=== PATIENT | female | born 1945 | race Caucasian/White ===

== ENCOUNTER 2020-02-17 10:36 | Outpatient (CLI) | payer MEDICARE, SELFPAY | END 2020-02-17 10:37 | disposition home or self-care (01) | LOC: ANHAUDIO 10:38 | PROVIDERS: PCP Family Medicine; Visit Provider Family Medicine | DX: H90.3 Sensorineural hearing loss, bilateral (principal) | CPT/HCPCS: 92557; 92567 ==

== ENCOUNTER 2020-10-28 12:09 | Emergency (ER) | payer MEDICARE, SELFPAY ==
--- NOTE | ~2020-10-28 | XR_ITS ---
EXAMINATION: XR chest 1V portable DATE: 10/28/2020 13:14 INDICATION: Fever. TECHNIQUE: A single frontal view of the chest was obtained. COMPARISON: Chest 2 views 09/15/2016 FINDINGS: There is a diffuse interstitial pattern in the lungs. There are airspace opacities in right lower lung zone. No pleural effusion or pneumothorax. The heart size is normal. IMPRESSION: 1. Diffuse lung disease, worst in right lower lung zone, consistent with pneumonia. Reviewed, dictated and finalized at location A. IFIED MEDICATION AIDE IMPRESSION: 1. Diffuse lung disease, worst in right lower lung zone, consistent with pneumo jazmyn.
[2020-10-28 12:22] VITALS: BP 136/92; PULSE 83; RESP 19; TEMP 37; O2SAT 96
--- NOTE | 2020-10-28 12:44 | ED.GENADULT ---
HPI - General Adult General Chief complaint: Unspecified Stated complaint: fever/chills/ in icu Time Seen by Provider: 10/28/20 12:21 Source: patient, RN notes reviewed and old records reviewed History of Present Illness HPI narrative: 75-year-old female presents to emergency department stating she has not been feeling well for the past week. She reports having an elevated temperature, weakness/fatigue, congested nose for the past week. Patient states she has had this in the past before, when she was diagnosed with the flu. She had taken [place] to help with her symptoms. She also reports her is in the hospital for COVID-19 at this time. Related Data Home Medications Medication Instructions Recorded Confirmed aspirin 81 mg tablet,delayed 81 mg PO DAILY 11/08/19 release calcium carbonate 500 mg (1,250 1 tablet PO DAILY 11/08/19 mg)-vitamin D3 400 unit tablet Allergies Allergy/AdvReac Type Severity Reaction Status Date / Time No Known Allergies Allergy Verified 10/28/20 12:27 Review of Systems Review of Systems: Narrative: CONSTITUTIONAL: Denies fever, chills, or sweats. EYES: Denies visual changes, redness, or discharge. ENT: Denies rhinorrhea, congestion, sore throat, or otalgia. CARDIOVASCULAR: Denies chest pain, palpitations, or edema. RESPIRATORY: Denies cough or dyspnea. GASTROINTESTINAL: Denies abdominal pain, nausea, vomiting, or diarrhea. GENITOURINARY: Denies dysuria or hematuria. SKIN: Denies rash or itching. MUSCULOSKELETAL: Denies back pain, joint pain, or myalgia. NEUROLOGIC: Denies headache, numbness, dizziness, or weakness. PSYCHIATRIC: Denies anxiety or depression. All systems reviewed & are unremarkable except as noted in HPI and below (ROS) [facility] Family History Family History Sibling Family history of obesity Patient's sister is in good health Carcinoma of colon Social History Social History Years smoked: 20 Smoking status: Current some day smoker Tobacco type: cigarettes Second hand tobacco smoke exposure: No Alcohol intake: never Substance use: never Substance use type: does not use Gender identity (if verbalized by the patient): Female Exam Narrative: Exam Narrative: CONSTITUTIONAL: Denies, chills, or sweats. Reports fever. EYES: Denies visual changes, redness, or discharge. ENT: Denies rhinorrhea, sore throat, or otalgia. Reports congestion CARDIOVASCULAR: Denies chest pain, palpitations, or edema. RESPIRATORY: Denies cough or dyspnea. GASTROINTESTINAL: Denies abdominal pain, nausea, vomiting, or diarrhea. GENITOURINARY: Denies dysuria or hematuria. SKIN: Denies rash or itching. MUSCULOSKELETAL: Denies back pain, joint pain, or myalgia. NEUROLOGIC: Denies headache, numbness, dizziness. Reports weakness PSYCHIATRIC: Denies anxiety or depression. Course Reevaluation(s) Reevaluation #1: 1520 -reevaluated patient, no new complaints. Based on labs and chest x-ray, concern for COVID-19. Patient has stable vitals at this time. Additionally there is concern for underlying bacterial pneumonia. Will start doxycycline. Counseled patient to self quarantine for another week. Follow-up with family doctor in 1 to 2 weeks. Return to emergency department if she notices shortness of breath, or worsening of symptoms. Vital Signs Vital signs: Vital Signs Temperature 37.0 C 10/28/20 12:22 Pulse Rate 83 10/28/20 12:22 Respiratory Rate 19 10/28/20 12:22 Blood Pressure 136/92 H 10/28/20 12:22 Pulse Oximetry 96 10/28/20 12:22 Temperature 37.0 C 10/28/20 12:22 Pulse Rate 79 10/28/20 15:50 Respiratory Rate 16 10/28/20 15:50 Blood Pressure 121/76 10/28/20 15:50 Pulse Oximetry 94 10/28/20 15:50 Medical Decision Making Medical Records Medical records reviewed: Yes I reviewed the patient's medical records. Vital
[2020-10-28] MEDS: KETOROLAC 15 MG/ML VIAL (*BKC) IV PUSH (13:02)
[2020-10-28 13:20] VITALS: PULSE 78
[2020-10-28 13:30] VITALS: BP 128/78; PULSE 84; RESP 16; O2SAT 95
[2020-10-28 13:36] LABS: Basophils Percent Auto 0.2 % (0.2-1.2); Eosinophils Absolute Auto 0.1 K/mm3 (0-0.3); Eosinophils Percent Auto 2.6 % (0-4.4); Hematocrit 33.1 % (37.0-47.0); Hemoglobin 10.6 g/dL (12.0-15.0); Immature Granulocyte Absolute 0.03 K/mm3 (0.00-0.031); Immature Granulocyte Percent A 0.6 % (0-0.5); Lymphocytes Absolute Auto 1.03 K/mm3 (0.9-3.2); Lymphocytes Percent Auto 22.1 % (18.3-44.2); Mean Corpuscular Hemoglobin 28.9 pg (26-34); Mean Corpuscular Volume 90.2 fl (80-100); Monocytes Absolute Auto 0.3 K/mm3 (0.1-0.6); Monocytes Percent Auto 6.2 % (2.6-8.5); Neutrophils Absolute Auto 3.2 K/mm3 (1.3-6.7); Neutrophils Percent Auto 68.3 % (45.5-73.1); Platelet Count Result 276 k/mm3 (150-375); Red Blood Count 3.67 M/mm3 (4.2-5.4); Red Cell Distribution Width 13.5 % (11.5-14.5); White Blood Count 4.7 K/mm3 (4.5-10.0)
[2020-10-28 13:52] LABS: Anion Gap 4 mmol/L (8-16); Blood Urea Nitrogen 25 mg/dL (7-17); Calcium 9.2 mg/dL (8.4-10.2); Carbon Dioxide 37 mmol/L (22-30); Chloride 97 mmol/L (98-107); Estimated CRCL calculation 30 ml/min; Estimated Glomerular Filt Rate 48; Glucose 84 mg/dL (65-105); Lactate Dehydrogenase 413 U/L (313-618); Potassium 4.2 mmol/L (3.4-5.0); Sodium 138 mmol/L (137-145)
[2020-10-28 13:52] LABS: Add Urine Microscopic? YES; Appearance Urine Cloudy (Clear); Bacteria Urine Trace /hpf; Bilirubin Urine Negative (Negative); Blood Urine Negative (Negative); Color Urine Yellow (Yellow); Glucose Urine UA Negative (Negative); Ketones Urine Negative (Negative); Leukocyte Esterase Ur 3+ LEU/UL (Negative); Mucus Urine Rare /lpf; Nitrate Urine Negative (Negative); Protein Urine 1+ mg/dL (Negative); Specific Grav Ur 1.021 (1.001-1.035); Squamous Epithelial Cell Urine Many /hpf (Few); Urobilinogen Urine Negative mg/dL (<2.0); WBC Urine >75 /hpf
[2020-10-28 14:30] VITALS: BP 121/71; PULSE 60; RESP 16; O2SAT 96
[2020-10-28] MEDS: DOXYCYCLINE HYCLATE 100 MG TABLET PO (15:44)
[2020-10-28 15:50] VITALS: BP 121/76; PULSE 79; RESP 16; O2SAT 94
[2020-10-28 22:31] LABS: SARS-CoV-2 RNA PCR Positive
[2020-10-30 14:13] LABS: Procalcitonin <0.10 ng/mL (<0.10)
== END 2020-10-28 15:54 | disposition home or self-care (01) ==
PROVIDERS: Emergency Provider Emergency Medicine; PCP Family Medicine
DX: U07.1 COVID-19 (principal); J10.08 Influenza due to other identified influenza virus with other specified pneumonia; J15.9 Unspecified bacterial pneumonia; F17.210 Nicotine dependence, cigarettes, uncomplicated; Z79.82 Long term (current) use of aspirin
CPT/HCPCS: 36415; 71045; 80048; 81001; 82728; 83615; 84145; 84443; 85025; 86140; 87086; 87088; 87635; 87804; 96374; 99284; A9270; C9803; J1885; U0003

== ENCOUNTER → 2021-02-19 11:51 | Outpatient (CLI) | payer MEDICARE, SELFPAY ==
--- NOTE | ~2021-02-19 | XR_ITS ---
EXAMINATION: XR chest 2V DATE: 02/19/2021 12:06 INDICATION: Cough. TECHNIQUE: Frontal and lateral views of the chest were obtained. COMPARISON: Chest single view 10/28/2020, CT abdomen and pelvis 09/16/2013 FINDINGS: A calcified right lung nodule is consistent with old granulomatous disease. There are mild peripheral reticular opacities in the upper lobes and lower lung zones. No pleural effusion or pneumo thorax. The heart size is normal. There is mild chronic anterior wedging of a midthoracic vertebral b jessica. IMPRESSION: 1. Mild peripheral reticular opacities in the upper lobes and lower lung zones, likely mild chronic l broderick disease. Reviewed, dictated and finalized at location A. IMPRESSION: 1. Mild peripheral reticular opacities in the upper lobes and lower lung zones, likely mild chronic lung disease.
== END ==
PROVIDERS: Visit Provider Physician Assistant
DX: R05 Cough (principal); R91.8 Other nonspecific abnormal finding of lung field
CPT/HCPCS: 71046

== ENCOUNTER 2021-02-24 22:23 | Inpatient (IN) | payer MEDICARE, SELFPAY ==
--- NOTE | ~2021-02-24 | CT_ITS ---
EXAMINATION: CTA chest PE abdomen pel EXAM DATE: 02/25/2021 00:09 INDICATION: Abdominal pain with shortness of breath. TECHNIQUE: Spiral CTA of the chest (pulmonary arteries) was performed with 100 cc Omnipaque 350 intr avenous contrast injection. Images were acquired during the pulmonary arterial phase. Coronal maxi mum intensity projection 3D-reconstructions were created by the technologist on dedicated workstation . Axial, coronal and sagittal reformatted images were reviewed. Spiral CT of the abdomen and pelvis was then performed with the same intravenous contrast injection. Axial, coronal and sagittal reform atted images were reviewed. The dose-length product (DLP) for this examination was 590.29 mGy-cm. T he exposure was tailored according to patient size (auto mA exposure control), and iterative reconst ruction (ASIR) was used as additional dose reduction technique. Correlation is made to abdomen pelvis CT 09/16/2013. FINDINGS: CHEST: Pulmonary arteries are well opacified and without intraluminal filling defects. No thoracic aortic dissection. There is mild to moderate emphysema and also mild to moderate peripheral basilar predominant interlobular septal thickening, small regions of honeycombing, probably interstitial talat g disease. There is right lower lobe posteromedial opacity measuring about 2.5 x 5.0 cm, which appear s to be avidly enhancing with central hypodense region. Additionally, this appears to be extending ou t of the lung parenchyma into the chest wall with small amount of osseous erosion suspected at the ri ght 8th rib posteromedially, possibly with pathological fracture. Differential diagnosis includes mal ignancy and invasive infection such as actinomycosis. Clinical correlation, and this could be biopsie d under CT guidance. There are no pleural or pericardial effusions. Tracheobronchial tree is patent . There is no mediastinal, hilar or axillary lymphadenopathy. There is no pneumothorax. Heart n ormal in size. There is moderate coronary arterial calcification, arterial sclerosis. ABDOMEN PELVIS: The liver, spleen, adrenal glands and pancreas are unremarkable. There are gallstone s within an otherwise unremarkable gallbladder. No evidence of obstructive biliary disease. Portal and splenic veins are patent. Kidneys enhance symmetrically. There is no hydronephrosis. Multiple r egions of right renal cortical scarring. There is a 1.8 cm left renal cyst. The uterus is anteverted and morphologically normal. There is a pessary. The bladder is unremarkable. There is no retroperi toneal or pelvic lymphadenopathy. There is moderate scatter moderate to severe ed arteriosclerotic disease. The appendix is not positively visualized. There is no pericecal inflammatory change to suggest appe ndicitis. There is mild to moderate colonic diverticulosis. There is no adjacent inflammatory change to suggest diverticulitis. The stomach and small bowel are unremarkable. There is expected amount o f colonic stool. No free intraperitoneal gas. Aside from the right 8th rib abnormality, no region s of osteoblastic or osteolytic disease. IMPRESSION: 1. Right lower lobe posteromedial pleural based mass invading the chest wall, causing small erosion of the 8th rib and possibly with pathological fracture. Most likely malignancy but actinomycoses or o ther infection not excludable. Clinical correlation, consider biopsy. 2. Mild to moderate emphysema and interstitial lung disease. 3. Colonic diverticulosis. 4. Cholelithiasis Reviewed, dictated and finalized at location A. IMPRESSION: 1. Right lower lobe posteromedial pleural based mass invading the chest wall, causing small erosion of the 8th rib and possibly with pathological fracture. Danyelle
--- NOTE | ~2021-02-24 | XR_ITS ---
XR chest 1V portable DATE: 02/25/2021 18:43 INDICATION: Post right lung biopsy TECHNIQUE: Portable AP chest on 02/25/2021 at 1832 hours COMPARISON: 02/25/2021 portable AP chest at 1644 hours FINDINGS: No pneumothorax is evident following today's earlier CT guided percutaneous right pleural b ased mass biopsy. Normal heart size. No interval pulmonary infiltrate or pleural effusion. Aortic atherosclerotic calcification. 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 IMPRESSION: No evidence of iatrogenic right pneumothorax following CT-guided percutaneous needle biop sy of right pleural mass Reviewed, dictated and finalized at location A. IMPRESSION: No evidence of iatrogenic right pneumothorax following CT-guided pe rcutaneous needle biopsy of right pleural mass
--- NOTE | ~2021-02-24 | XR_ITS ---
EXAMINATION: XR chest 1V portable DATE: 02/25/2021 16:45 INDICATION: Right lung mass status post percutaneous biopsy. TECHNIQUE: A single frontal view of the chest was obtained. COMPARISON: Chest single view at 4:40 PM FINDINGS: There is a mass in right midlung zone. There is a diffuse interstitial pattern in the lungs , consistent with emphysema and chronic lung disease. No pleural effusion or pneumothorax. The heart size is normal. IMPRESSION: 1. Mass in right midlung zone suspicious for primary bronchogenic carcinoma. 2. Emphysema. Reviewed, dictated and finalized at location A.
--- NOTE | ~2021-02-24 | XR_ITS ---
XR chest 1V DATE: 02/25/2021 15:28 INDICATION: Right lung biopsy TECHNIQUE: AP chest on 02/25/2021 at 1524 hours COMPARISON: 02/25/2021 CT biopsy FINDINGS: There is no evidence of right pneumothorax following CT-guided percutaneous needle biopsy o f posteromedial right lower lobe pleural-based mass. Normal heart size. Aortic calcification. No pleural effusion. IMPRESSION: No evidence of iatrogenic pneumothorax post percutaneous CT-guided needle biopsy of right pleural-based mass Reviewed, dictated and finalized at location A.
--- NOTE | ~2021-02-24 | CT_ITS ---
EXAMINATION: CT biopsy lung w/imaging DATE: 02/25/2021 15:30 INDICATION: Right lung lower lobe mass. TECHNIQUE: The procedure including the risks, benefits, and alternatives and possibility of chest tub e placement were discussed with the patient. Risks discussed included infection, approximately 1/20 r isk of symptomatic hemorrhage beyond mild hemoptysis, approximately 1/3 risk of pneumothorax, approxi mately 1/10 risk of pneumothorax severe enough to warrant chest tube placement, and rarely . The patient understood the risks and agreed to proceed. The patient was placed prone. The skin overlyin g the right lung was prepped and draped in sterile fashion. Anesthetic was administered with 1% lido sulema subcutaneously. A 19 gauge outer needle was advanced under CT guidance to the lesion of intere st. A 20 gauge core biopsy needle was then used to obtain 3 core biopsy specimens. The needle was rem da and the entry site was cleaned and dressed. The mA was adjusted according to patient size. Itera tive reconstruction technique was employed. The dose-length product was 143.77 mGy-cm. There were no immediate complications. FINDINGS: CT images demonstrate the outer needle tip adjacent to a 5.0 x 2.4 cm mass in right lung lo wer lobe. IMPRESSION: 1. CT-guided core needle biopsy of a mass in right lung lower lobe. Reviewed, dictated and finalized at location A.
[2021-02-24 22:34] VITALS: BP 105/76; PULSE 114; RESP 20; TEMP 36.3; O2SAT 98
[2021-02-24 22:47] LABS: Basophils Absolute Auto 0.1 K/mm3 (0.0-0.1); Basophils Percent Auto 0.4 % (0.2-1.2); Eosinophils Absolute Auto 0.2 K/mm3 (0-0.3); Eosinophils Percent Auto 0.9 % (0-4.4); Hematocrit 41.1 % (37.0-47.0); Hemoglobin 12.9 g/dL (12.0-15.0); Immature Granulocyte Percent A 0.6 % (0-0.5); Lymphocytes Absolute Auto 2.98 K/mm3 (0.9-3.2); Lymphocytes Percent Auto 18.3 % (18.3-44.2); Mean Corpuscular HGB Conc 31.4 g/dl (32-36); Mean Corpuscular Hemoglobin 28.4 pg (26-34); Mean Corpuscular Volume 90.3 fl (80-100); Mean Platelet Volume 8.9 fl (7.4-10.4); Monocytes Absolute Auto 0.8 K/mm3 (0.1-0.6); Monocytes Percent Auto 5.1 % (2.6-8.5); Neutrophils Absolute Auto 12.1 K/mm3 (1.3-6.7); Neutrophils Percent Auto 74.7 % (45.5-73.1); Platelet Count Result 545 k/mm3 (150-375); Red Blood Count 4.55 M/mm3 (4.2-5.4); Red Cell Distribution Width 14.3 % (11.5-14.5); White Blood Count 16.3 K/mm3 (4.5-10.0)
--- NOTE | 2021-02-24 23:15 | ECG_ITS ---
Measurements Intervals [place] Rate: 75 P: 63 NE: 156 QRS: 18 QRSD: 89 T: 56 QT: 323 QTc: 361 Interpretive Statements SINUS RHYTHM WITH MARKED SINUS ARRHYTHMIA ATRIAL PREMATURE COMPLEX CONSIDER INFERIOR INFARCT, AGE INDETERMINATE BASELINE WANDER- I, II, AVR, AVL, AVF, V4-V6 ABNORMAL ECG Electronically Signed On 02-25-2021 7:01:29 CDT by Edgardo Washington D.O.
[2021-02-24 23:27] LABS: Alanine Aminotransferase 12 U/L (4-35); Albumin Level 4.5 g/dL (3.5-5.1); Alkaline Phosphatase 108 U/L (38-126); Anion Gap 6 mmol/L (8-16); Aspartate Amino Transferase 38 U/L (14-36); Bilirubin,Total 0.1 mg/dL (0.2-1.3); Blood Urea Nitrogen 47 mg/dL (7-17); Calcium 10.2 mg/dL (8.4-10.2); Carbon Dioxide 32 mmol/L (22-30); Chloride 101 mmol/L (98-107); Estimated CRCL calculation 24 ml/min; Estimated Glomerular Filt Rate 36; Glucose 135 mg/dL (65-105); Lipase 222 U/L (23-300); Potassium 4.4 mmol/L (3.4-5.0); Sodium 139 mmol/L (137-145)
[2021-02-24 23:30] LABS: Add Urine Microscopic? YES; Appearance Urine Clear (Clear); Bacteria Urine Trace /hpf; Bilirubin Urine Negative (Negative); Blood Urine Negative (Negative); Color Urine Yellow (Yellow); Glucose Urine UA Negative (Negative); Ketones Urine Negative (Negative); Leukocyte Esterase Ur Trace LEU/UL (Negative); Mucus Urine Rare /lpf; Nitrate Urine Negative (Negative); Protein Urine Negative (Negative); RBC Urine 0-2 /hpf (0-2); Specific Grav Ur 1.023 (1.001-1.035); Squamous Epithelial Cell Urine Many /hpf (Few); Urobilinogen Urine Negative mg/dL (<2.0); WBC Urine 0-3 /hpf
[2021-02-24] MEDS: ONDANSETRON INJ 4 MG/2 ML VIAL IV PUSH (23:45)
[2021-02-24] MEDS: MORPHINE SULFATE (*CRX) 4 MG/ML INJ IV PUSH (23:46)
[2021-02-24] MEDS: SODIUM CHLORIDE 0.9% IV 1,000 ML 999 ML IV CONT (23:46)
--- NOTE | 2021-02-24 23:47 | ED.GENADULT ---
HPI - General Adult General Chief complaint: Abdominal Pain Stated complaint: R Flank Pain,Back Pain Time Seen by Provider: 02/24/21 23:16 History of Present Illness HPI narrative: Patient is a 75-year-old female that presents to the emergency department with chief complaint of abdominal pain. The patient reports that she was seen by her primary care physician after she started having discomfort in her right lower chest/epigastric right upper quadrant area patient reports that the pain radiates from the right upper abdomen/chest to her back she describes it as a burning-like sensation. Patient reports she was seen by her primary care physician's office and was started on a Medrol Dosepak. The patient reports she completed the Medrol Dosepak but continues to have symptoms. Related Data Home Medications Medication Instructions Recorded Confirmed aspirin 81 mg tablet,delayed 81 mg PO DAILY 11/08/19 02/19/21 release calcium carbonate 500 mg (1,250 1 tablet PO DAILY 11/08/19 02/19/21 mg)-vitamin D3 400 unit tablet Allergies Allergy/AdvReac Type Severity Reaction Status Date / Time No Known Allergies Allergy Verified 02/24/21 22:39 Review of Systems Review of Systems: Narrative: A 10 system review of systems was completed on the patient and is negative except for what is stated in the HPI. Nursing and ancillary documentation was reviewed. [facility] Family History Family History Sibling Family history of obesity Patient's sister is in good health Carcinoma of colon Social History Social History Years smoked: 20 Smoking status: Current some day smoker Tobacco type: cigarettes Second hand tobacco smoke exposure: No Alcohol intake: never Substance use: never Substance use type: does not use Gender identity (if verbalized by the patient): Female Sexual Orientation (if Verbalized by the Patient): Straight or Heterosexual Exam Narrative: Exam Narrative: GENERAL: Well-appearing, well-nourished, and in no acute distress. HEAD: Normocephalic, atraumatic. EYES: PERRLA and EOMI. ENT: Nares clear, no rhinorrhea or epistaxis. Mucous membranes moist. NECK: Supple. CHEST: Clear to auscultation. No respiratory distress. HEART: Regular rate and rhythm. No murmur heard. Normal peripheral pulses. ABDOMEN: Soft, nontender, nondistended, normal active bowel sounds. EXTREMITIES: Normal range of motion. No edema. SKIN: Warm, dry, no rash. NEURO: No focal deficits. Alert and oriented x3. PSYCH: Normal mood and affect. Course Vital Signs Vital signs: Vital Signs Temperature 36.3 C L 02/24/21 22:34 Pulse Rate 114 H 02/24/21 22:34 Respiratory Rate 20 02/24/21 22:34 Blood Pressure 105/76 02/24/21 22:34 Pulse Oximetry 98 02/24/21 22:34 Temperature 36.3 C L 02/24/21 22:34 Pulse Rate 114 H 02/24/21 22:34 Respiratory Rate 20 02/24/21 22:34 Blood Pressure 105/76 02/24/21 22:34 Pulse Oximetry 98 02/24/21 22:34 Medical Decision Making Vital Signs Vital Signs: Vital Signs Temperature 36.3 C L 02/24/21 22:34 Pulse Rate 114 H 02/24/21 22:34 Respiratory Rate 20 02/24/21 22:34 Blood Pressure 105/76 02/24/21 22:34 Pulse Oximetry 98 02/24/21 22:34 Temperature 36.3 C L 02/24/21 22:34 Pulse Rate 114 H 02/24/21 22:34 Respiratory Rate 20 02/24/21 22:34 Blood Pressure 105/76 02/24/21 22:34 Pulse Oximetry 98 02/24/21 22:34 Lab Data Result diagrams: 02/24/21 22:40 02/24/21 22:40 Labs: Lab Results 02/24/21 02/24/21 02/24/21 Range/Units 22:40 22:40 22:48 WBC 16.3 H (4.5-10.0) K/mm3 RBC 4.55 (4.2-5.4) M/mm3 Hgb 12.9 (12.0-15.0) g/dL Hct 41.1 (37.0-47.0) % MCV 90.3 (80-100) fl MCH 28.4 (26-34) pg MCHC 31.4 L (32-36) g/dl RDW 14.3 (11.5-14.5) % Plt
[2021-02-25] VITALS (15 sets, daily range): BP systolic 111–158; BP diastolic 46–96; PULSE 52–100; RESP 16–24; TEMP 36.2–36.6; O2SAT 86–100; BMI 25.2
[2021-02-25 01:19] LABS: Lactic Acid Reflex 0.6 mmol/L (0.7-2.1)
[2021-02-25 01:33] LABS: Troponin I < 0.012 ng/mL (0.000-0.034)
[2021-02-25] MEDS: MORPHINE SULFATE (*CRX) 4 MG/ML INJ IV PUSH ×3 (01:56→16:02)
--- NOTE | 2021-02-25 02:31 | ADMGEN ---
This patient, Frieda Perkins, was admitted to [facility] Surg Room 330-01. Patient/family oriented to hospital policies and general routines including ID bracelet, bed and alarms, visiting hours, pain management, procedures, bathroom and other care routines, personal items, smoking policy, room service/diet, and visiting hours. Information on how to activate the Rapid Response Team has been discussed. Patient/Family are encouraged to report perceived risks to care and to ask questions if they do not understand what they are told or what they should do.
[2021-02-25] MEDS: SODIUM CHLORIDE 0.9% IV 1,000 ML 125 ML IV CONT (03:12)
[2021-02-25] MEDS: ONDANSETRON INJ 4 MG/2 ML VIAL IV PUSH ×2 (04:03→15:58)
--- NOTE | 2021-02-25 04:25 | PM.IMHP ---
H&P: HPI History of Present Illness Date/Time: 02/25/21 04:25 Chief Complaint: chest wall pain+ Narrative: This is a 75 year old female with known HTN, GERD, hyperlipidemia, and history of bladder cancer who is known to smoke 1/3 ppd for the past 20 years and presented to the hospital with a complaint of right chest and right flank pain for the past three weeks that has only been worsening. She has also had a chronic nonproductive cough which she attributes to her smoking. The patient denies any recent weight loss, night sweats, fevers, or hemoptysis. The patient was seen about a week ago for her burning right-sided chest pain and was prescribed a Medrol Dosepak. Last night she decided to come to the hospital as her pain was worsening and not improving. Routine labs revealed a WBC of 16,[address] Chest/Abd/Pelvis revealed a RLL mass. The patient was admitted to the hospital for evaluation of her lung mass. She was treated empircally with antibiotics in the ER tonight. No other complaints. Review of Systems Review of Systems: All systems reviewed & are unremarkable except as noted in HPI and below PMFSH Past Medical History Medical History Bladder cancer Chronic hypertension GERD (gastroesophageal reflux disease) Hyperlipidemia Family History Family History Sibling Family history of obesity Patient's sister is in good health Carcinoma of colon Social History Social History Years smoked: 20 Smoking status: Current every day smoker Tobacco type: cigarettes Second hand tobacco smoke exposure: No Alcohol intake: never Substance use: never Substance use type: does not use Gender identity (if verbalized by the patient): Female Sexual Orientation (if Verbalized by the Patient): Straight or Heterosexual Spiritual care concerns: No Meds Home Medications and Allergies Home Medications Medication Instructions Recorded Confirmed Type aspirin 81 mg tablet,delayed 81 mg PO DAILY 11/08/19 02/25/21 History release calcium carbonate 500 mg (1,250 1 tablet PO DAILY 11/08/19 02/25/21 History mg)-vitamin D3 400 unit tablet amlodipine 5 mg tablet 5 mg PO DAILY #90 tablet 01/29/21 02/25/21 Rx atorvastatin 10 mg tablet 10 mg PO DAILY #90 tablet 01/29/21 02/25/21 Rx hydrochlorothiazide 25 mg tablet 25 mg PO DAILY #90 tablet 01/29/21 02/25/21 Rx lisinopril 40 mg tablet 40 mg PO DAILY #90 tablet 01/29/21 02/25/21 Rx omeprazole 20 mg capsule,delayed 20 mg PO DAILY #90 cap 01/29/21 02/25/21 Rx release meloxicam 7.5 mg tablet 7.5 mg PO DAILY #30 tablet 02/22/21 02/25/21 Rx acetaminophen [Mapap 650 mg PO Q4H PRN #90 tablet 02/27/21 Rx (acetaminophen)] amoxicillin-pot clavulanate 1 tablet PO Q12H #14 tablet 02/27/21 Rx [Augmentin] Allergies Allergy/AdvReac Type Severity Reaction Status Date / Time No Known Allergies Allergy Verified 02/24/21 22:39 Vital Signs Vital Signs - 24 hr 02/24/21 22:34 02/25/21 00:15 02/25/21 00:16 Temperature 36.3 C L 36.6 C Pulse Rate 114 H 71 Respiratory Rate 20 18 Blood Pressure 105/76 149/69 H Pulse Oximetry 98 98 02/25/21 01:35 02/25/21 02:35 Temperature 36.6 C 36.4 C Pulse Rate 71 70 Respiratory Rate 16 20 Blood Pressure 134/73 154/61 H Pulse Oximetry 98 94 Exam Const: General: cooperative, no acute distress, alert and awake Nutritional Appearance: well nourished Orientation/consciousness: patient oriented x3 HENMT: Head: normal to inspection General nose exam: Normal external nose present Face and sinus: normal facial exam Mouth: Yes Normal oral and palatal mucosa present and Yes oropharynx normal Eyes: Pupils: Equal, round and reactive pupils present EOM: EOMs intact bilaterally Neck: Neck: supple and no JVD Thyroid: thyroid normal Lymphatic: lymphadenopathy not noted
[2021-02-25] MEDS: SODIUM CHLORIDE 0.9% IV 1,000 ML 100 ML IV CONT (05:13)
[2021-02-25] MEDS: PANTOPRAZOLE SOD SESQUIHYDRATE 20 MG TAB PO (08:34)
[2021-02-25] MEDS: ATORVASTATIN 10 MG TABLET PO (08:34)
[2021-02-25] MEDS: amLODIPine BESYLATE 5 MG TABLET PO (08:34)
[2021-02-25 12:48] LABS: Hematocrit 34.5 % (37.0-47.0); Hemoglobin 10.8 g/dL (12.0-15.0); Mean Corpuscular HGB Conc 31.3 g/dl (32-36); Mean Corpuscular Hemoglobin 28.6 pg (26-34); Mean Corpuscular Volume 91.3 fl (80-100); Platelet Count Result 446 k/mm3 (150-375); Red Blood Count 3.78 M/mm3 (4.2-5.4); Red Cell Distribution Width 14.4 % (11.5-14.5); White Blood Count 14.2 K/mm3 (4.5-10.0)
[2021-02-25 12:54] LABS: Anion Gap 3 mmol/L (8-16); Blood Urea Nitrogen 32 mg/dL (7-17); Calcium 8.8 mg/dL (8.4-10.2); Carbon Dioxide 33 mmol/L (22-30); Chloride 105 mmol/L (98-107); Estimated CRCL calculation 30 ml/min; Estimated Glomerular Filt Rate 48; Glucose 83 mg/dL (65-105); INR 0.9; Potassium 4.6 mmol/L (3.4-5.0); Prothrombin Time 12.7 Seconds (11.1-14.7); Sodium 141 mmol/L (137-145)
[2021-02-25 12:55] LABS: Partial Thromboplastin Time 28.6 SECONDS (22.3-36.8)
--- NOTE | 2021-02-25 14:09 | ECG_ITS ---
Measurements Intervals [place] Rate: 67 P: 58 RI: 168 QRS: 11 QRSD: 102 T: 39 QT: 389 QTc: 412 Interpretive Statements SINUS RHYTHM WITH MARKED SINUS ARRHYTHMIA BORDERLINE ECG Electronically Signed On 02-25-2021 17:15:42 CDT by Edgardo Washington D.O.
--- NOTE | 2021-02-25 14:10 | PM.IMPN ---
Progress Note: A&P Assessment and Plan (1) Acute chest wall pain: Code(s): R07.89 - Other chest pain Status: Acute Assessment and Plan: Pleuritic in nature. Ongoing for approximately 3 weeks. This is likely due to right lower lobe mass invading the chest wall and also likely pathologic fracture of 8th rib. Pain is well controlled at this time. Workup for lung mass as described above Analgesics available as needed for pain Supportive care including ice and pillow splinting (2) Lung mass: Code(s): R91.8 - Other nonspecific abnormal finding of lung field Status: Acute Assessment and Plan: CTA chest/abdomen/pelvis demonstrates right lower lobe posteromedial pleural-based mass invading the chest wall causing small erosion of the 8th rib. Most likely malignancy but actinomycosis or other infection not excludable per radiologist. Consultation to pulmonology and oncology with input appreciated. Proceed with CT guided lung biopsy today. NPO for procedure. I will discontinue IV antibiotics as pneumonia seems unlikely. Appreciate further pulmonology input and will await results of biopsy. (3) Thrombocytosis: Code(s): D47.3 - Essential (hemorrhagic) thrombocythemia Status: Acute Assessment and Plan: Likely reactive with gradual decline. Monitor CBC daily (4) Leukocytosis: Qualifiers: Leukocytosis type: unspecified Qualified Code(s): D72.829 - Elevated white blood cell count, unspecified Code(s): D72.829 - Elevated white blood cell count, unspecified Status: Acute Assessment and Plan: Likely secondary to recent steroid use as the patient has been on a medrol dose pack for pleuritic chest pain per PCP. WBC trending down Monitor CBC daily (5) Acute on chronic renal failure: Qualifiers: Acute renal failure type: unspecified Chronic kidney disease stage: stage 3 (moderate) Chronic kidney disease stage 3 subtype: unspecified whether 3a or 3b Qualified Code(s): N17.9 - Acute kidney failure, unspecified; N18.30 - Chronic kidney disease, stage 3 unspecified Code(s): N17.9 - Acute kidney failure, unspecified; N18.9 - Chronic kidney disease, unspecified Status: Acute Assessment and Plan: Baseline creatinine appears to be around 1.1. Creatinine at time of presentation was 1.4. Suspect prerenal etiology given improvement following IV fluid rehydration. Continue gentle IV fluids while NPO. Discontinuing tolerating oral intake Monitor renal function closely and renally dose medications. (6) Chronic hypertension: Code(s): I10 - Essential (primary) hypertension Status: Chronic Assessment and Plan: And has been generally well controlled. A couple of readings are elevated above target, however her antihypertensive has been on hold. Last BP 148/74. Resume HCTZ and lisinopril Monitor blood pressure trends closely (7) Tobacco dependence: Code(s): F17.200 - Nicotine dependence, unspecified, uncomplicated Status: Chronic Assessment and Plan: She has continued to reduce her daily smoking and is now smoking about 1/3 pack per day. She has declined the need for nicotine patch. I counseled her on smoking cessation and she verbalized understanding. Smoking cessation is imperative. (8) Substernal chest pain: Code(s): R07.2 - Precordial pain Status: Acute Assessment and Plan: She had a brief episode of substernal chest pain that she described as tightness/squeezing sensation with associated nausea and lightheadedness. She reports history of similar episodes with negative workup in the past. Please see subjective for further details. Troponin on presentation was negative. Stat EKG reviewed with no ST changes Check stat troponin Initiate press tender orthostatics Will administer antacid medication to ensure symptoms are not
[2021-02-25 15:09] LABS: Troponin I < 0.012 ng/mL (0.000-0.034)
[2021-02-25] MEDS: FAMOTIDINE 20 MG/2 ML VIAL IV PUSH (17:26)
--- NOTE | 2021-02-25 17:27 | PDONCCN ---
[facility] - Date of Consult Date/Time: 02/25/21 17:27 Requesting Physician: Mili Moy PA-C Primary Care Provider: Dennis Bowling MD - Consult Narrative Reason for consult: Lung mass. Narrative: Frieda Perkins is a 75 year old female with history of bladder cancer status post resection 10 years ago was seen by Dr. Morataya in the past. Patient also has a history of smoking 1/3 per per day for 20 years duration came into the hospital with right sided chest wall pain for last 3 weeks duration. She was also having some cough without any hemoptysis. Denies any weight loss. Denies any other bone pain. Denies any headache. CT scan chest abdomen pelvis was performed that showed right lower lobe pleural base mass invading the chest wall and erosion of the 8th rib with pathological fracture. There was no other evidence of malignancy. CT-guided biopsy of right lower lobe lung mass was performed. Mass was 5 x 2.4 cm. Review of Systems - Review of Systems All systems reviewed & are unremarkable except as noted in [facility] and [facility] Medical History: Medical History (Last Updated 02/25/21 @ 06:01 by Rocco Valdivia MD) Bladder cancer Chronic hypertension GERD (gastroesophageal reflux disease) Hyperlipidemia Family History: Family History (Last Reviewed 02/25/21 @ 06:01 by Rocco Valdivia MD) Sibling Family history of obesity Patient's sister is in good health Carcinoma of colon - Social History Social History: Social History (Last Reviewed 02/25/21 @ 06:01 by Rocco Valdivia MD) Gender Identity: Gender identity (if verbalized by the patient): Female Alcohol Use: Alcohol intake: never Substance Use: Substance use: never Substance use type: does not use Others: Spiritual care concerns: No Smoking Status: Smoking status: Current every day smoker Tobacco type: cigarettes Second hand tobacco smoke exposure: No Smoking Pack-years: Smoking cigarettes per day: 7 Years smoked: 20 Smoking pack-years: 7.00 Meds Home Medications Medication Instructions Recorded Confirmed Type aspirin 81 mg tablet,delayed 81 mg PO DAILY 11/08/19 02/25/21 History release calcium carbonate 500 mg (1,250 1 tablet PO DAILY 11/08/19 02/25/21 History mg)-vitamin D3 400 unit tablet amlodipine 5 mg tablet 5 mg PO DAILY #90 tablet 01/29/21 02/25/21 Rx atorvastatin 10 mg tablet 10 mg PO DAILY #90 tablet 01/29/21 02/25/21 Rx hydrochlorothiazide 25 mg tablet 25 mg PO DAILY #90 tablet 01/29/21 02/25/21 Rx lisinopril 40 mg tablet 40 mg PO DAILY #90 tablet 01/29/21 02/25/21 Rx omeprazole 20 mg capsule,delayed 20 mg PO DAILY #90 cap 01/29/21 02/25/21 Rx release meloxicam 7.5 mg tablet 7.5 mg PO DAILY #30 tablet 02/22/21 02/25/21 Rx Allergies Allergy/AdvReac Type Severity Reaction Status Date / Time No Known Allergies Allergy Verified 02/24/21 22:39 Results - Labs CBC & Chem 7: 02/25/21 11:50 02/25/21 11:50 Labs: Short CBC 02/24/21 02/25/21 Range/Units 22:40 11:50 WBC 16.3 H 14.2 H (4.5-10.0) K/mm3 Hgb 12.9 10.8 L (12.0-15.0) g/dL Hct 41.1 34.5 L (37.0-47.0) % Plt Count 545 H D 446 H (150-375) k/mm3 BMP 02/24/21 02/25/21 22:40 11:50 Sodium 139 141 Potassium 4.4 4.6 Chloride 101 105 Carbon Dioxide 32 H 33 H BUN 47 H D 32 H D Creatinine 1.40 H 1.10 H Glucose 135 H 83 Calcium 10.2 8.8 Cardiac Enzymes 02/25/21 02/25/21 Range/Units 00:54 14:36 Troponin I < 0.012 < 0.012 (0.000-0.034) ng/mL Liver Function 02/24/21 Range/Units 22:40 Total Bilirubin 0.1 L (0.2-1.3) mg/dL AST 38 H (14-36) U/L ALT 12 (4-35) U/L Alkaline Phosphatase 108 (38-126) U/L Albumin 4.5 (3.5-5.1) g/dL Urine 02/24/21 Range/Units 22:48 Urine Color Yellow (Yellow) Urine Appearance Clear (Clear) Urine pH 5.0 (5.0-9.0) Ur Specific [place] 1.023 (1.001-1.035) U
[2021-02-25] MEDS: ALBUTEROL SULFATE NEB 2.5 MG/3 ML INH 1.25 MG INHALATION (18:58)
[2021-02-26] VITALS: PULSE 63
[2021-02-26 04:00] VITALS: PULSE 91
[2021-02-26] MEDS: ONDANSETRON INJ 4 MG/2 ML VIAL IV PUSH ×2 (04:05→09:55)
[2021-02-26 06:00] VITALS: BP 154/51; PULSE 65; RESP 20; TEMP 37; O2SAT 93
[2021-02-26 06:32] LABS: Basophils Absolute Auto 0.1 K/mm3 (0.0-0.1); Basophils Percent Auto 0.4 % (0.2-1.2); Eosinophils Absolute Auto 0.3 K/mm3 (0-0.3); Hematocrit 33.5 % (37.0-47.0); Hemoglobin 10.6 g/dL (12.0-15.0); Immature Granulocyte Absolute 0.09 K/mm3 (0.00-0.031); Immature Granulocyte Percent A 0.6 % (0-0.5); Lymphocytes Absolute Auto 1.29 K/mm3 (0.9-3.2); Lymphocytes Percent Auto 8.8 % (18.3-44.2); Mean Corpuscular HGB Conc 31.6 g/dl (32-36); Mean Corpuscular Hemoglobin 28.2 pg (26-34); Mean Corpuscular Volume 89.1 fl (80-100); Mean Platelet Volume 8.8 fl (7.4-10.4); Monocytes Absolute Auto 0.7 K/mm3 (0.1-0.6); Monocytes Percent Auto 4.5 % (2.6-8.5); Neutrophils Absolute Auto 12.2 K/mm3 (1.3-6.7); Neutrophils Percent Auto 83.7 % (45.5-73.1); Platelet Count Result 380 k/mm3 (150-375); Red Blood Count 3.76 M/mm3 (4.2-5.4); White Blood Count 14.6 K/mm3 (4.5-10.0)
[2021-02-26 06:44] LABS: Anion Gap 2 mmol/L (8-16); Blood Urea Nitrogen 22 mg/dL (7-17); Calcium 8.8 mg/dL (8.4-10.2); Carbon Dioxide 31 mmol/L (22-30); Chloride 103 mmol/L (98-107); Estimated CRCL calculation 41 ml/min; Estimated Glomerular Filt Rate > 60; Glucose 103 mg/dL (65-105); Potassium 4.2 mmol/L (3.4-5.0); Sodium 136 mmol/L (137-145)
[2021-02-26 08:00] VITALS: PULSE 98; RESP 20; O2SAT 93
[2021-02-26] MEDS: PANTOPRAZOLE SOD SESQUIHYDRATE 20 MG TAB PO (09:56)
[2021-02-26] MEDS: amLODIPine BESYLATE 5 MG TABLET PO (09:56)
[2021-02-26] MEDS: hydroCHLOROthiazide 25 MG TABLET PO (09:56)
[2021-02-26] MEDS: ATORVASTATIN 10 MG TABLET PO (09:56)
[2021-02-26] MEDS: lisinopriL 20 MG TABLET 40 MG PO (09:56)
--- NOTE | 2021-02-26 12:39 | PM.IMPN ---
Progress Note: A&P Assessment and Plan (1) Lung mass: Code(s): R91.8 - Other nonspecific abnormal finding of lung field Status: Acute Assessment and Plan: CTA chest/abdomen/pelvis demonstrates right lower lobe posteromedial pleural-based mass invading the chest wall causing small erosion of the 8th rib. Most likely malignancy but actinomycosis or other infection not excludable per radiologist. Underwent CT-guided lung biopsy on 02/25 and biopsy showed 5 x 2.4 cm right lower lobe mass.. Consultation to pulmonology and oncology with input appreciated. Pathology reports pending Sputum culture is pending. Preliminary blood cultures with no growth to date. IV antibiotics discontinued on 02/25/2021 as pneumonia seems unlikely given lack of symptoms to suggest infection (2) Acute chest wall pain: Code(s): R07.89 - Other chest pain Status: Acute Assessment and Plan: Pleuritic in nature. Ongoing for approximately 3 weeks. This is likely due to right lower lobe mass invading the chest wall and also likely pathologic fracture of 8th rib. Pain is well controlled at this time. Workup for lung mass as described above Analgesics available as needed for pain. Discontinue morphine due to nausea. Supportive care including ice and pillow splinting (3) Thrombocytosis: Code(s): D47.3 - Essential (hemorrhagic) thrombocythemia Status: Acute Assessment and Plan: Likely reactive with gradual decline. Monitor CBC daily (4) Leukocytosis: Qualifiers: Leukocytosis type: unspecified Qualified Code(s): D72.829 - Elevated white blood cell count, unspecified Code(s): D72.829 - Elevated white blood cell count, unspecified Status: Acute Assessment and Plan: Likely secondary to recent steroid use as the patient has been on a medrol dose pack for pleuritic chest pain per PCP and also reactive secondary to inflammation and possible malignancy Monitor CBC daily (5) Acute on chronic renal failure: Qualifiers: Acute renal failure type: unspecified Chronic kidney disease stage: stage 3 (moderate) Chronic kidney disease stage 3 subtype: unspecified whether 3a or 3b Qualified Code(s): N17.9 - Acute kidney failure, unspecified; N18.30 - Chronic kidney disease, stage 3 unspecified Code(s): N17.9 - Acute kidney failure, unspecified; N18.9 - Chronic kidney disease, unspecified Status: Acute Assessment and Plan: Baseline creatinine appears to be around 1.1. Creatinine at time of presentation was 1.4. Suspect prerenal etiology given improvement following IV fluid rehydration. Renal function has returned to baseline Monitor renal function closely and renally dose medications. (6) Chronic hypertension: Code(s): I10 - Essential (primary) hypertension Status: Chronic Assessment and Plan: BP reviewed and has been generally well controlled for her age. Last BP 154/51. Continue HCTZ and lisinopril Monitor blood pressure trends closely (7) Tobacco dependence: Code(s): F17.200 - Nicotine dependence, unspecified, uncomplicated Status: Chronic Assessment and Plan: She has continued to reduce her daily smoking and is now smoking about 1/3 pack per day. She has declined the need for nicotine patch. I counseled her on smoking cessation and she verbalized understanding. Smoking cessation is imperative. (8) Substernal chest pain: Code(s): R07.2 - Precordial pain Status: Acute Assessment and Plan: Resolved. She had a brief episode of substernal chest pain that she described as tightness/squeezing sensation with associated nausea and lightheadedness on 02/25/2021. She reports history of similar episodes with negative workup in the past. Troponin negative at presentation and again negative on repeat at onset of chest pain. Stat EKG reviewed with no ST changes. Not o
[2021-02-26] MEDS: ACETAMINOPHEN 325 MG TABLET 650 MG PO ×2 (13:21→20:39)
[2021-02-26 14:00] VITALS: BP 125/70; PULSE 86; RESP 18; TEMP 36.7; O2SAT 91
[2021-02-26 21:45] VITALS: BP 147/42; PULSE 60; RESP 18; TEMP 36.8; O2SAT 100
[2021-02-27 05:44] VITALS: BP 124/53; PULSE 77; RESP 18; TEMP 36.7; O2SAT 94
[2021-02-27] MEDS: HYDROcodone/acetaminophen (*CRX) 5-325 MG TABLET 1 TAB PO (06:23)
[2021-02-27 06:32] LABS: Hematocrit 33.5 % (37.0-47.0); Hemoglobin 10.6 g/dL (12.0-15.0); Mean Corpuscular HGB Conc 31.6 g/dl (32-36); Mean Corpuscular Volume 88.6 fl (80-100); Mean Platelet Volume 8.9 fl (7.4-10.4); Platelet Count Result 391 k/mm3 (150-375); Red Blood Count 3.78 M/mm3 (4.2-5.4); Red Cell Distribution Width 13.8 % (11.5-14.5); White Blood Count 12.9 K/mm3 (4.5-10.0)
[2021-02-27 06:45] LABS: Anion Gap 1 mmol/L (8-16); Blood Urea Nitrogen 23 mg/dL (7-17); Calcium 8.9 mg/dL (8.4-10.2); Carbon Dioxide 35 mmol/L (22-30); Chloride 102 mmol/L (98-107); Estimated CRCL calculation 36 ml/min; Estimated Glomerular Filt Rate > 60; Glucose 129 mg/dL (65-105); Sodium 138 mmol/L (137-145)
[2021-02-27 08:00] VITALS: PULSE 77; RESP 18; O2SAT 94
[2021-02-27] MEDS: amLODIPine BESYLATE 5 MG TABLET PO (09:45)
[2021-02-27] MEDS: ATORVASTATIN 10 MG TABLET PO (09:45)
[2021-02-27] MEDS: lisinopriL 20 MG TABLET 40 MG PO (09:45)
[2021-02-27] MEDS: hydroCHLOROthiazide 25 MG TABLET PO (09:45)
[2021-02-27] MEDS: PANTOPRAZOLE SOD SESQUIHYDRATE 20 MG TAB PO (09:45)
--- NOTE | 2021-02-27 12:18 | PM.DS ---
DS: Admitting Diagnosis Admitting Diagnosis Admitting Diagnosis: Acute chest wall pain DS: Discharge Diagnosis Discharge Diagnosis (1) Lung mass: Code(s): R91.8 - Other nonspecific abnormal finding of lung field Status: Acute Assessment and Plan: CTA chest/abdomen/pelvis demonstrated right lower lobe posteromedial pleural-based mass invading the chest wall causing small erosion of the 8th rib. Most likely malignancy but actinomycosis or other infection not excludable per radiologist. Underwent CT-guided lung biopsy on 02/25 and biopsy showed 5 x 2.4 cm right lower lobe mass with pathology pending. Discussed these findings with molder wax ball Dr. Hills. He reviewed the imaging and felt the mass looked like a possible pneumonia. She was started on a 7 day course of p.o. Augmentin. Sputum culture showed growth of normal oropharyngeal alejandro. She was seen in consultation by Oncology for suspected malignancy. She was informed that she would be contacted to schedule an appointment to review results. She will follow-up with oncology based on pathology results. I will be in contact with her PCP office on 03/01/2021 to inform of lung biopsy. She will need to follow up with pulmonology in 1 month and obtain a repeat chest CT for further monitoring. (2) Acute chest wall pain: Code(s): R07.89 - Other chest pain Status: Acute Assessment and Plan: Pleuritic in nature. Ongoing for approximately 3 weeks. This is likely due to right lower lobe mass invading the chest wall and also likely pathologic fracture of 8th rib. Analgesics provided. Continue acetaminophen for pain. Supportive care including ice and pillow splinting (3) Thrombocytosis: Code(s): D47.3 - Essential (hemorrhagic) thrombocythemia Status: Acute Assessment and Plan: Likely reactive secondary to lung mass; infection vs. malignancy. Improved throughout admission. Follow-up PCP for further monitoring. (4) Leukocytosis: Qualifiers: Leukocytosis type: unspecified Qualified Code(s): D72.829 - Elevated white blood cell count, unspecified Code(s): D72.829 - Elevated white blood cell count, unspecified Status: Acute Assessment and Plan: Likely secondary to recent steroid use as the patient has been on a medrol dose pack for pleuritic chest pain per PCP. Also likely reactive secondary to inflammation and malignancy vs. infection (5) Acute on chronic renal failure: Qualifiers: Acute renal failure type: unspecified Chronic kidney disease stage: stage 3 (moderate) Chronic kidney disease stage 3 subtype: unspecified whether 3a or 3b Qualified Code(s): N17.9 - Acute kidney failure, unspecified; N18.30 - Chronic kidney disease, stage 3 unspecified Code(s): N17.9 - Acute kidney failure, unspecified; N18.9 - Chronic kidney disease, unspecified Status: Acute Assessment and Plan: Baseline creatinine appears to be around 1.1. Creatinine at time of presentation was 1.4. Suspect prerenal etiology given improvement following IV fluid rehydration. Renal function returned to baseline (6) Chronic hypertension: Code(s): I10 - Essential (primary) hypertension Status: Chronic Assessment and Plan: BP reviewed and was generally well controlled for her age. Continue HCTZ and lisinopril (7) Tobacco dependence: Code(s): F17.200 - Nicotine dependence, unspecified, uncomplicated Status: Chronic Assessment and Plan: She has continued to reduce her daily smoking and is now smoking about 1/3 pack per day. She has declined the need for nicotine patch. I counseled her on smoking cessation and she verbalized understanding. Smoking cessation is imperative. (8) Substernal chest pain: Code(s): R07.2 - Precordial pain Status: Acute Assessment and Plan: Resolved. She had a brief episode of substernal ches
[2021-02-27] MEDS: ACETAMINOPHEN 325 MG TABLET 650 MG PO (13:22)
--- NOTE | 2021-03-03 09:50 | PC.NURSE ---
Spoke with Dr. Bowling's office regarding faxing report of lung biopsy. Stated understanding and will be looking for fax. Dr. Bowling to follow up with patient.
--- NOTE | 2021-03-11 13:19 | PM.PNPUL ---
Subjective Date/time seen: 03/11/21 13:19 Interval history: I did not see patient Objective Data Meds/Results Radiology Results: ITS Impressions Chest/Abdomen/Pelvis CTA 02/25/21 07:00 IMPRESSION: 1. Right lower lobe posteromedial pleural based mass invading the chest wall, causing small erosion of the 8th rib and possibly with pathological fracture. Most likely malignancy but actinomycoses or other infection not excludable. Clinical correlation, consider biopsy. 2. Mild to moderate emphysema and interstitial lung disease. 3. Colonic diverticulosis. 4. Cholelithiasis Lung Biopsy CT 02/25/21 15:38 IMPRESSION: 1. CT-guided core needle biopsy of a mass in right lung lower lobe. 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 Chest X-Ray 02/25/21 18:46 IMPRESSION: No evidence of iatrogenic right pneumothorax following CT-guided percutaneous needle biopsy of right pleural mass
== END 2021-02-27 13:25 | disposition home or self-care (01) | DRG 181 ==
LOC: ANHED 02-25 00:53 → ANH3MEDSUR 02-25 01:31
PROVIDERS: Physician Assistant; Admitting Provider Family Medicine; Emergency Provider Emergency Medicine; PCP Family Medicine; Visit Provider Internal Medicine
DX: C34.31 Malignant neoplasm of lower lobe, right bronchus or lung (principal); N17.9 Acute kidney failure, unspecified; M84.48XA Pathological fracture, other site, initial encounter for fracture; D47.3 Essential (hemorrhagic) thrombocythemia; D72.829 Elevated white blood cell count, unspecified; I12.9 Hypertensive chronic kidney disease with stage 1 through stage 4 chronic kidney disease, or unspecified chronic kidney disease; N18.30 Chronic kidney disease, stage 3 unspecified; K21.9 Gastro-esophageal reflux disease without esophagitis; E78.5 Hyperlipidemia, unspecified; F17.200 Nicotine dependence, unspecified, uncomplicated; Z85.51 Personal history of malignant neoplasm of bladder
CPT/HCPCS: 32408; 36415; 71045; 71275; 74177; 80048; 80053; 81001; 81210; 81235; 81275; 81276; 83605; 83690; 84484; 85025; 85027; 85610; 85730; 87040; 87070; 87205; 88271; 88274; 88305; 88342; 88360; 88381; 93005; 94640; 96361; 96365; 96367; 96375; 96376; 99285; A9270; G0378; J0456; J0696; J2270; J2405; J7030; Q9967

== ENCOUNTER 2021-03-16 13:36 | Outpatient (CLI) | payer MEDICARE, SELFPAY ==
--- NOTE | ~2021-03-16 | CT_ITS ---
EXAMINATION: CT brain w con DATE: 03/16/2021 15:28 INDICATION: Lung cancer. TECHNIQUE: Computed tomography (CT) of the head was performed with 100 mL Omnipaque 350 intravenous c ontrast. The mA was adjusted according to patient size. Iterative reconstruction technique was employ ed. The dose-length product was 605.33 mGy-cm. COMPARISON: Head CT 02/21/2013, brain MRI 03/25/2016 FINDINGS: There are scattered areas of low attenuation in the cerebral white matter. There is no intr acranial hemorrhage or acute infarct. Overlying the posterior left frontal lobe, there is a 12 x 6 mm calcified extra-axial mass. The ventricles are normal in size. There is mild mucosal thickening in t he paranasal sinuses. The orbits are normal. There are small bilateral mastoid effusions. IMPRESSION: 1. No evidence of metastatic disease. 2. Stable 12 mm extra-axial mass overlying posterior left frontal lobe, consistent with a meningioma. 3. Mild nonspecific cerebral white matter disease, which likely represents chronic small vessel ische danita disease. Reviewed, dictated and finalized at location A. IMPRESSION: 1. No evidence of metastatic disease. 2. Stable 12 mm extra-axial mass overlying posterior left frontal lobe, consist ent with a meningioma. 3. 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
--- NOTE | ~2021-03-16 | PE_ITS ---
EXAMINATION: PET skull to mid thigh DATE: 03/16/2021 15:16 INDICATION: Primary malignant neoplasm of right lower lobe of lung. TECHNIQUE: Blood glucose level was 95 mg/dL. 10.442 mCi of 18-fluorodeoxyglucose (18-FDG) was adminis tered i.v. Low dose computed tomography (CT) images were acquired from the base of the brain to the p roximal thighs for attenuation correction and anatomic localization. Automated exposure control was e mployed. Dose-length product (DLP) was 392 mGy-cm. Positron emission tomography (PET) images were acq uired in the same distribution. COMPARISON: CT chest, abdomen, and pelvis 02/24/2021, brain MRI 03/25/2016 FINDINGS: Head/neck: Overlying the posterior left frontal lobe of the brain, there is a 12 mm calcified extra-a xial mass without increased activity, consistent with a meningioma. There is increased activity in th e oral cavity without CT correlate, likely physiologic. There are no pathologically enlarged lymph no sylvia. Chest: There is moderate emphysema. In the right lower lobe, there is a 5.4 x 2.6 cm paraspinal mass with maximum SUV of 24.2. There is erosion of right eighth rib with pathologic fracture. No pleural effusion. The heart size is normal. There are coronary artery calcifications. No pericardial effusion . There is enlargement of the central pulmonary arteries, consistent with pulmonary arterial hyperten omar. There is a 12 x 18 mm right hilar lymph node without increased activity, likely reactive. At T9 , there is a 9 mm calcified mass in the left posterior aspect of the central spinal canal without inc reased activity. Abdomen/pelvis/proximal thighs: The liver is normal. There is a gallstone in the gallbladder, which i s normal in size. There is a calcification of the wall of the fundus of the gallbladder. The spleen, pancreas, and adrenal glands are normal. There is cortical thinning of the kidneys. There is a 14 mm cyst in left kidney. There is a pessary in the vagina. There is diverticulosis of the colon without e vidence of diverticulitis. There are no dilated loops of bowel. There is a small sliding hiatal herni a. There are no pathologically enlarged lymph nodes. There is no free intraperitoneal fluid. There is no osseous metastatic disease. IMPRESSION: 1. 5.4 x 2.6 cm paraspinal mass in right lung lower lobe with increased activity, consistent with bio psy-proven squamous cell carcinoma. 2. Stable 12 mm extra-axial mass overlying left frontal lobe of the brain without increased activity, consistent with a meningioma. 3. 9 mm calcified mass in left posterior aspect of the central spinal canal at T9 without increased a ctivity which may be a sequestered disc or meningioma. Reviewed, dictated and finalized at location A. IMPRESSION: 1. 5.4 x 2.6 cm paraspinal mass in right lung lower lobe with increased activit y, consistent with biopsy-proven squamous cell carcinoma. 2. Stable 12 mm extra-axial mass overlying left frontal lobe of the brain witho ut increased activity, consistent with a meningioma. 3. 9 mm calcified mass in left posterior aspect of the central spinal canal at T9 without increased activity which may be a sequestered disc or meningioma.
[2021-03-16 13:58] LABS: Glucose Point of Care 95 (65-105)
== END 2021-03-16 13:37 | disposition home or self-care (01) ==
LOC: ANHIMG 13:39
PROVIDERS: PCP Family Medicine; Visit Provider Internal Medicine Hematology & Oncology
DX: C34.31 Malignant neoplasm of lower lobe, right bronchus or lung (principal); R93.0 Abnormal findings on diagnostic imaging of skull and head, not elsewhere classified
CPT/HCPCS: 70460; 78815; 82948; A9552; Q9967

== ENCOUNTER → 2021-03-26 04:22 | Outpatient (CLI) | payer MEDICARE, SELFPAY ==
[2021-03-26 19:36] LABS: SARS-CoV-2 RNA PCR Negative
== END ==
PROVIDERS: Visit Provider Surgery
DX: Z01.812 Encounter for preprocedural laboratory examination (principal); Z20.822 Contact with and (suspected) exposure to COVID-19
CPT/HCPCS: C9803; U0003; U0005

== ENCOUNTER 2021-03-29 01:59 | Day surgery (SDC) | payer MEDICARE, SELFPAY ==
[2021-03-25 09:06] VITALS: BMI 25.2
[2021-03-29] VITALS (7 sets, daily range): BP systolic 109–156; BP diastolic 41–77; PULSE 58–77; RESP 18–20; TEMP 36.8; O2SAT 93–99
--- NOTE | ~2021-03-29 | XR_ITS ---
EXAMINATION: XR chest port-a-cath/central INDICATION: Port-A-Cath insertion TECHNIQUE: Portable AP view the chest is obtained at 1518 hours. COMPARISON: 02/25/2021 FINDINGS: A right internal jugular Port-A-Cath has been inserted which ends with its tip in the dista l superior vena cava. There is no pleural effusion or pneumothorax. The heart size is normal. 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 Mild emphysema is noted. IMPRESSION: 1. Right internal jugular Port-A-Cath insertion without pneumothorax. Reviewed, dictated and finalized at location A.
--- NOTE | ~2021-03-29 | XR_ITS ---
EXAMINATION: XR fl guide central line place EXAM DATE: 03/29/2021 14:52 INDICATION: Masood catheter insertion. TECHNIQUE: Fluoroscopy used during XR fl guide central line place performed by Dr. Adrian Knott MD. Radiologist was not present for the imaging or procedure. Total fluoroscopic time of 31 secon ds. The DAP for this procedure was 0.08 mGym2. A total of 4 images sent to PACS from the exam. FINDINGS: There is a right-sided portacatheter, IJ approach. The tip projects over cavoatrial juncti on, expected position. Correlate with procedure note. IMPRESSION: Fluoroscopy used during portacatheter placement. Reviewed, dictated and finalized at location A.
--- NOTE | 2021-03-29 08:47 | PM.HPGS ---
History of Present Illness History of Present Illness Consent: Risks, benefits, and alternatives of placement of a Port-A-Cath have been discussed and questions answered. Patient agrees to proceed with procedure. 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 She is planning for chemotherapy with Dr. Chris krishnamurthy and he has asked that we place a Port-A-Cath. Review of Systems Constitutional: Constitutional: Reports no additional constitutional complaints, Reports fatigue and Denies malaise Eyes: Eyes: Denies change in vision and Denies loss of vision ENT: Reports Normal hearing present, Denies change in voice, Denies dizziness, Denies hoarseness and Denies sore throat Cardiovascular: Cardiovascular: Denies chest pain, Denies leg edema and Denies dyspnea Comments: History of hypertension and hyperlipidemia Respiratory: Respiratory: Denies cough, Denies dyspnea and Denies wheezing Comments: History of recent discovery of right lower lobe lung cancer. Gastrointestinal: Gastrointestinal: Denies hematochezia, Denies change in bowel habits and Denies heartburn Comments: History of GERD on Prilosec Genitourinary: Genitourinary: Denies urinary frequency and Denies urinary incontinence Neurologic: Reports Normal hearing present, Denies confusion, Denies dizziness, Denies loss of vision, Denies memory loss and Denies seizure-like activity Psychiatric: Psychiatric: Denies confusion, Denies depression and Denies memory loss Endocrine: Endocrine: Denies cold intolerance and Reports fatigue Hematologic/Lymphatic: Hematologic/Lymphatic: Denies easy bleeding and Denies easy bruising Allergic/Immunologic: Allergic/Immunologic: Denies wheezing PMFSH Past Medical History Medical History Bladder cancer Broken jaw steel plate Chronic hypertension GERD (gastroesophageal reflux disease) History of benign meningioma of brain Hyperlipidemia Malignant neoplasm of lower lobe, right bronchus or lung Family History Family History Sibling Family history of obesity Patient's sister is in good health Carcinoma of colon Social History Social History Smoking packs per day: 1 Smoking cigarettes per day: 20.0 Years smoked: 20 Smoking pack-years: 20.00 Smoking status: Former smoker Tobacco type: cigarettes Second hand tobacco smoke exposure: No Smoking end date: 02/25/21 Additional smoking assessment comments: down to less than a pack when she stopped Alcohol intake: never Substance use: never Substance use type: does not use Living arrangements: alone Gender identity (if verbalized by the patient): Female Spiritual care concerns: No Meds Home Medications and Allergies Home Medications Medication Instructions Recorded Confirmed Type calcium carbonate 500 mg (1,250 1 tablet PO DAILY 11/08/19 03/25/21 History mg)-vitamin D3 400 unit tablet amlodipine 5 mg tablet 5 mg PO DAILY #90 tablet 01/29/21 03/29/21 Rx atorvastatin 10 mg tablet 10 mg PO DAILY #90 tablet 01/29/21 03/25/21 Rx hydrochlorothiazide 25 mg tablet 25 mg PO DAILY #90 tablet 01/29/21 03/25/21 Rx lisinopril 40 mg tablet 40 mg PO DAILY #90 tablet 01/29/21 03/25/21 Rx omeprazole 20 mg capsule,delayed 20 mg PO DAILY #90 cap 01/29/21 03/25/21 Rx release acetaminophen [Mapap 650 mg PO Q4H PRN #90 tablet 02/27/21 03/25/21 Rx (acetaminophen)] meloxicam 7.5 mg tablet 7.5 mg PO DAILY #30 tablet 03/18/21 03/25/21 Rx Allergies Allergy/AdvReac Type Severity Reaction Status Date / Time No Known Allergies Allergy Verified 03/29/21 12:20 Exam Const: Ge
[2021-03-29] MEDS: LACTATED RINGERS 1,000 ML 30 ML IV CONT (12:10)
[2021-03-29] MEDS: KETOROLAC 15 MG/ML VIAL (*BKC) IV PUSH (12:10)
--- NOTE | 2021-03-29 12:23 | WPDANESEPPF ---
Anes - Initial Pre Proc Eval Procedure: Operation Date: 03/29/21 13:30 Proposed Procedures p Insertion Masood Cath - Adrian Knott MD Date/Time: 03/29/21 12:23 Surgeon: Adrian Knott MD Pre Op Diagnosis: lung CA Patient Data Age: 75 Gender: F Height: 1.57 m Weight: 62.65 kg Allergies Allergy/AdvReac Type Severity Reaction Status Date / Time No Known Allergies Allergy Verified 03/29/21 12:20 Home Medications Medication Instructions Recorded Confirmed Type calcium carbonate 500 mg (1,250 1 tablet PO DAILY 11/08/19 03/25/21 History mg)-vitamin D3 400 unit tablet amlodipine 5 mg tablet 5 mg PO DAILY #90 tablet 01/29/21 03/29/21 Rx atorvastatin 10 mg tablet 10 mg PO DAILY #90 tablet 01/29/21 03/25/21 Rx hydrochlorothiazide 25 mg tablet 25 mg PO DAILY #90 tablet 01/29/21 03/25/21 Rx lisinopril 40 mg tablet 40 mg PO DAILY #90 tablet 01/29/21 03/25/21 Rx omeprazole 20 mg capsule,delayed 20 mg PO DAILY #90 cap 01/29/21 03/25/21 Rx release acetaminophen [Mapap 650 mg PO Q4H PRN #90 tablet 02/27/21 03/25/21 Rx (acetaminophen)] meloxicam 7.5 mg tablet 7.5 mg PO DAILY #30 tablet 03/18/21 03/25/21 Rx Patient hx anesthesia problems: none Family hx anesthesia problems: none PMFSH Past Medical History Medical History Bladder cancer Broken jaw steel plate Chronic hypertension GERD (gastroesophageal reflux disease) History of benign meningioma of brain Hyperlipidemia Malignant neoplasm of lower lobe, right bronchus or lung Family History Family History Sibling Family history of obesity Patient's sister is in good health Carcinoma of colon Social History Social History Smoking packs per day: 1 Smoking cigarettes per day: 20.0 Years smoked: 20 Smoking pack-years: 20.00 Smoking status: Former smoker Tobacco type: cigarettes Second hand tobacco smoke exposure: No Smoking end date: 02/25/21 Additional smoking assessment comments: down to less than a pack when she stopped Alcohol intake: never Substance use: never Substance use type: does not use Living arrangements: alone Gender identity (if verbalized by the patient): Female Spiritual care concerns: No Anes - Eval Final PreProcedure Day of Procedure 03/29/21 12:23 Patient weight: overweight Heart: regular rate and rhythm Lungs: clear to auscultation and normal air movement Airway: Mallampati scale class III Neurological: alert and oriented Last oral intake: >/= 8 hours ASA classification: III Emergent: no Anesthetic plan: proceed Anesthesia type and monitoring: general GIVS and standard monitoring Informed Consent: The patient's anesthetic plan and its attendant risks and benefits were discussed with the patient/family/POA. Questions were solicited and answers provided to the satisfaction of the patient/family/POA.
--- NOTE | 2021-03-29 13:28 | WPDHPUPDATE1 ---
History and Physical Update Update Date/Time: 03/29/21 13:28 History and Physical has been reviewed, including an updated exam of the patient. There are NO changes in the patient's condition. Risks, benefits, and alternatives have been discussed and questions answered. Patient agrees to proceed with procedure.
[2021-03-29] MEDS: HEPARIN SODIUM 5,000 UNITS/ML VIAL 5000 UNITS IRRIGATION (14:25)
[2021-03-29] MEDS: ceFAZolin 2 GM/D5W 50 ML 2 GM/50 ML BAG IVPB (14:25)
[2021-03-29] MEDS: BUPIVACAINE/EPINEPHRINE 0.5% 30 ML VIAL 8 ML INFILTRATE (14:25)
--- NOTE | 2021-03-29 14:57 | PM.PROC ---
Procedure Note - Detailed Date of procedure: 03/31/21 Pre-op diagnosis: lung CA Post-op diagnosis: same Procedure performed: Ultrasound-guided placement of Port-A-Cath Description of procedure: Patient was seen and marked in the pre-op area prior to coming to the OR. Patient was brought to the operating room. She was placed supine on the operating table and general IV sedation was induced. The nurse sports editor provided oxygen and IV sedation. Patient's head was carefully turned to the left side while in the supine position and the patient's entire neck and anterior chest on both sides was prepped and draped in the usual sterile fashion. Following this the appropriate time-out was completed confirming procedure and patient. We confirmed that all the needed equipment was present in the room. Following this the ultrasound probe was draped into the field and using the probe we carefully identified the carotid artery and jugular vein on the right neck. I marked the skin directly over the Rt. internal jugular vein. We then imaged the right neck with ultrasound. An image was taken of normal vascular anatomy in the area. Following this, a small terrance was made in the skin with an 11 blade and using the continuous ultrasound guidance, a Cook needle was placed through the skin into this vein. Although the image was seeming to be fairly good it appeared that there was dark somewhat pulsatile blood coming through the needle. Then C-arm fluoroscopy was used and it appeared that we were not in the proper vascular structure therefore the guide wire and Cook needle were removed and pressure was held to the area for 1 minute. I then again image the area under direct vision was able to place the Cook needle through the small slit in the skin made by an 11 blade knife into the internal jugular vein on the right. I then was able to draw back good dark blood. Once this was completed a guidewire using a J-tip was advanced through the needle and then the needle and the guidewire cover were withdrawn. C-arm fluoroscopy was used to confirm that the guidewire was nicely in the venous system. Once this was confirmed with the C - arm I preceded on by making the pocket for the port on the patient's anterior right chest approximately 3 centimeters below the clavicle overlying the chest wall. Local anesthetic was infiltrated into the skin where there was a transverse incision marked out. Incision was made and we made a pocket inferior to the incision with just a little dissection superior. The low-profile port was tried in the pocket and seemed to fit well. Following this the catheter which had been placed on a tunneling device was tunneled from the port site on the anterior right chest up to the right neck where a small incision had been made with the #11 blade knife. Then the catheter was pulled through so that we would have 15 centimeters to put into the central venous system once the dilation took place. Following this we placed the dilator and sheath over the guidewire in the jugular vein and carefully dilated the tract into the central venous system. The guidewire and dilator were then removed, carefully covering the end of the sheath to prevent air embolus. The end of the catheter which had been cut off straight across and the tip checked was then inserted into the sheath and into the neck. I then carefully pulled the 2 arms of the tear-away sheath away as the activity assistant held the catheter in position with a DeBakey forceps. Following this we checked the position of the catheter with C-arm fluoroscopy confirming that the tip seemed to be in the distal superior vena cava near the junction with the right atrium. I felt that it was in good position and so the rest of the catheter was pulled down toward the feet into the port site. We then measured to the appropriate position to cut the catheter to attach it to the port stem. Then the connector sealing device for the catheter port was
--- NOTE | 2021-03-29 16:18 | SUR.PHASEII ---
1600 - pt's O2 sat at 84%. o2 at 2l/nc, O2 sat at 98%. daughter at bedside.
--- NOTE | 2021-03-29 17:13 | SUR.PHASEII ---
1713 - dr. lerma in room talking with pt and pt's daughter
== END 2021-03-29 17:35 | disposition home or self-care (01) ==
PROVIDERS: PCP Family Medicine; Visit Provider Surgery
PROC: (CPT 36561; principal; 2021-03-29 13:30)
DX: C34.31 Malignant neoplasm of lower lobe, right bronchus or lung (principal); K21.9 Gastro-esophageal reflux disease without esophagitis; E78.5 Hyperlipidemia, unspecified; I10 Essential (primary) hypertension; Z86.011 Personal history of benign neoplasm of the brain; Z85.51 Personal history of malignant neoplasm of bladder; Z87.891 Personal history of nicotine dependence
CPT/HCPCS: 36561; 76937; 77001; C1788; J0690; J1100; J1644; J1885; J2405; J2704; J3010; J7030; J7120

== ENCOUNTER 2021-07-11 06:39 | Emergency (ER) | payer MEDICARE, SELFPAY ==
--- NOTE | ~2021-07-11 | CT_ITS ---
EXAMINATION: CTA chest PE protocol DATE: 07/11/2021 07:45 INDICATION: Chest pain and tachycardia TECHNIQUE: Computed tomography (CT) pulmonary angiogram of the chest was performed with 100 mL Omnipa que-350 intravenous contrast. Additional 3D reconstructions utilizing coronal maximum intensity proje ction (MIP) were performed. Automated exposure control and iterative reconstruction technique were em ployed. The dose-length product was 179.43 mGy-cm. COMPARISON: 02/24/2021 FINDINGS: Excellent contrast opacification of the pulmonary arteries. There is moderate streak artifact from de nse contrast in the superior vena cava and right atrium. Moderate scattered respiratory motion artifa ct. Together this decreases sensitivity the subsegmental pulmonary arteries. No definitive pulmonary embolism. Moderate emphysema. Region of pleural parenchymal scarring at the posterior medial aspect o f the superior segment of the right lower lobe at the site of a prior biopsy-proven squamous cell car cinoma. There is a healing subacute fracture of the posterior right eighth rib which may represent a thoracotomy defect. There are some mucous plugging within the posterior basilar segmental bronchi of the right lower lobe. Calcified right lower lobe nodule consistent with old granulomatous disease. No other airspace disease suspicious for pneumonia, pulmonary edema or pleural effusion. Heart size is normal. Atherosclerotic coronary artery calcification. No pericardial effusion. Thoracic aorta is nor mal in caliber with no dissection. No pathologically enlarged thoracic visualized upper abdomen is un remarkable. lymphadenopathy. Mild to moderate thoracic spondylosis with chronic minimal anterior wedg ing at T6 and T8. IMPRESSION: 1. No pulmonary motion. Sensitivity decreased in some of the subsegmental pulmonary arteries due to p rimarily to motion artifact. 2. Moderate emphysema with mucous plugging of some bronchi in the right lower lobe. 3. Pleural parenchymal scarring which could represent sequela of prior either resection and/or radiat ion treatment at the site of a prior biopsy proven squamous cell carcinoma in the superior segment of the right lower lobe. This underlies a healing likely pathologic fracture at the posterior right eig hth rib. Correlate with clinical history. Reviewed, dictated and finalized at location A. IMPRESSION: 1. No pulmonary motion. Sensitivity decreased in some of the subsegmental pulmo nary arteries due to primarily to motion artifact. 2. Moderate emphysema with mucous plugging of some bronchi in the right lower l obe. 3. Pleural parenchymal scarring which could represent sequela of prior either r esection and/or radiation treatment at the site of a prior biopsy proven squamo us cell carcinoma in the superior segment of the right lower lobe. This underli es a healing likely pathologic fracture at the posterior right eighth rib. Miranda elate with clinical history.
--- NOTE | 2021-07-11 06:42 | ECG_ITS ---
Measurements Intervals [place] Rate: 102 P: 69 MD: 167 QRS: 7 QRSD: 84 T: 39 QT: 313 QTc: 409 Interpretive Statements SINUS TACHYCARDIA DELAYED PRECORDIAL R/S TRANSITION BASELINE ARTIFACT- I, II, AVR, AVL, V6 ABNORMAL ECG Electronically Signed On 07-11-2021 8:30:17 CDT by Edgardo Washington D.O.
[2021-07-11 06:43] VITALS: BP 131/102; PULSE 104; PULSE 113; RESP 23; TEMP 37; O2SAT 96; O2SAT 97
[2021-07-11] MEDS: ASPIRIN 81 MG CHEWABLE TABLET 324 MG PO (07:00)
[2021-07-11 07:02] LABS: Basophils Percent Auto 0.1 % (0.2-1.2); Eosinophils Percent Auto 0.5 % (0-4.4); Hematocrit 35.6 % (37.0-47.0); Hemoglobin 11.4 g/dL (12.0-15.0); Immature Granulocyte Absolute 0.03 K/mm3 (0.00-0.031); Immature Granulocyte Percent A 0.4 % (0-0.5); Lymphocytes Absolute Auto 0.46 K/mm3 (0.9-3.2); Mean Corpuscular Hemoglobin 30.6 pg (26-34); Mean Corpuscular Volume 95.4 fl (80-100); Mean Platelet Volume 9.1 fl (7.4-10.4); Monocytes Absolute Auto 0.1 K/mm3 (0.1-0.6); Monocytes Percent Auto 1.7 % (2.6-8.5); Neutrophils Absolute Auto 6.9 K/mm3 (1.3-6.7); Neutrophils Percent Auto 91.3 % (45.5-73.1); Platelet Count Result 275 k/mm3 (150-375); Red Blood Count 3.73 M/mm3 (4.2-5.4); Red Cell Distribution Width 17.3 % (11.5-14.5); White Blood Count 7.6 K/mm3 (4.5-10.0)
--- NOTE | 2021-07-11 07:04 | ED.CHESTPAIN ---
HPI - Chest Pain General Chief Complaint: Chest Pain Stated Complaint: chest pain Time Seen by Provider: 07/11/21 06:56 History of Present Illness HPI narrative: Patient presents with chest pain for the past couple days. Pain is constant, achy, no radiation, worse with deep inspiration and is in the center of her chest. Reports a history of lung cancer she had radiation therapy approximately 6 days ago chemotherapy recently 4 days ago. She has not noted a fever but reports decrease in appetite she had one episode of emesis yesterday had a syncopal event after her emesis. She denies any urinary symptoms diarrhea Related Data Home Medications Medication Instructions Recorded Confirmed calcium carbonate 500 mg (1,250 1 tablet PO DAILY 11/08/19 07/07/21 mg)-vitamin D3 400 unit tablet Allergies Allergy/AdvReac Type Severity Reaction Status Date / Time morphine AdvReac Verified 07/07/21 08:37 Review of Systems Review of Systems: CONSTITUTIONAL: Denies fever, chills, or sweats. EYES: Denies visual changes, redness, or discharge. ENT: Denies rhinorrhea, congestion, sore throat, or otalgia. CARDIOVASCULAR: Denies palpitations, or edema. RESPIRATORY: Reports baseline shortness of breath and cough GASTROINTESTINAL: Denies abdominal pain or diarrhea. GENITOURINARY: Denies dysuria or hematuria. SKIN: Denies rash or itching. MUSCULOSKELETAL: Denies back pain, joint pain, or myalgia. NEUROLOGIC: Denies headache, numbness, dizziness, or weakness. PSYCHIATRIC: Denies anxiety or depression. All systems reviewed & are unremarkable except as noted in HPI and below PMFSH Past Medical History Medical History Bladder cancer Broken jaw steel plate Chronic hypertension GERD (gastroesophageal reflux disease) History of benign meningioma of brain Hyperlipidemia Malignant neoplasm of lower lobe, right bronchus or lung Family History Family History Sibling Family history of obesity Patient's sister is in good health Carcinoma of colon Social History Social History Smoking packs per day: 1 Smoking cigarettes per day: 20.0 Years smoked: 30 Smoking pack-years: 30.00 Smoking status: Current every day smoker Tobacco type: cigarettes Second hand tobacco smoke exposure: No Smoking end date: 02/25/21 Additional smoking assessment comments: down to less than a pack when she stopped Alcohol intake: never Substance use: never Substance use type: does not use Gender identity (if verbalized by the patient): Female Sexual Orientation (if Verbalized by the Patient): Straight or Heterosexual Spiritual care concerns: No Exam Narrative: GENERAL: Well-appearing, well-nourished, and in no acute distress. HEAD: Normocephalic, atraumatic. EYES: PERRLA and EOMI. ENT: Nares clear, no rhinorrhea or epistaxis. Mucous membranes moist. No crepitus in the neck NECK: Supple. No masses. No JVD CHEST: Clear to auscultation. No respiratory distress. No wheezes rales or rhonchi HEART: Regular rate and rhythm. No murmur heard. Normal peripheral pulses. ABDOMEN: Soft, nontender, nondistended, normal active bowel sounds. EXTREMITIES: Normal range of motion. No edema. SKIN: Warm, dry, no rash. NEURO: No focal deficits. Alert and oriented x3. PSYCH: Normal mood and affect. Course Reevaluation(s) Reevaluation #1: Patient is resting comfortably labs and imaging reviewed with patient. Work-up thus far is clinically unremarkable for acute process labs are consistent with prior and imaging is consistent with patient's known disease process. Date: 07/11/21 Time: 08:51 Reevaluation #2: Patient ports pain has resolved. Reports she is feeling much stronger than when she came to the ER. Patient is comfortable with the outpatient plan. Date: 07/11/21 Time: 09:29 Vital Si
[2021-07-11 07:12] LABS: Anion Gap 10 mmol/L (8-16); Blood Urea Nitrogen 25 mg/dL (7-17); Calcium 10.1 mg/dL (8.4-10.2); Carbon Dioxide 26 mmol/L (22-30); Chloride 95 mmol/L (98-107); Estimated CRCL calculation 30 ml/min; Estimated Glomerular Filt Rate 48; Glucose 129 mg/dL (65-110); Potassium 4.3 mmol/L (3.4-5.0); Sodium 131 mmol/L (137-145)
[2021-07-11 07:17] LABS: INR 0.9
[2021-07-11 07:18] VITALS: BP 112/54; PULSE 95; RESP 20; O2SAT 96
[2021-07-11 07:18] LABS: Partial Thromboplastin Time 27.7 SECONDS (22.3-36.8)
[2021-07-11 07:24] LABS: Troponin I < 0.012 ng/mL (0.000-0.034)
[2021-07-11] MEDS: ONDANSETRON INJ 4 MG/2 ML VIAL IV PUSH (07:27)
[2021-07-11] MEDS: SODIUM CHLORIDE 0.9% IV 1,000 ML 999 ML IV CONT ×2 (07:27→09:12)
[2021-07-11 08:14] VITALS: BP 131/68; PULSE 92; RESP 18; O2SAT 96
[2021-07-11] MEDS: ACETAMINOPHEN 325 MG TABLET 650 MG PO (08:26)
[2021-07-11] MEDS: LIDOCAINE HCL 2% VISC SOLN 15 ML UDC 20 ML PO (09:12)
[2021-07-11 09:31] VITALS: BP 127/50; PULSE 77; RESP 20; O2SAT 95
[2021-07-11 09:50] VITALS: BP 127/50; PULSE 77; RESP 20; O2SAT 99
== END 2021-07-11 10:07 | disposition home or self-care (01) ==
PROVIDERS: Emergency Medicine; Emergency Provider Emergency Medicine; PCP Family Medicine
DX: R07.9 Chest pain, unspecified (principal); R11.2 Nausea with vomiting, unspecified; C34.91 Malignant neoplasm of unspecified part of right bronchus or lung; I10 Essential (primary) hypertension; K21.9 Gastro-esophageal reflux disease without esophagitis; E78.5 Hyperlipidemia, unspecified; Z87.891 Personal history of nicotine dependence; Z79.899 Other long term (current) drug therapy; Z85.51 Personal history of malignant neoplasm of bladder; J43.9 Emphysema, unspecified; R00.0 Tachycardia, unspecified
CPT/HCPCS: 36415; 71275; 80048; 84484; 85025; 85610; 85730; 93005; 96361; 96374; 99284; A9270; J2405; J7030; Q9967

== ENCOUNTER 2021-07-12 14:06 | Inpatient (IN) | payer MEDICARE, SELFPAY ==
[2021-07-12] VITALS (7 sets, daily range): BP systolic 94–128; BP diastolic 42–55; PULSE 64–76; RESP 14–20; TEMP 35.7–36.4; O2SAT 91–100
--- NOTE | ~2021-07-12 | CT_ITS ---
EXAMINATION: CT abdomen pelvis wo con DATE: 07/12/2021 16:05 INDICATION: Generalized abdominal pain. TECHNIQUE: Computed tomography (CT) of the abdomen and pelvis was performed without intravenous contr ast. Automated exposure control and iterative reconstruction technique were employed. The dose-length product was 698.97 mGy-cm. COMPARISON: CT abdomen and pelvis 02/24/2021, chest CT 07/11/2021 FINDINGS: The visualized portions of the lung bases demonstrate chronic peripheral septal thickening and peripheral right lower lobe honeycombing. Calcified right lung nodules and calcified right hilar lymph nodes are consistent with old granulomatous disease. No pleural effusion. The heart size is nor mal. There are coronary artery calcifications. No pericardial effusion. The liver is normal. Calcific ations in the spleen are consistent with old granulomatous disease. The gallbladder is distended and contains gallstones. The pancreas and adrenal glands are normal. There is cortical thinning of the ki dneys. There is a 14 mm hemorrhagic cyst in left kidney. There is a ring-shaped device in the vagina. There are scattered diverticula in the colon. There is mild fat stranding around the sigmoid colon. There is liquid stool in colon suggestive of diarrhea. The appendix is not visualized. There are no p athologically enlarged lymph nodes. There is no free intraperitoneal fluid. There is severe lower lum bar spondylosis. IMPRESSION: 1. Mild fat stranding around the sigmoid colon, consistent with colitis. Liquid stool in the colon cuevas ggests diarrhea. 2. Cholelithiasis. Gallbladder distention may be secondary to fasting or acute cholecystitis. Correla te with physical exam. Reviewed, dictated and finalized at location A. IMPRESSION: 1. Mild fat stranding around the sigmoid colon, consistent with colitis. Liquid stool in the colon suggests diarrhea. 2. Cholelithiasis. Gallbladder distention may be secondary to fasting or acute cholecystitis. Correlate with physical exam.
--- NOTE | ~2021-07-12 | US_ITS ---
EXAMINATION: US abdomen limited DATE: 07/13/2021 08:41 INDICATION: Right upper quadrant pain TECHNIQUE: Multiple grayscale and Doppler ultrasound images of the abdomen were obtained. COMPARISON: CT from yesterday FINDINGS: The head and body of the pancreas are normal. The pancreatic tail is obscured by bowel gas. The liver is normal with normal echogenicity and echotexture. No surface nodularity. Normal hepatope scott flow in the main portal vein. Stones and sludge are present in the distended gallbladder. There i s no gallbladder wall thickening or pericholecystic fluid. The normal common bile duct measures 6 mm. There was no sonographic Macias sign although sensitivity limited by the presence of pain medication . IMPRESSION: 1. Cholelithiasis and gallbladder sludge with gallbladder distention but no pericholecystic fluid or gallbladder wall thickening. Findings are equivocal for acute cholecystitis. Consider nuclear hepatob iliary scan. Reviewed, dictated and finalized at location A. IMPRESSION: 1. Cholelithiasis and gallbladder sludge with gallbladder distention but no per icholecystic fluid or gallbladder wall thickening. Findings are equivocal for a cute cholecystitis. Consider nuclear hepatobiliary scan.
--- NOTE | ~2021-07-12 | NM_ITS ---
EXAMINATION: NM hepatobiliary w pharm DATE: 07/14/2021 13:17 INDICATION: Cholelithiasis. Gallbladder distention. COMPARISON: None. TECHNIQUE: 4 mCi Tc-99m mebrofenin (Choletec) was administered intravenously. Scintigraphic images o f the abdomen were obtained for one hour. 3 mcg sincalide (Kinevac) was administered by slow intraven ous infusion, and imaging was continued for 30 minutes. Gallbladder ejection fraction was calculated by the technologist. FINDINGS: There is normal clearance of radiotracer from the blood pool. There is homogeneous tracer uptake by t he liver. Activity progresses to the gallbladder and bowel. The gallbladder ejection fraction (GBEF) is 18% (normal 10-90%, but most patient with gallbladder dysfunction have GBEF < 35% which does over lap with the normal range). IMPRESSION: 1. Gallbladder ejection fraction is at the lower limits of normal. This could be normal but is also within the range of overlap with gallbladder dysfunction or chronic cholecystitis in the appropriate clinical setting. Reviewed, dictated and finalized at location A.
[2021-07-12 14:27] LABS: Basophils Percent Auto 0.6 % (0.2-1.2); Eosinophils Absolute Auto 0.1 K/mm3 (0-0.3); Eosinophils Percent Auto 5.7 % (0-4.4); Hematocrit 29.7 % (37.0-47.0); Hemoglobin 9.4 g/dL (12.0-15.0); Immature Granulocyte Absolute 0.02 K/mm3 (0.00-0.031); Immature Granulocyte Percent A 1.3 % (0-0.5); Lymphocytes Percent Auto 19.1 % (18.3-44.2); Mean Corpuscular HGB Conc 31.6 g/dl (32-36); Mean Corpuscular Hemoglobin 30.1 pg (26-34); Mean Corpuscular Volume 95.2 fl (80-100); Mean Platelet Volume 8.9 fl (7.4-10.4); Monocytes Absolute Auto 0.1 K/mm3 (0.1-0.6); Monocytes Percent Auto 3.8 % (2.6-8.5); Neutrophils Absolute Auto 1.1 K/mm3 (1.3-6.7); Neutrophils Percent Auto 69.5 % (45.5-73.1); Platelet Count Result 221 k/mm3 (150-375); Red Blood Count 3.12 M/mm3 (4.2-5.4); Red Cell Distribution Width 17.2 % (11.5-14.5)
[2021-07-12 14:39] LABS: Alanine Aminotransferase 14 U/L (4-35); Albumin Level 3.8 g/dL (3.5-5.1); Alkaline Phosphatase 110 U/L (38-126); Anion Gap 8 mmol/L (8-16); Aspartate Amino Transferase 20 U/L (14-36); Bilirubin,Total 0.5 mg/dL (0.2-1.3); Blood Urea Nitrogen 32 mg/dL (7-17); Calcium 9.5 mg/dL (8.4-10.2); Carbon Dioxide 23 mmol/L (22-30); Chloride 100 mmol/L (98-107); Estimated CRCL calculation 20 ml/min; Estimated Glomerular Filt Rate 29; Glucose 104 mg/dL (65-110); Lipase 14 U/L (23-300); Potassium 4.6 mmol/L (3.4-5.0); Sodium 131 mmol/L (137-145)
[2021-07-12 14:55] LABS: White Blood Count 1.6 K/mm3 (4.5-10.0)
--- NOTE | 2021-07-12 15:34 | ED.NAVMDI ---
HPI - Nausea/Vomiting/Diarrhea General Chief complaint: Nausea/Vomiting/Diarrhea Stated complaint: diarrhea, weak Time Seen by Provider: 07/12/21 15:32 History of Present Illness HPI Narrative: 76 yo female w/ h/o lung cancer, htn presnets to the ED c/o abdominal pain. She has had generalized burning abdominal pain since yesterday. Associated with diarrhea, nausea, vomiting. Seen here yesterday and discharged. She had chemotherapy 5 days ago. No fever. Related Data Home Medications Medication Instructions Recorded Confirmed calcium carbonate 500 mg (1,250 1 tablet PO DAILY 11/08/19 07/07/21 mg)-vitamin D3 400 unit tablet Allergies Allergy/AdvReac Type Severity Reaction Status Date / Time morphine AdvReac Verified 07/07/21 08:37 Review of Systems Review of Systems: All systems reviewed & are unremarkable except as noted in HPI and below Constitutional: Constitutional: Denies chills, Denies fever(s) and Reports weakness Eyes: Eyes: Reports no additional eye complaints Cardiovascular: Cardiovascular: Denies chest pain Respiratory: Respiratory: Reports cough Gastrointestinal: Gastrointestinal: Reports as per HPI Genitourinary: Genitourinary: Denies hematuria, Denies nocturia and Denies dysuria Neurologic: Reports system reviewed and no additional complaints, except as documented PMF Past Medical History Medical History Bladder cancer Broken jaw steel plate Chronic hypertension GERD (gastroesophageal reflux disease) History of benign meningioma of brain Hyperlipidemia Malignant neoplasm of lower lobe, right bronchus or lung Family History Family History Sibling Family history of obesity Patient's sister is in good health Carcinoma of colon Social History Social History Smoking packs per day: 1 Smoking cigarettes per day: 20.0 Years smoked: 30 Smoking pack-years: 30.00 Smoking status: Current every day smoker Tobacco type: cigarettes Second hand tobacco smoke exposure: No Smoking end date: 02/25/21 Additional smoking assessment comments: down to less than a pack when she stopped Alcohol intake: never Substance use: never Substance use type: does not use Gender identity (if verbalized by the patient): Female Sexual Orientation (if Verbalized by the Patient): Straight or Heterosexual Spiritual care concerns: No Exam Const: General: alert and ill appearing Orientation/consciousness: patient oriented x3 HENMT: Mouth: Yes dry mucous membranes Neck: Neck: normal visual inspection Resp: Effort & Inspection: tachypneic Auscultation: clear to auscultation bilaterally Cardio: Rate: regular rate Rhythm: regular rhythm GI: Inspection: non-distended GI Palp: Yes Tenderness to palpation present (GI) (diffuse), Yes Guarding due to palpation present (GI) and No Rebound tenderness present Skin: General skin exam: normal color Neuro: General: patient oriented x3 and moves all extremities Extrem: General: normal to inspection Course Vital Signs Vital signs: Vital Signs Temperature 36.4 C L 07/12/21 14:07 Pulse Rate 72 07/12/21 14:07 Respiratory Rate 20 07/12/21 14:07 Blood Pressure 94/53 L 07/12/21 14:07 Pulse Oximetry 100 07/12/21 14:07 Temperature 36.4 C L 07/12/21 14:07 Pulse Rate 74 07/12/21 16:19 Respiratory Rate 14 07/12/21 16:19 Blood Pressure 108/55 L 07/12/21 16:19 Pulse Oximetry 91 07/12/21 16:19 MDM - Nausea/Vomiting/Diarrhea MDM Narrative Medical decision making narrative: Colitis on CT. Leukopenia. Creatinine elevated from yesterday. I will admit for antibiotics and IV fluids. Medical Records Attestation: I reviewed the patient's medical records. Lab Data Attestation: I reviewed the patient's lab results. Result diagrams: 07/12
--- NOTE | 2021-07-12 15:49 | PC.NURSE ---
Pt states she is unable to give urine sample at this time
[2021-07-12] MEDS: fentaNYL CITRATE INJ (*CRX) 100 MCG/2 ML VIAL 25 MCG IV PUSH (15:52)
[2021-07-12] MEDS: SODIUM CHLORIDE 0.9% IV 1,000 ML 999 ML IV CONT (15:52)
[2021-07-12] MEDS: ONDANSETRON INJ 4 MG/2 ML VIAL IV PUSH (15:55)
[2021-07-12] MEDS: PANTOPRAZOLE SODIUM IV 40 MG VIAL IV PUSH (16:15)
--- NOTE | 2021-07-12 18:40 | ADMGEN ---
This patient, Frieda Perkins, was admitted to Medical Room 343-01. Patient/family oriented to hospital policies and general routines including ID bracelet, bed and alarms, visiting hours, pain management, procedures, bathroom and other care routines, personal items, smoking policy, room service/diet, and visiting hours. Information on how to activate the Rapid Response Team has been discussed. Patient/Family are encouraged to report perceived risks to care and to ask questions if they do not understand what they are told or what they should do.
[2021-07-12] MEDS: fentaNYL CITRATE INJ (*CRX) 100 MCG/2 ML VIAL 50 MCG IV PUSH ×2 (19:35→21:29)
[2021-07-12] MEDS: SODIUM CHLORIDE 0.9% IV 1,000 ML 125 ML IV CONT (19:36)
[2021-07-12 21:39] LABS: Add Urine Microscopic? YES; Appearance Urine Clear (Clear); Bilirubin Urine Negative (Negative); Blood Urine 1+ (Negative); Color Urine Yellow (Yellow); Glucose Urine UA Negative (Negative); Ketones Urine Negative (Negative); Leukocyte Esterase Ur 1+ LEU/UL (Negative); Mucus Urine Rare /lpf; Nitrate Urine Positive (Negative); Protein Urine Negative (Negative); Specific Grav Ur 1.017 (1.001-1.035); Squamous Epithelial Cell Urine Rare /hpf (Few); Urobilinogen Urine Negative mg/dL (<2.0)
--- NOTE | 2021-07-12 23:14 | PM.IMHP ---
H&P: HPI History of Present Illness Date/Time: 07/12/21 23:14 this is a 76-year-old female patient who has a history of lung cancer and receives radiation and chemotherapy. The patient had her last chemotherapy approximately 5 days ago. The patient has been having some abdominal pain since yesterday with nausea vomiting. She also had diarrhea as well. She stated that she had her daughter stay with her could she did feel very well yesterday. The patient was seen here yesterday in ER with some complaints of chest pain. She had a syncopal episode at that time had decreased appetite did an emesis. The patient had a CTA at that time and was found have no PE. The patient was sent home was p.o. Zofran at that time. However she came back in today with the nausea and vomiting. Her white count was noted to be 1.6. Her H&H is 9.4 and 29.7. The patient stated that she recovered from COVID many months ago and refuses to get the COVID vaccine. Her sodium was noted to be 131 and her creatinine 1.7. CT of the abdomen today was read as1. Mild fat stranding around the sigmoid colon, consistent with colitis. Liquid stool in the colon suggests diarrhea. 2. Cholelithiasis. Gallbladder distention may be secondary to fasting or acute cholecystitis. Correlate with physical exam. The patient was given fentanyl, Zofran, IV fluids and started on Zosyn. The patient was admitted to observation status on the date of service 07/12/2021 Chief Complaint: Nausea vomiting diarrhea Review of Systems Review of Systems: All systems reviewed & are unremarkable except as noted in HPI and below Constitutional: Constitutional: Reports as per HPI and Reports no additional constitutional complaints Eyes: Eyes: Reports as per HPI and Reports no additional eye complaints ENT: Reports system reviewed and no additional complaints, except as documented and Reports Normal hearing present Cardiovascular: Cardiovascular: Reports no additional cardiovascular complaints Respiratory: Respiratory: Reports no additional respiratory complaints and Reports no additional respiratory complaints Gastrointestinal: Gastrointestinal: Reports as per HPI and Reports no additional gastrointestinal complaints Musculoskeletal: Musculoskeletal: Reports no additional musculoskeletal complaints Integumentary/Breasts: Skin/Breast: Reports system reviewed and no additional complaints, except as docu and Reports as per HPI Neurologic: Reports system reviewed and no additional complaints, except as documented, Reports as per HPI and Reports Normal hearing present Psychiatric: Psychiatric: Reports no additional psychiatric complaints and Reports as per HPI Endocrine: Endocrine: Reports no additional endocrine complaints Hematologic/Lymphatic: Hematologic/Lymphatic: Reports no additional hematologic/lymphatic complaints Allergic/Immunologic: Allergic/Immunologic: Reports no additional allergic/immunologic complaints [facility] Past Medical History Medical History (Updated 07/12/21 @ 23:38 by Magalis Sears NP) Bladder cancer Broken jaw steel plate Chronic hypertension GERD (gastroesophageal reflux disease) History of benign meningioma of brain Hyperlipidemia Malignant neoplasm of lower lobe, right bronchus or lung Normal colonoscopy Surgical History Surgical History (Updated 07/12/21 @ 23:29 by Magalis Sears NP) History of appendectomy History of bladder surgery Family History Family History Sibling Family history of obesity Patient's sister is in good health Carcinoma of colon Social History Social History (Updated 07/12/21 @ 23:30 by Magalis Sears NP) Social History: The patient is . She had 3 daughters and 1 recently and 1 is missing. The patient lives alone. She is a former smoker. The patient is listed as a full code but does not want to live in a vegetative state. Her daughter is the durable
[2021-07-13] VITALS (9 sets, daily range): BP systolic 98–125; BP diastolic 47–83; PULSE 74–85; RESP 16–18; TEMP 36.6–37.1; O2SAT 93–95
[2021-07-13] MEDS: fentaNYL CITRATE INJ (*CRX) 100 MCG/2 ML VIAL 50 MCG IV PUSH ×3 (01:39→23:11)
[2021-07-13] MEDS: SODIUM CHLORIDE 0.9% IV 1,000 ML 125 ML IV CONT ×3 (05:44→16:50)
[2021-07-13 09:12] LABS: Basophils Percent Auto 1.5 % (0.2-1.2); Eosinophils Absolute Auto 0.1 K/mm3 (0-0.3); Eosinophils Percent Auto 6.7 % (0-4.4); Hemoglobin 8.4 g/dL (12.0-15.0); Immature Granulocyte Absolute 0.01 K/mm3 (0.00-0.031); Immature Granulocyte Percent A 0.7 % (0-0.5); Lymphocytes Absolute Auto 0.23 K/mm3 (0.9-3.2); Lymphocytes Percent Auto 17.2 % (18.3-44.2); Mean Corpuscular HGB Conc 31.1 g/dl (32-36); Mean Corpuscular Hemoglobin 30.8 pg (26-34); Mean Corpuscular Volume 98.9 fl (80-100); Mean Platelet Volume 9.6 fl (7.4-10.4); Monocytes Absolute Auto 0.1 K/mm3 (0.1-0.6); Monocytes Percent Auto 4.5 % (2.6-8.5); Neutrophils Absolute Auto 0.9 K/mm3 (1.3-6.7); Neutrophils Percent Auto 69.4 % (45.5-73.1); Platelet Count Result 169 k/mm3 (150-375); Red Blood Count 2.73 M/mm3 (4.2-5.4); Red Cell Distribution Width 17.1 % (11.5-14.5)
[2021-07-13 09:19] LABS: White Blood Count 1.3 K/mm3 (4.5-10.0)
[2021-07-13 09:27] LABS: Lactic Acid Reflex 0.5 mmol/L (0.7-2.1)
[2021-07-13 09:29] LABS: Alanine Aminotransferase 16 U/L (4-35); Albumin Level 3.2 g/dL (3.5-5.1); Alkaline Phosphatase 138 U/L (38-126); Anion Gap 7 mmol/L (8-16); Aspartate Amino Transferase 23 U/L (14-36); Bilirubin,Total 0.5 mg/dL (0.2-1.3); Blood Urea Nitrogen 23 mg/dL (7-17); Calcium 8.5 mg/dL (8.4-10.2); Carbon Dioxide 20 mmol/L (22-30); Chloride 105 mmol/L (98-107); Estimated CRCL calculation 30 ml/min; Estimated Glomerular Filt Rate 48; Glucose 89 mg/dL (65-110); Magnesium 1.6 mg/dL (1.6-2.3); Potassium 4.1 mmol/L (3.4-5.0); Sodium 132 mmol/L (137-145)
[2021-07-13] MEDS: amLODIPine BESYLATE 5 MG TABLET PO (10:00)
[2021-07-13] MEDS: PANTOPRAZOLE SODIUM IV 40 MG VIAL IV PUSH (10:00)
[2021-07-13] MEDS: ATORVASTATIN 10 MG TABLET PO (10:00)
--- NOTE | 2021-07-13 12:04 | P.PNIM_ITS ---
Progress Note: A&P Assessment and Plan (1) Colitis: Code(s): K52.9 - Noninfective gastroenteritis and colitis, unspecified Status: Acute Assessment and Plan: Presented with abdominal pain and brown watery stools. CT shows mild fat stranding around sigmoid colon consistent with colitis. * Etiology for this is unclear. May be infectious, though she is afebrile. * Stool cultures have been ordered * Continue IV Zosyn, started on 07/12 * Blood cultures pending * Will initiate probiotic * Consult to Gastroenterology. Input is appreciated. (2) Cholelithiasis: Code(s): K80.20 - Calculus of gallbladder without cholecystitis without obstruction Status: Acute Assessment and Plan: CT a/p showed cholelithiasis with gallbladder distention that may be related to acute cholecystitis vs fasting. Follow-up abdominal ultrasound again demonstrated cholelithiasis and gallbladder sludge. Gallbladder distention but no pericholecystic fluid or wall thickening, equivocal for cholecystitis * Will proceed with HIDA scan * Consider General surgery consultation based on results * Tolerating diet. * Analgesics and antiemetics available as needed (3) Intractable nausea and vomiting: Code(s): R11.2 - Nausea with vomiting, unspecified Status: Acute Assessment and Plan: Resolved. Likely due to colitis. May also be related to chemotherapy or possibly acute cholecystitis. * Continue IV fluids * She is tolerating heart healthy diet * Antiemetics available as needed. (4) Bright red rectal bleeding: Code(s): K62.5 - Hemorrhage of anus and rectum Status: Acute Assessment and Plan: Reported episode of bleeding yesterday that filled up bowl. No bleeding today * May be due to colitis. Continue with treatment as above * May be related to hemorrhoid * Will check occult blood in stool * Continue protonix. * Monitor H&H. (5) Normocytic anemia: Code(s): D64.9 - Anemia, unspecified Status: Acute Assessment and Plan: Baseline Hgb around 10. Decline in hemoglobin and hematocrit today. May be related to rectal bleeding as above vs dilutional effects. Vital signs are stable and she has no evidence of active bleeding * Monitor H&H. Repeat this afternoon to ensure remaining stable * Transfuse as needed with goal Hgb >7.0 (6) Malignant neoplasm of lower lobe, right bronchus or lung: Code(s): C34.31 - Malignant neoplasm of lower lobe, right bronchus or lung Status: Acute Assessment and Plan: Currently undergoing chemotherapy with Dr. Birch and radiation therapy with Dr. Young. * Continue with treatment plan * She had chemotherapy and radiation 1 week ago. (7) Acute on chronic renal failure: Qualifiers: Acute renal failure type: unspecified Chronic kidney disease stage: stage 3 (moderate) Chronic kidney disease stage 3 subtype: unspecified whether 3a or 3b Qualified Code(s): N17.9 - Acute kidney failure, unspecified; N18.30 - Chronic kidney disease, stage 3 unspecified Code(s): N17.9 - Acute kidney failure, unspecified; N18.9 - Chronic kidney disease, unspecified Status: Acute Assessment and Plan: Baseline creatinine appears to be around 1.1-1.2. Creatinine elevated to 1.7 at presentation, likely due to dehydration from nausea/vomiting. Improved with IV fluids down to 1.1 today * Continue gentle IV fluid rehydration * Lisinopril and hydrochlorothiazide on hold * Monitor BMP (8) Chronic h
--- NOTE | 2021-07-13 12:04 | PM.IMPN ---
Progress Note: A&P Assessment and Plan (1) Colitis: Code(s): K52.9 - Noninfective gastroenteritis and colitis, unspecified Status: Acute Assessment and Plan: Presented with abdominal pain and brown watery stools. CT shows mild fat stranding around sigmoid colon consistent with colitis. Etiology for this is unclear. May be infectious, though she is afebrile. Stool cultures have been ordered Continue IV Zosyn, started on 07/12 Blood cultures pending Will initiate probiotic Consult to Gastroenterology. Input is appreciated. (2) Cholelithiasis: Code(s): K80.20 - Calculus of gallbladder without cholecystitis without obstruction Status: Acute Assessment and Plan: CT a/p showed cholelithiasis with gallbladder distention that may be related to acute cholecystitis vs fasting. Follow-up abdominal ultrasound again demonstrated cholelithiasis and gallbladder sludge. Gallbladder distention but no pericholecystic fluid or wall thickening, equivocal for cholecystitis Will proceed with HIDA scan Consider General surgery consultation based on results Tolerating diet. Analgesics and antiemetics available as needed (3) Intractable nausea and vomiting: Code(s): R11.2 - Nausea with vomiting, unspecified Status: Acute Assessment and Plan: Resolved. Likely due to colitis. May also be related to chemotherapy or possibly acute cholecystitis. Continue IV fluids She is tolerating heart healthy diet Antiemetics available as needed. (4) Bright red rectal bleeding: Code(s): K62.5 - Hemorrhage of anus and rectum Status: Acute Assessment and Plan: Reported episode of bleeding yesterday that filled up bowl. No bleeding today May be due to colitis. Continue with treatment as above May be related to hemorrhoid Will check occult blood in stool Continue protonix. Monitor H&H. (5) Normocytic anemia: Code(s): D64.9 - Anemia, unspecified Status: Acute Assessment and Plan: Baseline Hgb around 10. Decline in hemoglobin and hematocrit today. May be related to rectal bleeding as above vs dilutional effects. Vital signs are stable and she has no evidence of active bleeding Monitor H&H. Repeat this afternoon to ensure remaining stable Transfuse as needed with goal Hgb >7.0 (6) Malignant neoplasm of lower lobe, right bronchus or lung: Code(s): C34.31 - Malignant neoplasm of lower lobe, right bronchus or lung Status: Acute Assessment and Plan: Currently undergoing chemotherapy with Dr. Birch and radiation therapy with Dr. Young. Continue with treatment plan She had chemotherapy and radiation 1 week ago. (7) Acute on chronic renal failure: Qualifiers: Acute renal failure type: unspecified Chronic kidney disease stage: stage 3 (moderate) Chronic kidney disease stage 3 subtype: unspecified whether 3a or 3b Qualified Code(s): N17.9 - Acute kidney failure, unspecified; N18.30 - Chronic kidney disease, stage 3 unspecified Code(s): N17.9 - Acute kidney failure, unspecified; N18.9 - Chronic kidney disease, unspecified Status: Acute Assessment and Plan: Baseline creatinine appears to be around 1.1-1.2. Creatinine elevated to 1.7 at presentation, likely due to dehydration from nausea/vomiting. Improved with IV fluids down to 1.1 today Continue gentle IV fluid rehydration Lisinopril and hydrochlorothiazide on hold Monitor BMP (8) Chronic hypertension: Code(s): I10 - Essential (primary) hypertension Status: Chronic Assessment and Plan: Blood pressure reviewed and has been reasonably controlled following abnormal. Last BP 125/72 Continue amlodipine Lisinopril on hold Monitor BP trends (9) Pancytopenia: Code(s): D61.818 - Other pancytopenia Status: Acute Assessment and Plan: Likely due to chemotherapy Monito
[2021-07-13 13:11] LABS: IFOB Positive Control Positive; Immunochemical Fecal Occult Bl Positive (N)
--- NOTE | 2021-07-13 13:57 | PC.NURSE ---
Patient refuses to let nursing staff accessed her port until her oncology doctor comes and sees her today. Patient would like to talk it over with doctor first.
--- NOTE | 2021-07-13 15:01 | WPDGICN ---
Assessment and Plan Assessment and plan (1) Intractable nausea and vomiting: Code(s): R11.2 - Nausea with vomiting, unspecified Status: Acute Assessment and Plan: Nausea vomiting identified the time of admission likely related to chemotherapy and radiation therapy. CT scan suggest colitis in this is also possibly contributing to this symptom. Supportive care is advised initially. Will follow with you. (2) Colitis: Code(s): K52.9 - Noninfective gastroenteritis and colitis, unspecified Status: Acute Assessment and Plan: Colitis evident on CT scan may be infectious. Agree with stool cultures. Given her overall poor condition would defer invasive endoscopic testing at this time. She may benefit from empiric antibiotics. (3) Bright red rectal bleeding: Code(s): K62.5 - Hemorrhage of anus and rectum Status: Acute Assessment and Plan: Patient has reported rectal bleeding. She is known to have hemorrhoids although this likely is also possibly coming from the colitis seen on CT scan. The present time will treat empirically. Monitor hemoglobin try to defer invasive testing given her other comorbid diseases. (4) Cholelithiasis: Code(s): K80.20 - Calculus of gallbladder without cholecystitis without obstruction Status: Acute Assessment and Plan: Gallstones evident on CT scan are likely asymptomatic. Will follow conservatively at this point. (5) Normocytic anemia: Code(s): D64.9 - Anemia, unspecified Status: Acute Assessment and Plan: Anemia likely secondary to chemo therapy for her known lung cancer. (6) Leukopenia: Code(s): D72.819 - Decreased white blood cell count, unspecified Status: Acute (7) GERD (gastroesophageal reflux disease): Qualifiers: Esophagitis presence: esophagitis presence not specified Qualified Code(s): K21.9 - Gastro-esophageal reflux disease without esophagitis Code(s): K21.9 - Gastro-esophageal reflux disease without esophagitis Status: Chronic Assessment and Plan: Patient has a history of GE reflux disease appears to be stable on PPI therapy no change anticipated at this time. GI Consult Note Consult date/time: 07/13/21 15:01 HPI: Frieda Perkins is a 76 year old female I am asked to see because of colitis. Patient has a history of lung cancer. Currently undergoing chemotherapy and radiation therapy. Most recent bout of therapy was 1 week ago. Over the weekend she developed nausea vomiting and diarrhea. Over the last several days has had several episodes of bright red blood per rectum. Initially she attributed this to hemorrhoids. However she states is a little more so than usual. Because of her nausea vomiting and diarrhea she went to the emergency room. A CT scan suggested she may have inflammation in the lower left colon. Patient also was identified as having gallstones. At the time of presentation was found to have significant leukopenia as well as anemia. She has a difficult time giving answers to questions at the present time. Past medical history is significant for GE reflux disease. Review of Systems Review of Systems: All systems reviewed & are unremarkable except as noted in HPI and below PMFSH Past Medical History Medical History (Updated 07/13/21 @ 12:22 by Mili Moy PA-C) Bladder cancer Broken jaw steel plate Chronic hypertension GERD (gastroesophageal reflux disease) History of benign meningioma of brain Hyperlipidemia Malignant neoplasm of lower lobe, right bronchus or lung Normal colonoscopy Surgical History Surgical History (Updated 07/12/21 @ 23:29 by Magalis Sears NP) History of appendectomy History of bladder surgery Family History Family History Sibling Family history of obesity Patient's sister is in good health Carcinoma of colon Social His
[2021-07-13 15:25] LABS: Hematocrit 26.5 % (37.0-47.0); Hemoglobin 8.4 g/dL (12.0-15.0)
[2021-07-13] MEDS: SACCHAROMYCES BOULARDII 250 MG CAPSULE PO (16:51)
[2021-07-14] VITALS (8 sets, daily range): BP systolic 111–144; BP diastolic 49–69; PULSE 75–96; RESP 18–20; TEMP 35.9–36.4; O2SAT 94–100
[2021-07-14] MEDS: SODIUM CHLORIDE 0.9% IV 1,000 ML 125 ML IV CONT ×2 (01:35→08:40)
[2021-07-14] MEDS: fentaNYL CITRATE INJ (*CRX) 100 MCG/2 ML VIAL 50 MCG IV PUSH (05:27)
[2021-07-14 06:28] LABS: Hematocrit 25.1 % (37.0-47.0); Mean Corpuscular HGB Conc 31.9 g/dl (32-36); Mean Corpuscular Hemoglobin 30.9 pg (26-34); Mean Corpuscular Volume 96.9 fl (80-100); Mean Platelet Volume 9.6 fl (7.4-10.4); Platelet Count Result 147 k/mm3 (150-375); Red Blood Count 2.59 M/mm3 (4.2-5.4); Red Cell Distribution Width 16.6 % (11.5-14.5)
[2021-07-14 07:00] LABS: Anion Gap 12 mmol/L (8-16); Blood Urea Nitrogen 13 mg/dL (7-17); Calcium 8.5 mg/dL (8.4-10.2); Carbon Dioxide 20 mmol/L (22-30); Chloride 104 mmol/L (98-107); Estimated CRCL calculation 36 ml/min; Estimated Glomerular Filt Rate > 60; Glucose 98 mg/dL (65-110); Potassium 3.5 mmol/L (3.4-5.0); Sodium 136 mmol/L (137-145)
[2021-07-14] MEDS: amLODIPine BESYLATE 5 MG TABLET PO (08:41)
[2021-07-14] MEDS: PANTOPRAZOLE SODIUM IV 40 MG VIAL IV PUSH (08:41)
[2021-07-14] MEDS: SACCHAROMYCES BOULARDII 250 MG CAPSULE PO ×2 (08:41→17:57)
[2021-07-14] MEDS: ATORVASTATIN 10 MG TABLET PO (08:41)
[2021-07-14 10:41] LABS: Eosinophils Absolute Auto 0.1 K/mm3 (0-0.3); Eosinophils Percent Auto 6.9 % (0-4.4); Immature Granulocyte Absolute 0.02 K/mm3 (0.00-0.031); Lymphocytes Absolute Auto 0.29 K/mm3 (0.9-3.2); Lymphocytes Percent Auto 28.7 % (18.3-44.2); Monocytes Absolute Auto 0.1 K/mm3 (0.1-0.6); Monocytes Percent Auto 7.9 % (2.6-8.5); Neutrophils Absolute Auto 0.5 K/mm3 (1.3-6.7); Neutrophils Percent Auto 52.5 % (45.5-73.1)
--- NOTE | 2021-07-14 13:43 | WPDGIPROGNO ---
Progress Note: A&P Assessment and Plan (1) Intractable nausea and vomiting: Code(s): R11.2 - Nausea with vomiting, unspecified Status: Acute Assessment and Plan: Nausea vomiting has resolved. Suspect this was related to chemotherapy. Plan to advance diet as tolerated. (2) Bright red rectal bleeding: Code(s): K62.5 - Hemorrhage of anus and rectum Status: Acute Assessment and Plan: Patient had rectal bleeding on admission. Now with the as small decline in hemoglobin. Question of colitis on CT scan. Known to have hemorrhoids from recent colonoscopy. Plan to treat empirically for an infectious etiology. Given her profound leukopenia I would prefer to defer colonoscopy at this time. (3) Normocytic anemia: Code(s): D64.9 - Anemia, unspecified Status: Acute Assessment and Plan: And leukopenia suggestive that this is related to recent chemotherapy. She has had some rectal bleeding cannot exclude some component GI blood loss but only a minimal amount described. (4) Cholelithiasis: Code(s): K80.20 - Calculus of gallbladder without cholecystitis without obstruction Status: Acute Assessment and Plan: Patient found to have gallstones on CT scan. HIDA scan today. She does not clinically appear to have cholecystitis. (5) Colitis: Code(s): K52.9 - Noninfective gastroenteritis and colitis, unspecified Status: Acute Assessment and Plan: Question of pericolonic stranding raises the question of colitis. Clinically she has minimal abdominal tenderness. No significant diarrhea. I would prefer to defer a colonoscopy. Colonoscopy was done recently for screening purposes. Given her comorbid diseases perhaps a brief course of antibiotics empirically would be best (6) Leukopenia: Code(s): D72.819 - Decreased white blood cell count, unspecified Status: Acute (7) Malignant neoplasm of lower lobe, right bronchus or lung: Code(s): C34.31 - Malignant neoplasm of lower lobe, right bronchus or lung Status: Acute Subjective Date/time seen: 07/14/21 13:43 Patient more alert today. Denies any significant abdominal pain. No more nausea vomiting. Review of Systems Review of Systems: All systems reviewed & are unremarkable except as noted in HPI and below Exam Narrative: Physical exam reveals patient be more alert. Comfortable at rest. She is anicteric. Lungs are clear. Heart without murmur. Abdomen soft no localized tenderness at this time. No masses evident. Objective Data Vital Signs Vital Signs: Vital Signs - 24 hr 07/13/21 14:00 07/13/21 16:00 07/13/21 20:00 Temperature 98.8 F Pulse Rate 76 78 80 Respiratory Rate 16 Blood Pressure 98/83 L Pulse Oximetry 94 07/13/21 20:57 07/14/21 00:00 07/14/21 04:00 Temperature 98 F Pulse Rate 85 75 80 Respiratory Rate 18 Blood Pressure 110/47 L Pulse Oximetry 93 07/14/21 05:23 07/14/21 08:00 Temperature 97.1 F L Pulse Rate 82 81 Respiratory Rate 18 Blood Pressure 111/49 L Pulse Oximetry 94 Intake/Output Intake/Output: Intake & Output 07/11/21 07/12/21 07/13/21 07/14/21 23:59 23:59 23:59 23:59 Intake Total 1050 3490 2450 Balance 1050 3490 2450 Meds/Results Medications: Active Medications Generic Name Dose Route Start Last Admin Trade Name Freq PRN Reason Stop Dose Admin Amlodipine Besylate 5 mg 07/13/21 09:00 07/14/21 08:41 Amlodipine Besylate 5 Mg Tablet PO 5 mg DAILY MARJORIE Administration Atorvastatin Calcium 10 mg 07/13/21 09:00 07/14/21 08:41 Atorvastatin 10 Mg Tablet PO 10 mg DAILY MARJORIE Administration Calcium Carbonate 200 mg 07/13/21 12:08 Calcium Carbonate (Tums) 500 Mg (200 Mg Elemental) PO Q6H PRN Indigestion Fentanyl Citrate 50 mcg 07/12/21 16:45 07/14/21 05:27 Fentanyl Citrate Inj (*Crx) 100 Mcg/2 Ml Vial IV PUSH 50 mcg Q2H PRN Administration
--- NOTE | 2021-07-14 16:05 | PC.NURSE ---
Called over to Dr. Birch office r/t a consult from 07/12. Office took info on patient and this nurse name and number so Dr. Birch could be made aware of the consult. Office stated Dr. Birch would be by later to see the patient.
--- NOTE | 2021-07-14 16:47 | PM.IMPN ---
Progress Note: A&P Assessment and Plan (1) Colitis: Code(s): K52.9 - Noninfective gastroenteritis and colitis, unspecified Status: Acute Assessment and Plan: Presented with abdominal pain and brown watery stools. CT showed mild fat stranding around sigmoid colon consistent with colitis. Etiology for this is unclear. May be infectious, though she is afebrile. Lactic acid is 0.5, unlikely to be ischemic. Stool cultures are pending Continue IV Zosyn, started on 07/12 Blood cultures pending; no growth to date Continue probiotic Consult to Gastroenterology. Input is appreciated. Deferring colonoscopy at this time given profound leukopenia (2) Cholelithiasis: Code(s): K80.20 - Calculus of gallbladder without cholecystitis without obstruction Status: Acute Assessment and Plan: CT a/p showed cholelithiasis with gallbladder distention that may be related to acute cholecystitis vs fasting. Follow-up abdominal ultrasound again demonstrated cholelithiasis and gallbladder sludge with gallbladder distention but no pericholecystic fluid or wall thickening, equivocal for cholecystitis. HIDA scan performed today with gallbladder ejection fraction 18%. This is low normal. Low-fat diet She is tolerating her diet and has no abdominal pain. Will defer consultation to General surgery. Given profound leukopenia, she is a poor surgical candidate at this time. She may benefit from outpatient surgical follow-up should she develop any symptoms Analgesics and antiemetics available as needed (3) Intractable nausea and vomiting: Code(s): R11.2 - Nausea with vomiting, unspecified Status: Acute Assessment and Plan: Resolved. Likely due to colitis. May also be related to chemotherapy Will discontinue IV fluids. She is tolerating her diet and no longer vomiting Antiemetics available as needed. (4) Bright red rectal bleeding: Code(s): K62.5 - Hemorrhage of anus and rectum Status: Acute Assessment and Plan: Reported episode of bleeding on 07/12 that filled up bowl. No bleeding today May be due to colitis. Continue with treatment as above May be related to hemorrhoid, of which she reports a history Continue protonix. Monitor H&H. Colonoscopy being deferred as noted above due to leukopenia (5) Normocytic anemia: Code(s): D64.9 - Anemia, unspecified Status: Acute Assessment and Plan: Baseline Hgb around 10. Decline in hemoglobin and hematocrit today down to 8.0. May be related to rectal bleeding as above vs dilutional effects. Vital signs are stable and she has no evidence of active bleeding Monitor H&H Transfuse as needed with goal Hgb >7.0 (6) Malignant neoplasm of lower lobe, right bronchus or lung: Code(s): C34.31 - Malignant neoplasm of lower lobe, right bronchus or lung Status: Acute Assessment and Plan: Currently undergoing chemotherapy with Dr. Birch and radiation therapy with Dr. Young. Continue with treatment plan She had chemotherapy and radiation 1 week ago. (7) Acute on chronic renal failure: Qualifiers: Acute renal failure type: unspecified Chronic kidney disease stage: stage 3 (moderate) Chronic kidney disease stage 3 subtype: unspecified whether 3a or 3b Qualified Code(s): N17.9 - Acute kidney failure, unspecified; N18.30 - Chronic kidney disease, stage 3 unspecified Code(s): N17.9 - Acute kidney failure, unspecified; N18.9 - Chronic kidney disease, unspecified Status: Acute Assessment and Plan: Baseline creatinine appears to be around 1.1-1.2. Creatinine elevated to 1.7 at presentation, likely due to dehydration from nausea/vomiting. Renal function is normalized with IV fluids. Resume lisinopril and hydrochlorothiazide Monitor BMP (8) Chronic hypertension: Code(s): I10 - Essential (primary) hypertension Status: Chronic
[2021-07-14] MEDS: MELATONIN 3 MG TABLET PO (20:44)
[2021-07-15] VITALS: PULSE 74
[2021-07-15 04:00] VITALS: PULSE 75
[2021-07-15 05:33] VITALS: BP 148/44; PULSE 78; RESP 16; TEMP 36.6; O2SAT 96
[2021-07-15 06:09] LABS: Eosinophils Percent Auto 3.8 % (0-4.4); Hematocrit 25.1 % (37.0-47.0); Lymphocytes Absolute Auto 0.35 K/mm3 (0.9-3.2); Lymphocytes Percent Auto 33.7 % (18.3-44.2); Mean Corpuscular HGB Conc 31.9 g/dl (32-36); Mean Corpuscular Hemoglobin 31.3 pg (26-34); Mean Platelet Volume 9.7 fl (7.4-10.4); Monocytes Absolute Auto 0.1 K/mm3 (0.1-0.6); Monocytes Percent Auto 9.6 % (2.6-8.5); Neutrophils Absolute Auto 0.5 K/mm3 (1.3-6.7); Neutrophils Percent Auto 51.9 % (45.5-73.1); Platelet Count Result 130 k/mm3 (150-375); Red Blood Count 2.56 M/mm3 (4.2-5.4); Red Cell Distribution Width 16.2 % (11.5-14.5)
[2021-07-15 06:41] LABS: Anion Gap 10 mmol/L (8-16); Blood Urea Nitrogen 9 mg/dL (7-17); Calcium 8.7 mg/dL (8.4-10.2); Carbon Dioxide 26 mmol/L (22-30); Chloride 101 mmol/L (98-107); Estimated CRCL calculation 40 ml/min; Estimated Glomerular Filt Rate > 60; Glucose 97 mg/dL (65-110); Potassium 3.9 mmol/L (3.4-5.0); Sodium 137 mmol/L (137-145)
[2021-07-15 08:00] VITALS: PULSE 74
[2021-07-15] MEDS: amLODIPine BESYLATE 5 MG TABLET PO (09:08)
[2021-07-15] MEDS: PANTOPRAZOLE SODIUM IV 40 MG VIAL IV PUSH (09:08)
[2021-07-15] MEDS: ATORVASTATIN 10 MG TABLET PO (09:08)
[2021-07-15] MEDS: SACCHAROMYCES BOULARDII 250 MG CAPSULE PO ×2 (09:08→19:22)
[2021-07-15] MEDS: lisinopriL 20 MG TABLET 40 MG PO (09:09)
[2021-07-15] MEDS: hydroCHLOROthiazide 25 MG TABLET PO (09:09)
--- NOTE | 2021-07-15 09:16 | WPDGIPROGNO ---
Progress Note: A&P Assessment and Plan (1) Normocytic anemia: Code(s): D64.9 - Anemia, unspecified Status: Acute Assessment and Plan: Anemia appears to be chronic likely related to her chemotherapy. Cannot exclude some component of bleeding began she has had bright red blood per rectum. (2) Leukopenia: Code(s): D72.819 - Decreased white blood cell count, unspecified Status: Acute Assessment and Plan: Significant leukopenia noted. Likely related to chemotherapy. Plan to continue observation. (3) Bright red rectal bleeding: Code(s): K62.5 - Hemorrhage of anus and rectum Status: Acute Assessment and Plan: Patient reported bright red blood per rectum on presentation. She was found to have colitis on CT scan in is known to have hemorrhoids. We will plan to proceed with colonoscopy because of ongoing diarrhea stools. (4) Cholelithiasis: Code(s): K80.20 - Calculus of gallbladder without cholecystitis without obstruction Status: Acute Assessment and Plan: Gallstones likely asymptomatic. HIDA scan equivocal. (5) Intractable nausea and vomiting: Code(s): R11.2 - Nausea with vomiting, unspecified Status: Acute Assessment and Plan: Nausea vomiting on presentation likely related to chemotherapy. This has resolved. Plan to advance diet as tolerated. (6) Colitis: Code(s): K52.9 - Noninfective gastroenteritis and colitis, unspecified Status: Acute Assessment and Plan: Colitis identified on CT scan at the time of admission potentially could contribute to blood in her stools as well as the continued loose stools. Her main complaint at present is these loose stools. Plan therefore to proceed with colonoscopy in a.m. after prep today. Subjective Date/time seen: 07/15/21 09:16 Patient more alert and comfortable today. She is a difficult historian but apparently continues to have diarrhea stools. No bleeding reported. Minimal abdominal pain. Review of Systems Review of Systems: All systems reviewed & are unremarkable except as noted in HPI and below Exam Narrative: Physical exam reveals her to be alert and comfortable. Vital signs are stable. Lungs are clear. Heart without murmur. Abdomen soft and nontender. Mildly obese. Objective Data Vital Signs Vital Signs: Vital Signs - 24 hr 07/14/21 14:00 07/14/21 16:00 07/14/21 20:00 Temperature 96.6 F L Pulse Rate 96 81 81 Respiratory Rate 18 Blood Pressure 144/63 H Pulse Oximetry 96 07/14/21 22:00 07/15/21 00:00 07/15/21 04:00 Temperature 97.6 F Pulse Rate 88 74 75 Respiratory Rate 20 Blood Pressure 140/69 Pulse Oximetry 100 07/15/21 05:33 Temperature 97.9 F Pulse Rate 78 Respiratory Rate 16 Blood Pressure 148/44 H Pulse Oximetry 96 Intake/Output Intake/Output: Intake & Output 07/12/21 07/13/21 07/14/21 07/15/21 23:59 23:59 23:59 23:59 Intake Total 1050 3490 2840 250 Balance 1050 3490 2840 250 Meds/Results Medications: Active Medications Generic Name Dose Route Start Last Admin Trade Name Freq PRN Reason Stop Dose Admin Amlodipine Besylate 5 mg 07/13/21 09:00 07/15/21 09:08 Amlodipine Besylate 5 Mg Tablet PO 5 mg DAILY MARJORIE Administration Atorvastatin Calcium 10 mg 07/13/21 09:00 07/15/21 09:08 Atorvastatin 10 Mg Tablet PO 10 mg DAILY MARJORIE Administration Calcium Carbonate 200 mg 07/13/21 12:08 Calcium Carbonate (Tums) 500 Mg (200 Mg Elemental) PO Q6H PRN Indigestion Fentanyl Citrate 50 mcg 07/12/21 16:45 07/14/21 05:27 Fentanyl Citrate Inj (*Crx) 100 Mcg/2 Ml Vial IV PUSH 50 mcg Q2H PRN Administration Pain Rated 7-10 Heparin Sodium (Porcine) 500 units 07/13/21 07:03 Heparin Sodium Lock Flush 500 Units/5 Ml Vial IV PUSH PRN PRN see comments below Hydrochlorothiazide 25 mg 07/15/21 09:00 07/15/21 09:09 Hydrochlorothiazide
[2021-07-15] MEDS: PEG (High)/E-LYTE SOLN 4,000 ML BTL 4000 ML PO (10:28)
--- NOTE | 2021-07-15 13:30 | PM.IMPN ---
Progress Note: A&P Assessment and Plan (1) Colitis: Code(s): K52.9 - Noninfective gastroenteritis and colitis, unspecified Status: Acute Assessment and Plan: Presented with abdominal pain and brown watery stools. CT showed mild fat stranding around sigmoid colon consistent with colitis. Etiology for this is unclear. May be infectious, though she is afebrile. Lactic acid is 0.5, unlikely to be ischemic. Stool cultures are pending. C diff and Giardia negative. Additional cultures pending Continue IV Zosyn, started on 07/12 Blood cultures pending; no growth to date Continue probiotic Consult to Gastroenterology. Input is appreciated. Planning for colonoscopy tomorrow given ongoing diarrhea. Prep has begun today. (2) Cholelithiasis: Code(s): K80.20 - Calculus of gallbladder without cholecystitis without obstruction Status: Acute Assessment and Plan: CT a/p showed cholelithiasis with gallbladder distention that may be related to acute cholecystitis vs fasting. Follow-up abdominal ultrasound again demonstrated cholelithiasis and gallbladder sludge with gallbladder distention but no pericholecystic fluid or wall thickening, equivocal for cholecystitis. HIDA scan performed 07/14 with gallbladder ejection fraction 18%. This is low normal. Low-fat diet She is tolerating her diet and has no abdominal pain. Will defer consultation to General surgery. Given profound leukopenia, she is a poor surgical candidate at this time. She may benefit from outpatient surgical follow-up should she develop any symptoms Analgesics and antiemetics available as needed (3) Intractable nausea and vomiting: Code(s): R11.2 - Nausea with vomiting, unspecified Status: Acute Assessment and Plan: Resolved. Likely due to colitis. May also be related to chemotherapy Antiemetics available as needed. IV fluids have been discontinued as she has been tolerating her diet and is euvolemic. (4) Bright red rectal bleeding: Code(s): K62.5 - Hemorrhage of anus and rectum Status: Acute Assessment and Plan: Reported episode of bright red rectal bleeding at time of admission. No bleeding today May be due to colitis. Continue with treatment as above. Colonoscopy tomorrow. May be related to hemorrhoid, of which she reports a history Continue protonix. Monitor H&H. (5) Normocytic anemia: Code(s): D64.9 - Anemia, unspecified Status: Acute Assessment and Plan: Baseline Hgb around 10. Decline in hemoglobin and hematocrit this hospitalization around 8.0. May be related to rectal bleeding as above vs dilutional effects. Vital signs are stable and she has no evidence of active bleeding Monitor H&H Transfuse as needed with goal Hgb >7.0 (6) Malignant neoplasm of lower lobe, right bronchus or lung: Code(s): C34.31 - Malignant neoplasm of lower lobe, right bronchus or lung Status: Acute Assessment and Plan: Currently undergoing chemotherapy with Dr. Birch and radiation therapy with Dr. Young. Continue with treatment plan She had chemotherapy and radiation 1 week ago. (7) Acute on chronic renal failure: Qualifiers: Acute renal failure type: unspecified Chronic kidney disease stage: stage 3 (moderate) Chronic kidney disease stage 3 subtype: unspecified whether 3a or 3b Qualified Code(s): N17.9 - Acute kidney failure, unspecified; N18.30 - Chronic kidney disease, stage 3 unspecified Code(s): N17.9 - Acute kidney failure, unspecified; N18.9 - Chronic kidney disease, unspecified Status: Acute Assessment and Plan: Baseline creatinine appears to be around 1.1-1.2. Creatinine elevated to 1.7 at presentation, likely due to dehydration from nausea/vomiting. Renal function has normalized following IV fluid rehydration Monitor BMP (8) Chronic hypertension: Code(s): I10 - Essent
[2021-07-15 14:00] VITALS: BP 124/52; PULSE 73; RESP 16; TEMP 36.7; O2SAT 98
[2021-07-15] MEDS: CENTRAL LINE FLUSH 10 ML IV PUSH (14:22)
[2021-07-15 22:13] VITALS: BP 152/54; PULSE 70; RESP 17; TEMP 36.6; O2SAT 100
[2021-07-16] VITALS (7 sets, daily range): BP systolic 80–152; BP diastolic 33–64; PULSE 68–94; RESP 14–26; TEMP 36.1–36.9; O2SAT 96–100
[2021-07-16 05:50] LABS: Hematocrit 24.3 % (37.0-47.0); Hemoglobin 7.9 g/dL (12.0-15.0); Mean Corpuscular HGB Conc 32.5 g/dl (32-36); Mean Corpuscular Hemoglobin 31.2 pg (26-34); Mean Platelet Volume 9.5 fl (7.4-10.4); Platelet Count Result 116 k/mm3 (150-375); Red Blood Count 2.53 M/mm3 (4.2-5.4); Red Cell Distribution Width 15.8 % (11.5-14.5)
[2021-07-16 06:00] LABS: Anion Gap 6 mmol/L (8-16); Blood Urea Nitrogen 5 mg/dL (7-17); Calcium 8.5 mg/dL (8.4-10.2); Carbon Dioxide 29 mmol/L (22-30); Chloride 103 mmol/L (98-107); Estimated CRCL calculation 45 ml/min; Estimated Glomerular Filt Rate > 60; Glucose 99 mg/dL (65-110); Potassium 3.3 mmol/L (3.4-5.0); Sodium 138 mmol/L (137-145)
[2021-07-16] MEDS: SACCHAROMYCES BOULARDII 250 MG CAPSULE PO ×2 (09:45→16:07)
[2021-07-16] MEDS: lisinopriL 20 MG TABLET 40 MG PO (09:46)
[2021-07-16] MEDS: hydroCHLOROthiazide 25 MG TABLET PO (09:46)
[2021-07-16] MEDS: ATORVASTATIN 10 MG TABLET PO (09:46)
[2021-07-16] MEDS: amLODIPine BESYLATE 5 MG TABLET PO (09:46)
[2021-07-16] MEDS: PANTOPRAZOLE SODIUM IV 40 MG VIAL IV PUSH (09:46)
[2021-07-16 10:12] LABS: Eosinophils Percent Auto 4.3 % (0-4.4); Hematocrit 25.1 % (37.0-47.0); Hemoglobin 8.2 g/dL (12.0-15.0); Lymphocytes Percent Auto 43.5 % (18.3-44.2); Mean Corpuscular HGB Conc 32.7 g/dl (32-36); Mean Corpuscular Hemoglobin 30.9 pg (26-34); Mean Corpuscular Volume 94.7 fl (80-100); Mean Platelet Volume 9.4 fl (7.4-10.4); Monocytes Absolute Auto 0.2 K/mm3 (0.1-0.6); Monocytes Percent Auto 23.9 % (2.6-8.5); Neutrophils Absolute Auto 0.3 K/mm3 (1.3-6.7); Neutrophils Percent Auto 28.3 % (45.5-73.1); Platelet Count Result 114 k/mm3 (150-375); Red Blood Count 2.65 M/mm3 (4.2-5.4); Red Cell Distribution Width 15.9 % (11.5-14.5)
[2021-07-16 10:57] LABS: White Blood Count 0.9 K/mm3 (4.5-10.0)
[2021-07-16] MEDS: LACTATED RINGERS 1,000 ML 150 ML IV CONT (12:04)
--- NOTE | 2021-07-16 12:45 | WPDANESEPPF ---
Anes - Initial Pre Proc Eval Procedure: Operation Date: 07/16/21 12:45 Proposed Procedures p Colonoscopy - Jaime Bell MD Date/Time: 07/16/21 12:45 Surgeon: Mili Moy PA-C Pre Op Diagnosis: Colitis Patient Data Age: 76 Gender: F Height: 1.57 m Weight: 62.7 kg Last Vital Signs Temp 97.0 F L 07/16/21 12:05 Pulse 74 07/16/21 12:05 Resp 18 07/16/21 12:05 BP 152/64 H 07/16/21 12:05 Pulse Ox 100 07/16/21 12:05 Allergies Allergy/AdvReac Type Severity Reaction Status Date / Time morphine AdvReac Rash Verified 07/12/21 20:43 Home Medications Medication Instructions Recorded Confirmed Type calcium carbonate 500 mg (1,250 1 tablet PO DAILY 11/08/19 07/12/21 History mg)-vitamin D3 400 unit tablet amlodipine 5 mg tablet 5 mg PO DAILY #90 tablet 01/29/21 07/12/21 Rx atorvastatin 10 mg tablet 10 mg PO DAILY #90 tablet 01/29/21 07/12/21 Rx hydrochlorothiazide 25 mg tablet 25 mg PO DAILY #90 tablet 01/29/21 07/12/21 Rx lisinopril 40 mg tablet 40 mg PO DAILY #90 tablet 01/29/21 07/12/21 Rx omeprazole 20 mg capsule,delayed 20 mg PO DAILY #90 cap 01/29/21 07/12/21 Rx release acetaminophen [Mapap 650 mg PO Q4H PRN #90 tablet 02/27/21 07/12/21 Rx (acetaminophen)] meloxicam 7.5 mg tablet 7.5 mg PO DAILY #30 tablet 03/18/21 07/12/21 Rx ondansetron 8 mg PO Q8H PRN #30 tablet 07/11/21 07/12/21 Rx Laboratory Tests 07/16/21 07/16/21 07/16/21 05:31 05:31 09:52 WBC 1.0 K/mm3 L* K/mm3 0.9 K/mm3 L* K/mm3 (4.5-10.0) (4.5-10.0) RBC 2.53 M/mm3 L M/mm3 2.65 M/mm3 L M/mm3 (4.2-5.4) (4.2-5.4) Hgb 7.9 g/dL L g/dL 8.2 g/dL L g/dL (12.0-15.0) (12.0-15.0) Hct 24.3 % L % 25.1 % L % (37.0-47.0) (37.0-47.0) MCV 96.0 fl fl 94.7 fl fl (80-100) (80-100) MCH 31.2 pg pg 30.9 pg pg (26-34) (26-34) MCHC 32.5 g/dl g/dl 32.7 g/dl g/dl (32-36) (32-36) RDW 15.8 % H % 15.9 % H % (11.5-14.5) (11.5-14.5) Plt Count 116 k/mm3 L k/mm3 114 k/mm3 L k/mm3 (150-375) (150-375) MPV 9.5 fl fl 9.4 fl fl (7.4-10.4) (7.4-10.4) Immature Gran % (Auto) 0.0 % % (0-0.5) Neut % (Auto) 28.3 % L % (45.5-73.1) Lymph % (Auto) 43.5 % % (18.3-44.2) [place] % (Auto) 23.9 % H % (2.6-8.5) Eos % (Auto) 4.3 % % (0-4.4) Baso % (Auto) 0.0 % L % (0.2-1.2) Lymph # (Auto) 0.40 K/mm3 L K/mm3 (0.9-3.2) [place] # (Auto) 0.2 K/mm3 K/mm3 (0.1-0.6) Eos # (Auto) 0.0 K/mm3 K/mm3 (0-0.3) Baso # (Auto) 0.0 K/mm3 K/mm3 (0.0-0.1) Abs Immat Gran (auto) 0.00 K/mm3 K/mm3 (0.00-0.031) Absolute Neuts (auto) 0.3 K/mm3 L K/mm3 (1.3-6.7) Absolute Nucleated RBC 0.0 K/mm3 K/mm3 (0.0-0.012) Nucleated RBC % 0.0 % % (0.0-0.2) Sodium 138 mmol/L mmol/L (137-145) Potassium 3.3 mmol/L L mmol/L (3.4-5.0) Chloride 103 mmol/L mmol/L (98-107) Carbon Dioxide 29 mmol/L mmol/L (22-30) Anion Gap 6 mmol/L L mmol/L (8-16) BUN 5 mg/dL L mg/dL (7-17) Creatinine 0.70 mg/dL mg/dL (0.7-1.0) Estim Creat Clear Calc 45 ml/min ml/min Estimated GFR > 60 (59 - ) Glucose 99 mg/dL mg/dL (65-110) Calcium 8.5 mg/dL mg/dL (8.4-10.2) Patient hx anesthesia problems: none Family hx anesthesia problems: none [facility] Past Medical History Medical History (Updated 07/13/21 @ 12:22 by Mili Moy PA-C) Bladder cancer Broken jaw steel plate Chronic hypertension GERD (gastroesophageal reflux disease) History of benign meningioma of brain Hyperlipidemia Malignant neoplasm of lower lobe, right bronchus or lung Normal colonoscopy Surgical History Surgical History (Updated 07/12/21 @ 23:29 by Magalis Sears NP) History of appendectomy History of bladder surgery Family History Family
[2021-07-16] MEDS: CENTRAL LINE FLUSH 10 ML IV PUSH (13:59)
--- NOTE | 2021-07-16 14:45 | PM.IMPN ---
Progress Note: A&P Assessment and Plan (1) Colitis: Code(s): K52.9 - Noninfective gastroenteritis and colitis, unspecified Status: Acute Assessment and Plan: Presented with abdominal pain and brown watery stools. CT showed mild fat stranding around sigmoid colon consistent with colitis. No evidence of colitis seen on colonoscopy today. Stool cultures are pending. C diff and Giardia negative. Additional cultures pending Will discontinue IV Zosyn as there is no evidence of colitis on colonoscopy and no positive stool cultures. Discussed with GI. Blood cultures pending; no growth to date Appreciate gastroenterology recommendations Will initiate fibercon. (2) Bright red rectal bleeding: Code(s): K62.5 - Hemorrhage of anus and rectum Status: Acute Assessment and Plan: Reported episode of bright red rectal bleeding at time of admission. She still notes bright red blood on tissue when wiping. Underwent colonoscopy today which revealed internal hemorrhoids felt to be the source of bleeding Monitor H&H, overall remaining stable (3) Cholelithiasis: Code(s): K80.20 - Calculus of gallbladder without cholecystitis without obstruction Status: Acute Assessment and Plan: CT a/p showed cholelithiasis with gallbladder distention that may be related to acute cholecystitis vs fasting. Follow-up abdominal ultrasound again demonstrated cholelithiasis and gallbladder sludge with gallbladder distention but no pericholecystic fluid or wall thickening, equivocal for cholecystitis. HIDA scan performed 07/14 with gallbladder ejection fraction 18%. This is low normal. Low-fat diet She is tolerating her diet and has no abdominal pain. Will defer consultation to General surgery. Given profound leukopenia, she is a poor surgical candidate at this time. She may benefit from outpatient surgical follow-up should she develop any symptoms Analgesics and antiemetics available as needed (4) Intractable nausea and vomiting: Code(s): R11.2 - Nausea with vomiting, unspecified Status: Acute Assessment and Plan: Resolved. Antiemetics available as needed. IV fluids have been discontinued as she has been tolerating her diet and is euvolemic. (5) Normocytic anemia: Code(s): D64.9 - Anemia, unspecified Status: Acute Assessment and Plan: Baseline Hgb around 10. Decline in hemoglobin and hematocrit this hospitalization around 8.0 but remaining stable. May be related to rectal bleeding as above vs dilutional effects. Vital signs are stable and she has no evidence of active bleeding Monitor H&H Transfuse as needed with goal Hgb >7.0 (6) Malignant neoplasm of lower lobe, right bronchus or lung: Code(s): C34.31 - Malignant neoplasm of lower lobe, right bronchus or lung Status: Acute Assessment and Plan: Currently undergoing chemotherapy with Dr. Birch and radiation therapy with Dr. Young. Continue with treatment plan She had chemotherapy and radiation 1 week ago. (7) Acute on chronic renal failure: Qualifiers: Acute renal failure type: unspecified Chronic kidney disease stage: stage 3 (moderate) Chronic kidney disease stage 3 subtype: unspecified whether 3a or 3b Qualified Code(s): N17.9 - Acute kidney failure, unspecified; N18.30 - Chronic kidney disease, stage 3 unspecified Code(s): N17.9 - Acute kidney failure, unspecified; N18.9 - Chronic kidney disease, unspecified Status: Acute Assessment and Plan: Baseline creatinine appears to be around 1.1-1.2. Creatinine elevated to 1.7 at presentation, likely due to dehydration from nausea/vomiting. Renal function has normalized following IV fluid rehydration Monitor BMP (8) Chronic hypertension: Code(s): I10 - Essential (primary) hypertension Status: Chronic Assessment and Plan: Blood pressure reviewed
[2021-07-16] MEDS: calcium polycarbophiL 625 MG TABLET PO (16:06)
[2021-07-16] MEDS: FILGRASTIM-SNDZ 480 MCG/0.8 ML SYRINGE SUB-Q (16:20)
[2021-07-17 05:19] VITALS: BP 134/65; PULSE 94; RESP 12; TEMP 36.9; O2SAT 98
[2021-07-17 07:47] LABS: Hematocrit 26.6 % (37.0-47.0); Hemoglobin 8.5 g/dL (12.0-15.0); Mean Corpuscular Hemoglobin 30.8 pg (26-34); Mean Corpuscular Volume 96.4 fl (80-100); Mean Platelet Volume 9.3 fl (7.4-10.4); Platelet Count Result 98 k/mm3 (150-375); Red Blood Count 2.76 M/mm3 (4.2-5.4); Red Cell Distribution Width 15.9 % (11.5-14.5)
[2021-07-17 07:49] LABS: White Blood Count 1.4 K/mm3 (4.5-10.0)
[2021-07-17 08:00] LABS: Anion Gap 8 mmol/L (8-16); Blood Urea Nitrogen 5 mg/dL (7-17); Calcium 8.8 mg/dL (8.4-10.2); Carbon Dioxide 26 mmol/L (22-30); Chloride 100 mmol/L (98-107); Estimated CRCL calculation 45 ml/min; Estimated Glomerular Filt Rate > 60; Glucose 95 mg/dL (65-110); Sodium 134 mmol/L (137-145)
[2021-07-17 09:46] LABS: Basophils Percent Auto 1.3 % (0.2-1.2); Eosinophils Percent Auto 1.3 % (0-4.4); Immature Granulocyte Absolute 0.01 K/mm3 (0.00-0.031); Immature Granulocyte Percent A 0.7 % (0-0.5); Lymphocytes Absolute Auto 0.47 K/mm3 (0.9-3.2); Lymphocytes Percent Auto 31.3 % (18.3-44.2); Monocytes Absolute Auto 0.4 K/mm3 (0.1-0.6); Neutrophils Absolute Auto 0.6 K/mm3 (1.3-6.7); Neutrophils Percent Auto 41.4 % (45.5-73.1)
[2021-07-17] MEDS: calcium polycarbophiL 625 MG TABLET PO (10:01)
[2021-07-17] MEDS: POTASSIUM CHLORIDE 20 MEQ TABLET 40 MEQ PO (10:01)
[2021-07-17] MEDS: FILGRASTIM-SNDZ 480 MCG/0.8 ML SYRINGE SUB-Q (10:01)
[2021-07-17] MEDS: amLODIPine BESYLATE 5 MG TABLET PO (10:02)
[2021-07-17] MEDS: hydroCHLOROthiazide 25 MG TABLET PO (10:02)
[2021-07-17] MEDS: SACCHAROMYCES BOULARDII 250 MG CAPSULE PO (10:02)
[2021-07-17] MEDS: PANTOPRAZOLE 40 MG TABLET PO (10:02)
[2021-07-17] MEDS: lisinopriL 20 MG TABLET 40 MG PO (10:02)
[2021-07-17] MEDS: ATORVASTATIN 10 MG TABLET PO (10:02)
[2021-07-17 14:00] VITALS: BP 129/65; PULSE 88; RESP 16; TEMP 36.7; O2SAT 99
--- NOTE | 2021-07-17 14:41 | PM.DS ---
DS: Admitting Diagnosis Admitting Diagnosis Abdominal pain DS: Discharge Diagnosis Discharge Diagnosis (1) Colitis: Code(s): K52.9 - Noninfective gastroenteritis and colitis, unspecified Status: Acute Assessment and Plan: Ruled out. Presented with abdominal pain and brown watery stools. CT showed mild fat stranding around sigmoid colon consistent with colitis. She was started on IV Zosyn for suspected colitis. Stool cultures collected and at this time negative for C. diff and Giardia with additional cultures pending. No evidence of colitis on colonoscopy, therefore antibiotics discontinued. Blood cultures negative to date. She did have loose stools and was started on FiberCon per GI recommendations for this. (2) Bright red rectal bleeding: Code(s): K62.5 - Hemorrhage of anus and rectum Status: Acute Assessment and Plan: Reported episode of bright red rectal bleeding at time of admission. She had a colonoscopy which revealed internal hemorrhoids felt to be the source of bleeding. H&H was monitored and remained stable. Fiber initiated as above. (3) Cholelithiasis: Code(s): K80.20 - Calculus of gallbladder without cholecystitis without obstruction Status: Acute Assessment and Plan: CT a/p showed cholelithiasis with gallbladder distention that may be related to acute cholecystitis vs fasting. Follow-up abdominal ultrasound again demonstrated cholelithiasis and gallbladder sludge with gallbladder distention but no pericholecystic fluid or wall thickening, equivocal for cholecystitis. HIDA scan performed 07/14 with gallbladder ejection fraction 18%. This is low normal. Low-fat diet was initiated. She was able to tolerate her diet and did not have any right upper quadrant pain. General surgery consultation was deferred. Given her profound leukopenia, she is likely a poor surgical candidate at this time and she can follow-up as an outpatient for surgical evaluation should she become symptomatic at any point. Discussed this with her and her daughter. (4) Intractable nausea and vomiting: Code(s): R11.2 - Nausea with vomiting, unspecified Status: Acute Assessment and Plan: Resolved. This was likely due to chemotherapy. She was rehydrated with IV fluids. Antiemetics as needed. (5) Normocytic anemia: Code(s): D64.9 - Anemia, unspecified Status: Acute Assessment and Plan: Baseline Hgb around 10. Decline in hemoglobin and hematocrit this hospitalization around 8.0 but remained stable. May be related to rectal bleeding as above vs dilutional effects. Vital signs were stable and she had no evidence of active bleeding. Repeat H&H in 1 week (6) Malignant neoplasm of lower lobe, right bronchus or lung: Code(s): C34.31 - Malignant neoplasm of lower lobe, right bronchus or lung Status: Acute Assessment and Plan: Currently undergoing chemotherapy with Dr. Birch and radiation therapy with Dr. Young. She had undergone chemotherapy and radiation 5 days prior to presentation (7) Acute on chronic renal failure: Qualifiers: Acute renal failure type: unspecified Chronic kidney disease stage: stage 3 (moderate) Chronic kidney disease stage 3 subtype: unspecified whether 3a or 3b Qualified Code(s): N17.9 - Acute kidney failure, unspecified; N18.30 - Chronic kidney disease, stage 3 unspecified Code(s): N17.9 - Acute kidney failure, unspecified; N18.9 - Chronic kidney disease, unspecified Status: Acute Assessment and Plan: Baseline creatinine appears to be around 1.1-1.2. Creatinine elevated to 1.7 at presentation, likely due to dehydration from nausea/vomiting. Renal function normalized following IV fluid rehydration (8) Chronic hypertension: Code(s): I10 - Essential (primary) hypertension Status: Chronic Assessment and Plan: Blood pressure reviewed and was marissa
== END 2021-07-17 16:00 | disposition home or self-care (01) | DRG 394 ==
LOC: ANHED 17:18 → ANH3MED 17:40
PROVIDERS: Emergency Medicine; Internal Medicine Gastroenterology; Nurse Practitioner; Physician Assistant; Admitting Provider Internal Medicine; Emergency Provider Emergency Medicine; PCP Family Medicine; Visit Provider Internal Medicine
PROC: 0DJD8ZZ Inspection of Lower Intestinal Tract, Via Natural or Artificial Opening Endoscopic (ICD-10-PCS; CPT 45378; principal; 2021-07-16 12:45)
DX: K64.8 Other hemorrhoids (principal); C34.31 Malignant neoplasm of lower lobe, right bronchus or lung; N17.9 Acute kidney failure, unspecified; D64.9 Anemia, unspecified; D70.1 Agranulocytosis secondary to cancer chemotherapy; R11.2 Nausea with vomiting, unspecified; T45.1X5A Adverse effect of antineoplastic and immunosuppressive drugs, initial encounter; K57.30 Diverticulosis of large intestine without perforation or abscess without bleeding; K80.20 Calculus of gallbladder without cholecystitis without obstruction; K21.9 Gastro-esophageal reflux disease without esophagitis; I12.9 Hypertensive chronic kidney disease with stage 1 through stage 4 chronic kidney disease, or unspecified chronic kidney disease; N18.30 Chronic kidney disease, stage 3 unspecified; E78.5 Hyperlipidemia, unspecified; Z79.899 Other long term (current) drug therapy; Z87.891 Personal history of nicotine dependence; Z85.51 Personal history of malignant neoplasm of bladder
CPT/HCPCS: 36415; 71275; 74176; 76705; 78227; 80048; 80053; 81001; 82274; 83605; 83690; 83735; 84443; 84484; 85014; 85018; 85025; 85027; 85610; 85730; 87015; 87040; 87045; 87269; 87272; 87324; 87427; 93005; 96361; 96365; 96366; 96374; 96375; 96376; 99284; 99285; A9270; A9537; C9113; G0378; J2405; J2543; J2704; J2805; J3010; J3480; J7030; J7060; J7120; Q5101; Q9967

== ENCOUNTER 2021-10-13 08:24 | Outpatient (CLI) | payer MEDICARE, SELFPAY ==
--- NOTE | ~2021-10-13 | CT_ITS ---
EXAMINATION:CT diagnostic chest w con DATE: 10/13/2021 09:08 INDICATION: Non-small cell cancer of right lung. TECHNIQUE: Computed tomography (CT) of the chest was performed with 75 mL Omnipaque 350 intravenous c ontrast. Automated exposure control and iterative reconstruction technique were employed. The dose-le ngth product (DLP) was 133.80 mGy-cm. COMPARISON: Chest CT 07/11/2021, 02/24/21 FINDINGS: There is moderate emphysema. There is mild atelectasis in the lungs bilaterally. Calcified right lung nodules and calcified right hilar lymph nodes are consistent with old granulomatous diseas e. There is pleural thickening in posteromedial right lower lobe. There are airspace opacities in rig ht lower lobe. No pleural effusion. The heart size is normal. There are coronary artery calcification s. No pericardial effusion. There is a right internal jugular port with tip at superior cavoatrial ju nction. There is a healing pathologic fracture of right eighth rib. There is mild thoracic spondylosi s. There is mild chronic anterior wedging of T6 and T8 vertebral bodies. IMPRESSION: 1. Stable pleural thickening in posterior medial right lower lobe, consistent with primary bronchogen ic carcinoma and treatment changes. Healing pathologic fracture of adjacent right eighth rib. 2. Worsened airspace opacities in right lower lobe, consistent with changes of radiation therapy. 3. Moderate emphysema. Reviewed, dictated and finalized at location A. [facility] IMPRESSION: 1. Stable pleural thickening in posterior medial right lower lobe, consistent w ith primary bronchogenic carcinoma and treatment changes. Healing pathologic fr acture of adjacent right eighth rib. 2. Worsened airspace opacities in right lower lobe, consistent with changes of radiation therapy. 3. Moderate emphysema.
== END 2021-10-13 08:25 | disposition home or self-care (01) ==
LOC: ANHIMG 08:31
PROVIDERS: PCP Family Medicine; Visit Provider Internal Medicine Hematology & Oncology
DX: C34.91 Malignant neoplasm of unspecified part of right bronchus or lung (principal); J43.9 Emphysema, unspecified; R91.8 Other nonspecific abnormal finding of lung field
CPT/HCPCS: 71260; Q9967

== ENCOUNTER 2021-12-10 16:28 | Emergency (ER) | payer MEDICARE, SELFPAY ==
--- NOTE | ~2021-12-10 | XR_ITS ---
EXAMINATION: XR chest 2V DATE: 12/10/2021 17:10 INDICATION: Cough and fever. TECHNIQUE: Frontal and lateral views of the chest were obtained. COMPARISON: Chest single view 03/29/2021, chest CT 10/13/2021, 07/11/21, 02/25/21 FINDINGS: The lungs demonstrate lucencies and chronic peripheral reticular opacities, consistent with emphysema. There are chronic airspace opacities in right lower lobe. No pleural effusion or pneumoth orax. The heart size is normal. There is a right internal jugular port with tip in superior vena cava . IMPRESSION: 1. Chronic airspace opacities in right lung lower lobe, consistent with primary bronchogenic carcinom a and treatment changes. 2. Emphysema. Reviewed, dictated and finalized at location A. CUTTER IMPRESSION: 1. Chronic airspace opacities in right lung lower lobe, consistent with primary bronchogenic carcinoma and treatment changes. 2. Emphysema.
--- NOTE | 2021-12-10 16:38 | ED.GENADULT ---
HPI - General Adult General Chief complaint: Upper Respiratory Infection Stated complaint: weakness/cold sx Source: patient Mode of arrival: ambulatory Limitations: no limitations History of Present Illness HPI narrative: 76-year-old female presented for complaint of weakness, cough, and sinus congestion worsening over the past 2 weeks. She states she has been seen by her primary care provider who prescribed her a steroid pack and Tessalon Perles with minimal relief in symptoms. She states her last steroid dose was Monday. History of right lower lobe non-small cell lung cancer and is status post chemo and radiation, last PET scan showed no metastasis per pcp notes, hx neutropenia. Not vaccinated for covid. Lives alone. Related Data Home Medications Medication Instructions Recorded Confirmed calcium carbonate 500 mg-vitamin 1 tablet PO DAILY 11/08/19 12/10/21 D3 10 mcg (400 unit) tablet Allergies Allergy/AdvReac Type Severity Reaction Status Date / Time morphine AdvReac Rash Verified 12/10/21 16:33 Review of Systems Review of Systems: CONSTITUTIONAL: Endorses malaise denies chills, sweats, fever. EYES: Denies visual changes, redness, or discharge. ENT: Reports rhinorrhea, congestion denies sinus pain, otalgia and sore throat. CARDIOVASCULAR: Denies chest pain, palpitations, or edema. RESPIRATORY: Reports cough, chest pressure, sob with exertion GASTROINTESTINAL: Denies abdominal pain, nausea, vomiting, diarrhea SKIN: Denies rash or itching. MUSCULOSKELETAL: denies myalgia. NEUROLOGIC: Denies headache. [facility] Past Medical History Medical History Bladder cancer Broken jaw steel plate Chronic hypertension GERD (gastroesophageal reflux disease) History of benign meningioma of brain Hyperlipidemia Malignant neoplasm of lower lobe, right bronchus or lung Normal colonoscopy Surgical History Surgical History History of appendectomy History of bladder surgery Family History Family History Sibling Family history of obesity Patient's sister is in good health Carcinoma of colon Social History Social History Social History: The patient is . She had 3 daughters and 1 recently and 1 is missing. The patient lives alone. She is a former smoker. The patient is listed as a full code but does not want to live in a vegetative state. Her daughter is the durable power thermocouple tester for healthcare. The patient is a full code. Patient denies any marijuana alcohol or illicit drugs. Smoking packs per day: 1 Smoking cigarettes per day: 20.0 Years smoked: 58 Smoking pack-years: 58.00 Smoking status: Former smoker Tobacco type: cigarettes Second hand tobacco smoke exposure: Yes Smoking end date: 02/25/21 Additional smoking assessment comments: down to less than a pack when she stopped Alcohol intake: never Substance use: never Substance use type: does not use Gender identity (if verbalized by the patient): Female Sexual Orientation (if Verbalized by the Patient): Straight or Heterosexual Spiritual care concerns: No Exam Narrative: GENERAL: Ill-appearing, nontoxic no acute distress. HEAD: Normocephalic EYES: PERRLA, conjunctivae clear ENT: Mucous membranes moist. NECK: Supple. No lymphadenopathy CHEST: Clear to auscultation, breath sounds equal. No wheezing, rhonchi, rales, or stridor. No respiratory distress, speaks in full sentences. HEART: Regular rate and rhythm. No murmur heard. SKIN: Warm, dry, no rash. NEURO: Alert and oriented x3. PSYCH: Normal mood and affect Course Course Emergency Course: CXR showed no pneumonia, reviewed with pt and dtr; discussed at length recommendation to go to ER for further evaluation of c/o weakness and pos
[2021-12-10 16:39] VITALS: BP 136/80; PULSE 123; RESP 18; TEMP 38; O2SAT 97
== END 2021-12-10 17:50 | disposition home or self-care (01) ==
PROVIDERS: Emergency Provider Nurse Practitioner Family; PCP Family Medicine
DX: R53.1 Weakness (principal); J06.9 Acute upper respiratory infection, unspecified; Z20.822 Contact with and (suspected) exposure to COVID-19; I11.0 Hypertensive heart disease with heart failure; I10 Essential (primary) hypertension; E78.5 Hyperlipidemia, unspecified; Z85.51 Personal history of malignant neoplasm of bladder; Z85.118 Personal history of other malignant neoplasm of bronchus and lung; Z92.21 Personal history of antineoplastic chemotherapy; Z92.3 Personal history of irradiation
CPT/HCPCS: 71046; 87426; 99213; C9803; G0463

== ENCOUNTER 2021-12-13 16:14 | Emergency (ER) | payer MEDICARE, SELFPAY ==
[2021-12-13] VITALS (18 sets, daily range): BP systolic 92–135; BP diastolic 46–87; PULSE 69–102; RESP 13–20; TEMP 36.7; O2SAT 89–100
--- NOTE | ~2021-12-13 | XR_ITS ---
EXAMINATION: XR chest 1V portable EXAM DATE: 12/13/2021 17:51 INDICATION: Cough, weakness, cold like symptoms x 5 weeks. TECHNIQUE: Portable AP frontal chest x-ray was obtained. Comparison is made to prior examination from 12/10/2021. FINDINGS: There is right-sided portacatheter with intact line. Ill-defined bilateral airspace disease suspected, not evident on prior study. Could be edema or pneumonia. IMPRESSION: Suspect developing bilateral edema or pneumonia. Reviewed, dictated and finalized at location G. [facility]OS[facility]
--- NOTE | ~2021-12-13 | CT_ITS ---
EXAMINATION: CTA chest PE protocol EXAM DATE: 12/13/2021 18:58 INDICATION: cp, sob, elevated dimer, recent lung cancer. Lung cancer. TECHNIQUE: Spiral CTA of the chest (pulmonary arteries) was performed with 100 cc Omnipaque 350 intr avenous contrast injection. Images were acquired during the pulmonary arterial phase. Coronal maxi mum intensity projection 3D-reconstructions were created by the technologist on dedicated workstation . Axial, coronal and sagittal reformatted images were reviewed. The dose-length product (DLP) for t his examination was 280.63 mGy-cm. The exposure was tailored according to patient size (auto mA exp osure control), and iterative reconstruction (ASIR) was used as additional dose reduction technique. Correlation is made to prior CT scan 10/13/2021. FINDINGS: Pulmonary arteries are well opacified and without intraluminal filling defects. No thora cic aortic dissection. There is moderate emphysema. Probable mild chronic interstitial lung disease. There is right lower lobe posteromedial treated cancer, posterior dependent opacity probably radiati on fibrosis given prior studies. There are no pleural or pericardial effusions. Tracheobronchial t ree is patent. There is no mediastinal, hilar or axillary lymphadenopathy. There is no pneumothor ax. Heart normal in size. Upper abdomen is unremarkable. Right 8th rib fracture posteriorly w hich is chronic. IMPRESSION: 1. Right lower lobe airspace disease consistent with treated lung cancer, radiation fibrosis. 2. Moderate emphysema. 3. Mild interstitial lung disease. 4. No pulmonary emboli. Reviewed, dictated and finalized at location G. SS CONTROL OFFICER IMPRESSION: 1. Right lower lobe airspace disease consistent with treated lung cancer, radi ation fibrosis. 2. Moderate emphysema. 3. Mild interstitial lung disease. 4. No pulmonary emboli.
--- NOTE | 2021-12-13 17:17 | ECG_ITS ---
Measurements Intervals [place] Rate: 77 P: 48 UT: 190 QRS: -3 QRSD: 82 T: 10 QT: 354 QTc: 401 Interpretive Statements SINUS RHYTHM WITH SINUS ARRHYTHMIA EARLY PRECORDIAL R/S TRANSITION BORDERLINE ECG Electronically Signed On 12-13-2021 20:39:50 [employer] by Edgardo Washington D.O.
[2021-12-13 17:46] LABS: Basophils Percent Auto 0.3 % (0.2-1.2); Eosinophils Absolute Auto 0.2 K/mm3 (0-0.3); Eosinophils Percent Auto 2.1 % (0-4.4); Hematocrit 35.3 % (37.0-47.0); Hemoglobin 11.1 g/dL (12.0-15.0); Immature Granulocyte Absolute 0.04 K/mm3 (0.00-0.031); Immature Granulocyte Percent A 0.4 % (0-0.5); Lymphocytes Absolute Auto 1.07 K/mm3 (0.9-3.2); Mean Corpuscular HGB Conc 31.4 g/dl (32-36); Mean Corpuscular Volume 95.4 fl (80-100); Mean Platelet Volume 9.5 fl (7.4-10.4); Monocytes Absolute Auto 0.6 K/mm3 (0.1-0.6); Monocytes Percent Auto 5.2 % (2.6-8.5); Neutrophils Absolute Auto 8.8 K/mm3 (1.3-6.7); Platelet Count Result 304 k/mm3 (150-375); Red Cell Distribution Width 13.9 % (11.5-14.5); White Blood Count 10.7 K/mm3 (4.5-10.0)
--- NOTE | 2021-12-13 17:55 | ED.URI ---
HPI - URI/Sore Throat General Chief Complaint: Upper Respiratory Infection Stated Complaint: COUGH/COLD S/X WEAKNESS Time Seen by Provider: 12/13/21 17:17 Source: patient Mode of arrival: ambulatory Limitations: no limitations History of Present Illness HPI Narrative: This is a 76 year old female that presents to the ER for continued cough and feeling unwell. Reports over the last couple of weeks she has had a productive cough. Reports she has been treated with a z pac and steroid, and then was recently started on Levaquin. Reports she has not had relief in her symptoms. She has been feeling weak and has not wanted to eat or drink much so was worried she may be dehydrated. Has history of recently treated lung cancer. Reports intermittent chest pains. Also reports shortness of breath with coughing. Denies fever, or lower extremity edema. Related Data Home Medications Medication Instructions Recorded Confirmed calcium carbonate 500 mg-vitamin 1 tablet PO DAILY 11/08/19 12/10/21 D3 10 mcg (400 unit) tablet Allergies Allergy/AdvReac Type Severity Reaction Status Date / Time morphine AdvReac Rash Verified 12/10/21 16:33 Review of Systems Review of Systems: CONSTITUTIONAL: Denies fever CARDIOVASCULAR: Reports chest pain. Denies edema. RESPIRATORY: Reports cough and dyspnea. GASTROINTESTINAL: Reports nausea, vomiting NEUROLOGIC: Reports generalized weakness. All systems reviewed & are unremarkable except as noted in HPI and below PMFSH Past Medical History Medical History Bladder cancer Broken jaw steel plate Chronic hypertension GERD (gastroesophageal reflux disease) History of benign meningioma of brain Hyperlipidemia Malignant neoplasm of lower lobe, right bronchus or lung Normal colonoscopy Surgical History Surgical History History of appendectomy History of bladder surgery Family History Family History Sibling Family history of obesity Patient's sister is in good health Carcinoma of colon Social History Social History Social History: The patient is . She had 3 daughters and 1 recently and 1 is missing. The patient lives alone. She is a former smoker. The patient is listed as a full code but does not want to live in a vegetative state. Her daughter is the durable power bankruptcy attorney for healthcare. The patient is a full code. Patient denies any marijuana alcohol or illicit drugs. Smoking packs per day: 1 Smoking cigarettes per day: 20.0 Years smoked: 58 Smoking pack-years: 58.00 Smoking status: Former smoker Tobacco type: cigarettes Second hand tobacco smoke exposure: Yes Smoking end date: 02/25/21 Additional smoking assessment comments: down to less than a pack when she stopped Alcohol intake: never Substance use: never Substance use type: does not use Gender identity (if verbalized by the patient): Female Sexual Orientation (if Verbalized by the Patient): Straight or Heterosexual Spiritual care concerns: No Exam Narrative: GENERAL: Elderly, well-nourished, and in no acute distress. HEAD: Normocephalic, atraumatic. EYES: EOMI. ENT: Nares clear, no rhinorrhea or epistaxis. Mucous membranes moist. Oropharynx without tonsillar hypertrophy exudate or other lesions. NECK: Supple. No adenopathy or masses. CHEST: Clear to auscultation. No respiratory distress. No wheezes rales or rhonchi HEART: Regular rate and rhythm. No murmur heard. Normal peripheral pulses. ABDOMEN: Soft, nontender, nondistended, normal active bowel sounds. EXTREMITIES: Normal range of motion. No edema. SKIN: Warm, dry, no rash. NEURO: No focal deficits. Alert and oriented x3. PSYCH: Normal mood and affect Course Consultations Consultation #1: Arabella garcia
[2021-12-13 17:58] LABS: Prothrombin Time 13.1 Seconds (11.1-14.7)
[2021-12-13 17:59] LABS: Partial Thromboplastin Time 28.7 SECONDS (22.3-36.8)
[2021-12-13 18:18] LABS: Alanine Aminotransferase 11 U/L (4-35); Alkaline Phosphatase 93 U/L (38-126); Anion Gap 6 mmol/L (8-16); Aspartate Amino Transferase 18 U/L (14-36); Bilirubin,Total 0.2 mg/dL (0.2-1.3); Blood Urea Nitrogen 30 mg/dL (7-17); Calcium 9.5 mg/dL (8.4-10.2); Carbon Dioxide 26 mmol/L (22-30); Chloride 103 mmol/L (98-107); Estimated CRCL calculation 22 ml/min; Estimated Glomerular Filt Rate 34; Glucose 109 mg/dL (65-110); Potassium 4.3 mmol/L (3.4-5.0); Sodium 135 mmol/L (137-145)
[2021-12-13 18:25] LABS: D Dimer 1.15 ug/mL (<0.48)
[2021-12-13 18:34] LABS: NT Pro B Type Natriuretic Pept 95 pg/mL (5-100); Troponin I < 0.012 ng/mL (0.000-0.034)
[2021-12-13] MEDS: SODIUM CHLORIDE 0.9% IV 500 ML 999 ML IV CONT (18:41)
[2021-12-13 20:03] LABS: Add Urine Microscopic? YES; Appearance Urine Clear (Clear); Bacteria Urine Trace /hpf; Bilirubin Urine Negative (Negative); Blood Urine Negative (Negative); Color Urine Straw (Yellow); Glucose Urine UA Negative (Negative); Ketones Urine Negative (Negative); Leukocyte Esterase Ur Trace LEU/UL (Negative); Mucus Urine Rare /lpf; Nitrate Urine Negative (Negative); Protein Urine Negative (Negative); RBC Urine 0-2 /hpf (0-2); Squamous Epithelial Cell Urine Few /hpf (Few); Urobilinogen Urine Negative mg/dL (<2.0); WBC Urine 0-3 /hpf
[2021-12-13 20:05] LABS: Specific Grav Ur 1.032 (1.001-1.035)
== END 2021-12-13 21:05 | disposition home or self-care (01) ==
PROVIDERS: Physician Assistant; Emergency Provider Emergency Medicine; PCP Family Medicine
DX: R05.9 Cough, unspecified (principal); J43.9 Emphysema, unspecified; Z85.118 Personal history of other malignant neoplasm of bronchus and lung; I10 Essential (primary) hypertension; E78.5 Hyperlipidemia, unspecified; K21.9 Gastro-esophageal reflux disease without esophagitis; Z85.51 Personal history of malignant neoplasm of bladder; Z87.891 Personal history of nicotine dependence; J84.9 Interstitial pulmonary disease, unspecified; R94.31 Abnormal electrocardiogram [ECG] [EKG]; R06.02 Shortness of breath
CPT/HCPCS: 36415; 71045; 71275; 80053; 81001; 83880; 84484; 85025; 85380; 85610; 85730; 93005; 99284; J7040; Q9967

== ENCOUNTER 2022-01-20 13:47 | Outpatient (CLI) | payer MEDICARE, SELFPAY ==
--- NOTE | ~2022-01-20 | CT_ITS ---
EXAMINATION: CT diagnostic chest wo con DATE: 01/20/2022 14:08 INDICATION: Non-small cell lung cancer of the right lung TECHNIQUE: Computed tomography (CT) of the chest was performed without intravenous contrast. The dose -length product (DLP) was 141.86 mGy-cm. Automated exposure control and iterative reconstruction tech Lovejuice were employed. COMPARISON: 12/13/2021 FINDINGS: A right-sided internal jugular Port-A-Cath ends with its tip in the distal superior vena ca va. There is moderate emphysema. Bronchiectasis and pleural thickening persist in the posteromedial a spect of the right lower lobe without significant change. The lungs are free of acute opacities. Ther e is no pleural effusion or pneumothorax. No pathologically enlarged thoracic lymph nodes are identif ied. The heart size is normal. Calcified coronary artery atherosclerosis is noted. A healing patholog ic fracture of the posteromedial right eighth rib is noted. There is mild thoracic spondylosis. IMPRESSION: 1. Stable, chronic bronchiectasis and pleural thickening in the posterior medial right lower lobe, co nsistent with treatment change and primary bronchogenic carcinoma. Reviewed, dictated and finalized at location B. MACY MESSENGER IMPRESSION: 1. Stable, chronic bronchiectasis and pleural thickening in the posterior media l right lower lobe, consistent with treatment change and primary bronchogenic c arcinoma.
== END 2022-01-20 13:48 | disposition home or self-care (01) ==
PROVIDERS: PCP Family Medicine; Visit Provider Internal Medicine Hematology & Oncology
DX: C34.91 Malignant neoplasm of unspecified part of right bronchus or lung (principal)
CPT/HCPCS: 71250

== ENCOUNTER 2022-01-27 13:56 | Outpatient (CLI) | payer MEDICARE, SELFPAY ==
[2022-01-27 15:59] LABS: Creatinine Urine 27.9 mg/dL; Total Protein Urine Random 12 mg/dL; Ur Ttl Prot Creatinine Ratio 0.43 mg/mg (0-0.20)
[2022-01-27 16:01] LABS: Phosphorus 3.2 mg/dL (2.5-4.5)
[2022-01-27 16:04] LABS: Sodium Urine Random 31 meq/L
[2022-01-27 16:09] LABS: Add Urine Microscopic? YES; Appearance Urine Cloudy (Clear); Bacteria Urine Trace /hpf; Bilirubin Urine Negative (Negative); Blood Urine Negative (Negative); Color Urine Yellow (Yellow); Glucose Urine UA Negative (Negative); Ketones Urine Negative (Negative); Leukocyte Esterase Ur 3+ LEU/UL (NEGATIVE); Mucus Urine Rare /lpf; Nitrate Urine Negative (Negative); Protein Urine Negative (Negative); RBC Urine 0-2 /hpf (0-2); Specific Grav Ur 1.005 (1.001-1.035); Squamous Epithelial Cell Urine Occasional /hpf (Few); Urobilinogen Urine Negative mg/dL (<2.0); WBC Urine 0-3 /hpf (0-3)
[2022-01-27 16:10] LABS: Complement C3 143 mg/dL (88-165)
[2022-01-27 16:58] LABS: Eosinophil Urine None Seen % (None Seen)
[2022-01-29 21:47] LABS: Anti Glomerular Basement Memb <1.0 AI (<1.0)
[2022-01-31 02:24] LABS: Albumin 4.2 g/dL (3.8-4.8); Alpha 1 Globulin 0.5 g/dL (0.2-0.3); Alpha 2 Globulin 1.2 g/dL (0.5-0.9); Beta 1 Globulin 0.6 g/dL (0.4-0.6); Gamma Globulin 0.8 g/dL (0.8-1.7); Protein, Total 7.7 g/dL (6.1-8.1)
[2022-02-01 03:20] LABS: Creatinine, Random Urine 27 mg/dL (20-275); Total Protein/Creatinine Ratio 185 mg/g creat (21-161)
[2022-02-03 07:28] LABS: ANCA Screen Negative (Negative)
== END 2022-01-27 13:57 | disposition home or self-care (01) ==
PROVIDERS: Internal Medicine Nephrology; PCP Family Medicine; Visit Provider Internal Medicine Hematology & Oncology
DX: E78.2 Mixed hyperlipidemia (principal); I12.9 Hypertensive chronic kidney disease with stage 1 through stage 4 chronic kidney disease, or unspecified chronic kidney disease; N18.32 Chronic kidney disease, stage 3b
CPT/HCPCS: 36415; 81001; 82570; 83520; 84100; 84155; 84156; 84165; 84166; 84300; 85999; 86036; 86038; 86160; 86225; 87086

== ENCOUNTER 2022-01-28 12:28 | Outpatient (CLI) | payer MEDICARE, SELFPAY ==
--- NOTE | ~2022-01-28 | US_ITS ---
US renal BI 01/28/2022 13:03 Procedure: Realtime transabdominal ultrasound of the kidneys and bladder. Indication: Chronic kidney disease Comparison: CT dated 07/12/2021 Findings: Renal echotexture is normal bilaterally without hydronephrosis, contour deforming mass or r enal calculus. The right kidney measures 8.6 cm and left kidney measures 8.4 cm. Bladder within norm al limits. Impression: 1: Unremarkable renal ultrasound. No stones, masses or hydronephrosis. Reviewed, dictated and finalized at location B. Impression: 1: Unremarkable renal ultrasound. No stones, masses or hydronephrosis.
== END 2022-01-28 12:29 | disposition home or self-care (01) ==
PROVIDERS: PCP Family Medicine; Visit Provider Internal Medicine Nephrology
DX: I12.9 Hypertensive chronic kidney disease with stage 1 through stage 4 chronic kidney disease, or unspecified chronic kidney disease (principal); N18.32 Chronic kidney disease, stage 3b
CPT/HCPCS: 76775

== ENCOUNTER 2022-06-08 13:27 | Outpatient (CLI) | payer MEDICARE, SELFPAY ==
--- NOTE | ~2022-06-08 | CT_ITS ---
EXAMINATION: CT diagnostic chest wo con DATE: 06/08/2022 13:52 INDICATION: Non-small cell cancer of the right lung TECHNIQUE: Computed tomography (CT) of the chest was performed without intravenous contrast. The dose -length product (DLP) was 130.97 mGy-cm. Automated exposure control and iterative reconstruction tech Bizak were employed. COMPARISON: 01/20/2022 FINDINGS: A right internal jugular Port-A-Cath ends with its tip in the superior vena cava. There is moderate emphysema. Again noted are bronchiectasis, pleural thickening, and volume loss in the butcher all round omedial aspect of the right lower lobe without significant change. No acute opacities are identified. No pleural effusion or pneumothorax. No pathologically enlarged thoracic lymph nodes are identified. The heart size is normal. A healing pathologic fracture of the posteromedial right eighth rib is aga in noted. There is calcified coronary artery atherosclerosis. There is mild thoracic spondylosis. IMPRESSION: 1. Stable bronchiectasis, pleural thickening, and volume loss in the posterior medial aspect of the r ight lower lobe, consistent with treatment change and primary bronchogenic carcinoma. Reviewed, dictated and finalized at location B. IMPRESSION: 1. Stable bronchiectasis, pleural thickening, and volume loss in the posterior medial aspect of the right lower lobe, consistent with treatment change and nicholas jolene bronchogenic carcinoma.
== END 2022-06-08 13:28 | disposition home or self-care (01) ==
LOC: ANHIMG 13:28
PROVIDERS: PCP Family Medicine; Visit Provider Internal Medicine Hematology & Oncology
DX: C34.91 Malignant neoplasm of unspecified part of right bronchus or lung (principal); J47.9 Bronchiectasis, uncomplicated
CPT/HCPCS: 71250

== ENCOUNTER 2022-06-30 01:05 | Day surgery (SDC) | payer MEDICARE, SELFPAY ==
[2022-06-24 14:40] VITALS: BMI 25.1
--- NOTE | 2022-06-24 14:50 | PC.NURSE ---
Report to the Outpatient Waiting Room, entrance under the green pavilion located off [facility], at time __1000 on date __06/30/22 . OR Time: ____1200____. - You and your visitor will be asked to self-screen and do not enter if you have any COVID symptoms. - Only one visitor and NO children visitors are allowed at this time. - The patient visitor is requested to leave or wait in car when not with patient due to restrictions. - A mask is required within the hospital. Patients may have clear liquids (water, carbonated beverages, clear teas, apple juice) until 3 hours prior to surgery (0900 AM) with a maximum of 20 ounces. - No food from midnight until time of surgery - Infants may have breast milk until 4 hours before surgery, formula 6 hours prior to surgery. - Children will be allowed to drink immediately following surgery. If applicable, please bring a bottle or sippy cup to assist with drinking. Juice, water, soda, and popsicles are readily available. For infants on formula, please bring formula the day of surgery. Pacifiers are allowed. Take the following medications with a SIP of water the morning of surgery: _AMLODIPINE, TYLENOL IF NEEDED__ Medications to discontinue per physician _VITAMINS/SUPPLEMENTS 3 DAYS PRIOR TO SURGERY, Date to take last dose 06/26/22_ Please no make-up, nail maltese, hairspray, perfume, deodorant, or body powder the day of surgery. No jewelry (including any body piercings) or valuables the day of surgery, leave them at home. Please take a shower or bath the night before, or the morning of, surgery with an antibacterial soap. Wear comfortable, loose fitting clothing. Children are encouraged to wear pajamas. - Jewelry must be removed prior to entering the operating room. Rings and piercings that are not removed may be cut off. - The hospital will not accept responsibility for valuables. - Please leave all valuables, including medications, at home the day of surgery. If you are going home after surgery, a licensed tow car driver must drive you home. - NO public transportation without another adult. - We recommend that an adult stay with you for 24 hours following discharge. - We also recommend that you do not drive, make important decision, drink alcoholic beverages, or take any drugs that were not prescribed by your health care provider for at least 24 hours after your discharge time. For Pediatric surgeries, we recommend two adults accompany the child home (only one inside the building at this time). Follow any additional instructions given to you from your surgeon. If you or anyone in your household have experienced Covid symptoms in the past week, please notify your surgeon or the nurse liaison at the phone number below for possible testing. Telephone instructions given to PT and asked if any additional questions and then verbalized understanding. Patient advised to call surgeon office or pre surgery nurse liaison [phone] if any additional questions.
[2022-06-30 09:59] VITALS: BP 132/64; PULSE 81; RESP 20; TEMP 36.3; O2SAT 98
[2022-06-30] MEDS: LACTATED RINGERS 1,000 ML 30 ML IV CONT (10:35)
--- NOTE | 2022-06-30 10:58 | WPDANESEPPF ---
Anes - Initial Pre Proc Eval Procedure: Operation Date: 06/30/22 12:00 Proposed Procedures p Removal Masood Cath - Madeline Lopez MD Date/Time: 06/30/22 10:58 Surgeon: Madeline Lopez MD Pre Op Diagnosis: non small cell right lung cancer Patient Data Age: 77 Gender: F Height: 1.57 m Weight: 62.27 kg Allergies Allergy/AdvReac Type Severity Reaction Status Date / Time morphine AdvReac DIARRHEA/VO Verified 06/30/22 10:41 MITING Home Medications Medication Instructions Recorded Confirmed Type calcium carbonate 500 mg-vitamin 1 tablet PO DAILY 11/08/19 06/30/22 History D3 10 mcg (400 unit) tablet (Calcium 500 + D) acetaminophen 325 mg tablet (Mapap 650 mg PO Q4H PRN Pain 1-5 #90 tabs 02/27/21 06/24/22 Rx (acetaminophen)) calcium polycarbophil 625 mg 625 mg PO BID #60 tabs 07/17/21 06/30/22 Rx tablet (Fiber (calcium polycarbophil)) amlodipine 5 mg tablet 5 mg PO DAILY #90 tabs 11/16/21 06/30/22 Rx atorvastatin 10 mg tablet 10 mg PO DAILY #90 tabs 11/16/21 06/30/22 Rx hydrochlorothiazide 25 mg tablet 25 mg PO DAILY #90 tabs 11/16/21 06/30/22 Rx lisinopril 40 mg tablet 40 mg PO DAILY #90 tabs 11/16/21 06/30/22 Rx omeprazole 20 mg capsule,delayed 20 mg PO DAILY #90 caps 11/16/21 06/30/22 Rx release cyanocobalamin (vitamin B-12) 1 tab-cap QAM 06/24/22 06/30/22 History vitamin E 400 unit tablet 134 mg PO DAILY 06/24/22 06/30/22 History Patient hx anesthesia problems: none Family hx anesthesia problems: none Results Review: All pre-operative results and documents have been reviewed as part of the pre-operative evaluation. [facility] Past Medical History Medical History Bladder cancer Broken jaw steel plate Chronic hypertension GERD (gastroesophageal reflux disease) History of benign meningioma of brain Hyperlipidemia Malignant neoplasm of lower lobe, right bronchus or lung Normal colonoscopy Surgical History Surgical History History of appendectomy History of bladder surgery Family History Family History Sibling Family history of obesity Patient's sister is in good health Carcinoma of colon Social History Social History Social History: The patient is . She had 3 daughters and 1 recently and 1 is missing. The patient lives alone. She is a former smoker. The patient is listed as a full code but does not want to live in a vegetative state. Her daughter is the durable power vertical punch operator for healthcare. The patient is a full code. Patient denies any marijuana alcohol or illicit drugs. Smoking packs per day: 1 Smoking cigarettes per day: 20.0 Years smoked: 20 Smoking pack-years: 20.00 Smoking status: Former smoker Tobacco type: cigarettes Second hand tobacco smoke exposure: No Smoking end date: 02/25/21 Additional smoking assessment comments: down to less than a pack when she stopped Alcohol intake: never Substance use: never Substance use type: does not use Living arrangements: alone Gender identity (if verbalized by the patient): Female Sexual Orientation (if Verbalized by the Patient): Straight or Heterosexual Spiritual care concerns: No Anes - Eval Final PreProcedure Day of Procedure 06/30/22 10:58 Patient weight: normal Heart: regular rate and rhythm Lungs: clear to auscultation Airway: Mallampati scale class II Neurological: alert and oriented Last oral intake: >/= 8 hours ASA classification: III Emergent: no Anesthetic plan: proceed Anesthesia type and monitoring: general GIVS and standard monitoring Results Review: All pre-operative results and documents have been reviewed as part of the pre-operative evaluation. Informed Consent: The patient's anesthetic plan and
--- NOTE | 2022-06-30 11:41 | PM.IMHP ---
H&P: HPI History of Present Illness Date/Time: 06/30/22 11:41 Chief Complaint: R lung cancer Narrative: Pt is a 77 y/o F s/p chemoradiation for R lung cancer. Pt had VAD placed for chemo access in 04/02. Pt denies any issues c VAD but would like it removed at this time as port is not being used. Review of Systems Review of Systems: All systems reviewed & are unremarkable except as noted in HPI and below PMFSH Past Medical History Medical History Bladder cancer Broken jaw steel plate Chronic hypertension GERD (gastroesophageal reflux disease) History of benign meningioma of brain Hyperlipidemia Malignant neoplasm of lower lobe, right bronchus or lung Normal colonoscopy Surgical History Surgical History History of appendectomy History of bladder surgery Family History Family History Sibling Family history of obesity Patient's sister is in good health Carcinoma of colon Social History Social History Social History: The patient is . She had 3 daughters and 1 recently and 1 is missing. The patient lives alone. She is a former smoker. The patient is listed as a full code but does not want to live in a vegetative state. Her daughter is the durable power divorce attorney for healthcare. The patient is a full code. Patient denies any marijuana alcohol or illicit drugs. Smoking packs per day: 1 Smoking cigarettes per day: 20.0 Years smoked: 20 Smoking pack-years: 20.00 Smoking status: Former smoker Tobacco type: cigarettes Second hand tobacco smoke exposure: No Smoking end date: 02/25/21 Additional smoking assessment comments: down to less than a pack when she stopped Alcohol intake: never Substance use: never Substance use type: does not use Living arrangements: alone Gender identity (if verbalized by the patient): Female Sexual Orientation (if Verbalized by the Patient): Straight or Heterosexual Spiritual care concerns: No Meds Home Medications and Allergies Home Medications Medication Instructions Recorded Confirmed Type calcium carbonate 500 mg-vitamin 1 tablet PO DAILY 11/08/19 06/30/22 History D3 10 mcg (400 unit) tablet (Calcium 500 + D) acetaminophen 325 mg tablet (Mapap 650 mg PO Q4H PRN Pain 1-5 #90 tabs 02/27/21 06/24/22 Rx (acetaminophen)) calcium polycarbophil 625 mg 625 mg PO BID #60 tabs 07/17/21 06/30/22 Rx tablet (Fiber (calcium polycarbophil)) amlodipine 5 mg tablet 5 mg PO DAILY #90 tabs 11/16/21 06/30/22 Rx atorvastatin 10 mg tablet 10 mg PO DAILY #90 tabs 11/16/21 06/30/22 Rx hydrochlorothiazide 25 mg tablet 25 mg PO DAILY #90 tabs 11/16/21 06/30/22 Rx lisinopril 40 mg tablet 40 mg PO DAILY #90 tabs 11/16/21 06/30/22 Rx omeprazole 20 mg capsule,delayed 20 mg PO DAILY #90 caps 11/16/21 06/30/22 Rx release cyanocobalamin (vitamin B-12) 1 tab-cap QAM 06/24/22 06/30/22 History vitamin E 400 unit tablet 134 mg PO DAILY 06/24/22 06/30/22 History Allergies Allergy/AdvReac Type Severity Reaction Status Date / Time morphine AdvReac DIARRHEA/VO Verified 06/30/22 10:41 MITING Exam Const: General: cooperative, comfortable and ill appearing Chest: Chest palpation & inspection: normal inspection of the chest Other: R chest VAD - C/D/I Resp: Auscultation: diminished lung sounds Cardio: Rate: regular rate Rhythm: regular rhythm GI: Inspection: normal to inspection Assessment and Plan Assessment and plan (1) Malignant neoplasm of lower lobe, right bronchus or lung: Code(s): C34.31 - Malignant neoplasm of lower lobe, right bronchus or lung Status: Acute Assessment and Plan: s/p chemoradiation, will remove VAD in OR
--- NOTE | 2022-06-30 11:43 | WPDHPUPDATE1 ---
History and Physical Update Update Date/Time: 06/30/22 11:43 History and Physical has been reviewed, including an updated exam of the patient. There are NO changes in the patient's condition. Risks, benefits, and alternatives have been discussed and questions answered. Patient agrees to proceed with procedure.
[2022-06-30] MEDS: ceFAZolin 2 GM/D5W 50 ML 2 GM/50 ML BAG IVPB (11:53)
[2022-06-30 12:29] VITALS: BP 96/39; PULSE 74; RESP 12; O2SAT 97
--- NOTE | 2022-06-30 12:40 | W.PM.PROC2 ---
Procedure Note - Detailed Date of Procedure 06/30/22 Pre-op Diagnosis non small cell right lung cancer Post-op Diagnosis Same Procedure Performed removal [facility] chest VAD Surgeon Madeline Lopez MD Anesthesia MAC and Local Indications 77 y/o F s/p treatment for R lung cancer. Pt had R sided VAD placed about a year ago. Findings RIJ VAD Description of Procedure The patient was taken to the operating room and placed in the supine position. The patient was then prepped and draped in the normal sterile fashion. A time-out was then done to verify the patient's identity, as well as the procedure being performed. I began by localizing the area of the previously placed port in the right chest. After the area was adequately anesthetized, I made an incision through the previous incision to gain access to the port in the subcutaneous tissue. I was then able to identify the port and using dissection with the Bovie cautery, I was able to free the reservoir from the subcutaneous pocket. The reservoir was being held in by 2 sutures and these were subsequently cut. I was then able to remove the reservoir from the pocket. I then removed the catheter from the right internal jugular vein in full. I then held pressure at the level the right internal jugular vein for approximately 5 minutes. Hemostasis was noted and I irrigated the pocket. I then closed the subcutaneous tissue with 3-0 Vicryl suture. The skin was closed with 4-0 Monocryl subcuticular suture. Dermabond was placed on the wound. The patient tolerated the procedure well and was alert and awake in the operating room postoperative. The patient will be sent to the recovery room in stable condition. Estimated Blood Loss 5 Drains No Packing No Pathology None sent Complications No immediate complications Condition Stable Disposition PACU [facility] Billing Surgery - Charge Forward: Surgery Billing
[2022-06-30 12:50] VITALS: BP 109/44; PULSE 64; RESP 14; O2SAT 95
[2022-06-30 13:15] VITALS: BP 127/47; PULSE 69; RESP 14
== END 2022-06-30 13:24 | disposition home or self-care (01) ==
PROVIDERS: PCP Family Medicine; Visit Provider Surgery
PROC: (CPT 36589; principal; 2022-06-30 12:00)
DX: Z45.2 Encounter for adjustment and management of vascular access device (principal); Z85.118 Personal history of other malignant neoplasm of bronchus and lung; I10 Essential (primary) hypertension; K21.9 Gastro-esophageal reflux disease without esophagitis; E78.5 Hyperlipidemia, unspecified; Z87.891 Personal history of nicotine dependence
CPT/HCPCS: 36590; J0690; J2704; J3010; J7120

== ENCOUNTER 2022-08-25 09:52 | Outpatient (CLI) | payer MEDICARE, SELFPAY ==
--- NOTE | ~2022-08-25 | US_ITS ---
EXAMINATION: US pelvic complete DATE: 08/25/2022 10:30 INDICATION: Complete ureterovaginal prolapse Comparison:No prior studies for comparison. TECHNIQUE: Multiple transabdominal sonographic images of the pelvis performed. FINDINGS: The uterus measures 5.7 x 3 x 4.4 cm. The endometrial complex measures 5 mm. The ovaries are not visualized. There is no free fluid in the pelvis. There are no abnormal masses seen on either side. IMPRESSION: 1. Thickened endomtrial complex. The differential diagnosis includes endometrial hyperplasia, polyp a nd carcinoma. Biopsy is recommended. Reviewed, dictated and finalized at location A. IMPRESSION: 1. Thickened endomtrial complex. The differential diagnosis includes endometria l hyperplasia, polyp and carcinoma. Biopsy is recommended.
== END 2022-08-25 09:53 | disposition home or self-care (01) ==
PROVIDERS: PCP Family Medicine; Visit Provider Nurse Practitioner Adult Health
DX: N81.3 Complete uterovaginal prolapse (principal)
CPT/HCPCS: 76856

== ENCOUNTER 2022-10-17 12:31 | Outpatient (CLI) | payer MEDICARE, SELFPAY ==
--- NOTE | ~2022-10-17 | CT_ITS ---
EXAMINATION: CT diagnostic chest wo con DATE: 10/17/2022 12:59 INDICATION: Non-small cell lung cancer. TECHNIQUE: Computed tomography (CT) of the chest was performed without intravenous contrast. The dose -length product was 182.21 mGy-cm. Automated exposure control and iterative reconstruction technique were employed. COMPARISON: CT dated 06/08/2022 and 01/20/2022 FINDINGS: Stable borderline size mediastinal lymph nodes. There is atherosclerosis of the aorta and c oronary arteries. No significant pleural or pericardial effusion. There is emphysema. No endobronchia l lesions. There is stable pleural thickening in right lower lobe airspace consolidation with right l ower lobe volume loss, consistent with treated bronchogenic carcinoma. There is a stable 4 mm left lo wer lobe nodule. There is a central line, tip in the SVC. Stable right lower lobe bronchiectasis. No pneumothorax. Mild thoracic spondylosis. No focal lytic or blastic lesions. IMPRESSION: 1. Stable right lower lobe consolidation with volume loss, pleural thickening and bronchiectasis, con sistent with treated bronchogenic carcinoma. 2: Stable left lower lobe 4 mm nodule, likely benign. 3: Stable borderline size mediastinal lymph nodes. 4: Small pericardial effusion. Reviewed, dictated and finalized at location A. MAKER IMPRESSION: 1. Stable right lower lobe consolidation with volume loss, pleural thickening a nd bronchiectasis, consistent with treated bronchogenic carcinoma. 2: Stable left lower lobe 4 mm nodule, likely benign. 3: Stable borderline size mediastinal lymph nodes. 4: Small pericardial effusion.
== END 2022-10-17 12:32 | disposition home or self-care (01) ==
PROVIDERS: PCP Family Medicine; Visit Provider Internal Medicine Hematology & Oncology
DX: C34.91 Malignant neoplasm of unspecified part of right bronchus or lung (principal); R91.8 Other nonspecific abnormal finding of lung field; I31.39 Other pericardial effusion (noninflammatory)
CPT/HCPCS: 71250

== ENCOUNTER 2023-01-20 05:01 | Inpatient (IN) | payer MEDICARE, SELFPAY ==
[2023-01-20] VITALS (16 sets, daily range): BP systolic 111–153; BP diastolic 63–108; PULSE 60–112; RESP 14–21; TEMP 36.1–36.9; O2SAT 93–99; BMI 26.9
--- NOTE | ~2023-01-20 | XR_ITS ---
Clinical Indication: Cough PA and lateral views of the chest: Comparison: 12/13/2021 Findings: There is mild interstitial prominence peripherally, most notably at the upper lobes. No con solidation or pleural effusion.. Cardiomediastinal silhouette is within normal limits. Bones and sof t tissues are unremarkable. Impression: No acute abnormality. Probable mild chronic interstitial disease, as noted above, similar to prior exam. Reviewed, dictated and finalized at location M. BOTTOMER Impression: No acute abnormality. Probable mild chronic interstitial disease, as noted above, similar to prior ex am.
--- NOTE | ~2023-01-20 | CT_ITS ---
Clinical Indication: Shortness of breath CT Scan of the Chest with Contrast: Technique: Contiguous sections were acquired throughout the chest after intravenous administration of 100 cc of Omnipaque 350. Dose reduction technique was used on this scan by utilizing automated expos ure control and iterative reconstruction technique. The dose-length product (DLP) was 367.83 mGy-cm. COMPARISON: 10/17/2022 Findings: There is no evidence of any significant mediastinal, hilar or axillary lymphadenopathy. There is no f illing defect in the pulmonary arterial tree to suggest pulmonary embolus. There is no evidence of ao rtic dissection or aneurysm. There are atherosclerotic calcifications of the aorta. There is no evidence of pleural or pericardial effusion. There is stable irregular area space consolidation at the medial right lung base with probable minima l bronchiectatic change. Scattered areas of emphysematous and/or interstitial disease are stable from prior exam. No suspicious pulmonary nodule seen. Images through the upper abdomen reveal small calcified gallstones. Impression: No evidence of pulmonary embolus, aortic dissection, or aortic aneurysm. Stable chronic pulmonary disease, including stable chronic scarring or atelectatic change at the medi al right lung base, as well as stable scattered emphysematous and/or interstitial changes. Reviewed, dictated and finalized at location . H REPAIRER Impression: No evidence of pulmonary embolus, aortic dissection, or aortic aneurysm. Stable chronic pulmonary disease, including stable chronic scarring or atelecta tic change at the medial right lung base, as well as stable scattered emphysema tous and/or interstitial changes.
--- NOTE | 2023-01-20 05:48 | ECG_ITS ---
Measurements Intervals [place] Rate: 72 P: 29 DE: 181 QRS: 26 QRSD: 85 T: 14 QT: 369 QTc: 404 Interpretive Statements SINUS RHYTHM WITH SECOND DEGREE AV BLOCK, TYPE I (3:1 CONDUCTION) ABNORMAL ECG BASELINE ARTIFACT- I, II, III, AVR COMPARED TO ECG 12/13/2021 17:37:26 SECOND DEGREE AV BLOCK, TYPE I NOW PRESENT Electronically Signed On 01-20-2023 6:57:19 COURTROOM REPORTER by Edgardo Washington D.O.
--- NOTE | 2023-01-20 06:00 | ED.GENADULT ---
HPI - General Adult General Chief complaint: Upper Respiratory Infection Stated complaint: cough, sob Time Seen by Provider: 01/20/23 05:08 History of Present Illness HPI narrative: this is a 77-year-old female presenting to ED with a chief complaint of chest pain cough. Patient says that she has had a cough for the last 2 weeks. However over last 2 days has become progressively worse and now she is having chest and back pain along with shortness of breath. She is coughing up green sputum. She denies fever or chills, nausea or vomiting or diarrhea. she denies abdominal pain urinary symptoms. Related Data Home Medications Medication Instructions Recorded Confirmed calcium carbonate 500 mg-vitamin 1 tablet PO DAILY 11/08/19 06/30/22 D3 10 mcg (400 unit) tablet (Calcium 500 + D) cyanocobalamin (vitamin B-12) 1 tab-cap QAM 06/24/22 06/30/22 vitamin E 400 unit tablet 134 mg PO DAILY 06/24/22 06/30/22 Allergies Allergy/AdvReac Type Severity Reaction Status Date / Time morphine AdvReac DIARRHEA/VO Verified 01/20/23 05:12 [facility] Past Medical History Medical History Bladder cancer Broken jaw steel plate Chronic hypertension GERD (gastroesophageal reflux disease) History of benign meningioma of brain Hyperlipidemia Malignant neoplasm of lower lobe, right bronchus or lung Normal colonoscopy Surgical History Surgical History History of appendectomy History of bladder surgery Family History Family History Sibling Family history of obesity Patient's sister is in good health Carcinoma of colon Social History Social History (Updated 09/15/22 @ 10:32 by Emelyn Chan CMA) Social History: The patient is . She had 3 daughters and 1 recently and 1 is missing. The patient lives alone. She is a former smoker. The patient is listed as a full code but does not want to live in a vegetative state. Her daughter is the durable power associate attorney for healthcare. The patient is a full code. Patient denies any marijuana alcohol or illicit drugs. Smoking packs per day: 1 Smoking cigarettes per day: 20.0 Years smoked: 20 Smoking pack-years: 20.00 Smoking status: Former smoker Tobacco type: cigarettes Second hand tobacco smoke exposure: No Smoking end date: 02/25/21 Additional smoking assessment comments: down to less than a pack when she stopped Alcohol intake: never Substance use: never Substance use type: does not use Lack of Transportation: No Current Housing: I Have Housing Concerned About Future Housing: No Difficulty Paying Gas/Electric Bills: No Difficulty Paying for Meds: No Currently Unemployed: No Education: Trade/Vocational Certificate Difficulty w/ Childcare or Family Care: No Living arrangements: alone Occupation/Education: retired Gender identity (if verbalized by the patient): Female Sexual Orientation (if Verbalized by the Patient): Straight or Heterosexual Spiritual care concerns: No Exam Narrative: APPEARANCE: No apparent distress. Head: atraumatic. EYES: EOMI, NOSE: Atraumatic NECK: Trachea midline RESPIRATORY: Patient has rhonchi in the right lung CARDIOVASCULAR tachycardic, no peripheral edema ABDOMINAL: Non-distended, soft nontender MUSCULOSKELETAl: No obvious deformities NEURO: Alert. Moving 4/4 extremities SKIN:: Warm, dry. Normal color PSYCHIATRIC: Normal affect Course Vital Signs Vital signs: Vital Signs Temperature 98.5 F 01/20/23 05:04 Pulse Rate 112 H 01/20/23 05:04 Respiratory Rate 18 01/20/23 05:04 Blood Pressure 153/92 H 01/20/23 05:04 Pulse Oximetry 96 01/20/23 05:04 Oxygen Delivery Room Air 01/20/23 05:04 Temperature 98.5 F 01/20/23 05:04 Pulse Rate 112 H 01/20/23 05:04 Respiratory Rate 18
[2023-01-20] MEDS: HYDROcodone/acetaminophen (*CRX) 5-325 MG TABLET 1 TAB PO ×3 (06:04→17:37)
[2023-01-20] MEDS: SODIUM CHLORIDE 0.9% IV 1,000 ML 999 ML IV CONT (06:05)
[2023-01-20 06:10] LABS: Basophils Percent Auto 0.3 % (0.2-1.2); Eosinophils Absolute Auto 0.3 K/mm3 (0-0.3); Eosinophils Percent Auto 3.6 % (0-4.4); Hematocrit 34.8 % (37.0-47.0); Hemoglobin 11.2 g/dL (12.0-15.0); Immature Granulocyte Absolute 0.03 K/mm3 (0.00-0.031); Immature Granulocyte Percent A 0.3 % (0-0.5); Lymphocytes Absolute Auto 1.68 K/mm3 (0.9-3.2); Lymphocytes Percent Auto 18.8 % (18.3-44.2); Mean Corpuscular HGB Conc 32.2 g/dl (32-36); Mean Corpuscular Hemoglobin 30.4 pg (26-34); Mean Corpuscular Volume 94.6 fl (80-100); Mean Platelet Volume 8.9 fl (7.4-10.4); Monocytes Absolute Auto 0.5 K/mm3 (0.1-0.6); Monocytes Percent Auto 5.9 % (2.6-8.5); Neutrophils Absolute Auto 6.4 K/mm3 (1.3-6.7); Neutrophils Percent Auto 71.1 % (45.5-73.1); Platelet Count Result 307 k/mm3 (150-375); Red Blood Count 3.68 M/mm3 (4.2-5.4); Red Cell Distribution Width 14.1 % (11.5-14.5); White Blood Count 8.9 K/mm3 (4.5-10.0)
[2023-01-20 06:20] LABS: Alanine Aminotransferase 15 U/L (6-35); Albumin Level 4.2 g/dL (3.5-5.1); Alkaline Phosphatase 98 U/L (38-126); Anion Gap 4 mmol/L (8-16); Aspartate Amino Transferase 22 U/L (14-36); Bilirubin,Total 0.3 mg/dL (0.2-1.3); Blood Urea Nitrogen 34 mg/dL (7-17); Carbon Dioxide 31 mmol/L (22-30); Chloride 107 mmol/L (98-107); Estimated CRCL calculation 32 ml/min; Estimated Glomerular Filt Rate 53; Glucose 89 mg/dL (65-110); Potassium 4.7 mmol/L (3.4-5.0); Sodium 142 mmol/L (137-145)
[2023-01-20 06:28] LABS: NT Pro B Type Natriuretic Pept 167 pg/mL (19.9-100)
[2023-01-20 07:30] LABS: Influenza A QL RT-PCR Negative (Negative); Influenza B QL RT-PCR Negative (Negative); RSV RNA, RT-PCR Negative (Negative); SARS-CoV-2 RNA PCR Negative
--- NOTE | 2023-01-20 09:21 | PM.IMHP ---
H&P: HPI History of Present Illness Date/Time: 01/20/23 09:21 Chief Complaint: Shortness of breath, uncontrolled cough, back pain Narrative: patient is a 77-year-old female with past medical history of bladder cancer, hypertension, hyperlipidemia, lung cancer post radiation and chemo, COPD, COVID who presented to the ED with complaints of uncontrolled cough with back pain and chest pain. Patient stated that this all started about a week ago however patient stated that she has not had any issues with weakness or feeling bad. Patient stated that she has been able to go shopping and had cooked for her daughter and her son-in-law yesterday. she stated that she went to [employer] and when she got home from [employer] she started to cough and was unable to control the cough. She stated that her cough got so bad that she was having back and chest pain when she does cough. She also stated that she just could not breathe or catch her breath. She admits to having hard time to take a deep breath. She did state that she does have some sputum changes and sometimes her sputum is white and sometimes it is yellow. She stated that she did not get any sleep last night and when she was unable to get any sleep she called her daughter and stated that she feels she needs to go to the ED. she does state that she has had weakness the other day however when she got out of bed she felt fine and went on about her day. she also endorses waking up and cold sweat about a week ago however in the morning she was fine as well. Patient stated that she has been taking Mucinex for the cough however it has not helped much. patient stated that over the last couple of days she has also had headache with just itchy throat. She currently denies any lightheadedness, dizziness, fevers, chills, nausea, vomiting, abdominal pain, diarrhea, constipation, visual changes, hearing changes. Her back pain she does endorse that to be a 5 or 6/10. She stated that the pain is mostly on the left side and just aches all the way down. She also states that her chest hurts however it is only when she coughs and is reproducible with palpation. Patient did state that her doctor has told her she has COPD however she would not like to start treatment for that could she feels that people get dependent on the inhalers. She does have a significant wet cough. Patient does have some wheezing in the right upper lobe. She does sound pretty clear throughout. Chest x-ray shows probable mild chronic interstitial disease same as the previous study. CT scan from October of 2022 shows stable right lobe consolidation. WBCs are normal today. BNP is 167. Patient was started on antibiotics in the ED. Flu and COVID and RSV are all negative. Patient is being admitted to the hospitalist service as an inpatient for further workup and treatment. Patient will need more than 2 midnights for full workup and recovery. Review of Systems Review of Systems: All systems reviewed & are unremarkable except as noted in HPI and below PMFSH Past Medical History Medical History Acute on chronic renal failure Age related osteoporosis Atherosclerosis of aorta Bilateral hearing loss due to cerumen impaction Bladder cancer Broken jaw steel plate Carotid stenosis Cholelithiasis Chronic hypertension COPD (chronic obstructive pulmonary disease) COVID-19 ETD (eustachian tube dysfunction) CESAR (generalized anxiety disorder) GERD (gastroesophageal reflux disease) History of benign meningioma of brain History of ischemic colitis HTN (hypertension) Hyperlipidemia Malignant neoplasm of lower lobe, right bronchus or lung Malignant neoplasm of urinary bladder With excision of tumor Osteopenia Pancytopenia Port-A-Cath in place Tobacco dependence Surgical History Surgical History History of appendectomy History of bladder surger
[2023-01-20] MEDS: predniSONE 20 MG TABLET 40 MG PO (10:58)
[2023-01-20] MEDS: hydroCHLOROthiazide 25 MG TABLET PO (10:58)
[2023-01-20] MEDS: ATORVASTATIN 10 MG TABLET PO (10:58)
[2023-01-20] MEDS: PANTOPRAZOLE 40 MG TABLET PO (10:58)
[2023-01-20] MEDS: amLODIPine BESYLATE 5 MG TABLET PO (10:59)
[2023-01-20] MEDS: VITAMIN E 400 UNIT CAPSULE PO (10:59)
[2023-01-20] MEDS: CYANOCOBALAMIN 500 MCG TABLET PO (10:59)
[2023-01-20] MEDS: lisinopriL 20 MG TABLET 40 MG PO (10:59)
--- NOTE | 2023-01-20 11:31 | ADMGEN ---
This patient, Frieda Perkins, was admitted to [facility] Surg Room 317-01. Patient/family oriented to hospital policies and general routines including ID bracelet, bed and alarms, visiting hours, pain management, procedures, bathroom and other care routines, personal items, smoking policy, room service/diet, and visiting hours. Information on how to activate the Rapid Response Team has been discussed. Patient/Family are encouraged to report perceived risks to care and to ask questions if they do not understand what they are told or what they should do.
--- NOTE | 2023-01-20 14:32 | PC.NURSE ---
Pt arrived from the ED. Pt's daughter participated in answering admission questions. Pt has been resting off and on since admission. Pt has reported back pain, but reports no other pain and expresses no needs. Will continue to monitor pt.
--- NOTE | 2023-01-20 22:24 | PCRCNOTE ---
Patient refused the overnight study ordered tonight.
[2023-01-21] VITALS (10 sets, daily range): BP systolic 133–154; BP diastolic 46–81; PULSE 55–84; RESP 14–20; TEMP 36.4–36.7; O2SAT 93–98
[2023-01-21] MEDS: HYDROcodone/acetaminophen (*CRX) 5-325 MG TABLET 1 TAB PO ×2 (03:41→23:53)
[2023-01-21 06:28] LABS: Basophils Percent Auto 0.3 % (0.2-1.2); Eosinophils Percent Auto 0.4 % (0-4.4); Hematocrit 34.9 % (37.0-47.0); Hemoglobin 10.9 g/dL (12.0-15.0); Immature Granulocyte Absolute 0.04 K/mm3 (0.00-0.031); Immature Granulocyte Percent A 0.4 % (0-0.5); Lymphocytes Absolute Auto 1.75 K/mm3 (0.9-3.2); Lymphocytes Percent Auto 18.8 % (18.3-44.2); Mean Corpuscular HGB Conc 31.2 g/dl (32-36); Mean Corpuscular Hemoglobin 30.8 pg (26-34); Mean Corpuscular Volume 98.6 fl (80-100); Mean Platelet Volume 9.3 fl (7.4-10.4); Monocytes Absolute Auto 0.4 K/mm3 (0.1-0.6); Monocytes Percent Auto 4.6 % (2.6-8.5); Neutrophils Percent Auto 75.5 % (45.5-73.1); Platelet Count Result 295 k/mm3 (150-375); Red Blood Count 3.54 M/mm3 (4.2-5.4); Red Cell Distribution Width 14.1 % (11.5-14.5); White Blood Count 9.3 K/mm3 (4.5-10.0)
[2023-01-21 06:37] LABS: Alanine Aminotransferase 14 U/L (6-35); Alkaline Phosphatase 85 U/L (38-126); Anion Gap 3 mmol/L (8-16); Aspartate Amino Transferase 19 U/L (14-36); Bilirubin,Total 0.3 mg/dL (0.2-1.3); Blood Urea Nitrogen 24 mg/dL (7-17); Calcium 9.2 mg/dL (8.4-10.2); Carbon Dioxide 31 mmol/L (22-30); Chloride 102 mmol/L (98-107); Estimated CRCL calculation 40 ml/min; Estimated Glomerular Filt Rate 60; Glucose 143 mg/dL (65-110); Magnesium 1.8 mg/dL (1.6-2.3); Potassium 4.6 mmol/L (3.4-5.0); Sodium 136 mmol/L (137-145)
[2023-01-21] MEDS: CYANOCOBALAMIN 500 MCG TABLET PO (08:48)
[2023-01-21] MEDS: PANTOPRAZOLE 40 MG TABLET PO (08:48)
[2023-01-21] MEDS: hydroCHLOROthiazide 25 MG TABLET PO (08:48)
[2023-01-21] MEDS: lisinopriL 20 MG TABLET 40 MG PO (08:48)
[2023-01-21] MEDS: VITAMIN E 400 UNIT CAPSULE PO (08:48)
[2023-01-21] MEDS: predniSONE 20 MG TABLET 40 MG PO (08:49)
[2023-01-21] MEDS: ATORVASTATIN 10 MG TABLET PO (08:49)
[2023-01-21] MEDS: amLODIPine BESYLATE 5 MG TABLET PO (08:49)
--- NOTE | 2023-01-21 11:30 | P.PNIM_ITS ---
Progress Note: A&P Assessment and Plan (1) COPD (chronic obstructive pulmonary disease): Code(s): J44.9 - Chronic obstructive pulmonary disease, unspecified Status: Acute Assessment and Plan: * Presented with an increased cough with sputum changes, increased shortness of breath, wheezes * Cough worsened night of presentation * Chest xray appear to have a possible opacity * Wheezes noted in left upper lobe * Continue Azithromycin, ceftriaxone * Add Prednisone 40mg PO Daily x 5 days * Sputum culture ordered (2) CAP (community acquired pneumonia): Code(s): J18.9 - Pneumonia, unspecified organism Status: Acute Assessment and Plan: * Chest xray appears to have a left upper lobe opacity * Chest CT showed chronic findings * Continue azithromycin and ceftriaxone * repeat chest x-ray in 2 days * sputum culture * trend SpO2 * neb treatments p.r.n. * WBCs stable at 8.9 * trend labs (3) Normocytic anemia: Code(s): D64.9 - Anemia, unspecified Status: Acute Assessment and Plan: * hemoglobin hematocrit 10.9/34.9 * most likely anemia of chronic disease * stable at her baseline * continue trend labs * consider anemia labs if H&H declines * trend H&H * transfuse if hemoglobin less than 7 (4) Hyperlipidemia: Qualifiers: Hyperlipidemia type: unspecified Qualified Code(s): E78.5 - Hyperlipidemia, unspecified Code(s): E78.5 - Hyperlipidemia, unspecified Status: Chronic Assessment and Plan: * continue home atorvastatin (5) Chronic hypertension: Code(s): I10 - Essential (primary) hypertension Status: Chronic Assessment and Plan: * current blood pressure 156/76 * continue home lisinopril, hydrochlorothiazide * continue trend blood pressure * adjust therapy as indicated (6) Acute chest wall pain: Code(s): R07.89 - Other chest pain Status: Acute Assessment and Plan: * patient stated that her chest hurts when she coughs * secondary to cough * EKG does not show any ST elevations or abnormalities * BNP 167 * stable at this time * pain medications on board (7) Tobacco dependence: Code(s): F17.200 - Nicotine dependence, unspecified, uncomplicated Status: Acute Assessment and Plan: * currently uses a patch at home * will order patch p.r.n. * currently she denies any need for patch * smoking cessation education attempted however patient stated that she know she wants to quit. Plan Complaints of chest pain EKG NSR Trops negative x2 D. dimer 1.80 CTA negative for PE Continue tele monitor Time Spent With Patient Time: 58 minutes Time with patient: Greater than 35 minutes Subjective Date/time seen: 01/21/231129 Interval history: 01/21/231129 This morning patient stated that she was coughing a lot more. She also stated that she was just feeling a bit weaker. She wanted to see if some cough medicine was helpful. Went back to check on her and she stated that she was having some significant chest pain. She stated that the pain was worse when she would take a deep breath. She a
--- NOTE | 2023-01-21 11:30 | PM.IMPN ---
Progress Note: A&P Assessment and Plan (1) COPD (chronic obstructive pulmonary disease): Code(s): J44.9 - Chronic obstructive pulmonary disease, unspecified Status: Acute Assessment and Plan: Presented with an increased cough with sputum changes, increased shortness of breath, wheezes Cough worsened night of presentation Chest xray appear to have a possible opacity Wheezes noted in left upper lobe Continue Azithromycin, ceftriaxone Add Prednisone 40mg PO Daily x 5 days Sputum culture ordered (2) CAP (community acquired pneumonia): Code(s): J18.9 - Pneumonia, unspecified organism Status: Acute Assessment and Plan: Chest xray appears to have a left upper lobe opacity Chest CT showed chronic findings Continue azithromycin and ceftriaxone repeat chest x-ray in 2 days sputum culture trend SpO2 neb treatments p.r.n. WBCs stable at 8.9 trend labs (3) Normocytic anemia: Code(s): D64.9 - Anemia, unspecified Status: Acute Assessment and Plan: hemoglobin hematocrit 10.9/34.9 most likely anemia of chronic disease stable at her baseline continue trend labs consider anemia labs if H&H declines trend H&H transfuse if hemoglobin less than 7 (4) Hyperlipidemia: Qualifiers: Hyperlipidemia type: unspecified Qualified Code(s): E78.5 - Hyperlipidemia, unspecified Code(s): E78.5 - Hyperlipidemia, unspecified Status: Chronic Assessment and Plan: continue home atorvastatin (5) Chronic hypertension: Code(s): I10 - Essential (primary) hypertension Status: Chronic Assessment and Plan: current blood pressure 156/76 continue home lisinopril, hydrochlorothiazide continue trend blood pressure adjust therapy as indicated (6) Acute chest wall pain: Code(s): R07.89 - Other chest pain Status: Acute Assessment and Plan: patient stated that her chest hurts when she coughs secondary to cough EKG does not show any ST elevations or abnormalities BNP 167 stable at this time pain medications on board (7) Tobacco dependence: Code(s): F17.200 - Nicotine dependence, unspecified, uncomplicated Status: Acute Assessment and Plan: currently uses a patch at home will order patch p.r.n. currently she denies any need for patch smoking cessation education attempted however patient stated that she know she wants to quit. Plan Complaints of chest pain EKG NSR Trops negative x2 D. dimer 1.80 CTA negative for PE Continue tele monitor Time Spent With Patient Time: 58 minutes Time with patient: Greater than 35 minutes Subjective Date/time seen: 01/21/231129 Interval history: 01/21/231129 This morning patient stated that she was coughing a lot more. She also stated that she was just feeling a bit weaker. She wanted to see if some cough medicine was helpful. Went back to check on her and she stated that she was having some significant chest pain. She stated that the pain was worse when she would take a deep breath. She also stated that she was still having some back pain. She told me it was in the left side near the shoulder blade. Currently she is denying any nausea, vomiting, diarrhea, constipation. This afternoon, went to talk to the patient and to see if she was feeling better. At this time she was having a significant amount of chest pain, and was stating that it Was hard to take a deep breath in. She stated that when she did take a deep breath and that she would have pain underneath her breast On left-sided middle. Chest pain workup has been initiated. Patient does seem a little anxious as she does not want to stay another night I would like to go home. Had a long extensive conversation with her about
[2023-01-21] MEDS: LORATADINE/PSEUDOEPHEDRINE (*CRX) 10/240 MG TABLET ER 24 HR 1 TAB PO (12:11)
[2023-01-21] MEDS: guaiFENesin 600 MG/DEXTROMETHORPHAN 30 MG SR TAB 12 HR 1 TAB PO ×2 (12:11→20:56)
--- NOTE | 2023-01-21 15:45 | ECG_ITS ---
Measurements Intervals [place] Rate: 78 P: 55 FL: 175 QRS: 45 QRSD: 97 T: 38 QT: 368 QTc: 420 Interpretive Statements SINUS RHYTHM NORMAL ECG COMPARED TO ECG 01/20/2023 05:59:14 SECOND DEGREE AV BLOCK RESOLVED Electronically Signed On 01-21-2023 17:14:18 [employer] by Edgardo Washington D.O.
[2023-01-21] MEDS: TIZANIDINE HCL 2 MG TABLET PO (16:40)
[2023-01-21 16:52] LABS: D Dimer 1.81 ug/mL (<0.48); Troponin I < 0.012 ng/mL (0.000-0.034)
[2023-01-21] MEDS: ACETAMINOPHEN 500 MG TABLET 1000 MG PO (19:22)
[2023-01-21 19:39] LABS: Troponin I < 0.012 ng/mL (0.000-0.034)
[2023-01-22] VITALS: PULSE 88
[2023-01-22 04:00] VITALS: PULSE 77
--- NOTE | 2023-01-22 04:04 | PC.NURSE ---
Daylight Savings Time For Daylight Savings Time Ending in the Fall - Clocks are moved back. For Daylight Savings Time Beginning in the Spring - Clocks are moved ahead. For [facility], the time of change occurs at 0200 hrs. Time is taken from the seismic prospecting observer. This entry on the patient's chart recognizes the change in time reflected during documentation. Example: 2 entries for vital signs may be charted for 0200 hrs.
[2023-01-22 05:47] VITALS: BP 144/80; PULSE 77; RESP 14; TEMP 36.7; O2SAT 95
[2023-01-22] MEDS: HYDROcodone/acetaminophen (*CRX) 5-325 MG TABLET 1 TAB PO (06:31)
[2023-01-22 06:52] LABS: Basophils Percent Auto 0.3 % (0.2-1.2); Eosinophils Percent Auto 0.1 % (0-4.4); Hemoglobin 11.7 g/dL (12.0-15.0); Immature Granulocyte Absolute 0.06 K/mm3 (0.00-0.031); Immature Granulocyte Percent A 0.5 % (0-0.5); Lymphocytes Absolute Auto 1.92 K/mm3 (0.9-3.2); Lymphocytes Percent Auto 16.7 % (18.3-44.2); Mean Corpuscular HGB Conc 32.5 g/dl (32-36); Mean Corpuscular Hemoglobin 30.2 pg (26-34); Mean Platelet Volume 9.1 fl (7.4-10.4); Monocytes Absolute Auto 0.6 K/mm3 (0.1-0.6); Monocytes Percent Auto 5.3 % (2.6-8.5); Neutrophils Absolute Auto 8.9 K/mm3 (1.3-6.7); Neutrophils Percent Auto 77.1 % (45.5-73.1); Platelet Count Result 309 k/mm3 (150-375); Red Blood Count 3.87 M/mm3 (4.2-5.4); White Blood Count 11.5 K/mm3 (4.5-10.0)
[2023-01-22 07:11] LABS: Alanine Aminotransferase 17 U/L (6-35); Albumin Level 4.3 g/dL (3.5-5.1); Alkaline Phosphatase 92 U/L (38-126); Anion Gap 6 mmol/L (8-16); Aspartate Amino Transferase 22 U/L (14-36); Bilirubin,Total 0.4 mg/dL (0.2-1.3); Blood Urea Nitrogen 25 mg/dL (7-17); Calcium 9.6 mg/dL (8.4-10.2); Carbon Dioxide 30 mmol/L (22-30); Chloride 101 mmol/L (98-107); Estimated CRCL calculation 36 ml/min; Estimated Glomerular Filt Rate 53; Glucose 133 mg/dL (65-110); Magnesium 1.8 mg/dL (1.6-2.3); Potassium 3.7 mmol/L (3.4-5.0); Sodium 137 mmol/L (137-145)
[2023-01-22 08:00] VITALS: PULSE 72
[2023-01-22] MEDS: VITAMIN E 400 UNIT CAPSULE PO (08:10)
[2023-01-22] MEDS: TIZANIDINE HCL 2 MG TABLET PO (08:10)
[2023-01-22] MEDS: ATORVASTATIN 10 MG TABLET PO (08:11)
[2023-01-22] MEDS: PANTOPRAZOLE 40 MG TABLET PO (08:11)
[2023-01-22] MEDS: hydroCHLOROthiazide 25 MG TABLET PO (08:11)
[2023-01-22] MEDS: CYANOCOBALAMIN 500 MCG TABLET PO (08:11)
[2023-01-22] MEDS: amLODIPine BESYLATE 5 MG TABLET PO (08:11)
[2023-01-22] MEDS: lisinopriL 20 MG TABLET 40 MG PO (08:11)
[2023-01-22] MEDS: predniSONE 20 MG TABLET 40 MG PO (08:11)
[2023-01-22] MEDS: guaiFENesin 600 MG/DEXTROMETHORPHAN 30 MG SR TAB 12 HR 1 TAB PO (08:11)
[2023-01-22] MEDS: LORATADINE/PSEUDOEPHEDRINE (*CRX) 10/240 MG TABLET ER 24 HR 1 TAB PO (08:13)
[2023-01-22] MEDS: guaiFENesin/CODEINE (*CRX) 200/20 MG 10 ML SYRUP PO (09:37)
--- NOTE | 2023-01-22 09:45 | PM.DS ---
DS: Admitting Diagnosis Discharge Date 01/22/23 0945 Admitting Diagnosis COPD exacerbation/pneumonia DS: Discharge Diagnosis Discharge Diagnosis (1) COPD (chronic obstructive pulmonary disease): Code(s): J44.9 - Chronic obstructive pulmonary disease, unspecified Status: Acute Assessment and Plan: Presented with an increased cough with sputum changes, increased shortness of breath, wheezes Cough worsened night of presentation Chest xray appear to have a possible opacity Wheezes noted in left upper lobe Continue Azithromycin, ceftriaxone Add Prednisone 40mg PO Daily x 5 days Sputum culture ordered (2) CAP (community acquired pneumonia): Code(s): J18.9 - Pneumonia, unspecified organism Status: Acute Assessment and Plan: Chest xray appears to have a left upper lobe opacity Chest CT showed chronic findings Continue azithromycin and ceftriaxone repeat chest x-ray in 2 days sputum culture trend SpO2 neb treatments p.r.n. WBCs stable at 8.9 trend labs (3) Normocytic anemia: Code(s): D64.9 - Anemia, unspecified Status: Acute Assessment and Plan: hemoglobin hematocrit 11.2/34.8 most likely anemia of chronic disease stable at her baseline continue trend labs consider anemia labs if H&H declines trend H&H transfuse if hemoglobin less than 7 (4) Hyperlipidemia: Qualifiers: Hyperlipidemia type: unspecified Qualified Code(s): E78.5 - Hyperlipidemia, unspecified Code(s): E78.5 - Hyperlipidemia, unspecified Status: Chronic Assessment and Plan: continue home atorvastatin (5) Chronic hypertension: Code(s): I10 - Essential (primary) hypertension Status: Chronic Assessment and Plan: current blood pressure 111/75 continue home lisinopril, hydrochlorothiazide continue trend blood pressure adjust therapy as indicated (6) Acute chest wall pain: Code(s): R07.89 - Other chest pain Status: Acute Assessment and Plan: patient stated that her chest hurts when she coughs secondary to cough EKG does not show any ST elevations or abnormalities BNP 167 stable at this time pain medications on board (7) Tobacco dependence: Code(s): F17.200 - Nicotine dependence, unspecified, uncomplicated Status: Acute Assessment and Plan: currently uses a patch at home will order patch p.r.n. currently she denies any need for patch smoking cessation education attempted however patient stated that she know she wants to quit. DS: Summary Hospital Course Hospital Course: Patient is 77-year-old female with a past medical history hypertension, hyperlipidemia, bladder cancer, lung cancer who presented to the ED with complaints of uncontrolled cough with back and chest pain. Upon arrival to the ED patient is was unable to catch her breath or rest comfortably. Chest x-ray was performed and showed no acute abnormality probable mild chronic interstitial disease. Patient was started on IV ceftriaxone and azithromycin for COPD and pneumonia as the x-ray did appear to have an opacity. Patient is also been started on prednisone 40 mg p.o. daily for COPD exacerbation. Patient has not required any oxygen need or requirements. Patient has been able to move around the room and has been stable with walking. White blood cell count has been stable and is currently 11.5. Labs and vital signs have been stable throughout the entire visit. Patient was having some back pain however has been controlled with p.o. pain medicine. BNP was 167. Flu, COVID, RSV donato negative. Patient is stable for discharge at this time. Patient remains afebrile and without any oxygen needs at this time. Smoking cessation education has been reiterated. Patient did have an epis
--- NOTE | 2023-01-22 09:45 | P.DS_ITS ---
DS: Admitting Diagnosis Discharge Date 01/22/23 0945 Admitting Diagnosis COPD exacerbation/pneumonia DS: Discharge Diagnosis Discharge Diagnosis (1) COPD (chronic obstructive pulmonary disease): Code(s): J44.9 - Chronic obstructive pulmonary disease, unspecified Status: Acute Assessment and Plan: * Presented with an increased cough with sputum changes, increased shortness of breath, wheezes * Cough worsened night of presentation * Chest xray appear to have a possible opacity * Wheezes noted in left upper lobe * Continue Azithromycin, ceftriaxone * Add Prednisone 40mg PO Daily x 5 days * Sputum culture ordered (2) CAP (community acquired pneumonia): Code(s): J18.9 - Pneumonia, unspecified organism Status: Acute Assessment and Plan: * Chest xray appears to have a left upper lobe opacity * Chest CT showed chronic findings * Continue azithromycin and ceftriaxone * repeat chest x-ray in 2 days * sputum culture * trend SpO2 * neb treatments p.r.n. * WBCs stable at 8.9 * trend labs (3) Normocytic anemia: Code(s): D64.9 - Anemia, unspecified Status: Acute Assessment and Plan: * hemoglobin hematocrit 11.2/34.8 * most likely anemia of chronic disease * stable at her baseline * continue trend labs * consider anemia labs if H&H declines * trend H&H * transfuse if hemoglobin less than 7 (4) Hyperlipidemia: Qualifiers: Hyperlipidemia type: unspecified Qualified Code(s): E78.5 - Hyperlipidemia, unspecified Code(s): E78.5 - Hyperlipidemia, unspecified Status: Chronic Assessment and Plan: * continue home atorvastatin (5) Chronic hypertension: Code(s): I10 - Essential (primary) hypertension Status: Chronic Assessment and Plan: * current blood pressure 111/75 * continue home lisinopril, hydrochlorothiazide * continue trend blood pressure * adjust therapy as indicated (6) Acute chest wall pain: Code(s): R07.89 - Other chest pain Status: Acute Assessment and Plan: * patient stated that her chest hurts when she coughs * secondary to cough * EKG does not show any ST elevations or abnormalities * BNP 167 * stable at this time * pain medications on board (7) Tobacco dependence: Code(s): F17.200 - Nicotine dependence, unspecified, uncomplicated Status: Acute Assessment and Plan: * currently uses a patch at home * will order patch p.r.n. * currently she denies any need for patch * smoking cessation education attempted however patient stated that she know she wants to quit. DS: Summary Hospital Course Hospital Course: Patient is 77-year-old female with a past medical history hypertension, hyperli pidemia, bladder cancer, lung cancer who presented to the ED with complaints of uncontrolled cough with back and chest pain. Upon arrival to the ED patient is was unable to catch her breath or rest comfortably. Chest x-ray was performed and showed no acute abnormality probable mild chronic interstitial disease. Patient was started on IV ceftriaxone and azithromycin for COPD and pneumonia as the x-ray did appear to have an opacity. Patient is als
== END 2023-01-22 11:00 | disposition home or self-care (01) | DRG 194 ==
LOC: ANHED 05:48 → ANH3MEDSUR 08:19
PROVIDERS: Admitting Provider Internal Medicine; Emergency Provider Emergency Medicine; PCP Family Medicine; Visit Provider Nurse Practitioner
DX: J18.9 Pneumonia, unspecified organism (principal); J44.0 Chronic obstructive pulmonary disease with (acute) lower respiratory infection; J44.1 Chronic obstructive pulmonary disease with (acute) exacerbation; D63.8 Anemia in other chronic diseases classified elsewhere; E78.5 Hyperlipidemia, unspecified; I10 Essential (primary) hypertension; R07.89 Other chest pain; Z20.822 Contact with and (suspected) exposure to COVID-19; K21.9 Gastro-esophageal reflux disease without esophagitis; F17.210 Nicotine dependence, cigarettes, uncomplicated; M81.0 Age-related osteoporosis without current pathological fracture; M85.80 Other specified disorders of bone density and structure, unspecified site; F41.1 Generalized anxiety disorder; Z66 Do not resuscitate; Z85.118 Personal history of other malignant neoplasm of bronchus and lung; Z90.49 Acquired absence of other specified parts of digestive tract; Z85.51 Personal history of malignant neoplasm of bladder; Z86.16 Personal history of COVID-19
CPT/HCPCS: 36415; 71046; 71275; 80053; 83605; 83735; 83880; 84484; 85025; 85380; 87637; 93005; 96361; 96365; 99285; A9270; J0456; J0696; J1650; J7030; J7512; Q9967

== ENCOUNTER 2023-02-03 13:17 | Outpatient (CLI) | payer MEDICARE, SELFPAY ==
--- NOTE | ~2023-02-03 | US_ITS ---
EXAMINATION: US carotid duplex BI DATE: 02/03/2023 14:05 INDICATION: Carotid artery atherosclerosis and stenosis. TECHNIQUE: Grayscale, color Doppler, and pulsed Doppler images of the cervical carotid arteries were obtained. The degree of vessel stenosis is placed in one of the following categories: normal, <50%, 5 0-69%, >=70% but less than near-occlusion, near-occlusion, or total occlusion. Note that percent sten osis relative to normal distal artery lumen diameter is indirectly measured from velocity measurement s as described by Rod, et al. Radiology 2003; 229:340-346. COMPARISON: None. FINDINGS: RIGHT: The right common carotid artery (CCA) peak systolic velocity (PSV) is 104 cm/s. The right internal ca rotid artery (ICA) PSV is 71 cm/s. The right ICA end-diastolic velocity (EDV) is 24 cm/s. The right I CA/CCA PSV ratio is 0.7. Grayscale and color Doppler images yield an estimate of <50% diameter reduct ion from plaque in the ICA. The external carotid artery (ECA) PSV is 428 cm/s. There is antegrade elizabeth w in the right vertebral artery. LEFT: The left CCA PSV is 173 cm/s. The left ICA PSV is 96 cm/s. The left ICA EDV is 11 cm/s. The left ICA/ CCA PSV ratio is 0.6. Grayscale and color Doppler images yield an estimate of <50% diameter reduction from plaque in the ICA. The ECA PSV is 72 cm/s. There is antegrade flow in the left vertebral artery . IMPRESSION: 1. <50% stenosis in the right internal carotid artery. 2. <50% stenosis in the left internal carotid artery. Reviewed, dictated and finalized at location A.
== END 2023-02-03 13:18 | disposition home or self-care (01) ==
PROVIDERS: PCP Family Medicine; Visit Provider Physician Assistant
DX: I65.23 Occlusion and stenosis of bilateral carotid arteries (principal)
CPT/HCPCS: 93880

== ENCOUNTER 2023-02-15 08:18 | Outpatient (CLI) | payer MEDICARE, SELFPAY ==
--- NOTE | ~2023-02-15 | CT_ITS ---
EXAMINATION:CT diagnostic chest w con DATE: 02/15/2023 08:49 INDICATION: Non-small cell cancer of right lung. TECHNIQUE: Computed tomography (CT) of the chest was performed with 75 mL Omnipaque 350 intravenous c ontrast. Automated exposure control and iterative reconstruction technique were employed. The dose-le ngth product (DLP) was 122.94 mGy-cm. COMPARISON: Chest CT 01/21/2023, 10/17/2022, 02/24/2021, 12/13/21 FINDINGS: There is moderate emphysema. A calcified right lung nodule and calcified right hilar lymph nodes are consistent with old granulomatous disease. There are airspace opacities in posterior right lower lobe with volume loss. There is peripheral septal thickening in the lungs with a lower lung pre dominance. There is a peripheral 4 mm nodule in left lower lobe, stable from 12/13/21, likely benign. No pleural effusion. The heart size is normal. No pericardial effusion. There are coronary artery jabari cifications. There is a right internal jugular port with tip in superior vena cava. There are no path ologically enlarged lymph nodes. There is mucous plugging in right lower lobe. There is mild thoracic spondylosis. There is a mild chronic compression fracture of T6. There is an old fracture of right e ighth rib. IMPRESSION: 1. Stable airspace opacities in posterior right lower lobe with volume loss, consistent with primary bronchogenic carcinoma and changes of radiation therapy. 2. Moderate emphysema and mild chronic interstitial lung disease. Reviewed, dictated and finalized at location A. IMPRESSION: 1. Stable airspace opacities in posterior right lower lobe with volume loss, co nsistent with primary bronchogenic carcinoma and changes of radiation therapy. 2. Moderate emphysema and mild chronic interstitial lung disease.
== END 2023-02-15 08:19 | disposition home or self-care (01) ==
PROVIDERS: PCP Family Medicine; Visit Provider Internal Medicine Hematology & Oncology
DX: C34.91 Malignant neoplasm of unspecified part of right bronchus or lung (principal); J43.9 Emphysema, unspecified
CPT/HCPCS: 71260; Q9967

== ENCOUNTER → 2023-03-13 10:30 | Outpatient (CLI) | payer MEDICARE, SELFPAY ==
--- NOTE | ~2023-03-13 | US_ITS ---
Pelvic ultrasound. Clinical History: Abnormal findings on diagnostic imaging. Thickened endometrium. COMPARISON: 08/25/2022 Technique: Realtime transabdominal and transvaginal scanning of the pelvis was performed. Color flow Doppler and Doppler spectral analysis were performed. Findings: The uterus is anteverted. The endometrial stripe has a thickness of 2 mm. No focal mass is identified. The right ovary is not visualized. No significant right ovarian or adnexal mass is seen. The left ovary measures 1.8 x 1.2 x 1.2 cm. No significant left ovarian or adnexal mass is seen. There is no evidence of free fluid in the cul de sac. Impression: No abnormal endometrial thickening identified. Reviewed, dictated and finalized at [facility]. Impression: No abnormal endometrial thickening identified.
== END ==
PROVIDERS: PCP Student in an Organized Health Care Education/Training Program; Visit Provider Student in an Organized Health Care Education/Training Program
DX: R93.89 Abnormal findings on diagnostic imaging of other specified body structures (principal)
CPT/HCPCS: 76830; 76856

== ENCOUNTER 2023-06-20 09:02 | Outpatient (CLI) | payer MEDICARE, SELFPAY ==
--- NOTE | ~2023-06-20 | CT_ITS ---
Clinical Indication: Lung cancer CT Scan of the Chest with Contrast: Technique: Contiguous sections were acquired throughout the chest after intravenous administration of 75 cc of Omnipaque 350. Dose reduction technique was used on this scan by utilizing automated exposu re control and iterative reconstruction technique. The dose-length product (DLP) was 185.97 mGy-cm. COMPARISON: 02/15/2023 Findings: There is no evidence of any significant mediastinal, hilar or axillary lymphadenopathy. There is no f illing defect in the pulmonary arterial tree to suggest pulmonary embolus. There is no evidence of ao rtic dissection or aneurysm. There are atherosclerotic calcifications of aorta and coronary arteries There is no evidence of pleural or pericardial effusion. There is moderate emphysema with associated chronic interstitial disease, stable from prior exam. The re is apparent chronic atelectasis or postradiation change in the medial right lower lobe with associ ated volume loss, also similar to prior exam. Images through the upper abdomen reveal no abnormalities. Impression: Stable chronic volume loss and/or post radiation change in the medial right lower lobe. Moderate emphysema and chronic interstitial disease, unchanged. No significant change from prior exam. Reviewed, dictated and finalized at location . Impression: Stable chronic volume loss and/or post radiation change in the medial right low er lobe. Moderate emphysema and chronic interstitial disease, unchanged. No significant change from prior exam.
[2023-06-20 09:35] LABS: Estimated Glomerular Filt Rate 43
== END 2023-06-20 09:03 | disposition home or self-care (01) ==
PROVIDERS: PCP Family Medicine; Visit Provider Internal Medicine Hematology & Oncology
DX: C34.91 Malignant neoplasm of unspecified part of right bronchus or lung (principal); J43.9 Emphysema, unspecified; J84.9 Interstitial pulmonary disease, unspecified
CPT/HCPCS: 71260; Q9967

== ENCOUNTER 2023-12-06 13:29 | Outpatient (CLI) | payer MEDICARE, SELFPAY ==
[2023-12-06 14:39] LABS: Influenza A QL RT-PCR Negative (Negative); Influenza B QL RT-PCR Negative (Negative); RSV RNA, RT-PCR Negative (Negative); SARS-CoV-2 RNA PCR Negative (Negative)
== END 2023-12-06 13:30 | disposition home or self-care (01) ==
LOC: ANHLAB 13:31
PROVIDERS: PCP Family Medicine; Visit Provider Physician Assistant
DX: R50.9 Fever, unspecified (principal); Z20.822 Contact with and (suspected) exposure to COVID-19
CPT/HCPCS: 87637

== ENCOUNTER 2023-12-25 00:11 | Emergency (ER) | payer MEDICARE, SELFPAY ==
[2023-12-25] VITALS (11 sets, daily range): BP systolic 120–199; BP diastolic 76–99; PULSE 81–102; RESP 16–21; TEMP 36.6; O2SAT 93–98
--- NOTE | ~2023-12-25 | CT_ITS ---
CT of the Abdomen and Pelvis: Indication: Abdominal pain Technique: 2.5 mm axial scans were obtained through the abdomen and pelvis following intravenous adm inistration of 100 cc of Omnipaque 350. Dose reduction technique was used on this scan by utilizing a utomated exposure control and iterative reconstruction technique. The dose-length product (DLP) was 3 52.31 mGy-cm. COMPARISON: 07/12/2021 Findings: Scans through the lung bases demonstrate mild chronic bibasilar interstitial change, simil ar to prior exam. The liver, spleen, pancreas, adrenals and kidneys are within normal limits. Small calcified gallstone s present. There are atherosclerotic calcifications of the aorta. No lymphadenopathy. No bowel obstruction or bowel wall thickening. There is no evidence to suggest acute appendicitis. Images through the pelvis were performed. Urinary bladder unremarkable. Pessary device present. No ad nexal mass seen. No ascites. Impression: No acute abnormality evident. Cholelithiasis. Reviewed, dictated and finalized at location . 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 Cholelithiasis.
[2023-12-25 00:51] LABS: Alanine Aminotransferase 16 U/L (6-35); Albumin Level 4.2 g/dL (3.5-5.1); Alkaline Phosphatase 103 U/L (38-126); Anion Gap 7 mmol/L (8-16); Aspartate Amino Transferase 28 U/L (14-36); Bilirubin,Total 0.4 mg/dL (0.2-1.3); Blood Urea Nitrogen 30 mg/dL (7-17); Calcium 9.9 mg/dL (8.4-10.2); Carbon Dioxide 29 mmol/L (22-30); Chloride 105 mmol/L (98-107); Estimated CRCL calculation 26 ml/min; Estimated Glomerular Filt Rate 43; Glucose 119 mg/dL (65-110); Lipase 117 U/L (23-300); Potassium 4.1 mmol/L (3.4-5.0); Sodium 141 mmol/L (137-145)
[2023-12-25 00:52] LABS: Basophils Percent Auto 0.4 % (0.2-1.2); Eosinophils Absolute Auto 0.3 K/mm3 (0-0.3); Eosinophils Percent Auto 2.3 % (0-4.4); Hematocrit 38.4 % (37.0-47.0); Hemoglobin 12.6 g/dL (12.0-15.0); Immature Granulocyte Absolute 0.04 K/mm3 (0.00-0.031); Immature Granulocyte Percent A 0.4 % (0-0.5); Lymphocytes Absolute Auto 2.42 K/mm3 (0.9-3.2); Lymphocytes Percent Auto 22.6 % (18.3-44.2); Mean Corpuscular HGB Conc 32.8 g/dl (32-36); Mean Corpuscular Hemoglobin 31.5 pg (26-34); Mean Platelet Volume 9.4 fl (7.4-10.4); Monocytes Absolute Auto 0.5 K/mm3 (0.1-0.6); Monocytes Percent Auto 4.9 % (2.6-8.5); Neutrophils Absolute Auto 7.4 K/mm3 (1.3-6.7); Neutrophils Percent Auto 69.4 % (45.5-73.1); Platelet Count Result 334 k/mm3 (150-375); Red Cell Distribution Width 14.2 % (11.5-14.5); White Blood Count 10.7 K/mm3 (4.5-10.0)
--- NOTE | 2023-12-25 00:59 | ED.GENADULT ---
HPI - General Adult General Chief complaint: Abdominal Pain Stated complaint: abd pain Time Seen by Provider: 12/25/23 00:37 History of Present Illness HPI narrative: This is an 78-year-old female presenting ED with chief complaint of abdominal pain. Patient says that she has been having intermittent pain in the right upper quadrant for the last 2 weeks. Tonight it became constant. She describes it as a sharp/ burning pain that started radiating down to her hip. 7/10 intensity and is now constant. She has never had pain this before. She did take last 2 weeks with some relief. Patient denies fevers chills nausea vomiting diarrhea chest pain or difficulty breathing. No falls. Related Data Home Medications Medication Instructions Recorded Confirmed calcium carbonate 500 mg-vitamin 1 tablet PO DAILY 11/08/19 12/07/23 D3 10 mcg (400 unit) tablet (Calcium 500 + D) cyanocobalamin (vitamin B-12) 500 mcg QAM 06/24/22 12/07/23 vitamin E 400 unit tablet 180 mg PO DAILY 06/24/22 12/07/23 Allergies Allergy/AdvReac Type Severity Reaction Status Date / Time morphine AdvReac DIARRHEA/VO Verified 12/25/23 00:32 [facility] Past Medical History Medical History Acute on chronic renal failure Age related osteoporosis Atherosclerosis of aorta Bilateral hearing loss due to cerumen impaction Bladder cancer Broken jaw steel plate Carotid stenosis Cholelithiasis Chronic hypertension COPD (chronic obstructive pulmonary disease) COVID-19 ETD (eustachian tube dysfunction) CESAR (generalized anxiety disorder) GERD (gastroesophageal reflux disease) History of benign meningioma of brain History of ischemic colitis HTN (hypertension) Hyperlipidemia Malignant neoplasm of lower lobe, right bronchus or lung Malignant neoplasm of urinary bladder With excision of tumor Osteopenia Pancytopenia Port-A-Cath in place Tobacco dependence Uterovaginal prolapse, complete Surgical History Surgical History History of appendectomy History of bladder surgery Family History Family History Sibling Family history of obesity Carcinoma of colon Mother Heart disease Hypertension Father Heart disease Hypertension Social History Social History Social History: The patient is . Her 2 years ago Galo from Covid. She had 3 daughters, 1 , 1 is missing. The patient lives alone. Her daughter is the durable power document review attorney for healthcare, Karla Noyola. Patient wishes to be a DNR as she stated, If my heart was to stop to let me go. Smoking packs per day: 0.25 Smoking cigarettes per day: 5.0 Years smoked: 40 Smoking pack-years: 10.00 Smoking status: Current every day smoker Tobacco type: cigarettes Second hand tobacco smoke exposure: No Additional smoking assessment comments: Cheats, mainly after eating, uses patches Alcohol intake: never Substance use: never Substance use type: does not use Lack of Transportation: No Lack of Food: Never True Current Housing: I Have Housing Concerned About Future Housing: No Difficulty Paying Gas/Electric Bills: No Difficulty Paying for Meds: No Currently Unemployed: No Education: Trade/Vocational Certificate Difficulty w/ Childcare or Family Care: No Living arrangements: alone 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 Head: atraumatic. EYES: EOMI, NOSE: Atraumatic NECK: Trachea midl
[2023-12-25] MEDS: KETOROLAC 15 MG/ML VIAL (*BKC) IV PUSH (01:09)
[2023-12-25] MEDS: SODIUM CHLORIDE 0.9% IV 1,000 ML 999 ML IV CONT (01:09)
[2023-12-25] MEDS: ACETAMINOPHEN 500 MG TABLET 1000 MG PO (01:09)
== END 2023-12-25 02:04 | disposition home or self-care (01) ==
PROVIDERS: Emergency Provider Emergency Medicine; PCP Family Medicine
DX: I12.9 Hypertensive chronic kidney disease with stage 1 through stage 4 chronic kidney disease, or unspecified chronic kidney disease (principal); N18.9 Chronic kidney disease, unspecified; I70.0 Atherosclerosis of aorta; J44.9 Chronic obstructive pulmonary disease, unspecified; E78.5 Hyperlipidemia, unspecified; K21.9 Gastro-esophageal reflux disease without esophagitis; M85.80 Other specified disorders of bone density and structure, unspecified site; Z66 Do not resuscitate; F17.210 Nicotine dependence, cigarettes, uncomplicated; Z85.51 Personal history of malignant neoplasm of bladder; Z85.118 Personal history of other malignant neoplasm of bronchus and lung; Z86.16 Personal history of COVID-19; Z92.21 Personal history of antineoplastic chemotherapy; Z92.3 Personal history of irradiation
CPT/HCPCS: 36415; 74177; 80053; 83690; 85025; 96361; 96374; 99284; A9270; J1885; J7030; Q9967

== ENCOUNTER 2024-06-27 13:56 | Outpatient (CLI) | payer MEDICARE, SELFPAY ==
--- NOTE | ~2024-06-27 | XR_ITS ---
XR chest 2V 06/27/2024 14:19 Indication: Cough. Chest tightness. Procedure: 2 view chest Comparison: Comparison to multiple prior studies sequentially, with oldest reviewed study dated 03/29. Findings: There are 2 new mid thoracic compression fractures with accentuated thoracic kyphosis, age indeterminate. These were not seen on the 01/20/2023 study. There is mild chronic interstitial fibrosi s. Heart size normal. No acute focal pneumonia, edema, pleural effusion or pneumothorax. Impression: 1: Stable mild chronic interstitial lung disease. 2: New mild wedge compression deformities of the midthoracic spine. Reviewed, dictated and finalized at location B. Impression: 1: Stable mild chronic interstitial lung disease. 2: New mild wedge compression deformities of the midthoracic spine.
== END 2024-06-27 13:57 | disposition home or self-care (01) ==
LOC: ANHIMG 13:59
PROVIDERS: PCP Family Medicine; Visit Provider Student in an Organized Health Care Education/Training Program
DX: R05.9 Cough, unspecified (principal); J84.9 Interstitial pulmonary disease, unspecified
CPT/HCPCS: 71046

== ENCOUNTER 2024-06-28 17:44 | Inpatient (IN) | payer MEDICARE, SELFPAY ==
--- NOTE | ~2024-06-28 | CT_ITS ---
EXAMINATION: CTA chest PE abdomen pel DATE: 06/28/2024 23:35 INDICATION: Chest pain and shortness of breath. Abdominal pain. TECHNIQUE: Computed tomography (CT) pulmonary angiogram of the chest was performed with 100 mL Omnipa que-350 intravenous contrast. Additional 3D reconstructions utilizing coronal maximum intensity proje ction (MIP) were performed. CT of the abdomen and pelvis was performed with intravenous contrast util izing the same contrast bolus following a short delay. Automated exposure control and iterative recon struction technique were employed. The dose-length product was 668.95 mGy-cm. COMPARISON: CT dated 12/25/2023 at 06/20/2023 FINDINGS: Chest: No pulmonary embolism. Sensitivity mildly decreased in the smaller basilar subsegmental pulmonary art eries due to small to moderate amount of respiratory motion artifact. Moderate emphysema with unchang ed peripheral irregular septal line thickening consistent with mild chronic interstitial lung disease . Chronic atelectasis/scarring with associated volume loss at the posterior medial right lower lobe. New mild discoid atelectasis in the left lower lobe. Calcified right lower lobe nodule and calcified right hilar lymph node consistent with old granulomatous disease. Diffuse subtle groundglass opacity throughout the lungs likely related to incomplete inspiratory effort with mildly decreased lung relat desiree to the prior study. No pleural effusion. Heart size is normal. No pericardial effusion. Thoracic aorta is normal in caliber with no dissection. No pathologically enlarged thoracic lymphadenopathy. M oderate thoracic spondylosis with chronic T6 and T7 compression fractures and age-indeterminate T8 co mpression fracture which is new since 12/25/2023. Old posterior right eighth rib fracture Abdomen/pelvis: Cholelithiasis within the otherwise normal gallbladder. Liver, spleen, pancreas, bilateral adrenal gl ands are normal. Mild left renal atrophy. 9 mm cyst at the left kidney. Small regions of more focal c ortical scarring at both kidneys. There is moderate colonic diverticulosis with a sigmoid predominanc e. There is no adjacent inflammatory change to suggest diverticulitis. No bowel obstruction. Pessar y within the vaginal vault. Bladder, atrophic anteverted uterus and bilateral adnexa are unremarkable . No free intraperitoneal gas or fluid. There is calcified atherosclerosis of the aorta and many of t he other arteries. No pathologically enlarged severe spondylosis lumbosacral junction with mild spond ylosis more cephalad lumbar spine. lymphadenopathy. IMPRESSION: 1. No pulmonary embolism. Sensitivity mildly decreased in the smaller basilar subsegmental pulmonary arteries due to motion. 2. Moderate emphysema with stable appearance of chronic atelectasis/scarring at the posterior right l ower lobe consistent with treated lung cancer. 3. Subtle diffuse groundglass opacities throughout the lungs likely atelectasis related to incomplete inspiratory effort with differential including less likely mild pulmonary edema or pneumonia. 4. Small sliding-type hiatal hernia. 5. Cholelithiasis. Reviewed, dictated and finalized at location A. IMPRESSION: 1. No pulmonary embolism. Sensitivity mildly decreased in the smaller basilar s ubsegmental pulmonary arteries due to motion. 2. Moderate emphysema with stable appearance of chronic atelectasis/scarring at the posterior right lower lobe consistent with treated lung cancer. 3. Subtle diffuse groundglass opacities throughout the lungs likely atelectasis related to incomplete inspiratory effort with differential including less like ly mild pulmonary edema or pneumonia. 4. Small sliding-type hiatal hernia. 5. Cholelithiasis.
--- NOTE | ~2024-06-28 | XR_ITS ---
XR chest 2V Ordering provider: Richard August MD History: 79 years Female with . CP . Comparison: June 27, 2024 FINDINGS: MEDIASTINUM: The cardiac silhouette is not enlarged. LUNGS: No infiltrates, effusions or pneumothorax. Emphysematous changes. Prominent markings in the left lower lobe area. OTHER: No free air under the diaphragm. Degenerative spine. Multilevel compression fracture in the mi dthoracic area most likely chronic IMPRESSION: Prominent markings in the left lower lobe. Otherwise, No acute cardiopulmonary pathology. Reviewed, dictated and finalized at location A.
--- NOTE | 2024-06-28 17:44 | ECG_ITS ---
Test Date: 2024-06-28 17:50:59 Measurements Intervals [place] Rate: 112 P: 47 ME: 180 QRS: 41 QRSD: 71 T: 40 QT: 290 QTc: 396 Interpretive Statements SINUS TACHYCARDIA LOW-VOLTAGE QRS ABNORMAL RHYTHM ECG No previous ECG available for comparison Electronically Signed On 06-29-2024 09:27:15 CDT by Kyle Gutierrez M.D.
[2024-06-28 17:51] VITALS: BP 120/96; PULSE 113; RESP 24; TEMP 37.1; O2SAT 95
[2024-06-28 18:18] LABS: Basophils Absolute Auto 0.1 K/mm3 (0.0-0.1); Basophils Percent Auto 0.3 % (0.2-1.2); Eosinophils Absolute Auto 0.4 K/mm3 (0-0.3); Eosinophils Percent Auto 2.9 % (0-4.4); Hematocrit 38.8 % (37.0-47.0); Hemoglobin 12.3 g/dL (12.0-15.0); Immature Granulocyte Absolute 0.06 K/mm3 (0.00-0.031); Immature Granulocyte Percent A 0.4 % (0-0.5); Lymphocytes Absolute Auto 2.06 K/mm3 (0.9-3.2); Lymphocytes Percent Auto 13.4 % (18.3-44.2); Mean Corpuscular HGB Conc 31.7 g/dl (32-36); Mean Corpuscular Hemoglobin 30.3 pg (26-34); Mean Corpuscular Volume 95.6 fl (80-100); Mean Platelet Volume 9.2 fl (7.4-10.4); Monocytes Absolute Auto 0.7 K/mm3 (0.1-0.6); Monocytes Percent Auto 4.7 % (2.6-8.5); Neutrophils Absolute Auto 12.1 K/mm3 (1.3-6.7); Neutrophils Percent Auto 78.3 % (45.5-73.1); Platelet Count Result 369 k/mm3 (150-375); Red Blood Count 4.06 M/mm3 (4.2-5.4); Red Cell Distribution Width 14.4 % (11.5-14.5); White Blood Count 15.4 K/mm3 (4.5-10.0)
[2024-06-28 18:30] LABS: INR 0.9; Partial Thromboplastin Time 27.8 Seconds (22.3-36.8); Prothrombin Time 12.2 Seconds (11.1-14.7)
[2024-06-28 18:37] LABS: Alanine Aminotransferase 30 U/L (6-35); Albumin Level 4.3 g/dL (3.5-5.1); Alkaline Phosphatase 106 U/L (38-126); Anion Gap 9 mmol/L (4-12); Aspartate Amino Transferase 41 U/L (14-36); Bilirubin,Total 0.2 mg/dL (0.2-1.3); Blood Urea Nitrogen 31 mg/dL (7-17); Calcium 9.7 mg/dL (8.4-10.2); Carbon Dioxide 26 mmol/L (22-30); Chloride 103 mmol/L (98-107); Estimated CRCL calculation 28 ml/min; Estimated Glomerular Filt Rate 48; Glucose 177 mg/dL (65-110); Lipase 101 U/L (23-300); Potassium 4.7 mmol/L (3.4-5.0); Sodium 138 mmol/L (137-145)
[2024-06-28 18:43] LABS: Troponin I < 0.012 ng/mL (0.000-0.034)
--- NOTE | 2024-06-28 21:20 | ECG_ITS ---
Test Date: 2024-06-28 22:51:14 Measurements Intervals [place] Rate: 86 P: 38 MN: 167 QRS: 34 QRSD: 86 T: 20 QT: 347 QTc: 417 Interpretive Statements SINUS RHYTHM WITH SINUS ARRHYTHMIA VERSES BLOCKED APCS ABNORMAL ECG Compared to ECG 06/28/2024 17:50:59 NO SIGNIFICANT CHANGE, LIKELY HAS BLOCKED PACS Electronically Signed On 06-29-2024 09:33:41 CDT by Kyle Gutierrez M.D.
--- NOTE | 2024-06-28 21:22 | ED.CHESTPAIN ---
HPI - Chest Pain General Chief Complaint: Chest Pain Stated Complaint: chest pain Time Seen by Provider: 06/28/24 20:11 Source: patient and family History of Present Illness HPI narrative: Patient presents with complaint of chest pain (now chest pressure), back pain ( all throughout ) as well as shortness of breath. She was recently treated for bronchitis/bronchiolitis and pneumonia. She has had a cough, initially productive but not now. Not on anticoagulation. Patient appears anxious per triage description and daughter denies that she has a history of anxiety however she does in conversation at bedside state that her mother has baseline shakiness/possible tremor but unclear diagnosis. Does not follow with a dropper tank storage. Has underlying COPD, not on home O2. Lives at home by herself. Hx HTN, HLD. Smoker. No prior MO. No family history of MO <65yo. No Hx TIA/CVA/PAD. Points to chest and epigastric area. Related Data Home Medications Medication Instructions Recorded Confirmed calcium carbonate 500 mg-vitamin 1 tablet PO DAILY 11/08/19 06/29/24 D3 10 mcg (400 unit) tablet (Calcium 500 + D) cyanocobalamin (vitamin B-12) 500 mcg QAM 06/24/22 06/29/24 vitamin E 400 unit tablet 180 mg PO DAILY 06/24/22 06/29/24 omeprazole 20 mg capsule,delayed 20 mg PO HS 06/29/24 06/29/24 release Allergies Allergy/AdvReac Type Severity Reaction Status Date / Time morphine AdvReac DIARRHEA/VO Verified 06/27/24 13:02 [facility] Past Medical History Medical History Acute on chronic renal failure Age related osteoporosis Atherosclerosis of aorta Bilateral hearing loss due to cerumen impaction Bladder cancer Broken jaw steel plate Carotid stenosis Cholelithiasis Chronic hypertension CKD (chronic kidney disease), stage III COPD (chronic obstructive pulmonary disease) COVID-19 ETD (eustachian tube dysfunction) CESAR (generalized anxiety disorder) GERD (gastroesophageal reflux disease) History of benign meningioma of brain History of ischemic colitis HTN (hypertension) Hyperlipidemia Malignant neoplasm of lower lobe, right bronchus or lung Malignant neoplasm of urinary bladder With excision of tumor Osteopenia Pancytopenia Port-A-Cath in place Tobacco dependence Uterovaginal prolapse, complete Surgical History Surgical History History of appendectomy History of bladder surgery Family History Family History Sibling Family history of obesity Carcinoma of colon Mother Heart disease Hypertension Father Heart disease Hypertension Social History Social History Social History: The patient is . Her 2 years ago Galo from Covid. She had 3 daughters, 1 , 1 is missing. The patient lives alone. Her daughter is the durable power block piler for healthcare, Karla Noyola. Patient wishes to be a DNR as she stated, If my heart was to stop to let me go. Smoking packs per day: 0.3 Smoking cigarettes per day: 6.0 Years smoked: 40 Smoking pack-years: 12.00 Smoking status: Former smoker Tobacco type: cigarettes Second hand tobacco smoke exposure: No Additional smoking assessment comments: Cheats, mainly after eating, uses patches Alcohol intake: never Substance use: never Substance use type: does not use Do You Feel Safe in your Home?: Yes Lack of Transportation: No Lack of Food: Never True Current Housing: I Have Housing Concerned About Future Housing: No Difficulty Paying Gas/Electric Bills: No Difficulty Paying for Meds: No Currently Unemployed: No Education: Trade/Vocational Certificate Difficulty w/ Childcare or Family Care: No Living arrangements: alone 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
[2024-06-28 21:47] VITALS: O2SAT 92
[2024-06-28 21:49] LABS: NT Pro B Type Natriuretic Pept 105 pg/mL (19.9-100)
[2024-06-28 22:24] LABS: Troponin I < 0.012 ng/mL (0.000-0.034)
[2024-06-28 22:32] LABS: D Dimer 0.82 ug/mL (<0.48)
[2024-06-28] MEDS: ACETAMINOPHEN 500 MG TABLET 1000 MG PO (23:03)
[2024-06-28] MEDS: LORazepam INJ (*CRX) 2 MG/ML VIAL IV PUSH (23:03)
[2024-06-28] MEDS: SODIUM CHLORIDE 0.9% IV 1,000 ML 999 ML IV CONT (23:03)
[2024-06-29] VITALS (23 sets, daily range): BP systolic 108–142; BP diastolic 57–106; PULSE 69–98; RESP 14–22; TEMP 36.2–36.9; O2SAT 86–100; BMI 25.7
[2024-06-29 00:06] LABS: Lactic Acid Reflex 0.7 mmol/L (0.7-2.0)
[2024-06-29 00:29] LABS: Influenza A QL RT-PCR Negative (Negative); Influenza B QL RT-PCR Negative (Negative); RSV RNA, RT-PCR Negative (Negative); SARS-CoV-2 RNA PCR Negative (Negative)
[2024-06-29] MEDS: AZITHROMYCIN 500 MG/NS 250 ML 500 MG/250 ML BAG 250 MG IVPB ×2 (01:11→23:05)
[2024-06-29 02:09] LABS: Alveolar/Arterial O2 Gradient 98.7 mmHg; Base Excess ABG -0.1 mEq/l (+/-2.0); Fractional Inspired Oxygen 36 %; HCO3 ABG 26.1 mEq/l (22.0-26.0); Oxygen Content ABG 14.8 %vol (16.0-22.0); Oxygen Saturation ABG 97.2 % (95.0-100.0); PCO2 ABG 49.2 mmHg (35.0-45.0); PO2 ABG 100.9 mmHg (80.0-100.0); pH ABG 7.342 (7.350-7.450)
[2024-06-29 02:10] LABS: Device NASAL CANNULA; Modified Allen's Test Pass; Site Drawn RIGHT RADIAL
--- NOTE | 2024-06-29 03:46 | ADMGEN ---
This patient, Frieda Perkins, was admitted to [facility] Surg Room 313-01. Patient/family oriented to hospital policies and general routines including ID bracelet, bed and alarms, visiting hours, pain management, procedures, bathroom and other care routines, personal items, smoking policy, room service/diet, and visiting hours. Information on how to activate the Rapid Response Team has been discussed. Patient/Family are encouraged to report perceived risks to care and to ask questions if they do not understand what they are told or what they should do.
[2024-06-29 10:10] LABS: Procalcitonin 0.1 ng/mL
[2024-06-29] MEDS: ACETAMINOPHEN 325 MG TABLET 650 MG PO ×3 (12:17→23:07)
[2024-06-29] MEDS: guaiFENesin 12 HR 600 MG TABCR PO ×2 (12:17→18:12)
[2024-06-29] MEDS: amLODIPine BESYLATE 5 MG TABLET PO (12:19)
[2024-06-29] MEDS: methylPREDNISolone SOD SUCC 125 MG VIAL 60 MG IV PUSH ×3 (12:19→23:05)
[2024-06-29] MEDS: CYANOCOBALAMIN 500 MCG TABLET PO (12:19)
[2024-06-29] MEDS: CALCIUM/VITAMIN D 500 MG/5 MCG (200 I.U.) TABLET PO (12:19)
[2024-06-29] MEDS: calcium polycarbophiL 625 MG TABLET PO ×2 (12:19→18:12)
[2024-06-29] MEDS: hydroCHLOROthiazide 25 MG TABLET PO (12:19)
[2024-06-29] MEDS: lisinopriL 20 MG TABLET 40 MG PO (12:20)
[2024-06-29] MEDS: ATORVASTATIN 10 MG TABLET PO (12:20)
[2024-06-29] MEDS: IPRATROPIUM 0.5 MG/ALBUTEROL SULFATE 2.5 MG AMPUL.NEB 3 ML INHALATION (14:12)
[2024-06-29] MEDS: BENZONATATE 100 MG CAPSULE 200 MG PO ×2 (15:26→21:30)
--- NOTE | 2024-06-29 17:34 | PM.IMHP ---
H&P: HPI History of Present Illness Date/Time: 06/29/24 12:34 Chief Complaint: Worsening shortness of breath Narrative: Patient presented to the ER with reports of worsening coughs with chest discomfort within the last couple of weeks. Patient is a difficult historian due to somnolence. Apparently she was seen at an about a week ago and was treated for bronchitis with steroids, Z-pack and benzonatate. During me exam, patient can basely stay awake during conversation. Patient denies any recent travels, any sick contacts, fevers or chills, supplemental O2 use at home. She's a former smoker >10/day X40 years. Review of Systems Review of Systems: All systems reviewed & are unremarkable except as noted in HPI and below PMFSH Past Medical History Medical History Acute on chronic renal failure Age related osteoporosis Atherosclerosis of aorta Bilateral hearing loss due to cerumen impaction Bladder cancer Broken jaw steel plate Carotid stenosis Cholelithiasis Chronic hypertension CKD (chronic kidney disease), stage III COPD (chronic obstructive pulmonary disease) COVID-19 ETD (eustachian tube dysfunction) CESAR (generalized anxiety disorder) GERD (gastroesophageal reflux disease) History of benign meningioma of brain History of ischemic colitis HTN (hypertension) Hyperlipidemia Malignant neoplasm of lower lobe, right bronchus or lung Malignant neoplasm of urinary bladder With excision of tumor Osteopenia Pancytopenia Port-A-Cath in place Tobacco dependence Uterovaginal prolapse, complete Surgical History Surgical History History of appendectomy History of bladder surgery Family History Family History Sibling Family history of obesity Carcinoma of colon Mother Heart disease Hypertension Father Heart disease Hypertension Social History Social History Social History: The patient is . Her 2 years ago Galo from [employer]. She had 3 daughters, 1 , 1 is missing. The patient lives alone. Her daughter is the durable power privacy attorney for healthcare, Karla Noyola. Patient wishes to be a DNR as she stated, If my heart was to stop to let me go. Smoking packs per day: 0.3 Smoking cigarettes per day: 6.0 Years smoked: 40 Smoking pack-years: 12.00 Smoking status: Former smoker Tobacco type: cigarettes Second hand tobacco smoke exposure: No Additional smoking assessment comments: Cheats, mainly after eating, uses patches Alcohol intake: never Substance use: never Substance use type: does not use Do You Feel Safe in your Home?: Yes Lack of Transportation: No Lack of Food: Never True Current Housing: I Have Housing Concerned About Future Housing: No Difficulty Paying Gas/Electric Bills: No Difficulty Paying for Meds: No Currently Unemployed: No Education: Trade/Vocational Certificate Difficulty w/ Childcare or Family Care: No Living arrangements: alone 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, [employer], 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 Gender identity (if verbalized by the patient): Female Sexual Orientation (if Verbalized by the Patient): Straight or Heterosexual Spiritual care concerns: No Agree to blood products: Yes Meds Home Medications and Allergies Home Medications Medication Instructions Recorded Confirmed Type calcium carbonate 500 mg-vitamin 1 tablet PO DAILY 11/08/19 06/29/24 History D3 10 mcg (400 unit) tablet (Calcium 500 + D) calcium polycarbophil 625 mg 625 mg PO BID #60 tabs 07/17/21 06/29/24 Rx tablet (Fiber (calcium polycarbophil)) cyanocobalamin (vitamin B-12) 500 mcg QAM 06/24/22 06/29/24 History vitamin E 400 unit tablet 180 mg PO DAILY 06/24/22 08
[2024-06-29] MEDS: FLUTICASONE/SALMETEROL 115-21 MCG INHALER 1 PUFF 2 PUFF INHALATION (21:18)
[2024-06-29] MEDS: PANTOPRAZOLE 40 MG TABLET PO (21:31)
[2024-06-29] MEDS: traMADol HCL (*CRX) 25 MG TABLET PO (21:33)
[2024-06-30] VITALS (9 sets, daily range): BP systolic 119–153; BP diastolic 56–99; PULSE 78–97; RESP 16–20; TEMP 36.3–37.1; O2SAT 92–99
[2024-06-30] MEDS: methylPREDNISolone SOD SUCC 125 MG VIAL 60 MG IV PUSH ×2 (06:28→13:17)
[2024-06-30 06:38] LABS: Basophils Percent Auto 0.1 % (0.2-1.2); Hematocrit 37.3 % (37.0-47.0); Hemoglobin 11.5 g/dL (12.0-15.0); Immature Granulocyte Percent A 0.8 % (0-0.5); Lymphocytes Absolute Auto 0.78 K/mm3 (0.9-3.2); Lymphocytes Percent Auto 6.5 % (18.3-44.2); Mean Corpuscular HGB Conc 30.8 g/dl (32-36); Mean Corpuscular Hemoglobin 29.9 pg (26-34); Mean Corpuscular Volume 97.1 fl (80-100); Mean Platelet Volume 9.3 fl (7.4-10.4); Monocytes Absolute Auto 0.1 K/mm3 (0.1-0.6); Monocytes Percent Auto 0.6 % (2.6-8.5); Platelet Count Result 308 k/mm3 (150-375); Red Blood Count 3.84 M/mm3 (4.2-5.4); Red Cell Distribution Width 14.3 % (11.5-14.5)
[2024-06-30 06:57] LABS: Anion Gap 12 mmol/L (4-12); Blood Urea Nitrogen 29 mg/dL (7-17); Calcium 9.5 mg/dL (8.4-10.2); Carbon Dioxide 25 mmol/L (22-30); Chloride 104 mmol/L (98-107); Estimated CRCL calculation 31 ml/min; Estimated Glomerular Filt Rate 53; Glucose 161 mg/dL (65-110); Potassium 4.6 mmol/L (3.4-5.0); Sodium 141 mmol/L (137-145)
[2024-06-30] MEDS: FLUTICASONE/SALMETEROL 115-21 MCG INHALER 1 PUFF 2 PUFF INHALATION ×2 (07:14→20:42)
[2024-06-30] MEDS: ACETAMINOPHEN 325 MG TABLET 650 MG PO ×2 (07:23→16:48)
[2024-06-30] MEDS: ATORVASTATIN 10 MG TABLET PO (08:23)
[2024-06-30] MEDS: amLODIPine BESYLATE 5 MG TABLET PO (08:23)
[2024-06-30] MEDS: calcium polycarbophiL 625 MG TABLET PO ×2 (08:23→16:43)
[2024-06-30] MEDS: CYANOCOBALAMIN 500 MCG TABLET PO (08:23)
[2024-06-30] MEDS: guaiFENesin 12 HR 600 MG TABCR PO ×2 (08:23→16:44)
[2024-06-30] MEDS: CALCIUM/VITAMIN D 500 MG/5 MCG (200 I.U.) TABLET PO (08:23)
[2024-06-30] MEDS: hydroCHLOROthiazide 25 MG TABLET PO (08:23)
--- NOTE | 2024-06-30 15:26 | PM.IMPN ---
Progress Note: A&P Assessment and Plan (1) Acute hypoxic respiratory failure: Code(s): J96.01 - Acute respiratory failure with hypoxia Status: Acute Assessment and Plan: - Possibly related to COPD exacerbation vs PNA vs other. - Covid PCR, Flu A/B swabs, RSV PCR all negative. - CT chest PE protocol negative for PE. - CT chest PE with no obvious signs of infiltrates. - BNP 105, trops <0.012. - Symptoms likely related to COPD exac rather than PNA. - Discontinue ceftriaxone and azithromycin changed to PO. - Continue to wean supplemental O2 for sats > 90%, now on 2L/NC. - Other mgt as below. (2) COPD with exacerbation: Code(s): J44.1 - Chronic obstructive pulmonary disease with (acute) exacerbation Status: Acute Assessment and Plan: - Convert steroids to PO. - Continue scheduled nebulized treatments and long-acting bronchodilators. - IV abx stopped and Azithromycin changed to PO. - Continue supplemental O2 and wean as tracy for sats > 90 %, now on 2L/NC. - Monitor symptoms progression. (3) Somnolence: Code(s): R40.0 - Somnolence Status: Acute Assessment and Plan: - Possibly related to anxiolytics given pre CT chest vs hypoxia vs other. - Appears resolved. (4) Chronic pain: Code(s): G89.29 - Other chronic pain Status: Acute Assessment and Plan: - Hx of chronic back pain per family. - Pain meds PRN. - Avoid narcotics with somnolence. (5) Leukocytosis: Code(s): D72.829 - Elevated white blood cell count, unspecified Status: Acute Assessment and Plan: - Possibly related to recent steroids treatment vs infection vs other. - Trending down. - Will possibly rise with steroids use inpatient. (6) Cholelithiasis: Code(s): K80.20 - Calculus of gallbladder without cholecystitis without obstruction Status: Acute Assessment and Plan: - Asymptomatic. - Monitor for now. (7) HTN (hypertension): Code(s): I10 - Essential (primary) hypertension Status: Acute Assessment and Plan: - BP trending normal highs. - Lisinopril restarted. - Monitor closely. (8) Hyperlipidemia: Qualifiers: Hyperlipidemia type: unspecified Qualified Code(s): E78.5 - Hyperlipidemia, unspecified Code(s): E78.5 - Hyperlipidemia, unspecified Status: Chronic Assessment and Plan: - Continue statin. Time Spent With Patient Time with patient: 25 - 35 minutes Subjective Date/time seen: 06/30/24 10:26 Interval history: Patient presented to the ER with reports of fatigue and worsening SOB. She was noted to be in hypoxic respiratory failure related to COPD exacerbation so she has been admitted for stabilization. Patient currently seated bedside and states she's feeling much better and feels like her thinking is more straight than before, with increased strength. Reports coughing intermittently with small clear sputum. Review of Systems Review of Systems: All systems reviewed & are unremarkable except as noted in HPI and below Exam Narrative: General: Alert seated bedside, no acute distress. HEENT: Atraumatic, PERRL, EOMI, non-icteric, MMM, Neck: Supple. Respiratory: Faint expiratory wheezes. Cardiovascular: RRR, no murmurs. GI: Soft, non-tender, non-distended, +ve bowel sounds X4 quadrants. Skin: Warm, dry and pink. No lesions noted. Neuro: Alert and well oriented. CN II-XII grossly intact. Extremities: Warm and dry. No lesions noted. Psych: Appropriate and co-operative. Objective Data Vital Signs Vital Signs: Vital Signs - 24 hr 06/29/24 17:52 06/29/24 16:00 06/29/24 20:00 Temperature 98.0 F 97.7 F Pulse Rate 98 98 81 Respiratory Rate 18 20 Blood Pressure 142/65 H 125/60 Pulse Oximetry 98 100 Oxygen Delivery Oxygen Flow Rate 06/29/24 21:18 06/29/24 21:20 06/29/24 23:12 Temperature 97.2 F L Pulse Rate 86 90 Respiratory Rate 20 20 Blood Pressure 118/57 L Pu
[2024-06-30] MEDS: predniSONE 20 MG TABLET 40 MG PO (16:43)
[2024-06-30] MEDS: BENZONATATE 100 MG CAPSULE 200 MG PO (16:49)
[2024-06-30] MEDS: PANTOPRAZOLE 40 MG TABLET PO (20:47)
[2024-06-30] MEDS: traMADol HCL (*CRX) 25 MG TABLET PO (20:47)
[2024-07-01] VITALS (10 sets, daily range): BP systolic 110–150; BP diastolic 53–75; PULSE 72–104; RESP 18–20; TEMP 36.4–36.9; O2SAT 93–95
[2024-07-01] MEDS: traMADol HCL (*CRX) 25 MG TABLET PO ×3 (05:52→22:45)
[2024-07-01] MEDS: CALCIUM/VITAMIN D 500 MG/5 MCG (200 I.U.) TABLET PO (07:58)
[2024-07-01] MEDS: calcium polycarbophiL 625 MG TABLET PO ×2 (07:58→16:08)
[2024-07-01] MEDS: guaiFENesin 12 HR 600 MG TABCR PO ×2 (07:58→16:08)
[2024-07-01] MEDS: predniSONE 20 MG TABLET 40 MG PO ×2 (07:59→16:08)
[2024-07-01] MEDS: CYANOCOBALAMIN 500 MCG TABLET PO (07:59)
[2024-07-01] MEDS: hydroCHLOROthiazide 25 MG TABLET PO (07:59)
[2024-07-01] MEDS: ATORVASTATIN 10 MG TABLET PO (07:59)
[2024-07-01] MEDS: lisinopriL 20 MG TABLET 40 MG PO (07:59)
[2024-07-01] MEDS: amLODIPine BESYLATE 5 MG TABLET PO (07:59)
[2024-07-01] MEDS: AZITHROMYCIN 250 MG TABLET PO (07:59)
[2024-07-01] MEDS: ACETAMINOPHEN 325 MG TABLET 650 MG PO (08:03)
[2024-07-01] MEDS: FLUTICASONE/SALMETEROL 115-21 MCG INHALER 1 PUFF 2 PUFF INHALATION ×2 (08:32→20:22)
--- NOTE | 2024-07-01 12:13 | PC.NURSE ---
Informed Dr. Schrader of patient's daughter's request (Jennifer Noyola) to talk to hospitalist about patient's current status and CT scan results. Gave provider daughter's contact info at [phone]. Provider to talk to daughter.
--- NOTE | 2024-07-01 14:46 | PM.IMPN ---
Progress Note: A&P Assessment and Plan (1) Acute hypoxic respiratory failure: Code(s): J96.01 - Acute respiratory failure with hypoxia Status: Acute Assessment and Plan: - Much improvement in symptoms. - Possibly related to COPD exacerbation vs PNA vs other. - Covid PCR, Flu A/B swabs, RSV PCR all negative. - CT chest PE protocol negative for PE. - CT chest PE with no obvious signs of infiltrates, showing moderate emphysema. - BNP 105, trops <0.012 on admission. - Symptoms likely related to COPD exac rather than PNA. - Discontinue ceftriaxone and azithromycin changed to PO. - Weaned off supplemental O2 and currently on RA with sats > 90%. - Other mgt as below. (2) COPD with exacerbation: Code(s): J44.1 - Chronic obstructive pulmonary disease with (acute) exacerbation Status: Acute Assessment and Plan: - Continue PO steroids. - Continue scheduled nebulized treatments and long-acting bronchodilators. - Continue PO Azithromycin. - Monitor symptoms progression. (3) Somnolence: Code(s): R40.0 - Somnolence Status: Acute Assessment and Plan: - Possibly related to anxiolytics given pre CT chest vs hypoxia vs other. - Resolved. (4) Chronic pain: Code(s): G89.29 - Other chronic pain Status: Acute Assessment and Plan: - Patient and daughter deny any falls Hx. - Hx of chronic back pain per family. - CT chest; Moderate thoracic spondylosis with chronic T6 and T7 compression fractures and age-indeterminate T8 compression fracture which is new since 12/25/2023. Old posterior right eighth rib fracture - Pain meds PRN. - Avoid narcotics with somnolence. - Daughter advised to f/u with PCP for possible NSGY consult if no improvement in symptoms with pain meds. (5) Chest discomfort: Code(s): R07.89 - Other chest pain Status: Chronic Assessment and Plan: - Possibly musculoskeletal from frequent cough episodes vs rib fx vs costochondritis vs other. - CT chest showing old posterior right eighth rib fracture. - Troponin negative on admission. - Supportive care for now with pain meds PRN. (6) Leukocytosis: Code(s): D72.829 - Elevated white blood cell count, unspecified Status: Acute Assessment and Plan: - Possibly related to recent steroids treatment vs infection vs other. - Trending down. - Will possibly rise with steroids use inpatient. (7) Cholelithiasis: Code(s): K80.20 - Calculus of gallbladder without cholecystitis without obstruction Status: Acute Assessment and Plan: - Asymptomatic. - Monitor for now. (8) HTN (hypertension): Code(s): I10 - Essential (primary) hypertension Status: Acute Assessment and Plan: - BP trending normal highs. - Lisinopril restarted. - Monitor closely. (9) Hyperlipidemia: Qualifiers: Hyperlipidemia type: unspecified Qualified Code(s): E78.5 - Hyperlipidemia, unspecified Code(s): E78.5 - Hyperlipidemia, unspecified Status: Chronic Assessment and Plan: - Continue statin. Time Spent With Patient Time with patient: 25 - 35 minutes Subjective Date/time seen: 07/01/24 10:46 Interval history: Patient presented with reports of fatigue and worsening SOB. She was noted to be in hypoxic respiratory failure related to COPD exacerbation + CORWIN so she has been admitted for stabilization. Patient currently on bedrest and states she had an episode of SOB overnight but resolved, stating she must have done too much possibly. Reports coughing intermittently with small clear sputum. Patient also reports she's been having some back and chest pain for about 3 weeks now. Patient's daughter Jennifer called and updated on pt condition. Review of Systems Review of Systems: All systems reviewed & are unremarkable except as noted in HPI and below Exam Narrative: General: Alert on bedrest, no acute distress. HEENT: Atraumatic, PERRL, EOMI
[2024-07-01] MEDS: BENZONATATE 100 MG CAPSULE 200 MG PO ×2 (16:08→22:45)
[2024-07-01] MEDS: PANTOPRAZOLE 40 MG TABLET PO (20:10)
[2024-07-02] VITALS: BP 139/48; PULSE 64; PULSE 75; RESP 18; TEMP 36.8; O2SAT 93
[2024-07-02 04:00] VITALS: BP 151/49; PULSE 60; PULSE 91; RESP 18; TEMP 36.6; O2SAT 96
[2024-07-02 07:43] VITALS: O2SAT 92
[2024-07-02] MEDS: FLUTICASONE/SALMETEROL 115-21 MCG INHALER 1 PUFF 2 PUFF INHALATION (07:43)
[2024-07-02 08:00] VITALS: PULSE 84; PULSE 91; RESP 18; O2SAT 92
[2024-07-02] MEDS: CYANOCOBALAMIN 500 MCG TABLET PO (08:14)
[2024-07-02] MEDS: hydroCHLOROthiazide 25 MG TABLET PO (08:14)
[2024-07-02] MEDS: amLODIPine BESYLATE 5 MG TABLET PO (08:15)
[2024-07-02] MEDS: CALCIUM/VITAMIN D 500 MG/5 MCG (200 I.U.) TABLET PO (08:15)
[2024-07-02] MEDS: predniSONE 20 MG TABLET 40 MG PO (08:15)
[2024-07-02] MEDS: guaiFENesin 12 HR 600 MG TABCR PO (08:15)
[2024-07-02] MEDS: lisinopriL 20 MG TABLET 40 MG PO (08:15)
[2024-07-02] MEDS: traMADol HCL (*CRX) 25 MG TABLET PO (08:15)
[2024-07-02] MEDS: calcium polycarbophiL 625 MG TABLET PO (08:15)
[2024-07-02] MEDS: AZITHROMYCIN 250 MG TABLET PO (08:16)
[2024-07-02] MEDS: ATORVASTATIN 10 MG TABLET PO (08:16)
[2024-07-02 12:00] VITALS: BP 138/62; PULSE 68; RESP 19; TEMP 36.7; O2SAT 95
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
== END 2024-07-02 14:15 | disposition home or self-care (01) | DRG 190 ==
LOC: ANHED 06-29 02:25 → ANH3MEDSUR 06-29 03:24
PROVIDERS: Emergency Medicine; Admitting Provider Internal Medicine; Emergency Provider Student in an Organized Health Care Education/Training Program; PCP Family Medicine; Visit Provider Nurse Practitioner Adult Health
DX: J44.1 Chronic obstructive pulmonary disease with (acute) exacerbation (principal); J96.01 Acute respiratory failure with hypoxia; I12.9 Hypertensive chronic kidney disease with stage 1 through stage 4 chronic kidney disease, or unspecified chronic kidney disease; N18.30 Chronic kidney disease, stage 3 unspecified; I70.0 Atherosclerosis of aorta; I65.29 Occlusion and stenosis of unspecified carotid artery; K80.20 Calculus of gallbladder without cholecystitis without obstruction; K21.9 Gastro-esophageal reflux disease without esophagitis; E78.5 Hyperlipidemia, unspecified; M85.80 Other specified disorders of bone density and structure, unspecified site; M81.0 Age-related osteoporosis without current pathological fracture; G89.29 Other chronic pain; F41.1 Generalized anxiety disorder; Z20.822 Contact with and (suspected) exposure to COVID-19; Z86.011 Personal history of benign neoplasm of the brain; Z85.118 Personal history of other malignant neoplasm of bronchus and lung; Z87.891 Personal history of nicotine dependence; Z85.51 Personal history of malignant neoplasm of bladder
CPT/HCPCS: 36415; 36600; 71046; 71275; 74177; 80048; 80053; 82805; 83605; 83690; 83880; 84145; 84484; 85025; 85380; 85610; 85730; 87637; 93005; 94640; 94762; 96361; 96365; 96367; 96375; 99285; A9270; J0456; J0696; J2060; J2919; J7030; J7512; Q9967

== ENCOUNTER 2024-07-31 12:42 | Outpatient (CLI) | payer MEDICARE, SELFPAY ==
--- NOTE | ~2024-07-31 | DEXA_ITS ---
Bone Density Report Name: AMBROSIO TANNER Age: 79 Sex: Female Ethnicity: White Date of : 1945 Indication: postmenopausal; screening for osteoporosis; height loss; Referring Provider: PHYLLIS SADLER Study: Bone densitometry was performed. Exam Date: July 31, 2024 Accession number: [id number] Bone Density: Region BMD T-score Z-score Classification AP Spine(L1-L4) 0.975 -0.7 2.1 Normal Femoral Neck (Left) 0.591 -2.3 0.0 Osteopenia Total Hip (Left) 0.829 -0.9 1.2 Normal Femoral Neck (Right) 0.643 -1.9 0.5 Osteopenia Total Hip (Right) 0.887 -0.5 1.7 Normal Femoral Neck Mean 0.617 -2.1 0.3 Osteopenia Total Hip Mean 0.858 -0.7 1.4 Normal World Health Organization criteria for BMD impression classify patients as: Normal (T-score at or above -1.0), Osteopenia (T-score between -1.0 and -2.5), or Osteoporosis (T-score at or below -2.5). 10-year Fracture Risk(1): Major Osteoporotic Fracture 17% Hip Fracture 5.6% Reported Risk Factors: [place] (), Neck BMD=0.591, BMI=26.9 (1) FRAX(R) Version 3.08. Fracture probability calculated for an untreated patient. Fracture probability may be lower if the patient has received treatment. Clinical Information Provided by Patient: Patient maximum height was 62. Menopause Age: 48 No regular weight bearing exercise Does not regularly consume dairy products Drinks caffeinated beverages Onset of menses at age 11 Number of children 3 Impression: The patient has low bone mass, based on the Left Femoral Neck T-score. Discussion: BONE DENSITY IS LOW AT ONE OR MORE SKELETAL SITES. This patient's lowest T-score is low at one or more skeletal sites. It meets the World Health Organization's (WHO) criteria for ?low bone mass? (T-score between -1.0 and -2.5). The patient's 10-year risk of fracture as calculated by FRAX is less than the threshold where pharmacological therapy is recommended by the National Osteoporosis Foundation (NOF). However, all treatment decisions require clinical judgment and consideration of individual patient factors, including patient preferences, comorbidities, previous drug use, risk factors not captured in the FRAX model (e.g., frailty, falls, vitamin D deficiency, increased bone turnover, interval significant decline in bone density) and possible under or overestimation of fracture risk by FRAX. The patient should follow a healthful lifestyle (good nutrition with adequate calcium and vitamin D, and appropriate weight-bearing exercise). Follow-Up: Consider repeating this study in 2 to 3 years to reassess this patient's status, or sooner if there is some new clinical indication. Reported by: MARSHALL on 08/01/2024 8:34:00 AM. Review
== END 2024-07-31 12:43 | disposition home or self-care (01) ==
PROVIDERS: PCP Family Medicine; Visit Provider Student in an Organized Health Care Education/Training Program
DX: Z78.0 Asymptomatic menopausal state (principal); M85.89 Other specified disorders of bone density and structure, multiple sites
CPT/HCPCS: 77080

== ENCOUNTER 2024-12-25 19:29 | Inpatient (IN) | payer MEDICARE, SELFPAY ==
--- NOTE | ~2024-12-25 | CT_ITS ---
EXAMINATION: CTA chest PE protocol DATE: 12/26/2024 16:15 INDICATION: Shortness of breath. TECHNIQUE: Computed tomography angiography (CTA) of the chest was performed with 100 mL Omnipaque-350 intravenous contrast timed to evaluate the pulmonary arteries. Coronal maximum intensity projection 3D-reconstructions were created by the technologist. Automated exposure control and iterative reconst ruction technique were employed. The dose-length product was 362.05 mGy-cm. COMPARISON: Chest CT 06/28/2024, 02/24/21 FINDINGS: There is moderate emphysema. There are patchy airspace opacities in right upper lobe, consi stent with pneumonia. There is mild atelectasis bilaterally. There are chronic airspace opacities wit h volume loss in right lower lobe, consistent with radiation pneumonitis. Calcified right lung nodule s are consistent with old granulomatous disease. There is mucous plugging in left lower lobe. There i s a small right pleural effusion. The heart size is normal. There are coronary artery calcifications. No pericardial effusion. There is no pulmonary embolus. There are nodules in the thyroid measuring u p to 6 mm, likely not clinically significant. There is mild mediastinal lymphadenopathy, likely react desiree. There is mild atrophy of the kidneys. There is mild chronic anterior wedging of T2, T3, and T7 v ertebral bodies. 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 Th ere is a chronic compression fracture of T8 with 2/5 loss of height. There is a burst fracture of T9 with worsening from 06/28/24 with coronal cleft and retropulsion of bone 3 mm into central spinal abe l. There is severe mid thoracic spondylosis. There is a chronic pathologic fracture of right eighth r ib. IMPRESSION: 1. No pulmonary embolus. 2. Right upper lobe pneumonia. 3. Radiation pneumonitis in right lower lobe. 4. Moderate emphysema. Reviewed, dictated and finalized at location A. ING MANAGER
--- NOTE | ~2024-12-25 | XR_ITS ---
CHEST RADIOGRAPH CLINICAL HISTORY: sepsis . COMPARISON: Reference is made to a CTA of the chest performed 06/28/2024 TECHNIQUE: Single portable view of the chest. FINDINGS The cardiomediastinal silhouette is unremarkable. Interstitial thickening is detected bilaterally, largely unchanged from prior. Volume loss within the right hemithorax. Examination is limited as the patient is rotated towards their left side. Increased density within the right mid to upper lung field, for which an early infiltrate is suspecte d. IMPRESSION: Right upper lobe infiltrate, as detailed above. Reviewed, dictated and finalized at location A. CAL CLAIMS ASSISTANT
--- NOTE | ~2024-12-25 | XR_ITS ---
EXAMINATION: XR chest 1V portable DATE: 12/26/2024 09:29 INDICATION: Shortness of breath. TECHNIQUE: A single frontal view of the chest was obtained. COMPARISON: Chest single view 12/25/2024, chest CT 06/28/2024 FINDINGS: There are airspace opacities in right midlung zone and the lower lung zones. No pleural eff usion or pneumothorax. The heart size is normal. IMPRESSION: 1. Airspace opacities in right midlung zone and the lower lung zones with worsening at the lung bases , consistent with atelectasis/scarring versus pneumonia. Reviewed, dictated and finalized at location A. DEVELOPER IMPRESSION: 1. Airspace opacities in right midlung zone and the lower lung zones with worse vivien at the lung bases, consistent with atelectasis/scarring versus pneumonia.
--- NOTE | ~2024-12-25 | CT_ITS ---
History: Altered mental status PROCEDURE: CT head without contrast. COMPARISON: 03/16/2021 TECHNIQUE: Axial imaging of the head performed from the skull base to the vertex without IV contrast. Sagittal a nd coronal reformations obtained. DLP: 681 mGy-cm FINDINGS: The ventricles are enlarged. The dilatation of the ventricles is proportional to the degree of sulcal prominence, not uncommon in the senescent brain. Decreased attenuation is identified within the periventricular white matter, likely secondary to micr ovascular ischemic disease, in a patient of this age. There is no mass, mass effect or midline shift. There is no abnormal extra-axial fluid collection or intracranial hemorrhage. Air fluid levels within the bilateral maxillary sinuses. Opacification of the bilateral ethmoid sinuses. Remaining paranasal sinuses are unremarkable The mastoid air cells are well aerated. No acute displaced fractures within the overlying cranium. Stable 12 mm meningioma left frontal lobe. Impression: No acute intracranial hemorrhage or suspicious mass effect. Reviewed, dictated and finalized at location A. HERY LABORER Impression: No acute intracranial hemorrhage or suspicious mass effect.
[2024-12-25 19:38] VITALS: BP 120/101; PULSE 114; RESP 18; TEMP 38.1; O2SAT 86
--- NOTE | 2024-12-25 19:38 | ECG_ITS ---
Test Date: 2024-12-25 19:41:38 Measurements Intervals Irwin Rate: 102 P: 38 ME: 164 QRS: 38 QRSD: 84 T: 40 QT: 316 QTc: 413 Interpretive Statements SINUS TACHYCARDIA WITH OCCASIONAL SUPRAVENTRICULAR PREMATURE COMPLEXES BASELINE ARTIFACT- I, II, III BORDERLINE ECG Compared to ECG 06/28/2024 22:51:14 HEART RATE HAS DECREASED Electronically Signed On 12-26-2024 05:29:53 ISSUE CLERK by Edgardo Washington D.O.
[2024-12-25 19:47] VITALS: PULSE 114
[2024-12-25 19:48] VITALS: O2SAT 99
--- NOTE | 2024-12-25 20:01 | ED.AMS ---
HPI - Altered Mental Status General Chief Complaint: Altered Mental Status Stated Complaint: Unresponsive per family/altered for EMS Time Seen by Provider: 12/25/24 19:51 History of Present Illness HPI narrative: 79-year-old female with history of hypertension, CKD, hyperlipidemia, previous bladder cancer. Presents to the emergency department for concerns of altered mental status. According to family members patient was unresponsive at home, EMS arrived and patient was responsive to verbal stimuli, she is moaning and groaning but not able to answer questions appropriately. This is not her baseline mentation. No falls or injuries. Recent diagnosis of pneumonia according to EMS. Patient is found to be tachycardic, febrile, hypoxic. Appears ill and made a medical resuscitation bed 12. Collateral formation is limited, patient is not able to answer questions appropriately provide salient details, remaining history obtained by family and EMR reviewed. Related Data Home Medications ?Medication ?Instructions ?Recorded ?Confirmed ?Last Taken ?Type calcium 500 mg (as 1 tablet PO DAILY 11/08/19 08/13/24 1 Day Ago History carbonate)-vitamin D3 10 mcg (400 ~01/19/23 unit) tablet (Calcium 500 + D) cyanocobalamin (vitamin B-12) 500 mcg QAM 06/24/22 08/13/24 1 Day Ago History ~01/19/23 vitamin E 400 unit tablet 180 mg PO DAILY 06/24/22 08/13/24 1 Day Ago History ~01/19/23 omeprazole 20 mg capsule,delayed 20 mg PO HS 06/29/24 08/13/24 Unknown History release Allergies Allergy/AdvReac Type Severity Reaction Status Date / Time morphine AdvReac DIARRHEA/VO Verified 08/13/24 10:50 MITING Review of Systems Review of Systems: ROS unobtainable: Yes unobtainable due to mental status PMFSH Past Medical History Medical History COPD with exacerbation Acute hypoxic respiratory failure Pneumonia CKD (chronic kidney disease) CKD (chronic kidney disease), stage III Uterovaginal prolapse, complete COVID-19 CAP (community acquired pneumonia) Cholelithiasis Pancytopenia Port-A-Cath in place Broken jaw steel plate Malignant neoplasm of lower lobe, right bronchus or lung Bladder cancer Tobacco dependence Acute on chronic renal failure Hyperlipidemia Chronic hypertension Bilateral hearing loss due to cerumen impaction Age related osteoporosis Atherosclerosis of aorta CESAR (generalized anxiety disorder) History of benign meningioma of brain History of ischemic colitis ETD (eustachian tube dysfunction) GERD (gastroesophageal reflux disease) Carotid stenosis HTN (hypertension) Malignant neoplasm of urinary bladder With excision of tumor Osteopenia Surgical History Surgical History History of bladder surgery History of appendectomy Family History Family History Sibling Family history of obesity Carcinoma of colon Mother Heart disease Hypertension Father Heart disease Hypertension Social History Social History Social History: The patient is . Her 2 years ago [employer] from [employer]. She had 3 daughters, 1 , 1 is missing. The patient lives alone. Her daughter is the durable power health care attorney for healthcare, Karla Noyola. Patient wishes to be a DNR as she stated, If my heart was to stop to let me go. Smoking packs per day: 0.3 Smoking cigarettes per day: 6.0 Years smoked: 40 Smoking pack-years: 12.00 Smoking status: Former smoker Tobacco type: cigarettes Second hand tobacco smoke exposure: No Additional smoking assessment comments: Cheats, mainly after eating, uses patches Alcohol intake: never Substance use: never Substance use type: does not use Do You Feel Safe in your Home?: Yes Lack of Transportation: No Lack of Food: Never True Current Housing: I Have Housing Concerned About Future Housing: No Difficulty Paying Gas/Electric Bills: No Difficulty Paying for Meds: No Currently Unemployed: No Education: Trade/Vocational Certificate Difficulty w/ Childcare or Family Care: No Living arrangements: alone 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 HEAD: [Normocephalic, atraumatic.] EYES: [PERRLA and EOMI.] ENT: Nares clear, no rhinorrhea or epistaxis. Mucous membranes moist. NECK: Supple. CHEST: Coarse bibasilar breath sounds, mild respiratory distress, hypoxic requiring oxygen HEART: Tachycardic rate with regular rhythm. No murmur heard. [Normal peripheral pulses.] ABDOMEN: [Soft, nondistended], [nontender], [No rigidity or guarding] EXTREMITIES: Normal range of motion. [No edema.] SKIN: Warm, dry, no rash. No sacral decubitus ulcers NEURO: [No focal deficits]. Alert and oriented x1 responsive to her name PSYCH: [Normal mood and affect.] Course Vital Signs Vital signs: Vital Signs Temperature 38.1 C H 12/25/24 19:38 Pulse Rate 114 H 12/25/24 19:38 Respiratory Rate 18 12/25/24 19:38 Blood Pressure 120/101 H 12/25/24 19:38 Pulse Oximetry 86 L 12/25/24 19:38 Oxygen Delivery Room Air 12/25/24 19:38 Temperature 36.7 C 12/25/24 21:28 Pulse Rate 86 12/25/24 21:46 Respiratory Rate 15 12/25/24 21:46 Blood Pressure 108/69 12/25/24 21:46 Pulse Oximetry 100 12/25/24 21:46 Oxygen Delivery Nasal Cannula 12/25/24 19:48 Oxygen Flow Rate 4 12/25/24 19:48 MDM - Altered Mental Status MDM Narrative Medical decision making narrative: 79-year-old female presenting from home, history of hypertension, CKD, hyperlipidemia previous bladder cancer. EMS was called for altered mental status, patient was unresponsive for family but alert to her name by EMS. Patient is ill and in acute mild respiratory distress. Found to be hypoxic on room air 86% with which 4 L was applied with improvement diet 9%. She is tachycardic at 1:15 a.m. and febrile at 38.1. Coarse bibasilar breath sounds. Suspicion presently is for sepsis with underlying cause being likely recent pneumonia diagnosis versus influenza. Urinary tract infection is also possible. Septic bone was ordered, blood cultures, lactic acid, CBC, CMP, PT, PTT, troponin, chest x-ray and EKG obtained. She was given a 30 cc/kg bolus of approximately 2 L normal saline, started on antibiotics with vancomycin ceftriaxone and azithromycin. Workup pending. Appears to be DNR on previous hospital visit. Workup shows a leukocytosis of 16,000, normal platelets, normal hemoglobin. Coag studies within normal limits. Electrolytes shows some CO2 retention, elevated BUN but normal creatinine. Normal glucose, negative lactic acid, normal LFTs. Elevated CRP. Urinalysis with leukocyte esterase and greater than 100 white blood cells consistent with potential urinary infection. Positive for flu A. Chest x-ray shows a right upper lobe infiltrate and pneumonia. CT head without any acute findings. EKG is nonischemic but shows sinus tachycardia. Repeat vital signs are improved with fever coming down after Tylenol, currently 100% on 4 L nasal cannula, tachycardia resolved and blood pressure is staying within normal range. I re-evaluated the patient frequently and updated the family members multiple times at bedside. Current plan is to continue IV antibiotics and admit her to a step-down unit for continued care of likely sepsis, multiple infections including pneumonia, urinary tract infection and influenza. Discussed the case with the hospitalist over the phone Dr. Jones who accepted the patient to a step-down unit at this time. Family comfortable with plan. Medical Records Attestation: I reviewed the patient's medical records. Lab Data Attestation: I reviewed the patient's lab results. 12/25/24 20:01 12/25/24 20:01 Labs: Lab Results 12/25/24 12/25/24 12/25/24 Range/Units 20:01 20:01 20:01 WBC 16.0 H (4.5-10.0) K/mm3 RBC 4.31 (4.2-5.4) M/mm3 Hgb 13.3 (12.0-15.0) g/dL Hct 40.8 (37.0-47.0) % MCV 94.7 (80-100) fl MCH 30.9 (26-34) pg MCHC 32.6 (32-36) g/dl RDW 13.2 (11.5-14.5) % Plt Count 379 H (150-375) k/mm3 MPV 9.2 (7.4-10.4) fl Immature Gran % (Auto) 0.5 (0-0.5) % Neut % (Auto) 86.6 H (45.5-73.1) % Lymph % (Auto) 8.1 L (18.3-44.2) % [place] % (Auto) 4.6 (2.6-8.5) % Eos % (Auto) 0.1 (0-4.4) % Baso % (Auto) 0.1 L (0.2-1.2) % Lymph # (Auto) 1.30 (0.9-3.2) K/mm3 [place] # (Auto) 0.7 H (0.1-0.6) K/mm3 Eos # (Auto) 0.0 (0-0.3) K/mm3 Baso # (Auto) 0.0 (0.0-0.1) K/mm3 Abs Immat Gran (auto) 0.08 H (0.00-0.031) K/mm3 Absolute Neuts (auto) 13.9 H (1.3-6.7) K/mm3 Absolute Nucleated RBC 0.000 (0.0-0.012) K/mm3 Nucleated RBC % 0.0 (0.0-0.2) % PT 13.1 Cancelled (11.1-14.7) Seconds INR 0.9 Cancelled APTT 26.9 (22.3-36.8) Seconds Sodium (137-145) mmol/L Potassium (3.4-5.0) mmol/L Chloride (98-107) mmol/L Carbon Dioxide (22-30) mmol/L Anion Gap (4-12) mmol/L BUN (7-17) mg/dL Creatinine (0.7-1.0) mg/dL Estim Creat Clear Calc ml/min Estimated GFR (59 - ) Glucose (65-110) mg/dL Lactic Acid (0.7-2.0) mmol/L Calcium (8.4-10.2) mg/dL Total Bilirubin (0.2-1.3) mg/dL AST (14-36) U/L ALT (6-35) U/L Alkaline Phosphatase (38-126) U/L Troponin I (0.000-0.034) ng/mL C-Reactive Protein (<1.0) mg/dL Total Protein (6.3-8.2) g/dL Albumin (3.5-5.1) g/dL Urine Color (Yellow) Urine Appearance (Clear) Urine pH (5.0-9.0) Ur Specific Mcdonald (1.001-1.035) Urine Protein (Negative) mg/dL Urine Glucose (UA) (Negative) mg/dL Urine Ketones (Negative) mg/dL Ur Blood (Man) (Negative) Urine Nitrate (Negative) Urine Bilirubin (Negative) Urine Urobilinogen (<2.0) mg/dL Add Ur Microanalysis Leukocyte Esterase Rfl (Negative) KENDRICK/UL Urine RBC (0-2) /hpf Urine WBC (0-3) /hpf Ur Squamous Epith Cells (Few) /hpf Urine Bacteria /hpf Urine Casts Influenza A (RT-PCR) (Negative) Influenza B (RT-PCR) (Negative) RSV (RT-PCR) (Negative) SARS-CoV-2 RNA (RT-PCR) (Negative) 12/25/24 12/25/24 12/25/24 Range/Units 20:01 20:02 20:04 WBC (4.5-10.0) K/mm3 RBC (4.2-5.4) M/mm3 Hgb (12.0-15.0) g/dL Hct (37.0-47.0) % MCV (80-100) fl MCH (26-34) pg MCHC (32-36) g/dl RDW (11.5-14.5) % Plt Count (150-375) k/mm3 MPV (7.4-10.4) fl Immature Gran % (Auto) (0-0.5) % Neut % (Auto) (45.5-73.1) % Lymph % (Auto) (18.3-44.2) % [place] % (Auto) (2.6-8.5) % Eos % (Auto) (0-4.4) % Baso % (Auto) (0.2-1.2) % Lymph # (Auto) (0.9-3.2) K/mm3 [place] # (Auto) (0.1-0.6) K/mm3 Eos # (Auto) (0-0.3) K/mm3 Baso # (Auto) (0.0-0.1) K/mm3 Abs Immat Gran (auto) (0.00-0.031) K/mm3 Absolute Neuts (auto) (1.3-6.7) K/mm3 Absolute Nucleated RBC (0.0-0.012) K/mm3 Nucleated RBC % (0.0-0.2) % PT (11.1-14.7) Seconds INR APTT Cancelled (22.3-36.8) Seconds Sodium 136 L (137-145) mmol/L Potassium 4.9 (3.4-5.0) mmol/L Chloride 94 L (98-107) mmol/L Carbon Dioxide 33 H (22-30) mmol/L Anion Gap 9 (4-12) mmol/L BUN 27 H (7-17) mg/dL Creatinine 0.99 (0.7-1.0) mg/dL Estim Creat Clear Calc 37 ml/min Estimated GFR 54 L (59 - ) Glucose 117 H (65-110) mg/dL Lactic Acid (0.7-2.0) mmol/L Calcium 10.1 (8.4-10.2) mg/dL Total Bilirubin 0.5 (0.2-1.3) mg/dL AST 18 (14-36) U/L ALT 14 (6-35) U/L Alkaline Phosphatase 102 (38-126) U/L Troponin I < 0.012 (0.000-0.034) ng/mL C-Reactive Protein 3.6 H (<1.0) mg/dL Total Protein 7.0 (6.3-8.2) g/dL Albumin 3.9 (3.5-5.1) g/dL Urine Color Yellow (Yellow) Urine Appearance Clear (Clear) Urine pH 8.5 (5.0-9.0) Ur Specific Mcdonald 1.021 (1.001-1.035) Urine Protein Trace (Negative) mg/dL Urine Glucose (UA) Negative (Negative) mg/dL Urine Ketones Negative (Negative) mg/dL Ur Blood (Man) Negative (Negative) Urine Nitrate Negative (Negative) Urine Bilirubin Negative (Negative) Urine Urobilinogen 1.0 (<2.0) mg/dL Add Ur Microanalysis Reviewed Leukocyte Esterase Rfl 3+ H (Negative) KENDRICK/UL Urine RBC 0-2 (0-2) /hpf Urine WBC >100 H (0-3) /hpf Ur Squamous Epith Cells None seen (Few) /hpf Urine Bacteria Rare /hpf Urine Casts 0-2 Influenza A (RT-PCR) Positive A (Negative) Influenza B (RT-PCR) Negative (Negative) RSV (RT-PCR) Negative (Negative) SARS-CoV-2 RNA (RT-PCR) Negative (Negative) 12/25/24 Range/Units 21:28 WBC (4.5-10.0) K/mm3 RBC (4.2-5.4) M/mm3 Hgb (12.0-15.0) g/dL Hct (37.0-47.0) % MCV (80-100) fl MCH (26-34) pg MCHC (32-36) g/dl RDW (11.5-14.5) % Plt Count (150-375) k/mm3 MPV (7.4-10.4) fl Immature Gran % (Auto) (0-0.5) % Neut % (Auto) (45.5-73.1) % Lymph % (Auto) (18.3-44.2) % [place] % (Auto) (2.6-8.5) % Eos % (Auto) (0-4.4) % Baso % (Auto) (0.2-1.2) % Lymph # (Auto) (0.9-3.2) K/mm3 [place] # (Auto) (0.1-0.6) K/mm3 Eos # (Auto) (0-0.3) K/mm3 Baso # (Auto) (0.0-0.1) K/mm3 Abs Immat Gran (auto) (0.00-0.031) K/mm3 Absolute Neuts (auto) (1.3-6.7) K/mm3 Absolute Nucleated RBC (0.0-0.012) K/mm3 Nucleated RBC % (0.0-0.2) % PT (11.1-14.7) Seconds INR APTT (22.3-36.8) Seconds Sodium (137-145) mmol/L Potassium (3.4-5.0) mmol/L Chloride (98-107) mmol/L Carbon Dioxide (22-30) mmol/L Anion Gap (4-12) mmol/L BUN (7-17) mg/dL Creatinine (0.7-1.0) mg/dL Estim Creat Clear Calc ml/min Estimated GFR (59 - ) Glucose (65-110) mg/dL Lactic Acid 0.7 (0.7-2.0) mmol/L Calcium (8.4-10.2) mg/dL Total Bilirubin (0.2-1.3) mg/dL AST (14-36) U/L ALT (6-35) U/L Alkaline Phosphatase (38-126) U/L Troponin I (0.000-0.034) ng/mL C-Reactive Protein (<1.0) mg/dL Total Protein (6.3-8.2) g/dL Albumin (3.5-5.1) g/dL Urine Color (Yellow) Urine Appearance (Clear) Urine pH (5.0-9.0) Ur Specific Mcdonald (1.001-1.035) Urine Protein (Negative) mg/dL Urine Glucose (UA) (Negative) mg/dL Urine Ketones (Negative) mg/dL Ur Blood (Man) (Negative) Urine Nitrate (Negative) Urine Bilirubin (Negative) Urine Urobilinogen (<2.0) mg/dL Add Ur Microanalysis Leukocyte Esterase Rfl (Negative) KENDRICK/UL Urine RBC (0-2) /hpf Urine WBC (0-3) /hpf Ur Squamous Epith Cells (Few) /hpf Urine Bacteria /hpf Urine Casts Influenza A (RT-PCR) (Negative) Influenza B (RT-PCR) (Negative) RSV (RT-PCR) (Negative) SARS-CoV-2 RNA (RT-PCR) (Negative) Imaging Data Attestation: I personally reviewed and interpreted this imaging study as follows: My impression: Impressions Chest X-Ray 12/25/24 20:17 IMPRESSION: Right upper lobe infiltrate, as detailed above. Head CT 12/25/24 21:00 Impression: No acute intracranial hemorrhage or suspicious mass effect. ECG Data EKG #1: Attestation: I personally reviewed and interpreted this ECG as follows: ECG completion date: 12/25/24 ECG completion time: 19:41 Prior ECG tracings: available for review Interpretation: Sinus tachycardia, no signs of acute ST segment elevations or depressions. Regular rhythm and axis. QTC 413, QRS 84, MI interval 164. Overall impression sinus tachycardia. Critical Care Time Critical Care Time Critical Care Time: Yes Total Critical Care Time: 75 Discharge Plan Discharge Clinical Impression: Sepsis, Pneumonia, Influenza A, Urinary tract infection, Acute alteration in mental status Patient Disposition: Still a Patient Condition: Guarded Prognosis Patient Language: Sami Prescriptions: No Action albuterol sulfate [Ventolin HFA] 90 mcg/actuation HFA aerosol inhaler 2 puff inhalation QID PRN (Reason: shortness of breath or wheezing) Qty: 8.5 0RF tramadol 50 mg tablet 50 mg PO BID PRN (Reason: pain) Qty: 60 0RF calcium carbonate-vitamin D3 [Calcium 500 + D] 500 mg(1,250mg) -400 unit tablet 1 tablet PO DAILY Patient Comments: 2 TAB QAM amlodipine 5 mg tablet 5 mg PO DAILY Qty: 90 3RF atorvastatin 10 mg tablet 10 mg PO DAILY Qty: 90 3RF hydrochlorothiazide 25 mg tablet 25 mg PO DAILY Qty: 90 3RF Patient Comments: QAM lisinopril 40 mg tablet 40 mg PO DAILY Qty: 90 3RF Patient Comments: QAM calcium polycarbophil [Fiber (calcium polycarbophil)] 625 mg Tablet 625 mg PO BID Qty: 60 0RF Patient Comments: DAILY QAM ibuprofen 800 mg tablet 800 mg PO TID PRN (Reason: pain) 7 Days Qty: 21 0RF acetaminophen 500 mg tablet 1,000 mg PO TID PRN (Reason: eunice) 7 Days Qty: 42 0RF methocarbamol 750 mg tablet 750 mg PO TID Qty: 30 0RF vitamin E 400 unit Tablet 180 mg PO DAILY cyanocobalamin (vitamin B-12) 500 mcg 500 mcg QAM omeprazole 20 mg capsule,delayed release(DR/EC) 20 mg PO HS Patient Comments: QAM azithromycin 250 mg tablet 250 mg PO DAILY 1 Days Qty: 1 0RF Rx Instructions: start on day 2 of therapy prednisone 20 mg tablet 20 mg PO DAILY Qty: 7 0RF Rx Instructions: 40 mg X2 days 20 mg X 3 days then discontinue benzonatate 200 mg capsule 200 mg PO TID PRN (Reason: cough) Qty: 60 0RF Breztri Aerosphere 160-9-4.8 mcg/actuation HFA aerosol inhaler 2 inh inhalation BID Qty: 5.9 0RF Follow-up/Referrals: eDnnis Bowling MD [Primary Care Provider] - Time of Disposition: 22:07
--- NOTE | 2024-12-25 20:05 | PC.NURSE ---
Patient able to answer all orientation at this time. [id number] R29 O94 on 4L NC BP125/90
[2024-12-25] MEDS: cefTRIAXone 2 GM/NS 100 ML 2 GM/100 ML BAG IVPB (20:09)
[2024-12-25] MEDS: SODIUM CHLORIDE 0.9% IV 1,000 ML 999 ML IV CONT ×2 (20:09)
[2024-12-25 20:14] LABS: Basophils Percent Auto 0.1 % (0.2-1.2); Eosinophils Percent Auto 0.1 % (0-4.4); Hematocrit 40.8 % (37.0-47.0); Hemoglobin 13.3 g/dL (12.0-15.0); Immature Granulocyte Absolute 0.08 K/mm3 (0.00-0.031); Immature Granulocyte Percent A 0.5 % (0-0.5); Lymphocytes Percent Auto 8.1 % (18.3-44.2); Mean Corpuscular HGB Conc 32.6 g/dl (32-36); Mean Corpuscular Hemoglobin 30.9 pg (26-34); Mean Corpuscular Volume 94.7 fl (80-100); Mean Platelet Volume 9.2 fl (7.4-10.4); Monocytes Absolute Auto 0.7 K/mm3 (0.1-0.6); Monocytes Percent Auto 4.6 % (2.6-8.5); Neutrophils Absolute Auto 13.9 K/mm3 (1.3-6.7); Neutrophils Percent Auto 86.6 % (45.5-73.1); Platelet Count Result 379 k/mm3 (150-375); Red Blood Count 4.31 M/mm3 (4.2-5.4); Red Cell Distribution Width 13.2 % (11.5-14.5)
--- OUTSIDE RECORDS SUMMARY | 2024-12-25 20:14 | XMS_ITS | Encounter Summary ---
Author Organization [facility] Address [address] [place] [address] Care Team Providers Care Commercial Engineer Name Role Phone Dennis Bowling MD Primary Care Provider [phone] Encounter Details Date Type Department Care Team (Late st Contact Info) Description 03/18/2021 Chart Note [facility] Radiation Therapy [address] [place] [id number] [place] [address] [place] [address] Social History Tobacco Use Types Packs/Day Years Used Date Smoking Tobacco: Former Cigarettes Smokeless Tobacco: Never Comments:have not smoked for weeks Alcohol Use Standard Drinks/Week Comments Never 0 (1 standard drink = 0.6 oz pur e alcohol) Comments No Sex and Gender Information Value Date Recorded Sex Assigned at Not on file Legal Sex Female 1:00 PM CDT Gender Identity Not on file Sexual Orientation Not on file COVID-19 Exposure Response Date Recorded In the last month, have you been in contact with someone who was confirmed or suspected to have Coronavirus / COVID-19? No / Unsure 03/09/2021 8:04 AM CDT documented as of this encounter Plan of Treatment Not on file documented as of this encounter Visit Diagnoses Not on filedocumented in this encounter Care Teams Commercial Engineer Relationship Specialty Start Date End Date Dennis Bowling MD [address] [facility] [address] [place] [address] PCP - General Family Practice 03/09/21 documented as of this encounter
--- OUTSIDE RECORDS SUMMARY | 2024-12-25 20:14 | XMS_ITS | Clinical Summary ---
Author Organization [facility] Address [address] [place] [address] Phone Care Team Providers Care Grain Elevator Worker Name Role Phone Dennis Bowling MD Primary Care Provider [phone] Allergies Active Allergy Reactions Criticality Noted Date Comments Hydrocodone-Acetaminophen Diarrhea,Heada john paul,Nausea And Vomiting High 05/13/2021 Morphine Rash Low 01/17/2022 Medications Medication Sig Dispensed Refills Start Date End Date Status albuterol HFA (PROVENTIL HFA) 108 (90 Base) MCG/ACT inhaler INHALE 1 PUFF BY MOUTH 4 TIMES DAILY NEEDED FOR SHORTNESS OF BREATH OR WHEEZING 12/10/2021 Active amLODIPine (NORVASC) 5 MG tablet 12/19/2021 Active atorvastatin (LIPITOR) 10 MG tablet 12/19/2021 Active benzonatate (TESSALON) 100 MG capsule TAKE 1 CAPSULE BY MOUTH THREE TIMES DAILY NEEDED FOR COUGH 11/29/2021 Active calcium carbonate-vitamin D 600-200 MG-UNIT per tablet Take by mouth Active Calcium Polycarbophil (Fiber) 625 MG tablet Take 625 mg by mouth daily Active hydroCHLOROthiazide (HYDRODIURIL) 25 MG tablet 12/19/2021 Active lidocaine-prilocaine (EMLA) 2.5-2.5 % cream Apply topically 04/15/2021 Active lisinopril (PRINIVIL) 40 MG tablet 12/19/2021 Active omeprazole (PriLOSEC) [address] capsule 12/19/2021 Active Active Problems Problem Noted Date Diagnosed Date Personal history of lung cancer 01/24/2022 Personal history of bladder cancer 01/24/2022 Osteopenia 01/24/2022 Hypertension 01/24/2022 Hyperlipidemia 01/24/2022 Gastroesophageal reflux disease 01/24/2022 Carotid artery stenosis 01/24/2022 Malignant neoplasm of unspec ified part of right bronchus or lung 03/09/2021 Family History Medical History Relation Comments Kidney disease Neg Hx Nephrolithiasis Neg Hx Social History Tobacco Use Types Packs/Day Years Used Date Smoking Tobacco: Former Cigarettes 1 20 0 02/25/2001 - 02/25/2021 Smokeless Tobacco: Never Alcohol Use Standard Drinks/Week Comments Never 0 (1 standard drink = 0.6 oz pur e alcohol) Sex and Gender Information Value Date Recorded Sex Assigned at Not on file Gender Identity Not on file Sexual Orientation Not on file Last Filed Vital Signs Vital Sign Reading Time Taken Comments Blood Pressure 138/78 04/06/2022 11:56 AM CDT Pulse - - Temperature 36.5 C (97.7 F) 04/06/2022 11:56 AM CDT Respiratory Rate 18 04/06/2022 11:56 AM CDT Oxygen Saturation - - Inhaled Oxygen Concentration - - Weight 62.6 kg (138 lb) 04/06/2022 11:56 AM CDT Height 157.5 cm (5' 2 ) 04/06/2022 11:56 AM CDT Body Mass Index 25.24 04/06/2022 11:56 AM CDT Plan of Treatment Health Maintenance Due Date Last Done Comments Pneumococcal PPSV23/PCV13 65 + Years / Low and Medium Risk (1 of 4 - PCV) 2008 Influenza Vaccine (#1) 2024 Care Teams Grain Elevator Worker Relationship Specialty Start Date End Date Dennis Bowling MD [address] [facility] [address] [place] [address] PCP - General Internal Medicine 11/01/21
--- OUTSIDE RECORDS SUMMARY | 2024-12-25 20:14 | XMS_ITS | Clinical Summary ---
Author Organization [facility] Address [address] [place] [address] Care Team Providers Care Unit Support Representative Name Role Phone Dennis Bowling MD Primary Care Provider [phone] Allergies Active Allergy Reactions Criticality Noted Date Comments Hydrocodone-Acetaminophen Diarrhea,Nause a and Vomiting,Headache High 05/13/2021 Morphine Diarrhea,Nausea and Vomiting,Abdominal Pain,Headache High 05/13/2021 Medications amLODIPine (NORVASC) 5 mg tablet 02/23/20 21 Active amoxicillin-clav ulanate (AUGMENTIN) 875-125 mg tablet TAKE 1 TABLET BY MOUTH EVERY 12 HOURS 02/28/20 21 Active atorvastatin (LIPITOR) 10 mg tablet 02/23/20 21 Active hydroCHLOROthiaz hamida 25 mg tablet 02/23/20 21 Active lisinopriL (PRINIVIL) 40 mg tablet 02/23/20 21 Active omeprazole (PriLOSEC) 20 mg Capsule, Delayed Release(E.C.) 02/23/20 21 Active calcium-vitamin D3 (CALTRATE 600+D) 600 mg(1,500mg) -200 unit Tablet Take by mouth. Act desiree lidocaine-priloc enzo (EMLA) 2.5-2.5 % CreamIndications :Non-small cell cancer of right lung (CMS/HCC) Apply to affected area see administration instructions. Apply to port site 30 minutes prior to access 30 Gram 3 04/15/20 21 Active ondansetron (Zofran) 8 mg TabletIndication s:Non-small cell cancer of right lung (CMS/HCC) Take 1 Tablet (8 mg) by mouth every 8 hours as needed for Nausea/Emesis. 90 Tablet 3 04/15/20 21 Active dexAMETHasone (DECADRON) 4 mg tabletIndication s:Non-small cell cancer of right lung (CMS/HCC) Take 1 Tablet (4 mg) by mouth 2 times daily. TAKE TWICE A DAY THE DAY PRIOR TO TREATMENT, DAY OF, AND DAY AFTER TREATMENT. 36 Tablet 3 04/15/20 21 Active meloxicam (MOBIC) 7.5 mg tablet Take 2 Tablets (15 mg) by mouth daily. 30 Tablet 1 05/13/20 21 Active VITAMIN E ORAL Take by mouth. Active CYANOCOBALAMIN, VITAMIN B-12, ORAL Take by mouth. Activ e polycarbophil calcium (FIBERCON) 625 mg tablet Take 625 mg by mouth daily. Active albuterol sulfate 90 mcg/Actuation inhaler INHALE 1 PUFF BY MOUTH 4 TIMES DAILY NEEDED FOR SHORTNESS OF BREATH OR WHEEZING 12/10/19 22 Active ketorolac tromethamine (ACULAR) 0.5 % solution INSTILL 1 DROP THREE TIMES DAILY INTO THE OPERATIVE EYE BEGINNING 2 DAYS BEFORE SURGERY 04/25/20 22 Active ofloxacin (OCUFLOX) 0.3 % solution INSTILL 1 DROP INTO AFFECTED EYE THREE TIMES DAILY DIRECTED BEGINNING TWO DAYS PRIOR TO SURGERY 04/25/20 22 Active Active Problems Problem Noted Date Diagnosed Date Non-small cell cancer of right lung 03/09/2021 Family History Medical History Relation Name Comments Colon Cancer Sister 2 Relation Name Status Comments Brother 1 Alive Brother 2 Alive Brother 3 Alive Brother 4 Daughter 1 Alive Daughter 2 Daughter 3 Other dont know where she is Father Mother Sister 1 Alive Sister 2 Social History Tobacco Use Types Packs/Day Years Used Date Smoking Tobacco: Former Cigarettes Smokeless Tobacco: Never Tobacco Cessation:Counseling Given: Not Answered Comments:have not smoked for weeks Alcohol Use [...] Sign Reading Time Taken Comments Blood Pressure 129/60 06/27/2023 10:19 AM CDT Pulse 97 06/27/2023 10:19 AM CDT Temperature 36.3 C (97.3 F) 06/27/2023 10:19 AM CDT Respiratory Rate 10 06/27/2023 10:19 AM CDT Oxygen Saturation 98% 06/27/2023 10:19 AM CDT Inhaled Oxygen Concentration - - Weight 62.6 kg (138 lb) 06/27/2023 10:19 AM CDT Height 154.9 cm (5' 1 ) 06/15/2022 2:07 PM CDT Body Mass Index 26.07 06/15/2022 2:07 PM CDT Plan of Treatment Health Maintenance Due Date Last Done Comments DTAP/TDAP/TD VACCINES (1 - Tdap) 1962 PNEUMOCOCCAL VACCINE 65+ YEA RS (1 of 1 - PCV) 1993 ZOSTER VACCINE (1 of 2) 1993 RSV VACCINE (60+ or ) (1 - 1-dose 75+ series) 2018 INFLUENZA VACCINE (#1) 2024 OSTEOPOROSIS SCREENING Completed 06/01/2017, 2014 COLORECTAL SCREENING Discontinued 07/16/2021, 11/22/19 Colorectal Cancer Screening Discontinued FIT-DNA Q 3 years Discontinued FIT/FOBT Q 1 year Discontinued Flex Sig/CT Colonography Q [address] [place] [address] [place] [address] [address]ARE [address] A AND B [facility] [id number] [place] [address] [address] [facility] [id number] Care Teams Unit Support Representative Relationship Specialty Start Date End Date Dennis Bowling MD [address] [facility] [address] [place] [id number] PCP - General Family Practice 03/09/21
[2024-12-25] MEDS: SODIUM CHLORIDE 0.9% IV 100 ML 999 ML IV CONT (20:22)
[2024-12-25] MEDS: ACETAMINOPHEN 650 MG SUPPOSITORY RECTAL (20:26)
[2024-12-25 20:29] LABS: Add Urine Microscopic? YES; Appearance Urine Clear (Clear); Bacteria Urine Rare /hpf; Bilirubin Urine Negative (Negative); Blood Urine Negative (Negative); Color Urine Yellow (Yellow); Glucose Urine UA Negative (Negative); Ketones Urine Negative (Negative); Leukocyte Esterase Ur 3+ LEU/UL (Negative); Need Manual Microscopic Reviewed; Nitrate Urine Negative (Negative); Non Pathogenic Casts 0-2; Protein Urine Trace mg/dL (Negative); RBC Urine 0-2 /hpf (0-2); Specific Grav Ur 1.021 (1.001-1.035); Squamous Epithelial Cell Urine None Seen /hpf (Few); WBC Urine >100 /hpf (0-3); pH Urine 8.5 (5.0-9.0)
[2024-12-25 20:31] LABS: Alanine Aminotransferase 14 U/L (6-35); Albumin Level 3.9 g/dL (3.5-5.1); Alkaline Phosphatase 102 U/L (38-126); Anion Gap 9 mmol/L (4-12); Aspartate Amino Transferase 18 U/L (14-36); Bilirubin,Total 0.5 mg/dL (0.2-1.3); Blood Urea Nitrogen 27 mg/dL (7-17); CRP 3.6 mg/dL (<1.0); Calcium 10.1 mg/dL (8.4-10.2); Carbon Dioxide 33 mmol/L (22-30); Chloride 94 mmol/L (98-107); Estimated CRCL calculation 37 ml/min; Estimated Glomerular Filt Rate 54; Glucose 117 mg/dL (65-110); Potassium 4.9 mmol/L (3.4-5.0); Sodium 136 mmol/L (137-145)
[2024-12-25 20:35] LABS: INR 0.9; Prothrombin Time 13.1 Seconds (11.1-14.7)
[2024-12-25 20:36] LABS: Partial Thromboplastin Time 26.9 Seconds (22.3-36.8)
[2024-12-25 20:40] LABS: Troponin I < 0.012 ng/mL (0.000-0.034)
[2024-12-25 20:51] LABS: Influenza A QL RT-PCR Positive (Negative); Influenza B QL RT-PCR Negative (Negative); RSV RNA, RT-PCR Negative (Negative); SARS-CoV-2 RNA PCR Negative (Negative)
[2024-12-25] MEDS: AZITHROMYCIN 500 MG/NS 250 ML 500 MG/250 ML BAG 250 MG IVPB (21:22)
[2024-12-25 21:28] VITALS: TEMP 36.7
[2024-12-25 21:46] VITALS: BP 108/69; PULSE 86; RESP 15; O2SAT 100
[2024-12-25 21:46] LABS: Lactic Acid Reflex 0.7 mmol/L (0.7-2.0)
[2024-12-25] MEDS: VANCOMYCIN 1,000 MG/NS 250 ML 1,000 MG/250 ML BAG 250 MG IVPB (22:46)
--- NOTE | 2024-12-25 23:02 | PC.NURSE ---
This RN attempted to call report to floor RN. Placed on hold for 9 minutes. Will try again.
[2024-12-25 23:14] VITALS: BMI 25.9
--- NOTE | 2024-12-25 23:46 | ADMGEN ---
This patient, Frieda Perkins, was admitted to IMU Room 231-01. Patient/family oriented to hospital policies and general routines including ID bracelet, bed and alarms, visiting hours, pain management, procedures, bathroom and other care routines, personal items, smoking policy, room service/diet, and visiting hours. Information on how to activate the Rapid Response Team has been discussed. Patient/Family are encouraged to report perceived risks to care and to ask questions if they do not understand what they are told or what they should do.
[2024-12-25] MEDS: ACETAMINOPHEN 325 MG TABLET 650 MG PO (23:59)
[2024-12-25] MEDS: LACTATED RINGERS 1,000 ML 100 ML IV CONT (23:59)
[2024-12-26] VITALS (16 sets, daily range): BP systolic 100–142; BP diastolic 42–82; PULSE 60–81; RESP 15–20; TEMP 36.3–37; O2SAT 91–100
--- NOTE | 2024-12-26 02:06 | P.HP_ITS ---
H&P: HPI History of Present Illness Date/Time: 12/26/24 02:06 Chief Complaint: Confusion Narrative: This is a pleasant 79-year-old female with a past medical history hypertension, CKD stage 3, hyperlipidemia carotid stenosis, history of bladder cancer, osteopenia, GERD, COPD, previous hospitalization for acute hypoxic respiratory failure due to COPD/possible pneumonia, asymptomatic cholelithiasis. She presents to [place] ER via EMS on 12/25/2024 with concerns of altered mental status. Patient resides [facility] and family was concerned about her mentation therefore EMS was summoned. She apparently was moaning and groaning but otherwise here and. ER evaluation found patient to be hypoxic on room air 86% and placed on 4 L with good response. Low-grade fever of 100.6? F and tachycardia to 114. Lab workup revealed leukocytosis of 16,000. Elevated BUN. UA negative of infection, positive for influenza A. Chest x-ray demonstrating right upper lobe infiltrate. CT head negative. Patient received Tylenol, O2, volume resuscitation and her tachycardia and fever resolved. Patient given IV antibiotics. Upon arrival to medical-surgical floor the patient was resting comfortably and A&O x3. Review of Systems Review of Systems: All systems reviewed & are unremarkable except as noted in HPI and below (HPI) PMFSH Past Medical History Medical History COPD with exacerbation Acute hypoxic respiratory failure Pneumonia CKD (chronic kidney disease) CKD (chronic kidney disease), stage III Uterovaginal prolapse, complete COVID-19 CAP (community acquired pneumonia) Cholelithiasis Pancytopenia Port-A-Cath in place Broken jaw steel plate Malignant neoplasm of lower lobe, right bronchus or lung Bladder cancer Tobacco dependence Acute on chronic renal failure Hyperlipidemia Chronic hypertension Bilateral hearing loss due to cerumen impaction Age related osteoporosis Atherosclerosis of aorta CESAR (generalized anxiety disorder) History of benign meningioma of brain History of ischemic colitis ETD (eustachian tube dysfunction) GERD (gastroesophageal reflux disease) Carotid stenosis HTN (hypertension) Malignant neoplasm of urinary bladder With excision of tumor Osteopenia Surgical History Surgical History History of bladder surgery History of appendectomy Family History Family History Sibling Family history of obesity Carcinoma of colon Mother Heart disease Hypertension Father Heart disease Hypertension Social History Social History Social History: The patient is . Her 2 years ago Galo from Covid. She had 3 daughters, 1 , 1 is missing. The patient lives alone. Her daughter is the durable power contract attorney for healthcare, Karla Noyola. Patient wishes to be a DNR as she stated, If my heart was to stop to let me go. Smoking packs per day: 0.3 Smoking cigarettes per day: 6.0 Years smoked: 40 Smoking pack-years: 12.00 Smoking status: Former smoker Tobacco type: cigarettes Second hand tobacco smoke exposure: No Additional smoking assessment comments: Cheats, mainly after eating, uses patches Alcohol intake: never Substance use: never Substance use type: does not use Do You Feel Safe in your Home?: Yes Lack of Transportation: No Lack of Food: Never True Current Housing: I Have Housing Concerned About Future Housing: No Difficulty Paying Gas/Electric Bills: No Difficulty Paying for Meds: No Currently Unemployed: No Education: High School Diploma/GED Difficulty w/ Childcare or Family Care: No Living arrangements: alone 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, [employer], 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 Gender identity (if verbalized by the patient): Female Sexual Orientation (if Verbalized by the Patient): Straight or Heterosexual Spiritual care concerns: No Agree to blood products: Yes Meds Home Medications and Allergies Home Medications ?Medication ?Instructions ?Recorded ?Confirmed ?Type calcium 500 mg (as 1 tablet PO DAILY 11/08/19 12/26/24 History carbonate)-vitamin D3 10 mcg (400 unit) tablet (Calcium 500 + D) calcium polycarbophil 625 mg 625 mg PO BID #60 tabs 07/17/21 12/26/24 Rx tablet (Fiber (calcium polycarbophil)) cyanocobalamin (vitamin B-12) 500 mcg BYMOUTH QAM 06/24/22 12/26/24 History vitamin E 400 unit tablet 180 mg PO DAILY 06/24/22 12/26/24 History acetaminophen 500 mg tablet 1,000 mg (2 x 500 mg) PO TID PRN 12/25/23 12/26/24 Rx pain (scale score 1-3) 7 days #42 tabs amlodipine 5 mg tablet 5 mg PO DAILY #90 tabs 02/21/24 12/26/24 Rx atorvastatin 10 mg tablet 10 mg PO DAILY #90 tabs 02/21/24 12/26/24 Rx hydrochlorothiazide 25 mg tablet 25 mg PO DAILY #90 tabs 02/21/24 12/26/24 Rx lisinopril 40 mg tablet 40 mg PO DAILY #90 tabs 02/21/24 12/26/24 Rx omeprazole 20 mg capsule,delayed 20 mg PO HS 06/29/24 12/26/24 History release albuterol sulfate 90 mcg/actuation 2 puff inhalation QID PRN 07/11/24 12/26/24 Rx aerosol inhaler (Ventolin HFA) shortness of breath or wheezing #8.5 grams budesonide 160 mcg-glycopyr 9 2 inh inhalation BID #5.9 grams 07/29/24 12/26/24 Rx mcg-formot 4.8 mcg/actuation HFA inhaler (Breztri Aerosphere) Allergies Allergy/AdvReac Type Severity Reaction Status Date / Time morphine AdvReac DIARRHEA/VO Verified 08/13/24 10:50 MITING Vital Signs Vital Signs - 24 hr 12/25/24 19:38 12/25/24 19:47 12/25/24 19:48 Temperature 100.6 F H Pulse Rate 114 H 114 H Respiratory Rate 18 Blood Pressure 120/101 H Pulse Oximetry 86 L 99 Oxygen Delivery Room Air Nasal Cannula Oxygen Flow Rate 4 12/25/24 21:28 12/25/24 21:46 12/26/24 00:00 Temperature 98.0 F Pulse Rate 86 71 Respiratory Rate 15 15 Blood Pressure 108/69 Pulse Oximetry 100 100 Oxygen Delivery Nasal Cannula Oxygen Flow Rate 4 12/26/24 00:00 12/26/24 00:00 Temperature 98.5 F Pulse Rate 71 80 Respiratory Rate 18 Blood Pressure 133/82 Pulse Oximetry 94 Oxygen Delivery Oxygen Flow Rate Exam Const: General: comfortable and no acute distress Other: A&O x3 HENMT: Mouth: Yes dry mucous membranes Eyes: Pupils: Equal, round and reactive pupils present Neck: Neck: supple Resp: Effort & Inspection: normal respiratory effort Other: Coarse breath sounds bilaterally GI: GI Palp: Yes Soft to palpation Extrem: General: no edema H&P: Results Labs Labs: Short CBC 12/25/24 Range/Units 20:01 WBC 16.0 H (4.5-10.0) K/mm3 Hgb 13.3 (12.0-15.0) g/dL Hct 40.8 (37.0-47.0) % Plt Count 379 H (150-375) k/mm3 BMP 12/25/24 20:01 Sodium 136 L Potassium 4.9 Chloride 94 L Carbon Dioxide 33 H BUN 27 H Creatinine 0.99 Glucose 117 H Calcium 10.1 Cardiac Enzymes 12/25/24 Range/Units 20:01 Troponin I < 0.012 (0.000-0.034) ng/mL Liver Function 12/25/24 Range/Units 20:01 Total Bilirubin 0.5 (0.2-1.3) mg/dL AST 18 (14-36) U/L ALT 14 (6-35) U/L Alkaline Phosphatase 102 (38-126) U/L Albumin 3.9 (3.5-5.1) g/dL Urine 12/25/24 Range/Units 20:04 Urine Color Yellow (Yellow) Urine Appearance Clear (Clear) Urine pH 8.5 (5.0-9.0) Ur Specific [place] 1.021 (1.001-1.035) Urine Protein Trace (Negative) mg/dL Urine Glucose (UA) Negative (Negative) mg/dL Assessment and Plan Assessment and plan (1) HTN (hypertension): Code(s): I10 - Essential (primary) hypertension Status: Acute (2) Sepsis: Code(s): A41.9 - Sepsis, unspecified organism Status: Acute (3) Influenza A: Code(s): J10.1 - Influenza due to other identified influenza virus with other respiratory manifestations Status: Acute (4) Pneumonia: Code(s): J18.9 - Pneumonia, unspecified organism Status: Acute (5) Urinary tract infection: Code(s): N39.0 - Urinary tract infection, site not specified Status: Acute Plan This is a pleasant 79-year-old female with a past medical history hypertension, CKD stage 3, hyperlipidemia carotid stenosis, history of bladder cancer, osteopenia, GERD, COPD, previous hospitalization for acute hypoxic respiratory failure due to COPD/possible pneumonia, asymptomatic cholelithiasis. She presents to [place] ER via EMS on 12/25/2024 with concerns of altered mental status. Patient resides at [facility] and family was concerned about her mentation therefore EMS was summoned. She apparently was moaning and groaning but otherwise here and. ER evaluation found patient to be hypoxic on room air 86% and placed on 4 L with good response. Low-grade fever of 100.6? F and tachycardia to 114. Lab workup revealed leukocytosis of 16,000. Elevated BUN. UA negative of infection, positive for influenza A. Chest x-ray demonstrating right upper lobe infiltrate. CT head negative. Patient received Tylenol, O2, volume resuscitation and her tachycardia and fever resolved. Patient given IV antibiotics. Upon arrival to medical-surgical floor the patient was resting comfortably and A&O x3. ----- Dehydration -continue fluid resuscitation Severe sepsis present on admission without shock end-organ damage as evidence by acute hypoxic respiratory failure, leukocytosis, fever, tachycardia related to influenza a, community-acquired pneumonia suspected bacterial and acute UTI - received vancomycin in the ER, check MRSA nares. Continue ceftriaxone and azithromycin. Pending blood blood cultures, sputum cultures ordered. Check mycoplasma IgG M antibody and Legionella and pneumococcal antigens. PT OT, fall precautions, ambulate with assistance COPD -no wheezing. DuoNebs p.r.n.. No steroids. Acute hypoxic respiratory failure related to influenza a and community-acquired pneumonia suspected bacterial complicated by underlying COPD -currently on 4 L and resting comfortably. Wean per protocol. UTI -follow-up urine cultures. Continue ceftriaxone Home medications restarted as appropriate. Holding SURGERY CONSULTANT antihypertensives due to soft blood pressure ----- Fall precautions. PTOT Continue SURGERY CONSULTANT PPI -patient does wish to be DNR SCDs, Lovenox 30 mg subQ q.day Hospitalist MIPS Advance Care Plan I have confirmed that the patient's Advanced Care Plan is present, code status is documented, or surrogate decision maker is listed in patient medical record.: Yes Medication Reconciliation I have utilized all available resources to obtain, update and review the patients current medications (includes all prescriptions, OTC, herbals, cannabis, and nutritional supplements).: Yes
[2024-12-26 04:42] LABS: Basophils Percent Auto 0.2 % (0.2-1.2); Eosinophils Percent Auto 0.2 % (0-4.4); Hemoglobin 11.4 g/dL (12.0-15.0); Immature Granulocyte Absolute 0.07 K/mm3 (0.00-0.031); Immature Granulocyte Percent A 0.6 % (0-0.5); Lymphocytes Absolute Auto 1.63 K/mm3 (0.9-3.2); Mean Corpuscular HGB Conc 30.8 g/dl (32-36); Mean Corpuscular Hemoglobin 30.4 pg (26-34); Mean Corpuscular Volume 98.7 fl (80-100); Mean Platelet Volume 9.1 fl (7.4-10.4); Monocytes Absolute Auto 0.7 K/mm3 (0.1-0.6); Monocytes Percent Auto 5.4 % (2.6-8.5); Neutrophils Absolute Auto 10.1 K/mm3 (1.3-6.7); Neutrophils Percent Auto 80.6 % (45.5-73.1); Platelet Count Result 259 k/mm3 (150-375); Red Blood Count 3.75 M/mm3 (4.2-5.4); Red Cell Distribution Width 13.4 % (11.5-14.5); White Blood Count 12.5 K/mm3 (4.5-10.0)
[2024-12-26 05:01] LABS: Anion Gap 4 mmol/L (4-12); Blood Urea Nitrogen 22 mg/dL (7-17); Calcium 8.3 mg/dL (8.4-10.2); Carbon Dioxide 32 mmol/L (22-30); Chloride 104 mmol/L (98-107); Estimated CRCL calculation 35 ml/min; Estimated Glomerular Filt Rate 59; Glucose 98 mg/dL (65-110); Magnesium 1.6 mg/dL (1.6-2.3); Potassium 4.1 mmol/L (3.4-5.0); Sodium 140 mmol/L (137-145)
[2024-12-26 06:28] LABS: MRSA (PCR) NOT DETECTED (NOT DETECTE)
--- NOTE | 2024-12-26 08:20 | P.PNIM_ITS ---
Progress Note: A&P Assessment and Plan (1) HTN (hypertension): Code(s): I10 - Essential (primary) hypertension Status: Acute (2) Sepsis: Code(s): A41.9 - Sepsis, unspecified organism Status: Acute (3) Influenza A: Code(s): J10.1 - Influenza due to other identified influenza virus with other respiratory manifestations Status: Acute (4) Pneumonia: Code(s): J18.9 - Pneumonia, unspecified organism Status: Acute (5) Urinary tract infection: Code(s): N39.0 - Urinary tract infection, site not specified Status: Acute Plan This is a pleasant 79-year-old female with a past medical history hypertension, CKD stage 3, hyperlipidemia carotid stenosis, history of bladder cancer, osteopenia, GERD, COPD, previous hospitalization for acute hypoxic respiratory failure due to COPD/possible pneumonia, asymptomatic cholelithiasis. She presents to [place] ER via EMS on 12/25/2024 with concerns of altered mental status. Patient resides at a [facility] and family was concerned about her mentation therefore EMS was summoned. She apparently was moaning and groaning ER evaluation found patient to be hypoxic on room air 86% and placed on 4 L with good response. Low-grade fever of 100.6? F and tachycardia to 114. Lab workup revealed leukocytosis of 16,000. Elevated BUN. UA negative of infection, positive for influenza A. Chest x-ray demonstrating right upper lobe infiltrate. CT head negative. Patient received Tylenol, O2, volume resuscitation and her tachycardia and fever resolved. Patient given IV antibiotics. Upon arrival to medical-surgical floor the patient was resting comfortably and A&O x3. Severe Sepsis with fever tachycardia of influenza a and leukocytosis and right upper lobe infiltrate. Leukocytosis improving Altered mental status CT head negative likely from sepsis Dehydration on IV fluid. Will recheck chest x-ray today. Will hold IV fluid for now. Acute hypoxic respiratory failure needing oxygen supplementation Influenza a on Tamiflu Pneumonia right upper lobe infiltrate on chest x-ray. Restarted on ceftriaxone azithromycin. Urine antigens ordered. MRSA nares COPD with mild wheezing DuoNeb scheduled. UTI: Received vancomycin in the ER. Check MRSA nares. Ceftriaxone Hyperlipidemia on atorvastatin GERD on Protonix DVT prophylaxis Lovenox Code status do not resuscitate Disposition: PT OT fall precautions Subjective Date/time seen: 12/26/24 08:20 Interval history: No overnight events. Discussed with the nursing staff. Remains on 4 L oxygen. Some conversational dyspnea noted. Denies any leg swelling. Denies chest pain. Review of Systems Review of Systems: All systems reviewed & are unremarkable except as noted in HPI and below (HPI) Exam Narrative: GENERAL: Ill-appearing, not in acute distress HEAD: [Normocephalic, atraumatic.] EYES: [PERRLA and EOMI.] ENT: Nares clear, no rhinorrhea or epistaxis. Mucous membranes moist. NECK: Supple. CHEST: Coarse bibasilar breath sounds, end-expiratory wheezing mildly tachypneic on 4 L oxygen HEART: Regular rate with regular rhythm. No murmur heard. [Normal peripheral pulses.] ABDOMEN: [Soft, nondistended], [nontender], [No rigidity or guarding] EXTREMITIES: Normal range of motion. [No edema.] SKIN: Warm, dry, no rash. No sacral decubitus ulcers NEURO: [No focal deficits]. Alert and oriented x3 PSYCH: [Normal mood and affect.] Objective Data Vital Signs Vital Signs: Vital Signs - 24 hr 12/25/24 19:38 12/25/24 19:47 12/25/24 19:48 Temperature 100.6 F H Pulse Rate 114 H 114 H Respiratory Rate 18 Blood Pressure 120/101 H Pulse Oximetry 86 L 99 Oxygen Delivery Room Air Nasal Cannula Oxygen Flow Rate 12/25/24 21:28 12/25/24 21:46 12/26/24 00:00 Temperature 98.0 F Pulse Rate 86 71 Respiratory Rate 15 15 Blood Pressure 108/69 Pulse Oximetry 100 100 Oxygen Delivery Nasal Cannula Oxygen Flow Rate 12/26/24 00:00 12/26/24 00:00 12/26/24 02:00 Temperature 98.5 F Pulse Rate 71 80 64 Respiratory Rate 18 Blood Pressure 133/82 Pulse Oximetry 94 Oxygen Delivery Oxygen Flow Rate 12/26/24 04:00 12/26/24 04:00 12/26/24 04:00 Temperature 97.4 F L Pulse Rate 60 63 63 Respiratory Rate 18 18 Blood Pressure 142/46 H Pulse Oximetry 91 91 Oxygen Delivery Nasal Cannula Oxygen Flow Rate 4 12/26/24 05:28 12/26/24 08:00 Temperature 98.6 F Pulse Rate 72 81 Respiratory Rate 18 Blood Pressure 136/60 Pulse Oximetry 100 Oxygen Delivery Oxygen Flow Rate Intake/Output Intake/Output: Intake & Output 12/23/24 12/24/24 12/25/24 12/26/24 23:59 23:59 23:59 23:59 Intake Total 2450 Output Total 250 Balance 2450 -250 Meds/Results Medications: Active Medications Generic Name Dose Route Start Last Admin Trade Name Freq PRN Reason Stop Dose Admin Acetaminophen 650 mg 12/25/24 19:55 12/25/24 20:26 Acetaminophen 650 Mg Suppository RECTAL 650 mg Q6H PRN Administration Mild Pain (1-3) or Fever Acetaminophen 650 mg 12/25/24 21:59 12/25/24 23:59 Acetaminophen 325 Mg Tablet PO 650 mg Q4H PRN Administration Mild Pain (1-3) or Fever Albuterol/Ipratropium 3 ml 12/26/24 01:59 Ipratropium 0.5 Mg/Albuterol Sulfate 2.5 Mg Ampul.Neb 3 Ml INHALATION Q6HRT PRN shortness of breath Atorvastatin Calcium 10 mg 12/26/24 09:00 Atorvastatin 10 Mg Tablet PO DAILY MARJORIE Enoxaparin Sodium 30 mg 12/26/24 09:00 Enoxaparin 30 Mg/0.3 Ml Syringe SUB-Q DAILY MARJORIE Fluticasone/Umeclidinium/Vilanterol 1 puff 12/26/24 08:00 Fluticasone/Umeclidin/Vilanter 100-62.5-25 Mcg Ellipta INHALATION DAILYRT MARJORIE Lactated Ringer's 1,000 mls @ 100 mls/hr 12/25/24 22:00 12/25/24 23:59 Lr - Lactated Ringers Iv IV CONT 100 mls/hr .Q10H MARJORIE Administration Azithromycin 250 mg/ Sodium 250 mls @ 250 mls/hr 12/26/24 21:00 Chloride IVPB Q24H MARJORIE Ceftriaxone Sodium 1 gm in 50 mls @ 100 mls/hr 12/26/24 19:00 Rocephin 1 Gm/Ns 50 Ml IVPB Q24H MARJORIE Metoclopramide HCl 5 mg 12/26/24 01:54 Metoclopramide Hcl Inj 10 Mg/2 Ml Vial IV PUSH Q6HR PRN nausea Pantoprazole Sodium 40 mg 12/26/24 21:00 Pantoprazole 40 Mg Tablet PO HS REPLACED BY [facility] Radiology Results: ITS Impressions Chest X-Ray 12/25/24 20:17 IMPRESSION: Right upper lobe infiltrate, as detailed above. Head CT 12/25/24 21:00 Impression: No acute intracranial hemorrhage or suspicious mass effect. Labs Labs: Laboratory Results - last 24 hr 12/25/24 12/25/24 12/25/24 20:01 20:01 20:01 WBC 16.0 H RBC 4.31 Hgb 13.3 Hct 40.8 MCV 94.7 MCH 30.9 MCHC 32.6 RDW 13.2 Plt Count 379 H MPV 9.2 Immature Gran % (Auto) 0.5 Neut % (Auto) 86.6 H Lymph % (Auto) 8.1 L [place] % (Auto) 4.6 Eos % (Auto) 0.1 Baso % (Auto) 0.1 L Lymph # (Auto) 1.30 [place] # (Auto) 0.7 H Eos # (Auto) 0.0 Baso # (Auto) 0.0 Abs Immat Gran (auto) 0.08 H Absolute Neuts (auto) 13.9 H Absolute Nucleated RBC 0.000 Nucleated RBC % 0.0 PT 13.1 Cancelled INR 0.9 Cancelled APTT 26.9 Sodium Potassium Chloride Carbon Dioxide Anion Gap BUN Creatinine Estim Creat Clear Calc Estimated GFR Glucose Lactic Acid Calcium Magnesium Total Bilirubin AST ALT Alkaline Phosphatase Troponin I C-Reactive Protein Total Protein Albumin Urine Color Urine Appearance Urine pH Ur Specific [place] Urine Protein Urine Glucose (UA) Urine Ketones Ur Blood (Man) Urine Nitrate Urine Bilirubin Urine Urobilinogen Add Ur Microanalysis Leukocyte Esterase Rfl Urine RBC Urine WBC Ur Squamous Epith Cells Urine Bacteria Urine Casts Influenza A (RT-PCR) Influenza B (RT-PCR) RSV (RT-PCR) SARS-CoV-2 RNA (RT-PCR) 12/25/24 12/25/24 12/25/24 20:01 20:02 20:04 WBC RBC Hgb Hct MCV MCH MCHC RDW Plt Count MPV Immature Gran % (Auto) Neut % (Auto) Lymph % (Auto) [place] % (Auto) Eos % (Auto) Baso % (Auto) Lymph # (Auto) [place] # (Auto) Eos # (Auto) Baso # (Auto) Abs Immat Gran (auto) Absolute Neuts (auto) Absolute Nucleated RBC Nucleated RBC % PT INR APTT Cancelled Sodium 136 L Potassium 4.9 Chloride 94 L Carbon Dioxide 33 H Anion Gap 9 BUN 27 H Creatinine 0.99 Estim Creat Clear Calc 37 Estimated GFR 54 L Glucose 117 H Lactic Acid Calcium 10.1 Magnesium Total Bilirubin 0.5 AST 18 ALT 14 Alkaline Phosphatase 102 Troponin I < 0.012 C-Reactive Protein 3.6 H Total Protein 7.0 Albumin 3.9 Urine Color Yellow Urine Appearance Clear Urine pH 8.5 Ur Specific [place] 1.021 Urine Protein Trace Urine Glucose (UA) Negative Urine Ketones Negative Ur Blood (Man) Negative Urine Nitrate Negative Urine Bilirubin Negative Urine Urobilinogen 1.0 Add Ur Microanalysis Reviewed Leukocyte Esterase Rfl 3+ H Urine RBC 0-2 Urine WBC >100 H Ur Squamous Epith Cells None seen Urine Bacteria Rare Urine Casts 0-2 Influenza A (RT-PCR) Positive A Influenza B (RT-PCR) Negative RSV (RT-PCR) Negative SARS-CoV-2 RNA (RT-PCR) Negative 12/25/24 12/26/24 21:28 04:18 WBC 12.5 H RBC 3.75 L Hgb 11.4 L Hct 37.0 MCV 98.7 MCH 30.4 MCHC 30.8 L RDW 13.4 Plt Count 259 MPV 9.1 Immature Gran % (Auto) 0.6 H Neut % (Auto) 80.6 H Lymph % (Auto) 13.0 L [place] % (Auto) 5.4 Eos % (Auto) 0.2 Baso % (Auto) 0.2 Lymph # (Auto) 1.63 [place] # (Auto) 0.7 H Eos # (Auto) 0.0 Baso # (Auto) 0.0 Abs Immat Gran (auto) 0.07 H Absolute Neuts (auto) 10.1 H Absolute Nucleated RBC 0.000 Nucleated RBC % 0.0 PT INR APTT Sodium 140 Potassium 4.1 Chloride 104 Carbon Dioxide 32 H Anion Gap 4 BUN 22 H Creatinine 0.91 Estim Creat Clear Calc 35 Estimated GFR 59 Glucose 98 Lactic Acid 0.7 Calcium 8.3 L Magnesium 1.6 Total Bilirubin AST ALT Alkaline Phosphatase Troponin I C-Reactive Protein Total Protein Albumin Urine Color Urine Appearance Urine pH Ur Specific [place] Urine Protein Urine Glucose (UA) Urine Ketones Ur Blood (Man) Urine Nitrate Urine Bilirubin Urine Urobilinogen Add Ur Microanalysis Leukocyte Esterase Rfl Urine RBC Urine WBC Ur Squamous Epith Cells Urine Bacteria Urine Casts Influenza A (RT-PCR) Influenza B (RT-PCR) RSV (RT-PCR) SARS-CoV-2 RNA (RT-PCR)
[2024-12-26] MEDS: amLODIPine BESYLATE 5 MG TABLET PO (08:49)
[2024-12-26] MEDS: CYANOCOBALAMIN 500 MCG TABLET BY MOUTH (08:49)
[2024-12-26] MEDS: calcium polycarbophiL 625 MG TABLET PO ×2 (08:49→16:49)
[2024-12-26] MEDS: MAGNESIUM SULF 2 GM/WATER 50ML 2 GM/50 ML BAG IVPB (08:49)
[2024-12-26] MEDS: lisinopriL 20 MG TABLET 40 MG PO (08:50)
[2024-12-26] MEDS: ATORVASTATIN 10 MG TABLET PO (08:50)
[2024-12-26] MEDS: CALCIUM/VITAMIN D 500 MG/5 MCG (200 I.U.) TABLET PO (08:50)
[2024-12-26] MEDS: VITAMIN E 400 UNIT CAPSULE PO (08:50)
[2024-12-26] MEDS: ACETAMINOPHEN 500 MG TABLET 1000 MG PO ×2 (08:55→15:32)
[2024-12-26 12:14] LABS: Alveolar/Arterial O2 Gradient 303.2 mmHg; Base Excess ABG 5.2 mEq/l (+/-2.0); Fractional Inspired Oxygen 60 %; HCO3 ABG 30.7 mEq/l (22.0-26.0); Oxygen Content ABG 15.7 %vol (16.0-22.0); Oxygen Saturation ABG 94.1 % (95.0-100.0); Oxyhemoglobin 93.3 % THb (90.0-100.0); PCO2 ABG 49.5 mmHg (35.0-45.0); PO2 ABG 70.2 mmHg (80.0-100.0); PO2 FiO2 Ratio Arterial Blood 1.17 %; Total Hemoglobin 11.9 g/dL (12.0-18.0); pH ABG 7.411 (7.350-7.450)
[2024-12-26 12:17] LABS: Device HIGH FLOW NASAL CANN; Modified Allen's Test Pass; Site Drawn LEFT RADIAL
--- NOTE | 2024-12-26 13:30 | PCPTNOTE ---
Patient on hold per nursing 1325- increased oxygen needs.
[2024-12-26] MEDS: AZITHROMYCIN IV 250 MG in SODIUM CHLORIDE 0.9% IV 250 ML IVPB (20:44)
[2024-12-26] MEDS: PANTOPRAZOLE 40 MG TABLET PO (20:44)
[2024-12-26] MEDS: IPRATROPIUM 0.5 MG/ALBUTEROL SULFATE 2.5 MG AMPUL.NEB 3 ML INHALATION ×2 (21:31)
[2024-12-27] VITALS (24 sets, daily range): BP systolic 100–159; BP diastolic 48–71; PULSE 65–99; RESP 18–24; TEMP 36.4–38.3; O2SAT 92–100
[2024-12-27] MEDS: IPRATROPIUM 0.5 MG/ALBUTEROL SULFATE 2.5 MG AMPUL.NEB 3 ML INHALATION ×4 (02:39→22:24)
[2024-12-27] MEDS: ACETAMINOPHEN 500 MG TABLET 1000 MG PO ×3 (04:03→20:46)
[2024-12-27 04:40] LABS: Basophils Percent Auto 0.2 % (0.2-1.2); Eosinophils Absolute Auto 0.2 K/mm3 (0-0.3); Eosinophils Percent Auto 1.5 % (0-4.4); Hematocrit 34.9 % (37.0-47.0); Immature Granulocyte Absolute 0.07 K/mm3 (0.00-0.031); Immature Granulocyte Percent A 0.6 % (0-0.5); Lymphocytes Absolute Auto 1.16 K/mm3 (0.9-3.2); Lymphocytes Percent Auto 9.8 % (18.3-44.2); Mean Corpuscular HGB Conc 31.5 g/dl (32-36); Mean Corpuscular Hemoglobin 31.1 pg (26-34); Mean Corpuscular Volume 98.6 fl (80-100); Mean Platelet Volume 9.4 fl (7.4-10.4); Monocytes Absolute Auto 0.6 K/mm3 (0.1-0.6); Monocytes Percent Auto 5.1 % (2.6-8.5); Neutrophils Absolute Auto 9.8 K/mm3 (1.3-6.7); Neutrophils Percent Auto 82.8 % (45.5-73.1); Platelet Count Result 298 k/mm3 (150-375); Red Blood Count 3.54 M/mm3 (4.2-5.4); Red Cell Distribution Width 13.4 % (11.5-14.5); White Blood Count 11.9 K/mm3 (4.5-10.0)
[2024-12-27 05:02] LABS: Alanine Aminotransferase 15 U/L (6-35); Albumin Level 3.4 g/dL (3.5-5.1); Alkaline Phosphatase 86 U/L (38-126); Anion Gap 7 mmol/L (4-12); Aspartate Amino Transferase 23 U/L (14-36); Bilirubin,Total 0.4 mg/dL (0.2-1.3); Blood Urea Nitrogen 22 mg/dL (7-17); Calcium 9.1 mg/dL (8.4-10.2); Carbon Dioxide 32 mmol/L (22-30); Chloride 100 mmol/L (98-107); Estimated CRCL calculation 37 ml/min; Estimated Glomerular Filt Rate > 60; Glucose 100 mg/dL (65-110); Magnesium 1.9 mg/dL (1.6-2.3); Potassium 4.6 mmol/L (3.4-5.0); Sodium 139 mmol/L (137-145)
[2024-12-27] MEDS: FLUTICASONE/UMECLIDIN/VILANTER 100-62.5-25 MCG ELLIPTA 1 PUFF INHALATION (08:05)
[2024-12-27] MEDS: VITAMIN E 400 UNIT CAPSULE PO (09:06)
[2024-12-27] MEDS: CALCIUM/VITAMIN D 500 MG/5 MCG (200 I.U.) TABLET PO (09:06)
[2024-12-27] MEDS: calcium polycarbophiL 625 MG TABLET PO ×2 (09:06→16:54)
[2024-12-27] MEDS: CYANOCOBALAMIN 500 MCG TABLET BY MOUTH (09:06)
[2024-12-27] MEDS: ATORVASTATIN 10 MG TABLET PO (09:06)
[2024-12-27] MEDS: METOCLOPRAMIDE HCL INJ 10 MG/2 ML VIAL 5 MG IV PUSH (10:57)
--- NOTE | 2024-12-27 11:11 | PM.IMPN ---
Progress Note: A&P Assessment and Plan (1) HTN (hypertension): Code(s): I10 - Essential (primary) hypertension Status: Acute Assessment and Plan: Stable on current medication, will continue current treatment. (2) Sepsis: Code(s): A41.9 - Sepsis, unspecified organism Status: Acute Assessment and Plan: Patient is refusing IV antibiotics. Switched to p.o. Levaquin. (3) Influenza A: Code(s): J10.1 - Influenza due to other identified influenza virus with other respiratory manifestations Status: Acute Assessment and Plan: Stable, continue current treatment (4) Pneumonia: Code(s): J18.9 - Pneumonia, unspecified organism Status: Acute Assessment and Plan: patient switched to p.o. Levaquin because patient refused to take IV antibioti (5) Urinary tract infection: Code(s): N39.0 - Urinary tract infection, site not specified Status: Acute Assessment and Plan: culture pending, will continue current tr Plan This is a pleasant 79-year-old female with a past medical history hypertension, CKD stage 3, hyperlipidemia carotid stenosis, history of bladder cancer, osteopenia, GERD, COPD, previous hospitalization for acute hypoxic respiratory failure due to COPD/possible pneumonia, asymptomatic cholelithiasis. She presents to [place] ER via EMS on 12/25/2024 with concerns of altered mental status. Patient resides at a [facility] and family was concerned about her mentation therefore EMS was summoned. She apparently was moaning and groaning ER evaluation found patient to be hypoxic on room air 86% and placed on 4 L with good response. Low-grade fever of 100.6? F and tachycardia to 114. Lab workup revealed leukocytosis of 16,000. Elevated BUN. UA negative of infection, positive for influenza A. Chest x-ray demonstrating right upper lobe infiltrate. CT head negative. Patient received Tylenol, O2, volume resuscitation and her tachycardia and fever resolved. Patient given IV antibiotics. Upon arrival to medical-surgical floor the patient was resting comfortably and A&O x3. Severe Sepsis with fever tachycardia of influenza a and leukocytosis and right upper lobe infiltrate. Leukocytosis improving Altered mental status CT head negative likely from sepsis Dehydration on IV fluid. Will recheck chest x-ray today. Will hold IV fluid for now. Acute hypoxic respiratory failure needing oxygen supplementation Influenza a on Tamiflu Pneumonia right upper lobe infiltrate on chest x-ray. Restarted on ceftriaxone azithromycin. Urine antigens ordered. MRSA nares COPD with mild wheezing Deatment monitor closely.uoNeb scheduled. UTI: Received vancomycin in the ER. Check MRSA nares. Ceftriaxone Hyperlipidemia on atorvastatin GERD on Protonix DVT prophylaxis Lovenox Code status do not resuscitate Disposition: PT OT fall precautions Subjective Date/time seen: 12/27/24 11:11 Interval history: Patient was seen during the morning rounds today. Shortness of breath is better. No chest pain. No abdominal pain, nausea, no vomiting. Patient is refusing IV antibiotics. Review of Systems Review of Systems: All systems reviewed & are unremarkable except as noted in HPI and below (HPI) Exam Narrative: GENERAL: Ill-appearing, not in acute distress HEAD: [Normocephalic, atraumatic.] EYES: [PERRLA and EOMI.] ENT: Nares clear, no rhinorrhea or epistaxis. Mucous membranes moist. NECK: Supple. CHEST: Coarse bibasilar breath sounds, end-expiratory wheezing mildly tachypneic on 4 L oxygen HEART: Regular rate with regular rhythm. No murmur heard. [Normal peripheral pulses.] ABDOMEN: [Soft, nondistended], [nontender], [No rigidity or guarding] EXTREMITIES: Normal range of motion. [No edema.] SKIN: Warm, dry, no rash. No sacral decubitus ulcers NEURO: [No focal deficits]. Alert and oriented x3 PSYCH: [Normal mood and affect.] Const: General: comfortable and no acute distress Other: A&O x3 HENMT: Mouth: Yes dry mucous membranes Eyes: Pupils: Equal, round and reactive pupils present Neck: Neck: supple Resp: Effort & Inspection: normal respiratory effort Other: Coarse breath sounds bilaterally Neuro: Cranial nerves: Yes Equal, round and reactive pupils present Extrem: General: no edema Objective Data Vital Signs Vital Signs: Vital Signs - 24 hr 12/26/24 11:42 12/26/24 12:00 12/26/24 12:00 Temperature 36.9 C Pulse Rate 74 74 72 Respiratory Rate 20 20 Blood Pressure 129/49 L Pulse Oximetry 93 93 Oxygen Delivery Nasal Cannula Oxygen Flow Rate 10 12/26/24 14:00 12/26/24 15:24 12/26/24 16:00 Temperature 36.6 C Pulse Rate 80 80 80 Respiratory Rate 18 18 Blood Pressure 131/62 Pulse Oximetry 94 94 Oxygen Delivery Nasal Cannula Oxygen Flow Rate 10 12/26/24 16:00 12/26/24 18:00 12/26/24 20:00 Temperature 36.9 C Pulse Rate 70 70 65 Respiratory Rate 20 Blood Pressure 100/42 L Pulse Oximetry 100 Oxygen Delivery Oxygen Flow Rate 12/26/24 20:00 12/26/24 20:00 12/26/24 21:32 Temperature Pulse Rate 60 60 65 Respiratory Rate 20 Blood Pressure Pulse Oximetry 95 Oxygen Delivery High Flow Nasal Cannula Oxygen Flow Rate 10 12/26/24 21:40 12/26/24 21:41 12/26/24 22:00 Temperature Pulse Rate 67 74 Respiratory Rate Blood Pressure Pulse Oximetry 95 Oxygen Delivery High Flow Nasal Cannula Oxygen Flow Rate 8 12/27/24 00:00 12/27/24 00:00 12/27/24 00:00 Temperature 36.4 C L Pulse Rate 66 66 80 Respiratory Rate 20 20 Blood Pressure 159/71 H Pulse Oximetry 95 100 Oxygen Delivery High Flow Nasal Cannula Oxygen Flow Rate 10 12/27/24 02:00 12/27/24 02:30 12/27/24 02:40 Temperature Pulse Rate 76 66 80 Respiratory Rate 20 20 Blood Pressure Pulse Oximetry Oxygen Delivery Oxygen Flow Rate 12/27/24 04:00 12/27/24 04:00 12/27/24 04:00 Temperature 38.3 C H Pulse Rate 97 97 99 Respiratory Rate 20 20 Blood Pressure 143/53 H Pulse Oximetry 100 94 Oxygen Delivery High Flow Nasal Cannula Oxygen Flow Rate 10 12/27/24 06:00 12/27/24 08:00 12/27/24 08:00 Temperature 36.9 C Pulse Rate 76 70 Respiratory Rate 20 Blood Pressure 100/63 Pulse Oximetry 100 97 Oxygen Delivery High Flow Nasal Cannula Oxygen Flow Rate 8 12/27/24 08:06 12/27/24 08:06 12/27/24 08:31 Temperature Pulse Rate 69 65 Respiratory Rate 20 20 Blood Pressure Pulse Oximetry 97 Oxygen Delivery High Flow Nasal Cannula Oxygen Flow Rate 13 Intake/Output Intake/Output: Intake & Output 12/24/24 12/25/24 12/26/24 12/27/24 23:59 23:59 23:59 23:59 Intake Total 2450 900 360 Output Total 950 700 Balance 2450 -50 -340 Meds/Results Medications: Active Medications Generic Name Dose Route Start Last Admin Trade Name Freq PRN Reason Stop Dose Admin Acetaminophen 650 mg 12/25/24 19:55 12/25/24 20:26 Acetaminophen 650 Mg Suppository RECTAL 650 mg Q6H PRN Administration Mild Pain (1-3) or Fever Acetaminophen 1,000 mg 12/26/24 08:25 12/27/24 04:03 Acetaminophen 500 Mg Tablet PO 1,000 mg TID PRN Administration pain (scale score 1-3) Acetaminophen 650 mg 12/26/24 08:28 Acetaminophen 325 Mg Tablet PO Q4H PRN Fever Albuterol/Ipratropium 3 ml 12/26/24 14:00 12/27/24 08:05 Ipratropium 0.5 Mg/Albuterol Sulfate 2.5 Mg Ampul.Neb 3 Ml INHALATION 3 ml Q6HRT MARJORIE Administration Amlodipine Besylate 5 mg 12/26/24 09:00 12/27/24 09:06 Amlodipine Besylate 5 Mg Tablet PO Not Given DAILY MARJORIE Atorvastatin Calcium 10 mg 12/26/24 09:00 12/27/24 09:06 Atorvastatin 10 Mg Tablet PO 10 mg DAILY MARJORIE Administration Calcium Carbonate 500 mg 12/26/24 09:00 12/27/24 09:06 Calcium/Vitamin D 500 Mg/5 Mcg (200 I.U.) Tablet PO 500 mg DAILY MARJORIE Administration Calcium Polycarbophil 625 mg 12/26/24 09:00 12/27/24 09:06 Calcium Polycarbophil 625 Mg Tablet PO 625 mg BID MARJORIE Administration Cyanocobalamin 500 mcg 12/26/24 09:00 12/27/24 09:06 Cyanocobalamin 500 Mcg Tablet BY MOUTH 01/25/25 08:59 500 mcg QAM MARJORIE Administration Enoxaparin Sodium 30 mg 12/26/24 09:00 12/27/24 09:13 Enoxaparin 30 Mg/0.3 Ml Syringe SUB-Q Not Given DAILY MARJORIE Fluticasone/Umeclidinium/Vilanterol 1 puff 12/26/24 08:00 12/27/24 08:05 Fluticasone/Umeclidin/Vilanter 100-62.5-25 Mcg Ellipta INHALATION 1 puff DAILYRT MARJORIE Administration Lactated Ringer's 1,000 mls @ 100 mls/hr 12/25/24 22:00 12/26/24 08:51 Lr - Lactated Ringers Iv IV CONT Not Given .Q10H MARJORIE Azithromycin 250 mg/ Sodium 250 mls @ 250 mls/hr 12/26/24 21:00 12/26/24 21:45 Chloride IVPB Infused Q24H MARJORIE Infusion Ceftriaxone Sodium 1 gm in 50 mls @ 100 mls/hr 12/26/24 19:00 12/26/24 21:15 Rocephin 1 Gm/Ns 50 Ml IVPB Infused Q24H MARJORIE Infusion Levofloxacin 250 mg 12/28/24 09:00 Levofloxacin 250 Mg Tablet PO DAILY MARJORIE Lisinopril 40 mg 12/26/24 09:00 12/27/24 09:07 Lisinopril 20 Mg Tablet PO Not Given DAILY MARJORIE Metoclopramide HCl 5 mg 12/26/24 01:54 12/27/24 10:57 Metoclopramide Hcl Inj 10 Mg/2 Ml Vial IV PUSH 5 mg Q6HR PRN Administration nausea Pantoprazole Sodium 40 mg 12/26/24 21:00 12/26/24 20:44 Pantoprazole 40 Mg Tablet PO 40 mg HS MARJORIE Administration Vitamin E 400 unit 12/26/24 09:00 12/27/24 09:06 Vitamin E 400 Unit Capsule PO 01/25/25 08:59 400 unit DAILY MARJORIE Administration Radiology Results: ITS Impressions Head CT 12/25/24 21:00 Impression: No acute intracranial hemorrhage or suspicious mass effect. Chest X-Ray 12/26/24 09:30 IMPRESSION: 1. Airspace opacities in right midlung zone and the lower lung zones with worsening at the lung bases, consistent with atelectasis/scarring versus pneumonia. Chest CTA 12/26/24 16:17 IMPRESSION: 1. No pulmonary embolus. 2. Right upper lobe pneumonia. 3. Radiation pneumonitis in right lower lobe. 4. Moderate emphysema. Labs Labs: Laboratory Results - last 24 hr 12/26/24 12/27/24 12:01 04:15 WBC 11.9 H RBC 3.54 L Hgb 11.0 L Hct 34.9 L MCV 98.6 MCH 31.1 MCHC 31.5 L RDW 13.4 Plt Count 298 MPV 9.4 Immature Gran % (Auto) 0.6 H Neut % (Auto) 82.8 H Lymph % (Auto) 9.8 L [place] % (Auto) 5.1 Eos % (Auto) 1.5 Baso % (Auto) 0.2 Lymph # (Auto) 1.16 [place] # (Auto) 0.6 Eos # (Auto) 0.2 Baso # (Auto) 0.0 Abs Immat Gran (auto) 0.07 H Absolute Neuts (auto) 9.8 H Absolute Nucleated RBC 0.000 Nucleated RBC % 0.0 Puncture Site Left radial ABG pH 7.411 ABG pCO2 49.5 H ABG pO2 70.2 L ABG PO2/FiO2 Ratio 1.17 ABG HCO3 30.7 H ABG O2 Saturation 94.1 L ABG O2 Content 15.7 L ABG Base Excess 5.2 A-a Gradient 303.2 Oxyhemoglobin 93.3 Total Hemoglobin 11.9 L O2 Delivery Device High flow nasal venancio O2 Liters/Min 10.0 FiO2 60 Sodium 139 Potassium 4.6 Chloride 100 Carbon Dioxide 32 H Anion Gap 7 BUN 22 H Creatinine 0.86 Estim Creat Clear Calc 37 Estimated GFR > 60 Glucose 100 Calcium 9.1 Magnesium 1.9 Total Bilirubin 0.4 AST 23 ALT 15 Alkaline Phosphatase 86 Total Protein 6.0 L Albumin 3.4 L
[2024-12-27] MEDS: PANTOPRAZOLE 40 MG TABLET PO (20:46)
[2024-12-28] VITALS (18 sets, daily range): BP systolic 128–153; BP diastolic 49–90; PULSE 71–106; RESP 16–24; TEMP 35.9–37.9; O2SAT 91–98
[2024-12-28] MEDS: ACETAMINOPHEN 500 MG TABLET 1000 MG PO ×4 (04:48→17:35)
[2024-12-28] MEDS: VITAMIN E 400 UNIT CAPSULE PO (08:31)
[2024-12-28] MEDS: ATORVASTATIN 10 MG TABLET PO (08:31)
[2024-12-28] MEDS: calcium polycarbophiL 625 MG TABLET PO ×2 (08:31→17:35)
[2024-12-28] MEDS: CALCIUM/VITAMIN D 500 MG/5 MCG (200 I.U.) TABLET PO (08:31)
[2024-12-28] MEDS: CYANOCOBALAMIN 500 MCG TABLET BY MOUTH (08:31)
[2024-12-28] MEDS: lisinopriL 20 MG TABLET 40 MG PO (08:31)
[2024-12-28] MEDS: amLODIPine BESYLATE 5 MG TABLET PO (08:31)
[2024-12-28] MEDS: levoFLOXacin 250 MG TABLET PO (08:31)
[2024-12-28] MEDS: FLUTICASONE/UMECLIDIN/VILANTER 100-62.5-25 MCG ELLIPTA 1 PUFF INHALATION (09:12)
[2024-12-28] MEDS: IPRATROPIUM 0.5 MG/ALBUTEROL SULFATE 2.5 MG AMPUL.NEB 3 ML INHALATION ×3 (09:13→21:12)
--- NOTE | 2024-12-28 12:51 | PM.IMPN ---
Progress Note: A&P Assessment and Plan (1) Influenza A: Code(s): J10.1 - Influenza due to other identified influenza virus with other respiratory manifestations Status: Acute Assessment and Plan: Stable, continue current treatment (2) Pneumonia: Code(s): J18.9 - Pneumonia, unspecified organism Status: Acute Assessment and Plan: patient switched to p.o. Levaquin because patient refused to take IV antibioti (3) HTN (hypertension): Code(s): I10 - Essential (primary) hypertension Status: Acute Assessment and Plan: Stable on current medication, will continue current treatment. (4) Sepsis: Code(s): A41.9 - Sepsis, unspecified organism Status: Acute Assessment and Plan: Patient is refusing IV antibiotics. Switched to p.o. Levaquin. (5) Urinary tract infection: Code(s): N39.0 - Urinary tract infection, site not specified Status: Acute Assessment and Plan: culture pending, will continue current tr Plan This is a pleasant 79-year-old female with a past medical history hypertension, CKD stage 3, hyperlipidemia carotid stenosis, history of bladder cancer, osteopenia, GERD, COPD, previous hospitalization for acute hypoxic respiratory failure due to COPD/possible pneumonia, asymptomatic cholelithiasis. She presents to [place] [facility] via EMS on 12/25/2024 with concerns of altered mental status. Patient resides at a [facility] and family was concerned about her mentation therefore EMS was summoned. She apparently was moaning and groaning ER evaluation found patient to be hypoxic on room air 86% and placed on 4 L with good response. Low-grade fever of 100.6? F and tachycardia to 114. Lab workup revealed leukocytosis of 16,000. Elevated BUN. UA negative of infection, positive for influenza A. Chest x-ray demonstrating right upper lobe infiltrate. CT head negative. Patient received Tylenol, O2, volume resuscitation and her tachycardia and fever resolved. Patient given IV antibiotics. Upon arrival to medical-surgical floor the patient was resting comfortably and A&O x3. Severe Sepsis with fever tachycardia of influenza a and leukocytosis and right upper lobe infiltrate. Leukocytosis improving Altered mental status CT head negative likely from sepsis Dehydration on IV fluid. Will recheck chest x-ray today. Will hold IV fluid for now. Acute hypoxic respiratory failure needing oxygen supplementation Influenza a on Tamiflu Pneumonia right upper lobe infiltrate on chest x-ray. Restarted on ceftriaxone azithromycin. Urine antigens ordered. MRSA nares COPD with mild wheezing Deatment monitor closely.uoNeb scheduled. UTI: Received vancomycin in the ER. Check MRSA nares. Ceftriaxone Hyperlipidemia on atorvastatin GERD on Protonix DVT prophylaxis Lovenox Code status do not resuscitate Disposition: PT OT fall precautions Subjective Date/time seen: 12/28/24 12:51 Interval history: Patient was seen during the morning rounds today. No new overnight complaints. Shortness of breath is better. No chest pain. No abdominal pain, nausea, no vomiting. Review of Systems Review of Systems: All systems reviewed & are unremarkable except as noted in HPI and below (HPI) Exam Narrative: GENERAL: Ill-appearing, not in acute distress HEAD: [Normocephalic, atraumatic.] EYES: [PERRLA and EOMI.] ENT: Nares clear, no rhinorrhea or epistaxis. Mucous membranes moist. NECK: Supple. CHEST: Coarse bibasilar breath sounds, end-expiratory wheezing mildly tachypneic on 4 L oxygen HEART: Regular rate with regular rhythm. No murmur heard. [Normal peripheral pulses.] ABDOMEN: [Soft, nondistended], [nontender], [No rigidity or guarding] EXTREMITIES: Normal range of motion. [No edema.] SKIN: Warm, dry, no rash. No sacral decubitus ulcers NEURO: [No focal deficits]. Alert and oriented x3 PSYCH: [Normal mood and affect.] Const: General: comfortable and no acute distress Other: A&O x3 HENMT: Mouth: Yes dry mucous membranes Eyes: Pupils: Equal, round and reactive pupils present Neck: Neck: supple Resp: Effort & Inspection: normal respiratory effort Other: Coarse breath sounds bilaterally Neuro: Cranial nerves: Yes Equal, round and reactive pupils present Extrem: General: no edema Objective Data Vital Signs Vital Signs: Vital Signs - 24 hr 12/27/24 14:00 12/27/24 14:05 12/27/24 14:19 Temperature Pulse Rate 73 76 70 Respiratory Rate 18 18 Blood Pressure Pulse Oximetry Oxygen Delivery Oxygen Flow Rate 12/27/24 15:55 12/27/24 16:00 12/27/24 18:00 Temperature 36.8 C Pulse Rate 73 77 96 Respiratory Rate 20 Blood Pressure 104/56 L Pulse Oximetry 95 Oxygen Delivery Oxygen Flow Rate 02/14/25 19:59 12/27/24 20:00 12/27/24 20:00 Temperature 36.8 C Pulse Rate 81 83 83 Respiratory Rate 24 H 18 Blood Pressure 152/48 H Pulse Oximetry 96 92 Oxygen Delivery High Flow Nasal Cannula Oxygen Flow Rate 4 12/27/24 22:00 12/27/24 22:24 12/27/24 22:25 Temperature Pulse Rate 89 91 Respiratory Rate 18 Blood Pressure Pulse Oximetry 92 Oxygen Delivery High Flow Nasal Cannula Oxygen Flow Rate 13 12/27/24 22:37 12/28/24 00:00 12/28/24 00:00 Temperature 36.8 C Pulse Rate 88 77 83 Respiratory Rate 18 20 20 Blood Pressure 147/50 H Pulse Oximetry 94 94 Oxygen Delivery High Flow Nasal Cannula Oxygen Flow Rate 4 12/28/24 00:00 12/28/24 02:00 12/28/24 03:51 Temperature Pulse Rate 83 90 84 Respiratory Rate 20 Blood Pressure Pulse Oximetry 94 Oxygen Delivery High Flow Nasal Cannula Oxygen Flow Rate 4 12/28/24 03:51 12/28/24 04:00 12/28/24 05:49 Temperature 36.7 C Pulse Rate 84 83 82 Respiratory Rate 22 H Blood Pressure 151/63 H Pulse Oximetry 97 Oxygen Delivery Oxygen Flow Rate 12/28/24 08:00 12/28/24 08:00 12/28/24 08:00 Temperature 36.8 C Pulse Rate 87 71 Respiratory Rate 20 Blood Pressure 153/90 H Pulse Oximetry 91 91 Oxygen Delivery High Flow Nasal Cannula Oxygen Flow Rate 6 12/28/24 09:14 12/28/24 09:14 12/28/24 09:28 Temperature Pulse Rate 92 95 Respiratory Rate 16 18 Blood Pressure Pulse Oximetry 94 Oxygen Delivery High Flow Nasal Cannula Oxygen Flow Rate 6 12/28/24 12:00 Temperature 36.9 C Pulse Rate 102 H Respiratory Rate 24 H Blood Pressure 128/58 L Pulse Oximetry 98 Oxygen Delivery Oxygen Flow Rate Intake/Output Intake/Output: Intake & Output 12/25/24 12/26/24 12/27/24 12/28/24 23:59 23:59 23:59 23:59 Intake Total 2450 900 890 660 Output Total 950 1000 1100 Balance 2450 -50 -110 -440 Meds/Results Medications: Active Medications Generic Name Dose Route Start Last Admin Trade Name Freq PRN Reason Stop Dose Admin Acetaminophen 650 mg 12/25/24 19:55 12/25/24 20:26 Acetaminophen 650 Mg Suppository RECTAL 650 mg Q6H PRN Administration Mild Pain (1-3) or Fever Acetaminophen 1,000 mg 12/26/24 08:25 12/28/24 08:31 Acetaminophen 500 Mg Tablet PO 1,000 mg TID PRN Administration pain (scale score 1-3) Acetaminophen 650 mg 12/26/24 08:28 Acetaminophen 325 Mg Tablet PO Q4H PRN Fever Albuterol/Ipratropium 3 ml 12/26/24 14:00 12/28/24 09:13 Ipratropium 0.5 Mg/Albuterol Sulfate 2.5 Mg Ampul.Neb 3 Ml INHALATION 3 ml Q6HRT MARJORIE Administration Amlodipine Besylate 5 mg 12/26/24 09:00 12/28/24 08:31 Amlodipine Besylate 5 Mg Tablet PO 5 mg DAILY MARJORIE Administration Atorvastatin Calcium 10 mg 12/26/24 09:00 12/28/24 08:31 Atorvastatin 10 Mg Tablet PO 10 mg DAILY MARJORIE Administration Calcium Carbonate 500 mg 12/26/24 09:00 12/28/24 08:31 Calcium/Vitamin D 500 Mg/5 Mcg (200 I.U.) Tablet PO 500 mg DAILY MARJORIE Administration Calcium Polycarbophil 625 mg 12/26/24 09:00 12/28/24 08:31 Calcium Polycarbophil 625 Mg Tablet PO 625 mg BID MARJORIE Administration Cyanocobalamin 500 mcg 12/26/24 09:00 12/28/24 08:31 Cyanocobalamin 500 Mcg Tablet BY MOUTH 01/25/25 08:59 500 mcg QAM MARJORIE Administration Enoxaparin Sodium 30 mg 12/26/24 09:00 12/28/24 08:37 Enoxaparin 30 Mg/0.3 Ml Syringe SUB-Q Not Given DAILY MARJORIE Fluticasone/Umeclidinium/Vilanterol 1 puff 12/26/24 08:00 12/28/24 09:12 Fluticasone/Umeclidin/Vilanter 100-62.5-25 Mcg Ellipta INHALATION 1 puff DAILYRT MARJORIE Administration Lactated Ringer's 1,000 mls @ 100 mls/hr 12/25/24 22:00 12/26/24 08:51 Lr - Lactated Ringers Iv IV CONT Not Given .Q10H MARJORIE Ceftriaxone Sodium 1 gm in 50 mls @ 100 mls/hr 12/26/24 19:00 12/27/24 19:40 Rocephin 1 Gm/Ns 50 Ml IVPB Infused Q24H MARJORIE Infusion Levofloxacin 250 mg 12/28/24 09:00 12/28/24 08:31 Levofloxacin 250 Mg Tablet PO 250 mg DAILY MARJORIE Administration Lisinopril 40 mg 12/26/24 09:00 12/28/24 08:31 Lisinopril 20 Mg Tablet PO 40 mg DAILY MARJORIE Administration Metoclopramide HCl 5 mg 12/26/24 01:54 12/27/24 10:57 Metoclopramide Hcl Inj 10 Mg/2 Ml Vial IV PUSH 5 mg Q6HR PRN Administration nausea Pantoprazole Sodium 40 mg 12/26/24 21:00 12/27/24 20:46 Pantoprazole 40 Mg Tablet PO 40 mg HS MARJORIE Administration Vitamin E 400 unit 12/26/24 09:00 12/28/24 08:31 Vitamin E 400 Unit Capsule PO 01/25/25 08:59 400 unit DAILY MARJORIE Administration Radiology Results: ITS Impressions Head CT 12/25/24 21:00 Impression: No acute intracranial hemorrhage or suspicious mass effect. Chest X-Ray 12/26/24 09:30 IMPRESSION: 1. Airspace opacities in right midlung zone and the lower lung zones with worsening at the lung bases, consistent with atelectasis/scarring versus pneumonia. Chest CTA 12/26/24 16:17 IMPRESSION: 1. No pulmonary embolus. 2. Right upper lobe pneumonia. 3. Radiation pneumonitis in right lower lobe. 4. Moderate emphysema.
[2024-12-28 17:13] LABS: Pneumococcal Antigen Urine NOT DETECTED
--- NOTE | 2024-12-28 18:04 | PC.NURSE ---
This patient, Frieda Perkins, was received from [[id number]] on 12/28/24 at 1800. Patient/family oriented to unit policies and routines
[2024-12-28] MEDS: PANTOPRAZOLE 40 MG TABLET PO (20:26)
[2024-12-28] MEDS: ACETAMINOPHEN 325 MG TABLET 650 MG PO (22:00)
[2024-12-29] VITALS (11 sets, daily range): BP systolic 130–170; BP diastolic 57–75; PULSE 77–92; RESP 18–20; TEMP 36.5–36.6; O2SAT 90–97
[2024-12-29] MEDS: IPRATROPIUM 0.5 MG/ALBUTEROL SULFATE 2.5 MG AMPUL.NEB 3 ML INHALATION ×3 (02:18→20:32)
[2024-12-29] MEDS: ACETAMINOPHEN 500 MG TABLET 1000 MG PO ×3 (06:24→20:05)
[2024-12-29 06:41] LABS: Hematocrit 34.8 % (37.0-47.0); Hemoglobin 10.8 g/dL (12.0-15.0); Mean Corpuscular Hemoglobin 30.7 pg (26-34); Mean Corpuscular Volume 98.9 fl (80-100); Platelet Count Result 324 k/mm3 (150-375); Red Blood Count 3.52 M/mm3 (4.2-5.4); Red Cell Distribution Width 13.3 % (11.5-14.5); White Blood Count 10.2 K/mm3 (4.5-10.0)
[2024-12-29] MEDS: amLODIPine BESYLATE 5 MG TABLET PO (08:26)
[2024-12-29] MEDS: ATORVASTATIN 10 MG TABLET PO (08:26)
[2024-12-29] MEDS: VITAMIN E 400 UNIT CAPSULE PO (08:26)
[2024-12-29] MEDS: lisinopriL 20 MG TABLET 40 MG PO (08:26)
[2024-12-29] MEDS: CALCIUM/VITAMIN D 500 MG/5 MCG (200 I.U.) TABLET PO (08:26)
[2024-12-29] MEDS: CYANOCOBALAMIN 500 MCG TABLET BY MOUTH (08:26)
[2024-12-29] MEDS: calcium polycarbophiL 625 MG TABLET PO ×2 (08:26→16:46)
[2024-12-29] MEDS: FLUTICASONE/UMECLIDIN/VILANTER 100-62.5-25 MCG ELLIPTA 1 PUFF INHALATION (09:15)
[2024-12-29] MEDS: levoFLOXacin 250 MG TABLET PO (09:39)
--- NOTE | 2024-12-29 09:39 | P.PNIM_ITS ---
Progress Note: A&P Assessment and Plan (1) Influenza A: Code(s): J10.1 - Influenza due to other identified influenza virus with other respiratory manifestations Status: Acute Assessment and Plan: Patient is clinically much better. Stable, continue current treatment (2) Pneumonia: Code(s): J18.9 - Pneumonia, unspecified organism Status: Acute Assessment and Plan: patient switched to p.o. Levaquin because patient refused to take IV antibioti (3) HTN (hypertension): Code(s): I10 - Essential (primary) hypertension Status: Acute Assessment and Plan: Stable on current medication, will continue current treatment. (4) Sepsis: Code(s): A41.9 - Sepsis, unspecified organism Status: Acute Assessment and Plan: Patient is refusing IV antibiotics. Switched to p.o. Levaquin. (5) Urinary tract infection: Code(s): N39.0 - Urinary tract infection, site not specified Status: Acute Assessment and Plan: Urine culture negative. Plan This is a pleasant 79-year-old female with a past medical history hypertension, CKD stage 3, hyperlipidemia carotid stenosis, history of bladder cancer, osteopenia, GERD, COPD, previous hospitalization for acute hypoxic respiratory failure due to COPD/possible pneumonia, asymptomatic cholelithiasis. She presents to [place] ER via EMS on 12/25/2024 with concerns of altered mental status. Patient resides at a [facility] and family was concerned about her mentation therefore EMS was summoned. She apparently was moaning and groaning ER evaluation found patient to be hypoxic on room air 86% and placed on 4 L with good response. Low-grade fever of 100.6? F and tachycardia to 114. Lab workup revealed leukocytosis of 16,000. Elevated BUN. UA negative of infection, positive for influenza A. Chest x-ray demonstrating right upper lobe infiltrate. CT head negative. Patient received Tylenol, O2, volume resuscitation and her tachycardia and fever resolved. Patient given IV antibiotics. Upon arrival to medical-surgical floor the patient was resting comfortably and A&O x3. Severe Sepsis with fever tachycardia of influenza a and leukocytosis and right upper lobe infiltrate. Leukocytosis improving Altered mental status CT head negative likely from sepsis Dehydration on IV fluid. Will recheck chest x-ray today. Will hold IV fluid for now. Acute hypoxic respiratory failure needing oxygen supplementation Influenza a on Tamiflu Pneumonia right upper lobe infiltrate on chest x-ray. Restarted on ceftriaxone azithromycin. Urine antigens ordered. MRSA nares COPD with mild wheezing Deatment monitor closely.uoNeb scheduled. UTI: Received vancomycin in the ER. culture negative Hyperlipidemia on atorvastatin GERD on Protonix DVT prophylaxis Lovenox Code status do not resuscitate Disposition: PT OT fall precautions Subjective Date/time seen: 12/29/24 09:39 Interval history: Patient was seen during the morning rounds today. Patient was admitted for influenza and pneumonia. No new overnight complaints. Shortness of breath is better. No chest pain. No abdominal pain, nausea, no vomiting. Review of Systems Review of Systems: All systems reviewed & are unremarkable except as noted in HPI and below (HPI) Exam Narrative: GENERAL: Ill-appearing, not in acute distress HEAD: [Normocephalic, atraumatic.] EYES: [PERRLA and EOMI.] ENT: Nares clear, no rhinorrhea or epistaxis. Mucous membranes moist. NECK: Supple. CHEST: Coarse bibasilar breath sounds, end-expiratory wheezing mildly tachypneic on 4 L oxygen HEART: Regular rate with regular rhythm. No murmur heard. [Normal peripheral pulses.] ABDOMEN: [Soft, nondistended], [nontender], [No rigidity or guarding] EXTREMITIES: Normal range of motion. [No edema.] SKIN: Warm, dry, no rash. No sacral decubitus ulcers NEURO: [No focal deficits]. Alert and oriented x3 PSYCH: [Normal mood and affect.] Const: General: comfortable and no acute distress Other: A&O x3 HENMT: Mouth: Yes dry mucous membranes Eyes: Pupils: Equal, round and reactive pupils present Neck: Neck: supple Resp: Effort & Inspection: normal respiratory effort Other: Coarse breath sounds bilaterally Neuro: Cranial nerves: Yes Equal, round and reactive pupils present Extrem: General: no edema Objective Data Vital Signs Vital Signs: Vital Signs - 24 hr 12/28/24 10:00 12/28/24 12:00 12/28/24 12:00 Temperature 36.9 C Pulse Rate 81 102 H Respiratory Rate 24 H Blood Pressure 128/58 L Pulse Oximetry 98 98 Oxygen Delivery Nasal Cannula Oxygen Flow Rate 3 12/28/24 12:00 12/28/24 14:00 12/28/24 14:31 Temperature Pulse Rate 102 H 87 92 Respiratory Rate 18 Blood Pressure Pulse Oximetry Oxygen Delivery Oxygen Flow Rate 12/28/24 14:43 12/28/24 16:00 12/28/24 16:00 Temperature 37.9 C H Pulse Rate 98 106 H 101 H Respiratory Rate 18 16 Blood Pressure 134/69 Pulse Oximetry 92 Oxygen Delivery Oxygen Flow Rate 12/28/24 18:35 12/28/24 21:12 12/28/24 21:26 Temperature 36.8 C Pulse Rate 93 95 Respiratory Rate 18 18 Blood Pressure Pulse Oximetry Oxygen Delivery Oxygen Flow Rate 12/28/24 21:26 12/28/24 21:54 12/29/24 02:19 Temperature 35.9 C L Pulse Rate 90 77 Respiratory Rate 18 18 Blood Pressure 138/49 L Pulse Oximetry 92 96 Oxygen Delivery High Flow Nasal Cannula Oxygen Flow Rate 3 12/29/24 02:31 12/29/24 06:01 Temperature 36.5 C Pulse Rate 80 87 Respiratory Rate 18 18 Blood Pressure 168/75 H Pulse Oximetry 90 Oxygen Delivery Oxygen Flow Rate Intake/Output Intake/Output: Intake & Output 12/26/24 12/27/24 12/28/24 12/29/24 23:59 23:59 23:59 23:59 Intake Total 900 890 900 240 Output Total 950 1000 1100 750 Balance -50 -110 -200 -510 Meds/Results Medications: Active Medications Generic Name Dose Route Start Last Admin Trade Name Freq PRN Reason Stop Dose Admin Acetaminophen 1,000 mg 12/26/24 08:25 12/29/24 06:24 Acetaminophen 500 Mg Tablet PO 1,000 mg TID PRN Administration pain (scale score 1-3) Acetaminophen 650 mg 12/26/24 08:28 12/28/24 22:00 Acetaminophen 325 Mg Tablet PO 350 mg Q4H PRN Administration Fever Albuterol/Ipratropium 3 ml 12/26/24 14:00 12/29/24 09:15 Ipratropium 0.5 Mg/Albuterol Sulfate 2.5 Mg Ampul.Neb 3 Ml INHALATION 3 ml Q6HRT MARJORIE Administration Amlodipine Besylate 5 mg 12/26/24 09:00 12/29/24 08:26 Amlodipine Besylate 5 Mg Tablet PO 5 mg DAILY MARJORIE Administration Atorvastatin Calcium 10 mg 12/26/24 09:00 12/29/24 08:26 Atorvastatin 10 Mg Tablet PO 10 mg DAILY MARJORIE Administration Calcium Carbonate 500 mg 12/26/24 09:00 12/29/24 08:26 Calcium/Vitamin D 500 Mg/5 Mcg (200 I.U.) Tablet PO 500 mg DAILY MARJORIE Administration Calcium Polycarbophil 625 mg 12/26/24 09:00 12/29/24 08:26 Calcium Polycarbophil 625 Mg Tablet PO 625 mg BID MARJORIE Administration Cyanocobalamin 500 mcg 12/26/24 09:00 12/29/24 08:26 Cyanocobalamin 500 Mcg Tablet BY MOUTH 01/25/25 08:59 500 mcg QAM MARJORIE Administration Enoxaparin Sodium 30 mg 12/26/24 09:00 12/29/24 08:26 Enoxaparin 30 Mg/0.3 Ml Syringe SUB-Q Not Given DAILY MARJORIE Fluticasone/Umeclidinium/Vilanterol 1 puff 12/26/24 08:00 12/29/24 09:15 Fluticasone/Umeclidin/Vilanter 100-62.5-25 Mcg Ellipta INHALATION 1 puff DAILYRT MARJORIE Administration Lactated Ringer's 1,000 mls @ 100 mls/hr 12/25/24 22:00 12/26/24 08:51 Lr - Lactated Ringers Iv IV CONT Not Given .Q10H MARJORIE Ceftriaxone Sodium 1 gm in 50 mls @ 100 mls/hr 12/26/24 19:00 12/28/24 20:27 Rocephin 1 Gm/Ns 50 Ml IVPB 100 mls/hr Q24H MARJORIE Administration Levofloxacin 250 mg 12/28/24 09:00 12/28/24 08:31 Levofloxacin 250 Mg Tablet PO 250 mg DAILY MARJORIE Administration Lisinopril 40 mg 12/26/24 09:00 12/29/24 08:26 Lisinopril 20 Mg Tablet PO 40 mg DAILY MARJORIE Administration Metoclopramide HCl 5 mg 12/26/24 01:54 12/27/24 10:57 Metoclopramide Hcl Inj 10 Mg/2 Ml Vial IV PUSH 5 mg Q6HR PRN Administration nausea Pantoprazole Sodium 40 mg 12/26/24 21:00 12/28/24 20:26 Pantoprazole 40 Mg Tablet PO 40 mg HS MARJORIE Administration Vitamin E 400 unit 12/26/24 09:00 12/29/24 08:26 Vitamin E 400 Unit Capsule PO 01/25/25 08:59 400 unit DAILY MARJORIE Administration Radiology Results: ITS Impressions Head CT 12/25/24 21:00 Impression: No acute intracranial hemorrhage or suspicious mass effect. Chest X-Ray 12/26/24 09:30 IMPRESSION: 1. Airspace opacities in right midlung zone and the lower lung zones with worsening at the lung bases, consistent with atelectasis/scarring versus pneumonia. Chest CTA 12/26/24 16:17 IMPRESSION: 1. No pulmonary embolus. 2. Right upper lobe pneumonia. 3. Radiation pneumonitis in right lower lobe. 4. Moderate emphysema. Labs Labs: Laboratory Results - last 24 hr 12/26/24 12/29/24 04:47 06:19 WBC 10.2 H RBC 3.52 L Hgb 10.8 L Hct 34.8 L MCV 98.9 MCH 30.7 MCHC 31.0 L RDW 13.3 Plt Count 324 MPV 9.0 Urine Pneumococcal Ag Not detected
[2024-12-29] MEDS: PANTOPRAZOLE 40 MG TABLET PO (20:05)
[2024-12-30] VITALS (14 sets, daily range): BP systolic 125–170; BP diastolic 52–79; PULSE 78–107; RESP 18–20; TEMP 36.1–36.4; O2SAT 90–97
[2024-12-30] MEDS: IPRATROPIUM 0.5 MG/ALBUTEROL SULFATE 2.5 MG AMPUL.NEB 3 ML INHALATION ×4 (02:13→21:22)
[2024-12-30] MEDS: ACETAMINOPHEN 500 MG TABLET 1000 MG PO ×2 (03:06→20:32)
[2024-12-30] MEDS: VITAMIN E 400 UNIT CAPSULE PO (09:02)
[2024-12-30] MEDS: lisinopriL 20 MG TABLET 40 MG PO (09:02)
[2024-12-30] MEDS: calcium polycarbophiL 625 MG TABLET PO ×2 (09:02→18:04)
[2024-12-30] MEDS: ATORVASTATIN 10 MG TABLET PO (09:02)
[2024-12-30] MEDS: amLODIPine BESYLATE 5 MG TABLET PO (09:02)
[2024-12-30] MEDS: CYANOCOBALAMIN 500 MCG TABLET BY MOUTH (09:02)
[2024-12-30] MEDS: CALCIUM/VITAMIN D 500 MG/5 MCG (200 I.U.) TABLET PO (09:02)
[2024-12-30] MEDS: levoFLOXacin 250 MG TABLET PO (09:02)
[2024-12-30] MEDS: ENOXAPARIN 30 MG/0.3 ML SYRINGE SUB-Q (09:06)
--- NOTE | 2024-12-30 12:06 | PM.IMPN ---
Progress Note: A&P Assessment and Plan (1) Influenza A: Code(s): J10.1 - Influenza due to other identified influenza virus with other respiratory manifestations Status: Acute Assessment and Plan: symptomatic control pt still wheezy today BT steroids added continue 2 liters of oxygen continue to wean off oxygen (2) Pneumonia: Code(s): J18.9 - Pneumonia, unspecified organism Status: Acute Assessment and Plan: Pt advised to continue oral levaquin (3) HTN (hypertension): Code(s): I10 - Essential (primary) hypertension Status: Acute Assessment and Plan: Stable on current medication, will continue current treatment. (4) Sepsis: Code(s): A41.9 - Sepsis, unspecified organism Status: Acute Assessment and Plan: Severe Sepsis with fever tachycardia of influenza a and leukocytosis and right upper lobe infiltrate. Leukocytosis improving Altered mental status CT head negative likely from sepsis Dehydration sp fluids Acute hypoxic respiratory failure needing oxygen supplementation Influenza a on Tamiflu Pneumonia right upper lobe infiltrate on chest x-ray. Restarted on ceftriaxone azithromycin. pt refusing iv abx now COPD with mild wheezing Deatment monitor closely.uoNeb scheduled. UTI: Received vancomycin in the ER. culture negative Hyperlipidemia on atorvastatin GERD on Protonix (5) Urinary tract infection: Code(s): N39.0 - Urinary tract infection, site not specified Status: Acute Assessment and Plan: Urine culture negative. Subjective Date/time seen: 12/30/24 12:06 Interval history: This is a pleasant 79-year-old female with a past medical history hypertension, CKD stage 3, hyperlipidemia carotid stenosis, history of bladder cancer, osteopenia, GERD, COPD, previous hospitalization for acute hypoxic respiratory failure due to COPD/possible pneumonia, asymptomatic cholelithiasis. She presents to [place] [facility] via EMS on 12/25/2024 with concerns of altered mental status. Patient resides at a [facility] and family was concerned about her mentation therefore EMS was summoned. She apparently was moaning and groaning ER evaluation found patient to be hypoxic on room air 86% and placed on 4 L with good response. Low-grade fever of 100.6? F and tachycardia to 114. Lab workup revealed leukocytosis of 16,000. Elevated BUN. UA negative of infection, positive for influenza A. Chest x-ray demonstrating right upper lobe infiltrate. CT head negative. Patient received Tylenol, O2, volume resuscitation and her tachycardia and fever resolved. Patient given IV antibiotics. Upon arrival to medical-surgical floor the patient was resting comfortably and A&O x3. Patient was admitted for influenza and pneumonia. Pt now on 2 liters of oxygen from 6 liters on admission. long discussion with daughter and pt by the bedside. Review of Systems Review of Systems: Pt still unwell coughing sob wheezy Exam Narrative: GENERAL: unwell coughing HEAD: [Normocephalic, atraumatic.] EYES: [PERRLA and EOMI.] ENT: Nares clear, no rhinorrhea or epistaxis. Mucous membranes moist. NECK: Supple. CHEST: diffuse wheeze throughout lung bee HEART: Regular rate with regular rhythm. No murmur heard. [Normal peripheral pulses.] ABDOMEN: [Soft, nondistended], [nontender], [No rigidity or guarding] EXTREMITIES: Normal range of motion. [No edema.] SKIN: Warm, dry, no rash. No sacral decubitus ulcers NEURO: [No focal deficits]. Alert and oriented x3 PSYCH: [Normal mood and affect.] Objective Data Vital Signs Vital Signs: Vital Signs - 24 hr 12/29/24 15:29 12/29/24 20:00 12/29/24 20:32 Temperature 36.6 C Pulse Rate 92 85 Respiratory Rate 18 18 Blood Pressure 130/72 Pulse Oximetry 93 93 Oxygen Delivery High Flow Nasal Cannula Oxygen Flow Rate 2 12/29/24 20:32 12/29/24 20:42 12/29/24 21:54 Temperature 36.5 C Pulse Rate 83 89 Respiratory Rate 18 20 Blood Pressure 170/57 H Pulse Oximetry 93 97 Oxygen Delivery High Flow Nasal Cannula Oxygen Flow Rate 3 12/30/24 01:15 12/30/24 02:14 12/30/24 02:22 Temperature Pulse Rate 80 78 Respiratory Rate 18 18 Blood Pressure Pulse Oximetry 94 Oxygen Delivery High Flow Nasal Cannula Oxygen Flow Rate 2 12/30/24 06:00 12/30/24 08:40 12/30/24 08:40 Temperature 36.1 C L Pulse Rate 83 54 L 96 Respiratory Rate 18 20 20 Blood Pressure 125/58 L Pulse Oximetry 96 90 Oxygen Delivery Nasal Cannula Oxygen Flow Rate 2 12/30/24 08:56 Temperature Pulse Rate 107 H Respiratory Rate 20 Blood Pressure Pulse Oximetry Oxygen Delivery Oxygen Flow Rate Intake/Output Intake/Output: Intake & Output 12/27/24 12/28/24 12/29/24 12/30/24 23:59 23:59 23:59 23:59 Intake Total 870 704 9205 240 Output Total 1000 1100 850 250 Balance -110 -150 410 -10 Meds/Results Medications: Active Medications Generic Name Dose Route Start Last Admin Trade Name Freq PRN Reason Stop Dose Admin Acetaminophen 1,000 mg 12/26/24 08:25 12/30/24 03:06 Acetaminophen 500 Mg Tablet PO 1,000 mg TID PRN Administration pain (scale score 1-3) Acetaminophen 650 mg 12/26/24 08:28 12/28/24 22:00 Acetaminophen 325 Mg Tablet PO 350 mg Q4H PRN Administration Fever Albuterol/Ipratropium 3 ml 12/26/24 14:00 12/30/24 08:39 Ipratropium 0.5 Mg/Albuterol Sulfate 2.5 Mg Ampul.Neb 3 Ml INHALATION 3 ml Q6HRT MARJORIE Administration Amlodipine Besylate 5 mg 12/26/24 09:00 12/30/24 09:02 Amlodipine Besylate 5 Mg Tablet PO 5 mg DAILY MARJORIE Administration Atorvastatin Calcium 10 mg 12/26/24 09:00 12/30/24 09:02 Atorvastatin 10 Mg Tablet PO 10 mg DAILY MARJORIE Administration Calcium Carbonate 500 mg 12/26/24 09:00 12/30/24 09:02 Calcium/Vitamin D 500 Mg/5 Mcg (200 I.U.) Tablet PO 500 mg DAILY MARJORIE Administration Calcium Polycarbophil 625 mg 12/26/24 09:00 12/30/24 09:02 Calcium Polycarbophil 625 Mg Tablet PO 625 mg BID MARJORIE Administration Cyanocobalamin 500 mcg 12/26/24 09:00 12/30/24 09:02 Cyanocobalamin 500 Mcg Tablet BY MOUTH 01/25/25 08:59 500 mcg QAM MARJORIE Administration Enoxaparin Sodium 30 mg 12/26/24 09:00 12/30/24 09:06 Enoxaparin 30 Mg/0.3 Ml Syringe SUB-Q 30 mg DAILY MARJORIE Administration Fluticasone/Umeclidinium/Vilanterol 1 puff 12/26/24 08:00 12/30/24 08:40 Fluticasone/Umeclidin/Vilanter 100-62.5-25 Mcg Ellipta INHALATION Not Given DAILYRT MARJORIE Lactated Ringer's 1,000 mls @ 100 mls/hr 12/25/24 22:00 12/26/24 08:51 Lr - Lactated Ringers Iv IV CONT Not Given .Q10H MARJORIE Ceftriaxone Sodium 1 gm in 50 mls @ 100 mls/hr 12/26/24 19:00 12/29/24 18:20 Rocephin 1 Gm/Ns 50 Ml IVPB Infused Q24H MARJORIE Infusion Levofloxacin 250 mg 12/28/24 09:00 12/30/24 09:02 Levofloxacin 250 Mg Tablet PO 250 mg DAILY MARJORIE Administration Lisinopril 40 mg 12/26/24 09:00 12/30/24 09:02 Lisinopril 20 Mg Tablet PO 40 mg DAILY MARJORIE Administration Metoclopramide HCl 5 mg 12/26/24 01:54 12/27/24 10:57 Metoclopramide Hcl Inj 10 Mg/2 Ml Vial IV PUSH 5 mg Q6HR PRN Administration nausea Pantoprazole Sodium 40 mg 12/26/24 21:00 12/29/24 20:05 Pantoprazole 40 Mg Tablet PO 40 mg HS MARJORIE Administration Vitamin E 400 unit 12/26/24 09:00 12/30/24 09:02 Vitamin E 400 Unit Capsule PO 01/25/25 08:59 400 unit DAILY MARJORIE Administration Radiology Results: ITS Impressions Head CT 12/25/24 21:00 Impression: No acute intracranial hemorrhage or suspicious mass effect. Chest X-Ray 12/26/24 09:30 IMPRESSION: 1. Airspace opacities in right midlung zone and the lower lung zones with worsening at the lung bases, consistent with atelectasis/scarring versus pneumonia. Chest CTA 12/26/24 16:17 IMPRESSION: 1. No pulmonary embolus. 2. Right upper lobe pneumonia. 3. Radiation pneumonitis in right lower lobe. 4. Moderate emphysema.
[2024-12-30] MEDS: methylPREDNISolone SOD SUCC 40 MG VIAL IV PUSH ×2 (12:52→20:32)
[2024-12-30] MEDS: ACETAMINOPHEN 325 MG TABLET 650 MG PO (12:52)
[2024-12-30 19:14] LABS: Legionella pneumophila Ag Ur NOT DETECTED
[2024-12-30] MEDS: PANTOPRAZOLE 40 MG TABLET PO (20:32)
[2024-12-31] VITALS (9 sets, daily range): BP systolic 130–168; BP diastolic 60–73; PULSE 84–105; RESP 14–24; TEMP 36.3–36.9; O2SAT 91–100
[2024-12-31] MEDS: IPRATROPIUM 0.5 MG/ALBUTEROL SULFATE 2.5 MG AMPUL.NEB 3 ML INHALATION ×4 (02:40→21:58)
[2024-12-31] MEDS: methylPREDNISolone SOD SUCC 40 MG VIAL IV PUSH ×2 (06:22→14:13)
[2024-12-31 07:16] LABS: Hematocrit 33.1 % (37.0-47.0); Hemoglobin 10.3 g/dL (12.0-15.0); Mean Corpuscular HGB Conc 31.1 g/dl (32-36); Mean Corpuscular Hemoglobin 30.2 pg (26-34); Mean Corpuscular Volume 97.1 fl (80-100); Platelet Count Result 370 k/mm3 (150-375); Red Blood Count 3.41 M/mm3 (4.2-5.4); Red Cell Distribution Width 13.4 % (11.5-14.5); White Blood Count 10.2 K/mm3 (4.5-10.0)
[2024-12-31 07:23] LABS: Anion Gap 9 mmol/L (4-12); Blood Urea Nitrogen 21 mg/dL (7-17); Calcium 9.4 mg/dL (8.4-10.2); Carbon Dioxide 30 mmol/L (22-30); Chloride 104 mmol/L (98-107); Estimated CRCL calculation 41 ml/min; Estimated Glomerular Filt Rate > 60; Glucose 151 mg/dL (65-110); Potassium 4.6 mmol/L (3.4-5.0); Sodium 143 mmol/L (137-145)
[2024-12-31] MEDS: ENOXAPARIN 40 MG/0.4 ML SYRINGE SUB-Q (08:28)
[2024-12-31] MEDS: ACETAMINOPHEN 500 MG TABLET 1000 MG PO ×3 (08:28→21:45)
[2024-12-31] MEDS: levoFLOXacin 250 MG TABLET PO (08:29)
[2024-12-31] MEDS: CYANOCOBALAMIN 500 MCG TABLET BY MOUTH (08:29)
[2024-12-31] MEDS: calcium polycarbophiL 625 MG TABLET PO ×2 (08:29→17:32)
[2024-12-31] MEDS: amLODIPine BESYLATE 5 MG TABLET PO (08:29)
[2024-12-31] MEDS: lisinopriL 20 MG TABLET 40 MG PO (08:29)
[2024-12-31] MEDS: ATORVASTATIN 10 MG TABLET PO (08:29)
[2024-12-31] MEDS: VITAMIN E 400 UNIT CAPSULE PO (08:29)
[2024-12-31] MEDS: CALCIUM/VITAMIN D 500 MG/5 MCG (200 I.U.) TABLET PO (08:29)
[2024-12-31] MEDS: FLUTICASONE/UMECLIDIN/VILANTER 100-62.5-25 MCG ELLIPTA 1 PUFF INHALATION (09:03)
[2024-12-31 11:33] LABS: Mycoplasma IgM Antibody Titer 2 U/mL
--- NOTE | 2024-12-31 14:37 | P.PNIM_ITS ---
Progress Note: A&P Assessment and Plan (1) Sepsis: Code(s): A41.9 - Sepsis, unspecified organism Status: Acute Assessment and Plan: Severe Sepsis with fever tachycardia of influenza a and leukocytosis and right upper lobe infiltrate. Leukocytosis improving Altered mental status CT head negative likely from sepsis Dehydration sp fluids Acute hypoxic respiratory failure needing oxygen supplementation Influenza a on Tamiflu Pneumonia right upper lobe infiltrate on chest x-ray. Restarted on ceftriaxone azithromycin. pt refusing iv abx now UTI: Received vancomycin in the ER. culture negative Hyperlipidemia on atorvastatin GERD on Protonix 12/30 * urine and blood cultures negative * continue Levaquin for pneumonia * continue Tamiflu for the influenza a (2) Acute hypoxic respiratory failure: Code(s): J96.01 - Acute respiratory failure with hypoxia Status: Acute Assessment and Plan: * continue to wean O2 for sat greater than 92% * currently on 3 L nasal cannula * continue DuoNeb * will start pep therapy and incentive spirometry * will start Mucinex (3) Pneumonia: Code(s): J18.9 - Pneumonia, unspecified organism Status: Acute Assessment and Plan: * continue Levaquin (4) Influenza A: Code(s): J10.1 - Influenza due to other identified influenza virus with other respiratory manifestations Status: Acute Assessment and Plan: * steroid discontinued as it is contraindicated in influenza A patients * continue Tamiflu * continue DuoNeb * continue pep therapy and incentive spirometry * continue Mucinex (5) Urinary tract infection: Code(s): N39.0 - Urinary tract infection, site not specified Status: Acute Assessment and Plan: Urine culture negative. 12/30 * ruled out (6) HTN (hypertension): Code(s): I10 - Essential (primary) hypertension Status: Acute Assessment and Plan: 12/30 * blood pressures ranging 130/66 to 170/79 * continue amlodipine and lisinopril Time Spent With Patient Time with patient: 25 - 35 minutes Subjective Date/time seen: 12/31/24 14:37 Interval history: interval history: This is an 79-year-old female with a significant past medical history of hypertension, chronic kidney disease stage 3, hyperlipidemia, carotid stenosis, bladder cancer, osteopenia, GERD, COPD who presented to the hospital on 12/26/2024 with altered mental status In acute respiratory failure with hypoxia. Workup in the hospital included a chest x-ray which showed a right upper lobe infiltrate. CT of the head was negative for any acute intracranial findings. Respiratory panel was positive for influenza A. She was initially meeting sepsis criteria with elevated white blood cell count, temp of 100.6?, tachycardia, pneumonia on chest x-ray, acute respiratory failure with hypoxia. Patient was started on Levaquin and Tamiflu. Subjective: Patient reports diaphoresis and shortness of breath. She still has a productive cough and is currently on 3 L nasal cannula. Labs and imaging reviewed. Review of Systems Review of Systems: All systems reviewed & are unremarkable except as noted in HPI and below (HPI) Exam Narrative: General: In no acute distress, well nourished Head: atraumatic, no encephalopathy Eyes: PERRLA, sclera clear ENT: moist mucous membranes, nasal passages clear Neck: supple, no JVD, no adenopathy, trachea midline Cardiac: Normal S1 and S2. No murmur, gallops or friction rubs, peripheral pulses intact. Respiratory: rhonchi with wheezing noted bilaterally, no adventitious lung sounds , currently on 3 L nasal cannula Gastrointestinal: soft, non-distended, non-tender, normoactive bowel sounds. : voiding without difficulty. Extremities: moves all extremities well, no edema Skin: clean, dry, intact. No wounds or lesions. Neuro: Alert and oriented x4, cranial nerves intact, no neuro deficits. Psych: normal mood, normal affect, interactive Objective Data Vital Signs Vital Signs: Vital Signs - 24 hr 12/30/24 14:39 12/30/24 21:23 12/30/24 21:25 Temperature Pulse Rate 97 96 Respiratory Rate 20 20 Blood Pressure Pulse Oximetry 94 Oxygen Delivery Nasal Cannula Oxygen Flow Rate 2 12/30/24 21:32 12/30/24 22:00 12/31/24 02:40 Temperature 97.6 F Pulse Rate 97 104 H 90 Respiratory Rate 20 20 20 Blood Pressure 170/79 H Pulse Oximetry 97 Oxygen Delivery Oxygen Flow Rate 12/31/24 05:48 12/31/24 07:32 12/31/24 08:39 Temperature 97.4 F L Pulse Rate 105 H 88 Respiratory Rate 17 24 H Blood Pressure 143/60 H Pulse Oximetry 96 91 Oxygen Delivery Nasal Cannula Oxygen Flow Rate 2 12/31/24 13:45 12/31/24 13:45 12/31/24 13:47 Temperature Pulse Rate 101 H 94 Respiratory Rate 24 H 14 Blood Pressure 130/66 Pulse Oximetry 100 92 Oxygen Delivery Nasal Cannula Oxygen Flow Rate 3 Intake/Output Intake/Output: Intake & Output 12/28/24 12/29/24 12/30/24 12/31/24 23:59 23:59 23:59 23:59 Intake Total 950 1260 720 490 Output Total 1100 850 250 Balance -150 410 470 490 Meds/Results Medications: Active Medications Generic Name Dose Route Start Last Admin Trade Name Freq PRN Reason Stop Dose Admin Acetaminophen 1,000 mg 12/26/24 08:25 12/31/24 14:13 Acetaminophen 500 Mg Tablet PO 1,000 mg TID PRN Administration pain (scale score 1-3) Acetaminophen 650 mg 12/26/24 08:28 12/30/24 12:52 Acetaminophen 325 Mg Tablet PO 650 mg Q4H PRN Administration Fever Albuterol/Ipratropium 3 ml 12/26/24 14:00 12/31/24 13:45 Ipratropium 0.5 Mg/Albuterol Sulfate 2.5 Mg Ampul.Neb 3 Ml INHALATION 3 ml Q6HRT MARJORIE Administration Amlodipine Besylate 5 mg 12/26/24 09:00 12/31/24 08:29 Amlodipine Besylate 5 Mg Tablet PO 5 mg DAILY MARJORIE Administration Atorvastatin Calcium 10 mg 12/26/24 09:00 12/31/24 08:29 Atorvastatin 10 Mg Tablet PO 10 mg DAILY MARJORIE Administration Calcium Carbonate 500 mg 12/26/24 09:00 12/31/24 08:29 Calcium/Vitamin D 500 Mg/5 Mcg (200 I.U.) Tablet PO 500 mg DAILY MARJORIE Administration Calcium Polycarbophil 625 mg 12/26/24 09:00 12/31/24 08:29 Calcium Polycarbophil 625 Mg Tablet PO 625 mg BID MARJORIE Administration Cyanocobalamin 500 mcg 12/26/24 09:00 12/31/24 08:29 Cyanocobalamin 500 Mcg Tablet BY MOUTH 01/25/25 08:59 500 mcg QAM MARJORIE Administration Enoxaparin Sodium 40 mg 12/31/24 09:00 12/31/24 08:28 Enoxaparin 40 Mg/0.4 Ml Syringe SUB-Q 40 mg DAILY MARJORIE Administration Fluticasone/Umeclidinium/Vilanterol 1 puff 12/26/24 08:00 12/31/24 09:03 Fluticasone/Umeclidin/Vilanter 100-62.5-25 Mcg Ellipta INHALATION 1 puff DAILYRT MARJORIE Administration Levofloxacin 250 mg 12/28/24 09:00 12/31/24 08:29 Levofloxacin 250 Mg Tablet PO 12/31/24 23:59 250 mg DAILY MARJORIE Administration Lisinopril 40 mg 12/26/24 09:00 12/31/24 08:29 Lisinopril 20 Mg Tablet PO 40 mg DAILY MARJORIE Administration Methylprednisolone Sodium Succinate 40 mg 12/30/24 12:20 12/31/24 14:13 Methylprednisolone Sod Succ 40 Mg Vial IV PUSH 40 mg Q8HR MARJORIE Administration Metoclopramide HCl 5 mg 12/26/24 01:54 12/27/24 10:57 Metoclopramide Hcl Inj 10 Mg/2 Ml Vial IV PUSH 5 mg Q6HR PRN Administration nausea Pantoprazole Sodium 40 mg 12/26/24 21:00 12/30/24 20:32 Pantoprazole 40 Mg Tablet PO 40 mg HS MARJORIE Administration Vitamin E 400 unit 12/26/24 09:00 12/31/24 08:29 Vitamin E 400 Unit Capsule PO 01/25/25 08:59 400 unit DAILY MARJORIE Administration Radiology Results: ITS Impressions Head CT 12/25/24 21:00 Impression: No acute intracranial hemorrhage or suspicious mass effect. Chest X-Ray 12/26/24 09:30 IMPRESSION: 1. Airspace opacities in right midlung zone and the lower lung zones with worsening at the lung bases, consistent with atelectasis/scarring versus pneumonia. Chest CTA 12/26/24 16:17 IMPRESSION: 1. No pulmonary embolus. 2. Right upper lobe pneumonia. 3. Radiation pneumonitis in right lower lobe. 4. Moderate emphysema. Labs Labs: Laboratory Results - last 24 hr 12/26/24 12/26/24 12/31/24 04:18 04:47 06:53 WBC 10.2 H RBC 3.41 L Hgb 10.3 L Hct 33.1 L MCV 97.1 MCH 30.2 MCHC 31.1 L RDW 13.4 Plt Count 370 MPV 9.0 Sodium 143 Potassium 4.6 Chloride 104 Carbon Dioxide 30 Anion Gap 9 BUN 21 H Creatinine 0.78 Estim Creat Clear Calc 41 Estimated GFR > 60 Glucose 151 H Calcium 9.4 Ur L.pneumophila Ag Not detected Mycoplasma pneumon IgM 2 Quality VTE Prophylaxis VTE prophylaxis: pharmacologic ordered
[2024-12-31] MEDS: guaiFENesin 12 HR 600 MG TABCR PO (21:45)
[2024-12-31] MEDS: PANTOPRAZOLE 40 MG TABLET PO (21:45)
[2025-01-01] VITALS (11 sets, daily range): BP systolic 110–156; BP diastolic 49–91; PULSE 68–95; RESP 20–22; TEMP 36.4–37.2; O2SAT 93–98
--- NOTE | 2025-01-01 05:23 | PCRCNOTE ---
Window of time for administration has passed. See next scheduled administration.
--- NOTE | 2025-01-01 07:27 | PM.IMPN ---
Progress Note: A&P Assessment and Plan (1) Sepsis: Code(s): A41.9 - Sepsis, unspecified organism Status: Acute Assessment and Plan: Severe Sepsis with fever tachycardia of influenza a and leukocytosis and right upper lobe infiltrate. Leukocytosis improving Altered mental status CT head negative likely from sepsis Dehydration sp fluids Acute hypoxic respiratory failure needing oxygen supplementation Influenza a on Tamiflu Pneumonia right upper lobe infiltrate on chest x-ray. Restarted on ceftriaxone azithromycin. pt refusing iv abx now UTI: Received vancomycin in the ER. culture negative Hyperlipidemia on atorvastatin GERD on Protonix 12/30 urine and blood cultures negative continue Levaquin for pneumonia continue Tamiflu for the influenza a 01/01 Continue Levaquin and Tamiflu (2) Acute hypoxic respiratory failure: Code(s): J96.01 - Acute respiratory failure with hypoxia Status: Acute Assessment and Plan: continue to wean O2 for sat greater than 92% currently on 3 L nasal cannula continue DuoNeb will start pep therapy and incentive spirometry will start Mucinex 01/01 Patient currently on 1.5 L nasal cannula Continue to wean O2 for sat greater than 92% Continue DuoNebs Continue Mucinex Will start Flonase and Claritin Continue pep therapy and incentive spirometry White blood cell count increased to 16.6, she remains afebrile Will plan for home O2 eval tomorrow and potential discharge home if white blood cell count is trending back down (3) Pneumonia: Code(s): J18.9 - Pneumonia, unspecified organism Status: Acute Assessment and Plan: continue Levaquin 01/01 No change to current treatment plan (4) Influenza A: Code(s): J10.1 - Influenza due to other identified influenza virus with other respiratory manifestations Status: Acute Assessment and Plan: steroid discontinued as it is contraindicated in influenza A patients continue Tamiflu continue DuoNeb continue pep therapy and incentive spirometry continue Mucinex 01/01 No change to current treatment (5) Urinary tract infection: Code(s): N39.0 - Urinary tract infection, site not specified Status: Acute Assessment and Plan: Urine culture negative. 12/30 ruled out (6) HTN (hypertension): Code(s): I10 - Essential (primary) hypertension Status: Acute Assessment and Plan: 12/30 blood pressures ranging 130/66 to 170/79 continue amlodipine and lisinopril 01/01 No change to current treatment Time Spent With Patient Time with patient: 25 - 35 minutes Subjective Date/time seen: 01/01/25 07:27 Interval history: interval history: This is an 79-year-old female with a significant past medical history of hypertension, chronic kidney disease stage 3, hyperlipidemia, carotid stenosis, bladder cancer, osteopenia, GERD, COPD who presented to the hospital on 12/26/2024 with altered mental status In acute respiratory failure with hypoxia. Workup in the hospital included a chest x-ray which showed a right upper lobe infiltrate. CT of the head was negative for any acute intracranial findings. Respiratory panel was positive for influenza A. She was initially meeting sepsis criteria with elevated white blood cell count, temp of 100.6?, tachycardia, pneumonia on chest x-ray, acute respiratory failure with hypoxia. Patient was started on Levaquin and Tamiflu. Subjective: Patient denies any new complaints today. She states she is feeling a little bit better today. She is currently on 1.5 L nasal cannula. Labs reviewed. Review of Systems Review of Systems: Pt still unwell coughing sob wheezy All systems reviewed & are unremarkable except as noted in HPI and below (HPI) Exam Narrative: General: In no acute distress, well nourished Cardiac: Normal S1 and S2. No murmur, gallops or friction rubs, peripheral pulses intact. Respiratory: rhonchi noted bilaterally, no adventitious lung sounds , currently on 1.5 L nasal cannula, productive Gastrointestinal: soft, non-distended, non-tender, normoactive bowel sounds. : voiding without difficulty. Neuro: Alert and oriented x4 Objective Data Vital Signs Vital Signs: Vital Signs - 24 hr 12/31/24 07:32 12/31/24 08:39 12/31/24 13:45 Temperature Pulse Rate 88 101 H Respiratory Rate 24 H 24 H Blood Pressure Pulse Oximetry 91 Oxygen Delivery Nasal Cannula Oxygen Flow Rate 2 12/31/24 13:45 12/31/24 13:47 12/31/24 14:00 Temperature 98 F Pulse Rate 94 94 Respiratory Rate 14 14 Blood Pressure 130/66 130/66 Pulse Oximetry 100 92 100 Oxygen Delivery Nasal Cannula Oxygen Flow Rate 3 12/31/24 21:30 12/31/24 22:00 12/31/24 22:00 Temperature 98.4 F Pulse Rate 87 84 Respiratory Rate 24 H 22 H Blood Pressure 168/73 H Pulse Oximetry 92 96 Oxygen Delivery Nasal Cannula Oxygen Flow Rate 3 01/01/25 05:00 Temperature 98.9 F Pulse Rate 95 Respiratory Rate 20 Blood Pressure 150/61 H Pulse Oximetry 94 Oxygen Delivery Oxygen Flow Rate Intake/Output Intake/Output: Intake & Output 12/29/24 12/30/24 12/31/24 01/01/25 23:59 23:59 23:59 23:59 Intake Total 2251 782 4620 400 Output Total 850 250 Balance 452 815 3121 400 Meds/Results Medications: Active Medications Generic Name Dose Route Start Last Admin Trade Name Freq PRN Reason Stop Dose Admin Acetaminophen 1,000 mg 12/26/24 08:25 12/31/24 21:45 Acetaminophen 500 Mg Tablet PO 1,000 mg TID PRN Administration pain (scale score 1-3) Acetaminophen 650 mg 12/26/24 08:28 12/30/24 12:52 Acetaminophen 325 Mg Tablet PO 650 mg Q4H PRN Administration Fever Albuterol/Ipratropium 3 ml 12/26/24 14:00 01/01/25 05:23 Ipratropium 0.5 Mg/Albuterol Sulfate 2.5 Mg Ampul.Neb 3 Ml INHALATION Not Given Q6HRT [facility] Amlodipine Besylate 5 mg 12/26/24 09:00 12/31/24 08:29 Amlodipine Besylate 5 Mg Tablet PO 5 mg DAILY [facility] Administration Atorvastatin Calcium 10 mg 12/26/24 09:00 12/31/24 08:29 Atorvastatin 10 Mg Tablet PO 10 mg DAILY MARJORIE Administration Calcium Carbonate 500 mg 12/26/24 09:00 12/31/24 08:29 Calcium/Vitamin D 500 Mg/5 Mcg (200 I.U.) Tablet PO 500 mg DAILY [facility] Administration Calcium Polycarbophil 625 mg 12/26/24 09:00 12/31/24 17:32 Calcium Polycarbophil 625 Mg Tablet PO 625 mg BID [facility] Administration Cyanocobalamin 500 mcg 12/26/24 09:00 12/31/24 08:29 Cyanocobalamin 500 Mcg Tablet BY MOUTH 01/25/25 08:59 500 mcg QAM [facility] Administration Enoxaparin Sodium 40 mg 12/31/24 09:00 12/31/24 08:28 Enoxaparin 40 Mg/0.4 Ml Syringe SUB-Q 40 mg DAILY MARJORIE Administration Fluticasone/Umeclidinium/Vilanterol 1 puff 12/26/24 08:00 12/31/24 09:03 Fluticasone/Umeclidin/Vilanter 100-62.5-25 Mcg Ellipta INHALATION 1 puff DAILYRT MARJORIE Administration Guaifenesin 600 mg 12/31/24 21:00 12/31/24 21:45 Guaifenesin 12 Hr 600 Mg Tabcr PO 600 mg Q12HR MARJORIE Administration Lisinopril 40 mg 12/26/24 09:00 12/31/24 08:29 Lisinopril 20 Mg Tablet PO 40 mg DAILY MARJORIE Administration Metoclopramide HCl 5 mg 12/26/24 01:54 12/27/24 10:57 Metoclopramide Hcl Inj 10 Mg/2 Ml Vial IV PUSH 5 mg Q6HR PRN Administration nausea Pantoprazole Sodium 40 mg 12/26/24 21:00 12/31/24 21:45 Pantoprazole 40 Mg Tablet PO 40 mg HS MARJORIE Administration Vitamin E 400 unit 12/26/24 09:00 12/31/24 08:29 Vitamin E 400 Unit Capsule PO 01/25/25 08:59 400 unit DAILY MARJORIE Administration Radiology Results: ITS Impressions Head CT 12/25/24 21:00 Impression: No acute intracranial hemorrhage or suspicious mass effect. Chest X-Ray 12/26/24 09:30 IMPRESSION: 1. Airspace opacities in right midlung zone and the lower lung zones with worsening at the lung bases, consistent with atelectasis/scarring versus pneumonia. Chest CTA 12/26/24 16:17 IMPRESSION: 1. No pulmonary embolus. 2. Right upper lobe pneumonia. 3. Radiation pneumonitis in right lower lobe. 4. Moderate emphysema. Labs Labs: Laboratory Results - last 24 hr 12/26/24 04:18 Mycoplasma pneumon IgM 2 Quality VTE Prophylaxis VTE prophylaxis: pharmacologic ordered
[2025-01-01] MEDS: lisinopriL 20 MG TABLET 40 MG PO (08:26)
[2025-01-01] MEDS: CALCIUM/VITAMIN D 500 MG/5 MCG (200 I.U.) TABLET PO (08:28)
[2025-01-01] MEDS: amLODIPine BESYLATE 5 MG TABLET PO (08:28)
[2025-01-01] MEDS: VITAMIN E 400 UNIT CAPSULE PO (08:28)
[2025-01-01] MEDS: CYANOCOBALAMIN 500 MCG TABLET BY MOUTH (08:28)
[2025-01-01] MEDS: ATORVASTATIN 10 MG TABLET PO (08:28)
[2025-01-01] MEDS: calcium polycarbophiL 625 MG TABLET PO ×2 (08:28→17:35)
[2025-01-01] MEDS: ENOXAPARIN 40 MG/0.4 ML SYRINGE SUB-Q (08:28)
[2025-01-01] MEDS: guaiFENesin 12 HR 600 MG TABCR PO ×2 (08:28→20:30)
[2025-01-01] MEDS: IPRATROPIUM 0.5 MG/ALBUTEROL SULFATE 2.5 MG AMPUL.NEB 3 ML INHALATION ×3 (08:33→19:27)
[2025-01-01] MEDS: FLUTICASONE/UMECLIDIN/VILANTER 100-62.5-25 MCG ELLIPTA 1 PUFF INHALATION (08:36)
[2025-01-01 09:05] LABS: Basophils Percent Auto 0.1 % (0.2-1.2); Hematocrit 37.5 % (37.0-47.0); Hemoglobin 11.5 g/dL (12.0-15.0); Immature Granulocyte Absolute 0.12 K/mm3 (0.00-0.031); Immature Granulocyte Percent A 0.7 % (0-0.5); Lymphocytes Absolute Auto 1.79 K/mm3 (0.9-3.2); Lymphocytes Percent Auto 10.8 % (18.3-44.2); Mean Corpuscular HGB Conc 30.7 g/dl (32-36); Mean Corpuscular Hemoglobin 30.3 pg (26-34); Mean Corpuscular Volume 98.9 fl (80-100); Monocytes Absolute Auto 0.6 K/mm3 (0.1-0.6); Monocytes Percent Auto 3.6 % (2.6-8.5); Neutrophils Percent Auto 84.8 % (45.5-73.1); Platelet Count Result 464 k/mm3 (150-375); Red Blood Count 3.79 M/mm3 (4.2-5.4); Red Cell Distribution Width 13.6 % (11.5-14.5); White Blood Count 16.6 K/mm3 (4.5-10.0)
[2025-01-01 09:19] LABS: Alanine Aminotransferase 28 U/L (6-35); Albumin Level 3.9 g/dL (3.5-5.1); Alkaline Phosphatase 133 U/L (38-126); Anion Gap 12 mmol/L (4-12); Aspartate Amino Transferase 27 U/L (14-36); Bilirubin,Total 0.4 mg/dL (0.2-1.3); Blood Urea Nitrogen 27 mg/dL (7-17); Carbon Dioxide 26 mmol/L (22-30); Chloride 105 mmol/L (98-107); Estimated CRCL calculation 38 ml/min; Estimated Glomerular Filt Rate > 60; Glucose 113 mg/dL (65-110); Magnesium 1.9 mg/dL (1.6-2.3); Potassium 4.1 mmol/L (3.4-5.0); Sodium 143 mmol/L (137-145)
--- NOTE | 2025-01-01 09:19 | PCNWS ---
Weekly nutritional screen. Patient is tolerating current heart healthy diet with adequate intake 100%. No weight loss reported. No nutritional recommendations at this time.
[2025-01-01] MEDS: ACETAMINOPHEN 500 MG TABLET 1000 MG PO (12:51)
[2025-01-01] MEDS: FLUTICASONE PROPIONATE 0.05% NA SPR 16 GM BTL (*BKC) 2 SPRAY NASAL (18:54)
[2025-01-01] MEDS: LORATADINE 10 MG TABLET PO (18:54)
[2025-01-01] MEDS: ACETAMINOPHEN 325 MG TABLET 650 MG PO (20:30)
[2025-01-01] MEDS: PANTOPRAZOLE 40 MG TABLET PO (20:30)
[2025-01-02] VITALS (8 sets, daily range): BP systolic 133; BP diastolic 72–76; PULSE 88–125; RESP 18–20; TEMP 36.2–36.7; O2SAT 92–95
--- NOTE | 2025-01-02 02:59 | PCRCNOTE ---
After several attempts I was unable to wake the pt up.
[2025-01-02] MEDS: IPRATROPIUM 0.5 MG/ALBUTEROL SULFATE 2.5 MG AMPUL.NEB 3 ML INHALATION (07:24)
[2025-01-02] MEDS: FLUTICASONE/UMECLIDIN/VILANTER 100-62.5-25 MCG ELLIPTA 1 PUFF INHALATION (07:24)
[2025-01-02 07:37] LABS: Basophils Percent Auto 0.3 % (0.2-1.2); Eosinophils Absolute Auto 0.1 K/mm3 (0-0.3); Eosinophils Percent Auto 0.4 % (0-4.4); Hematocrit 37.3 % (37.0-47.0); Hemoglobin 11.5 g/dL (12.0-15.0); Immature Granulocyte Percent A 0.8 % (0-0.5); Lymphocytes Absolute Auto 2.18 K/mm3 (0.9-3.2); Lymphocytes Percent Auto 17.9 % (18.3-44.2); Mean Corpuscular HGB Conc 30.8 g/dl (32-36); Mean Corpuscular Hemoglobin 30.3 pg (26-34); Mean Corpuscular Volume 98.4 fl (80-100); Mean Platelet Volume 8.9 fl (7.4-10.4); Monocytes Absolute Auto 0.7 K/mm3 (0.1-0.6); Monocytes Percent Auto 5.5 % (2.6-8.5); Neutrophils Absolute Auto 9.2 K/mm3 (1.3-6.7); Neutrophils Percent Auto 75.1 % (45.5-73.1); Platelet Count Result 466 k/mm3 (150-375); Red Blood Count 3.79 M/mm3 (4.2-5.4); Red Cell Distribution Width 13.7 % (11.5-14.5); White Blood Count 12.2 K/mm3 (4.5-10.0)
[2025-01-02 08:07] LABS: Alanine Aminotransferase 27 U/L (6-35); Albumin Level 3.7 g/dL (3.5-5.1); Alkaline Phosphatase 102 U/L (38-126); Anion Gap 7 mmol/L (4-12); Aspartate Amino Transferase 29 U/L (14-36); Bilirubin,Total 0.6 mg/dL (0.2-1.3); Blood Urea Nitrogen 28 mg/dL (7-17); Calcium 9.7 mg/dL (8.4-10.2); Carbon Dioxide 33 mmol/L (22-30); Chloride 103 mmol/L (98-107); Estimated CRCL calculation 34 ml/min; Estimated Glomerular Filt Rate 56; Glucose 78 mg/dL (65-110); Potassium 5.2 mmol/L (3.4-5.0); Sodium 143 mmol/L (137-145)
[2025-01-02] MEDS: guaiFENesin 12 HR 600 MG TABCR PO (08:38)
[2025-01-02] MEDS: CYANOCOBALAMIN 500 MCG TABLET BY MOUTH (08:38)
[2025-01-02] MEDS: LORATADINE 10 MG TABLET PO (08:39)
[2025-01-02] MEDS: ATORVASTATIN 10 MG TABLET PO (08:39)
[2025-01-02] MEDS: amLODIPine BESYLATE 5 MG TABLET PO (08:39)
[2025-01-02] MEDS: VITAMIN E 400 UNIT CAPSULE PO (08:39)
[2025-01-02] MEDS: lisinopriL 20 MG TABLET 40 MG PO (08:39)
[2025-01-02] MEDS: calcium polycarbophiL 625 MG TABLET PO (08:39)
[2025-01-02] MEDS: CALCIUM/VITAMIN D 500 MG/5 MCG (200 I.U.) TABLET PO (08:39)
[2025-01-02] MEDS: ENOXAPARIN 40 MG/0.4 ML SYRINGE SUB-Q (08:40)
[2025-01-02] MEDS: FLUTICASONE PROPIONATE 0.05% NA SPR 16 GM BTL (*BKC) 2 SPRAY NASAL (08:40)
--- NOTE | 2025-01-02 11:52 | P.DS_ITS ---
DS: Admitting Diagnosis Discharge Date 01/02/25 Admitting Diagnosis Sepsis, influenza a, acute hypoxic resp. failure, pneumonia, uti, htn, DS: Discharge Diagnosis Discharge Diagnosis (1) Sepsis: Code(s): A41.9 - Sepsis, unspecified organism Status: Acute Assessment and Plan: Severe Sepsis with fever tachycardia of influenza a and leukocytosis and right upper lobe infiltrate. Leukocytosis improving Altered mental status CT head negative likely from sepsis Dehydration sp fluids Acute hypoxic respiratory failure needing oxygen supplementation Influenza a on Tamiflu Pneumonia right upper lobe infiltrate on chest x-ray. Restarted on ceftriaxone azithromycin. pt refusing iv abx now UTI: Received vancomycin in the ER. culture negative Hyperlipidemia on atorvastatin GERD on Protonix 12/30 * urine and blood cultures negative * continue Levaquin for pneumonia * continue Tamiflu for the influenza a 01/01 * Continue Levaquin and Tamiflu 01/02 - Completed abx course. (2) Acute hypoxic respiratory failure: Code(s): J96.01 - Acute respiratory failure with hypoxia Status: Acute Assessment and Plan: * continue to wean O2 for sat greater than 92% * currently on 3 L nasal cannula * continue DuoNeb * will start pep therapy and incentive spirometry * will start Mucinex 01/01 * Patient currently on 1.5 L nasal cannula * Continue to wean O2 for sat greater than 92% * Continue DuoNebs * Continue Mucinex * Will start Flonase and Claritin * Continue pep therapy and incentive spirometry * White blood cell count increased to 16.6, she remains afebrile * Will plan for home O2 eval tomorrow and potential discharge home if white blood cell count is trending back down 01/02 - Walk test pending, likely home with supp. O2. - Close o/p f/u with pcp for weaning if able. (3) Pneumonia: Code(s): J18.9 - Pneumonia, unspecified organism Status: Acute Assessment and Plan: * continue Levaquin 01/01 * No change to current treatment plan 01/02 - Completed levaquin course. (4) Influenza A: Code(s): J10.1 - Influenza due to other identified influenza virus with other respiratory manifestations Status: Acute Assessment and Plan: * steroid discontinued as it is contraindicated in influenza A patients * continue Tamiflu * continue DuoNeb * continue pep therapy and incentive spirometry * continue Mucinex 01/01 * No change to current treatment 01/02 - Doing well, cont. supportive care at home. (5) Urinary tract infection: Code(s): N39.0 - Urinary tract infection, site not specified Status: Acute Assessment and Plan: Urine culture negative. 12/30 * ruled out 01/02 - Some urinary symptoms today, frequency, will check urinalysis. No significant retention on PVR. (6) HTN (hypertension): Code(s): I10 - Essential (primary) hypertension Status: Acute Assessment and Plan: 12/30 * blood pressures ranging 130/66 to 170/79 * continue amlodipine and lisinopril 01/01 * No change to current treatment 01/02 - Stable. Plan Frieda is doing well today, has completed abx courses, and will return to home with close o/p f/u planned. DS: Summary Hospital Course Reason for hospitalization: Sepsis, influenza a, acute hypoxic resp. failure, pneumonia, uti, htn, Hospital Course: Frieda Perkins is an 79 year old female presenting with acute hypoxic resp. failure from flu A and pneumonia. She was treated with levaquin and completed a full course of abx. She has had improvement in her symptomology. She is still O2 requiring this am and will discharge with oxygen therapy. On day of discharge she is in no acute distress and is doing well. Good appetite and up to the bathroom and lightly ambulating without difficulty. Status at Discharge Functional status at discharge: independent ambulation Overall status at discharge: patient is progressing back to baseline Time Spent with Patient Time attestation: Total time spent providing and/or coordinating discharge services: Time spent: Greater than 30 minutes Exam Narrative: GENERAL APPEARANCE: Appears to be in no acute distress. HEAD: normocephalic atraumatic EYES: PERRL, EOMI. Vision grossly intact. ENT: Hearing grossly intact, no nasal discharge NECK: Neck supple, trachea midline. CARDIAC: Normal S1/S2. Rhythm is regular. No murmurs, rubs, or gallops. No cyanosis or pallor. Extremities are warm and well perfused. LUNGS: Clear to auscultation without rales, rhonchi, wheezing or diminished breath sounds. Respirations even and unlabored. ABDOMEN: BS positive x 4 quadrants. Soft, nondistended, nontender. No guarding or rebound. MSK: No joint tenderness/swelling, fair strength in all extremities. PERIPHERAL VASCULAR: Peripheral pulses palpable. Normal perfusion, cap refill <2 seconds. No edema. NEURO: Follows commands. No focal deficits. SKIN: [place] without lesions or eruptions. PSYCH: Stable, no paranoia or delusional thinking. DS: Data Data Completed and Pending Labs on day of discharge: Labs from last 24 hours 01/02/25 06:57 WBC 12.2 H RBC 3.79 L Hgb 11.5 L Hct 37.3 MCV 98.4 MCH 30.3 MCHC 30.8 L RDW 13.7 Plt Count 466 H MPV 8.9 Immature Gran % (Auto) 0.8 H Neut % (Auto) 75.1 H Lymph % (Auto) 17.9 L [place] % (Auto) 5.5 Eos % (Auto) 0.4 Baso % (Auto) 0.3 Lymph # (Auto) 2.18 [place] # (Auto) 0.7 H Eos # (Auto) 0.1 Baso # (Auto) 0.0 Abs Immat Gran (auto) 0.10 H Absolute Neuts (auto) 9.2 H Absolute Nucleated RBC 0.000 Nucleated RBC % 0.0 Sodium 143 Potassium 5.2 H Chloride 103 Carbon Dioxide 33 H Anion Gap 7 BUN 28 H Creatinine 0.96 Estim Creat Clear Calc 34 Estimated GFR 56 L Glucose 78 Calcium 9.7 Total Bilirubin 0.6 AST 29 ALT 27 Alkaline Phosphatase 102 Total Protein 7.0 Albumin 3.7 Discharge Plan Discharge Attending physician on discharge: Emanuel Vanegas Discharging Clinician: Emanuel Vanegas Anticipated Discharge Date/Time: 01/02/25 15:00 Patient Disposition: Home, Self-Care Activity: unlimited Diet: as tolerated and regular Discharge Instructions: - Follow up with your primary care provider in the next 1-2 weeks. - Take all medications as prescribed. - If anything other than steady improvement please contact your PCP or seek evaluation urgently. - Please follow all discharge directions as written, call for any questions or need for clarification. - Thank you for choosing [facility] for your healthcare needs Patient Instructions: Antibiotic Form Patient Language: Setswana Stand Alone Forms: General Discharge Information Follow-up/Referrals: Dennis Bowling MD [Primary Care Provider] - (Recheck on acute hypoxic resp. failure, urinary frequency. Thank you. ) Discharge Medications: Continued albuterol sulfate [Ventolin HFA] 90 mcg/actuation HFA aerosol inhaler 2 puff inhalation QID PRN (Reason: shortness of breath or wheezing) Qty: 8.5 0RF calcium carbonate-vitamin D3 [Calcium 500 + D] 500 mg(1,250mg) -400 unit tablet 1 tablet PO DAILY Patient Comments: 2 TAB QAM amlodipine 5 mg tablet 5 mg PO DAILY Qty: 90 3RF atorvastatin 10 mg tablet 10 mg PO DAILY Qty: 90 3RF hydrochlorothiazide 25 mg tablet 25 mg PO DAILY Qty: 90 3RF Patient Comments: QAM lisinopril 40 mg tablet 40 mg PO DAILY Qty: 90 3RF Patient Comments: QAM calcium polycarbophil [Fiber (calcium polycarbophil)] 625 mg Tablet 625 mg PO BID Qty: 60 0RF Patient Comments: DAILY QAM acetaminophen 500 mg tablet 1,000 mg PO TID PRN (Reason: pain (scale score 1-3)) 7 Days Qty: 42 0RF vitamin E 400 unit Tablet 180 mg PO DAILY cyanocobalamin (vitamin B-12) 500 mcg 500 mcg BYMOUTH QAM omeprazole 20 mg capsule,delayed release(DR/EC) 20 mg PO HS Patient Comments: QAM Breztri Aerosphere 160-9-4.8 mcg/actuation HFA aerosol inhaler 2 inh inhalation BID Qty: 5.9 0RF Date of admission: 12/25/24 21:59 Primary Care Provider: Dennis Bowling Admitting Provider: Nyasia Jones Attending physician on admission: Nyasia Jones Condition: Guarded Prognosis Care Plan Goals: Close f/u with primary care to determine time/ability to wean supplemental O2.
[2025-01-02 12:03] LABS: Add Urine Microscopic? YES; Appearance Urine Clear (Clear); Bacteria Urine None Seen /hpf; Bilirubin Urine Negative (Negative); Blood Urine Negative (Negative); Color Urine Yellow (Yellow); Glucose Urine UA Negative (Negative); Ketones Urine Negative (Negative); Leukocyte Esterase Ur Trace LEU/UL (Negative); Nitrate Urine Negative (Negative); Non Pathogenic Casts 0-2; Protein Urine Negative (Negative); RBC Urine 0-2 /hpf (0-2); Specific Grav Ur 1.012 (1.001-1.035); Squamous Epithelial Cell Urine None Seen /hpf (Few); Urobilinogen Urine 0.2 mg/dL (<2.0); WBC Urine 0-5 /hpf (0-3); pH Urine 7.5 (5.0-9.0)
--- NOTE | 2025-01-02 14:02 | HOMEO2EVAL ---
Evaluation was performed at [facility] Home Oxygen Evaluation RC: Home Oxygen (O2) Evaluation Start: 01/02/25 12:03 Freq: ONCE Status: Active Protocol: RPE Activity Type Activity Date Activity User E-sign Co-sign Detail Recorded Client Recorded Date Recorded By Document 01/02/25 12:00 [email or web address] [email or web address] 01/02/25 14:02 FRANK Document 01/02/25 12:05 [email or web address] [email or web address] 01/02/25 14:02 FRANK Document 01/02/25 12:15 FRANK [email or web address] 01/02/25 14:02 FRANK 01/02/25 01/02/25 01/02/25 12:00 12:05 12:15 Home O2 Evaluation [Oxygen] -Test Phase Resting Exercise Resting -Oxygen Delivery Room Air Room Air Room Air [Pulse Oximetry] -Pulse Oximetry (90-100 %) 94 92 93 [Pulse Rate] -Pulse Rate (60-100 beats/min) 88 96 90 [Exercise] -Ambulation Distance (feet) 75 -Ambulation Distance (meters) 22.85 [Comments] -Home Oxygen Evaluation Comments Walked in room, no home O2 needed at this time. [Charges] -Evaluation Charges O2 Evaluation by Pulmonary
--- NOTE | 2025-01-02 14:02 | PCRCNOTE ---
Home O2 eval done, no home O2 needed at this time. RN notified.
== END 2025-01-02 14:00 | disposition home or self-care (01) | DRG 871 ==
LOC: ANHED 22:07 → ANHIMU 22:38 → ANH3MEDSUR 12-28 17:42
PROVIDERS: Family Medicine; Internal Medicine; Nurse Practitioner Acute Care; Admitting Provider General Practice; Emergency Provider Student in an Organized Health Care Education/Training Program; PCP Family Medicine; Visit Provider Nurse Practitioner Family
DX: A41.9 Sepsis, unspecified organism (principal); J10.00 Influenza due to other identified influenza virus with unspecified type of pneumonia; J96.01 Acute respiratory failure with hypoxia; R65.20 Severe sepsis without septic shock; I12.9 Hypertensive chronic kidney disease with stage 1 through stage 4 chronic kidney disease, or unspecified chronic kidney disease; N18.30 Chronic kidney disease, stage 3 unspecified; J44.9 Chronic obstructive pulmonary disease, unspecified; I65.29 Occlusion and stenosis of unspecified carotid artery; I70.0 Atherosclerosis of aorta; E78.5 Hyperlipidemia, unspecified; K21.9 Gastro-esophageal reflux disease without esophagitis; M81.0 Age-related osteoporosis without current pathological fracture; F41.1 Generalized anxiety disorder; Z20.822 Contact with and (suspected) exposure to COVID-19; Z87.891 Personal history of nicotine dependence; Z85.51 Personal history of malignant neoplasm of bladder; Z85.118 Personal history of other malignant neoplasm of bronchus and lung
CPT/HCPCS: 36415; 36600; 70450; 71045; 71275; 80048; 80053; 81001; 82805; 83605; 83735; 84484; 85018; 85025; 85027; 85610; 85730; 86140; 86738; 87040; 87086; 87449; 87637; 87641; 87899; 93005; 94618; 94640; 94667; 96365; 96367; 96375; 97161; 97165; 99285; A9270; J0456; J0696; J1650; J2765; J2919; J3370; J3475; J7030; J7050; J7120; Q9967

== ENCOUNTER 2025-09-29 12:45 | Outpatient (CLI) | payer MEDICARE, SELFPAY ==
--- NOTE | ~2025-09-29 | US_ITS ---
Clinical History: I65.29 - Occlusion and stenosis of unspecified carotid ar... Examination: US carotid duplex BI Comparison: 02/03/2023 Technique: Grayscale, color, duplex/spectral Doppler sonography carotid and vertebral arteries. Distal CCA and Peak ICA systolic velocities provided. Society of Radiologists in Ultrasound (SRU) consensus criteria utilized, indirectly assessing stenosis by velocities. Findings: Scattered plaque Right side: CCA - 77 cm/sec. ICA - 98 cm/sec. ICA/CCA - 1.3 Left Side: CCA - 96 cm/sec. ICA - 127 cm/sec. ICA/CCA - 1.3 Normal antegrade flow measured bilateral vertebral arteries. IMPRESSION: 1. Left ICA just reaches threshold for 50-69% stenosis. 2. No hemodynamically significant right ICA stenosis (i.e., if any stenosis, less than 50%). 3. Normal bilateral antegrade vertebral artery flow. Stenosis measured by Society of Radiologists in Ultrasound (SRU) criteria. Reviewed, dictated and finalized at location R. H BOSS IMPRESSION: 1. Left ICA just reaches threshold for 50-69% stenosis. 2. No hemodynamically significant right ICA stenosis (i.e., if any stenosis, l ess than 50%). 3. Normal bilateral antegrade vertebral artery flow. Stenosis measured by Society of Radiologists in Ultrasound (SRU) criteria.
== END 2025-09-29 12:46 | disposition home or self-care (01) ==
PROVIDERS: PCP Family Medicine; Visit Provider Physician Assistant
DX: I65.22 Occlusion and stenosis of left carotid artery (principal)
CPT/HCPCS: 93880